=== PATIENT | male | born 1955 | race Caucasian/White ===

== ENCOUNTER 2018-01-28 18:40 | Inpatient (IN) | END 2018-02-05 20:50 | disposition short-term general hospital (02) | DRG 871 ==

== ENCOUNTER 2018-09-05 09:21 | Inpatient (IN) | END 2018-09-29 17:00 | DRG 870 ==

== ENCOUNTER 2018-10-31 20:32 | Inpatient (IN) | payer OTHER, MEDICAID ==
[~2018-10-31] VITALS: Ht 172.7 cm; Wt 61.0 kg
[~2018-10-31 20:32] MED LIST: ACET325T45 GTB; BISA10SU75 PR; DOCU-159 GTB; ENOX30DI2 SC; ESCI10TA GTB; IPRA3AMP29 INHALATION; LANS30CA GTB; METO-448 GTB; MIDO5TAB GTB; MORP10SO GTB; MULTI GTB; PANT40TA3 GTB; UDFER GTB
--- NOTE | 2018-10-31 20:59 | ERD ---
ER Documentation Chief Complaint Chief Complaint ALOC SINCE 3PM; "ABNORMAL LABS" PER EMS HPI 63-year-old man with multiple medical conditions including quadriplegia, bedbound state, chronic respiratory failure with tracheostomy connected to mechanical ventilator parotid by EMS from halfway facility for altered mental status since this afternoon. Urine was drawn this afternoon it was positive for urinary tract infection. He has had tactile fevers today as well. HPI was limited as patient is nonverbal but it was supplemented by speaking to EMS, reviewing past medical history, reviewing correction records, speaking with staff. ROS All systems reviewed and are negative except as per history of present illness. Medications Home Meds Reported Medications Pantoprazole* (Protonix*) 40 Mg Tablet., 40 MG GTB DAILY, TAB 09/05/18 Multivitamins* (Theragran*) 1 Tab Tab, 1 TAB GTB DAILY, TAB 09/05/18 Morphine Sulfate* (Morphine* Liq) 10 Mg/5 Ml Solution, 5 MG GTB Q4H PRN for MODERATE TO SEVERE PAIN, ML 09/05/18 Midodrine* (Midodrine*) 5 Mg Tablet, 5 MG GTB TID, TAB HOLD FOR SBP >120 09/05/18 Metoprolol Tartrate* (Lopressor*) 25 Mg Tab, 12.5 MG GTB BID, #60 TAB HOLD FOR SBP<110 OR HR<60 09/05/18 Ferrous Sulfate (Ferrous Sulfate) 300 Mg/5 Ml Liquid, 330 MG GTB BID 09/05/18 Enoxaparin Sodium* (Enoxaparin Sodium*) 30 Mg/0.3 Ml Syringe, 30 MG SC DAILY, SYR 09/05/18 Acetaminophen* (Acetaminophen*) 325 Mg Tablet, 325 MG GTB 30min prior PRN for PAIN AND OR ELEVATED TEMP, #30 TAB 30 min prior to treatment 09/05/18 Escitalopram Oxalate* (Lexapro*) 10 Mg Tablet, 10 MG GTB DAILY, #30 TAB 03/22/18 Lansoprazole* (Lansoprazole*) 30 Mg Capsule., 30 MG GTB DAILY, CAP 03/22/18 Ipratropium-Albuterol (Ipratropium-Albuterol) 0.5-3 Mg/3 Ml Ampul.neb, 3 ML INHALATION QID, #30 VIAL 01/28/18 Bisacodyl* (Bisacodyl*) 10 Mg Supp, 10 MG ID Q24H for CONSTIPATION, SUPP 01/28/18 Docusate Sodium* (Docusate Sodium*) 100 Mg Capsule, 100 MG GTB BID, #60 CAP 01/28/18 Acetaminophen* (Acetaminophen*) 325 Mg Tablet, 650 MG GTB Q6H PRN for MILD PAIN LEVEL 1-3, #30 TAB AND FOR FEVER>100.5F 01/28/18 Allergies Allergies: Coded Allergies: No Known Allergy (Unverified , 09/05/18) PMhx/Soc DNR status, respiratory failure with tracheostomy tube mechanical ventilator dependent, history of partial small bowel obstruction, obstructive uropathy, dysphagia with gastrostomy tube, CAD history of SD, hypertension, dysphasia, 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 Hx Cardiac Disorders: No (unable to assess) Hx Psychiatric Problems: No (unable to assess) Hx Alcohol Use: No (unable to assess) Hx Substance Use: No (unable to assess) Hx Tobacco Use: No (unable to assess) FmHx Family History: diabetes Physical Exam Vitals Vital Signs Date Temp Pulse Resp B/P (MAP) Pulse Ox O2 O2 Flow FiO2 Time Delivery Rate 10/31/18 85 18 98 45 20:40 10/31/18 102.7 85 12 93/65 (74) 98 20:37 Physical Exam GENERAL: Elderly, chronically debilitated, encephalopathic, febrile, appears dehydrated HEENT: Dry mucous membranes, tracheostomy tube in place, pink conjunctive, no goiter NEURO: Patient is able to speak and answer questions, pupils equal round and reactive to light, he has diffuse muscular wasting in upper and lower extremity contractures, quadriplegic CARDIAC: Tachycardic and regular, no murmurs rubs or gallops LUNGS: Clear bilaterally no wheezing crackles or stridor ABDOMEN: Soft nontender, no guarding, no rigidity, no rebound, no psoas sign no obturator sign. SKIN: Hot to touch and dry, no lacerations, no hematomas EXTREMITIES: No clubbing cyanosis or edema, calves are bilaterally symmetrical, no Homans sign, no popliteal cord sign. Distal pulses equal and bilateral Result Diagram: 11/01/18 0456 11/01/18 0456 Results 24 hrs Laboratory Tests Test 10/31/18 20:49 10/31/18 21:00 White Blood Count 10.4 10^3/ul Red Blood Count 3.89 10^6/ul Hemoglobin 11.2 g/dl Hematocrit 36.7 % Mean Corpuscular Volume 94.3 fl Mean Corpuscular Hemoglobin 28.8 pg Mean Corpuscular Hemoglobin Concent 30.5 g/dl Red Cell Distribution Width 15.1 % Platelet Count 232 10^3/UL Mean Platelet Volume 11.3 fl Immature Granulocytes % 0.300 % Neutrophils % 76.4 % Lymphocytes % 10.0 % Monocytes % 12.6 % Eosinophils % 0.2 % Basophils % 0.5 % Nucleated Red Blood Cells % 0.0 /100WBC Immature Granulocytes # 0.030 10^3/ul Neutrophils # 7.9 10^3/ul Lymphocytes # 1.0 10^3/ul Monocytes # 1.3 10^3/ul Eosinophils # 0.0 10^3/ul Basophils # 0.1 10^3/ul Nucleated Red Blood Cells # 0.0 10^3/ul Prothrombin Time 13.7 Sec Prothrombin Time Ratio 1.1 INR International Normalized Ratio 1.04 Activated Partial Thromboplast Time 25.6 Sec Sodium Level 145 mmol/L Potassium Level 5.0 mmol/L Chloride Level 106 mmol/L Carbon Dioxide Level 30 mmol/L Anion Gap 9 Blood Urea Nitrogen 49 mg/dl Creatinine 0.75 mg/dl Est Glomerular Filtrat Rate mL/min > 60 mL/min Glucose Level 99 mg/dl Calcium Level 9.5 mg/dl Total Bilirubin 0.3 mg/dl Direct Bilirubin 0.00 mg/dl Indirect Bilirubin 0.3 mg/dl Aspartate Amino Transf (AST/SGOT) 25 IU/L Alanine Aminotransferase (ALT/SGPT) 40 IU/L Alkaline Phosphatase 167 IU/L Troponin I 0.027 ng/ml Total Protein 7.7 g/dl Albumin 4.0 g/dl Globulin 3.70 g/dl Albumin/Globulin Ratio 1.08 Lipase 304 U/L Urine Color YELLOW Urine Clarity CLOUDY Urine pH 5.0 Urine Specific Clubb 1.017 Urine Ketones NEGATIVE mg/dL Urine Nitrite NEGATIVE mg/dL Urine Bilirubin NEGATIVE mg/dL Urine Urobilinogen NEGATIVE mg/dL Urine Leukocyte Esterase 3+ Gena/ul Urine Microscopic RBC 22 /HPF Urine Microscopic WBC > 182 /HPF Urine Bacteria FEW /HPF Urine Yeast (Budding) MANY /HPF Urine Hemoglobin NEGATIVE mg/dL Urine Glucose 1+ mg/dL Urine Total Protein 2+ mg/dl Current Medications Medications Dose Sig/Autumn Start Time Status Last (Trade) Ordered Route PRN Stop Time Admin Dose Reason Admin Cefepime HCl 50 ml @ ONCE ONCE 10/31/18 DC 10/31/18 100 mls/hr IVPB 21:00 21:21 10/31/18 21:29 650 mg ONCE ONCE 10/31/18 DC Acetaminophen ID 21:00 (Tylenol 10/31/18 21:27 Supp) Sodium 4,000 ml BOLUS OVER 2 10/31/18 DC 10/31/18 Chloride HOURS STAT 21:00 21:21 (NS) IV* 10/31/18 21:04 Procedures/MDM IV line was established patient was placed on electrical tests supervisor rhythm strip revealed a sinus rhythm at about 80 bpm with upright P and T waves. Patient was febrile, blood and urine cultures have been ordered results are pending I will follow-up. EKG performed, read by me revealed a normal sinus rhythm at 84 bpm, left axis deviation, narrow QRS complex, no concerning ST elevations or depressions noted I administered 4 L normal saline IV, acetaminophen per G-tube, and cefepime 1 g IV. CBC is unremarkable, electrolytes revealed dehydration with a BUN/creatinine 49/0.8, liver function tests normal, troponin negative, urinalysis positive for infection, lactic acid levels were low. I do not suspect sepsis. Patient admitted to telemetry setting for continued IV hydration and IV antibiotics. Departure Diagnosis: Primary Impression: Sepsis Sepsis type: sepsis due to unspecified organism Qualified Codes: A41.9 - Sepsis, unspecified organism Additional Impressions: Acute UTI Dehydration Acute encephalopathy Quadriplegia Condition: BALTA Ford MD Oct 31, 2018 20:59
[2018-10-31] MEDS ORDERED: SODIUM CHLORIDE 0.9% 1L BAG IV* STA (21:00)
[2018-10-31] MEDS ORDERED: CEFEPIME 1GM/50 ML (PMX) 50 ML IVPB ONE (21:00)
[2018-10-31] MEDS ORDERED: ACETAMINOPHEN 650 MG SUPP PR ONE (21:00)
[2018-10-31] MEDS ORDERED: ACETAMINOPHEN 325 MG TAB GTB ONE (21:30)
[2018-11-01] VITALS (32 sets, daily range): BP systolic 95–144; BP diastolic 59–129; PULSE 55–73; RESP 15–24; Ht 172.7 cm; Wt 61.0 kg
[2018-11-01] MEDS ORDERED: ACETAMINOPHEN 325 MG TAB GTB PRN
[2018-11-01] MEDS ORDERED: ALBUTEROL/IPRATROPIUM (NEB) 3 ML AMP HHN SCH
--- NOTE | 2018-11-01 00:52 | HP ---
DATE OF ADMISSION: 10/31/2018 CHIEF COMPLAINT AND HISTORY OF PRESENT ILLNESS: The patient is a 63-year-old gentleman well known to me from previous several admissions. The patient has a history of C-spine epidural abscess 2 weeks ago for which he underwent surgery; however has remained quite quadriplegic since then. The patient has also been on ventilator and is being fed through G-tube. The patient yesterday was noted to have fever at [facility] unit and urine culture, blood culture, sputum culture and routine labs were ordered. The patient's white count was normal; however, UA was positive for UTI. The patient is with history of Klebsiella UTI which was sensitive to imipenem. The patient was therefore started empirically on iv ertapenam The patient today at a longterm facility was noted to be unresponsive. The patient was sent to [facility] ER for further evaluation and management. I sent the patient in the ER, did spike temperature to 102.7. The patient received empiric cefepime in the ER along with fluid bolus. Lactic acid level came back only at 0.8. However, the patient was noted to be slightly hypertensive and clinically looked dry with BUN of 49 as compared to 33 six days ago while he was at [facility]. The patient is being admitted for further evaluation and management. The patient's mental status in the ER after giving fluids has improved and the patient is awake and responsive, which is at his baseline. The patient did not have any seizure. No reported hematemesis or melena. The patient recently did have upper GI bleed and also Clostridium difficile colitis. The patient did not have any abdominal distention. There is no leg edema. The patient is severely contracted in all extremities. The patient also has right corneal opacity and is blind in the right eye. The patient also has chronic sacral decubitus. REVIEW OF SYSTEMS: A total of 12 systems reviewed and all pertinent positive and negative findings have been described in the HPI. PAST MEDICAL HISTORY: As stated above. The patient recently was admitted at [facility] for C. diff colitis as well as upper GI bleed with aspiration pneumonia. ALLERGIES: NONE. SOCIAL HISTORY: The patient is a resident of [facility] The patient is an ex- smoker. Also, history of substance abuse in the past and alcohol abuse. Details are not available. FAMILY HISTORY: Noncontributory for patient's condition. PAST SURGICAL HISTORY: Cervical laminectomy, tracheostomy, G-tube placement and history of percutaneous endoscopic gastrostomy. PHYSICAL EXAMINATION: GENERAL: The patient was noted to be currently awake, follows simple commands. VITAL SIGNS: T-max 102.7, pulse 85, respirations 12, blood pressure 93/65, O2 saturation 98% on FiO2 of 45%. The patient is still on vent. HEENT: Atraumatic, normocephalic. Right corneal opacity unchanged. No eye discharge. Nose and ears are normal. NECK: Tracheostomy in place. No mass, no JVD. CHEST: Diminished air entry at bases. No use of accessory muscles. CARDIOVASCULAR: S1, S2 normal. No murmur. ABDOMEN: Soft, nondistended, nontender. EXTREMITIES: Severely contracted. NEUROLOGIC: The patient is awake, quadriplegic. SKIN: Without acute rash. Chronic sacral decubitus, stable. DIAGNOSTIC DATA: Chest x-ray: Mild right lower lobe atelectasis. LABORATORY DATA: Reviewed. UA: Positive for 3+ leukocyte esterase, more than 182 WBCs. The patient also has many yeast. WBC 10.4, hemoglobin 11.2, platelet 237. Sodium 145 up from 139, potassium 5, BUN 49, creatinine 0.7, glucose 99, calcium 9.5. AST 25, ALT 40, alkaline phosphatase 167, albumin 4. IMPRESSION: 1. Sepsis due to urinary tract infection. 2. Chronic respiratory failure, vent dependent. 3. 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 4. Acute kidney injury. 5. Right corneal opacity chronic with blindness. 6. Possible history of coronary artery disease with history of myocardial infarction. 7. Chronic sacral coccygeal decubitus. PLAN: The patient will be admitted on telemetry. The patient will be started on IV cefepime 1 gram b.i.d. ESBL Klebsiella pneumoniae back in 08/2018 was indeed sensitive to cefepime. We will continue the vent support. We will give free water due to hypernatremia and elevated BUN. We will continue wound care. We will hold off on metoprolol due to low blood pressure. The patient also has history of depression and we will continue Lexapro due to recent GI bleed possibly due to esophagitis or peptic disease. We will continue proton pump inhibitor. We will also continue tube feeding and we will do followup labs. Pulmonary consult from Dr. Hernández group will be obtained. We will also obtain infectious consult from Dr. Tesfaye. Meanwhile, the patient has had urine and blood culture sent from ER. Further recommendation will depend on patient's hospital course. The patient a few weeks ago at longterm facility was awake, alert and fairly oriented to answer question and he himself had requested to be DNR. I spoke with his sister Krissy [phone] and updated her regarding patient's condition & his desire to be DNR. She concurred with his decision to be DNR Dictated By: LORRAINE SHAH MD AB/NTS Conf#: [id number] DID#: [id number] CC: BALTA SOTOMAYOR MD;*EndCC* MTDD
[2018-11-01] MEDS: DEXTROSE 5% 1,000 ML IV SCH ×3 (02:12→21:45)
[2018-11-01] MEDS: BISACODYL 10 MG SUPP PR SCH (02:17)
[2018-11-01] MEDS ORDERED: PANTOPRAZOLE (EC) 40 MG TAB PO SCH (09:00)
[2018-11-01] MEDS ORDERED: MULTIVITAMINS THERAPEUTIC TAB GTB SCH (09:00)
[2018-11-01] MEDS ORDERED: DOCUSATE SODIUM 100 MG CAP PO SCH (09:00)
[2018-11-01] MEDS: FERROUS SULFATE 60 MG/ML 5ML CUP GTB SCH ×2 (09:00→21:30)
[2018-11-01] MEDS: DOCUSATE SODIUM 10 MG/ML (10ML CUP) GTB SCH ×2 (09:00→21:30)
[2018-11-01] MEDS: LANSOPRAZOLE 30 MG CAP GTB SCH (09:01)
[2018-11-01] MEDS: MULTIVITAMINS 30 ML CUP GTB SCH (09:01)
[2018-11-01] MEDS: MIDODRINE 5 MG TAB GTB SCH ×3 (09:01→21:31)
[2018-11-01] MEDS: ESCITALOPRAM 10 MG TAB GTB SCH (09:02)
[2018-11-01] MEDS: ENOXAPARIN 30 MG/0.3 ML SYG SC SCH (09:10)
[2018-11-01] MEDS: ALBUTEROL HFA 8 GM INHALER INH SCH ×3 (10:35→20:00)
[2018-11-01] MEDS: IPRATROPIUM (HFA) 12.9 GM INHALER INH SCH ×3 (10:35→20:00)
[2018-11-01] MEDS: CEFEPIME 1GM/50 ML (PMX) 50 ML IVPB SCH ×2 (11:09→21:30)
--- NOTE | 2018-11-01 11:25 | CONS ---
Date/Time of Note Date/Time of Note DATE: 11/01/18 TIME: 11:17 Assessment/Plan Assessment/Plan Additional Assessment/Plan IMP: 1. Urosepsis 2. Chronic respiratory failure, vent dependent. 3. 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 4. Pre-renal azotemia 5. Right corneal opacity chronic with blindness. 6. History of coronary artery disease with history of myocardial infarction. 7. Chronic sacral coccygeal decubitus RECS: 1. IVF's 2. Follow lactate clearance 3. Abx 4. Plans to de-escalate abx pending cultures 5. Vent support; orders completed 6. DVT/GI prophylaxis 7. Wound Care 8. TF/Free H20 Consultation Date/Type/Reason Admit Date/Time Oct 31, 2018 at 21:21 Date of Consultation: Nov 01, 2018 Type of Consult Pulm/CCM Reason for Consultation VDRF Hx of Present Illness Briefly, this is a 63-year-old gentleman with history of coronary artery disease, rnon-ST elevation [place], hypertension, history of aspiration pneumonia and chronic respiratory failure, C-spine epidural abscess, status post C3 to C4 laminectomy, quadriplegic, vent-dependent, prior Klebsiella UTI, obstructive uropathy, SNF resident. He was transferred from SNF with ALOC and fevers. Subjective hx not possible: pt non-verbal Past Medical History Medical History: coronary artery disease, hypertension, renal disease, urinary tract infection Past Surgical History Past Surgical Hx: other Family History Significant Family History: no pertinent family hx Social History Alcohol Use: none Smoking Status: Former smoker Drug Use: none Exam/Review of Systems Vital Signs Vitals Vital Signs Date Temp Pulse Resp B/P (MAP) Pulse Ox O2 O2 Flow FiO2 Time Delivery Rate 11/01/18 68 18 118/76 99 [place] 11:00 (90) l Ventilato r 11/01/18 100.1 09:03 11/01/18 40 08:00 Intake and Output 10/31/18 10/31/18 11/01/18 1515:00 23:00 07:00 IntakeIntake Total 280 ml OutputOutput Total 510 ml BalanceBalance -230 ml Exam Constitutional: non-verbal Head: normocephalic, atraumatic Eyes: nl conjunctiva, nl lids, nl sclera ENMT: nl external ears & nose, nl lips & teeth, nl nasal mucosa & septum, intubated Neck: supple, non-tender Respiratory: clear to auscultation, normal air movement Cardiovascular: regular rate and rhythm, nl pulses Gastrointestinal: soft, nl liver, spleen, non-tender Musculoskeletal: other (contracted ) Extremities: normal pulses, edema Neurological: lethargic Medications Medications Current Medications Acetaminophen (Tylenol Tab) 650 mg Q6H PRN GTB MILD PAIN LEVEL 1-3 Last administered on 11/01/18 09:03; Admin Dose 650 MG; Start 11/01/18 at 00:00 Bisacodyl (Dulcolax Supp) 10 mg Q24H CA Last administered on 11/01/18 02:17; Admin Dose 10 MG; Start 11/01/18 at 00:00 Enoxaparin Sodium (Lovenox) 30 mg DAILY SC Last administered on 11/01/18 09:10; Admin Dose 30 MG; Start 11/01/18 at 09:00 Escitalopram Oxalate (Lexapro) 10 mg DAILY GTB Last administered on 11/01/18 09:02; Admin Dose 10 MG; Start 11/01/18 at 09:00 Ferrous Sulfate (Feosol Liquid Cup) 330 mg BID GTB Last administered on 11/01/18 09:00; Admin Dose 330 MG; Start 11/01/18 at 09:00 Lansoprazole (Prevacid) 30 mg DAILY GTB Last administered on 11/01/18 09:01; Admin Dose 30 MG; Start 11/01/18 at 09:00 Midodrine (Proamatine) 5 mg TID GTB Last administered on 11/01/18 09:01; Admin Dose 5 MG; Start 11/01/18 at 09:00 Morphine Sulfate (morphine) 5 mg Q4H PRN GTB MODERATE TO SEVERE PAIN; Start 11/01/18 at 00:00 Dextrose 1,000 ml @ 60 mls/hr [id number] IV Last administered on 11/01/18 02:12; Admin Dose 60 MLS/HR; Start 11/01/18 at 00:00 Multivitamins (Multivitamin) 30 ml DAILY GTB Last administered on 11/01/18 09:01; Admin Dose 30 ML; Start 11/01/18 at 09:00 Docusate Sodium (Colace Liquid Cup) 100 mg BID GTB Last administered on 11/01/18at 09:00; Admin Dose 100 MG; Start 11/01/18 at 09:00 Albuterol (Ventolin Hfa) 4 puff QID RESP THERAPY INH Last administered on 11/01/18at 10:35; Admin Dose 4 PUFF; Start 11/01/18 at 08:00 Ipratropium Easley (Atrovent Hfa) 4 puff QID RESP THERAPY INH Last administered on 11/01/18at 10:35; Admin Dose 4 PUFF; Start 11/01/18 at 08:00 Cefepime HCl 50 ml @ 100 mls/hr Q12 IVPB Last administered on 11/01/18at 11:09; Admin Dose 100 MLS/HR; Start 11/01/18 at 09:30 Results Result Diagram: 11/01/18 0456 11/01/18 0456 Results 24 hrs Laboratory Tests Test 10/31/18 20:49 10/31/18 21:00 10/31/18 22:20 11/01/18 00:05 White Blood Count 10.4 # Red Blood Count 3.89 L Hemoglobin 11.2 L Hematocrit 36.7 L Mean Corpuscular 94.3 Volume Mean Corpuscular 28.8 L Hemoglobin Mean Corpuscular 30.5 L Hemoglobin Concent Red Cell 15.1 H Distribution Width Platelet Count 232 Mean Platelet Volume 11.3 H Immature 0.300 Granulocytes % Neutrophils % 76.4 Lymphocytes % 10.0 L Monocytes % 12.6 H Eosinophils % 0.2 Basophils % 0.5 Nucleated Red Blood 0.0 Cells % Immature 0.030 Granulocytes # Neutrophils # 7.9 H Lymphocytes # 1.0 Monocytes # 1.3 H Eosinophils # 0.0 Basophils # 0.1 Nucleated Red Blood 0.0 Cells # Prothrombin Time 13.7 Prothrombin Time 1.1 Ratio INR International 1.04 Normalized Ratio Activated 25.6 Partial Thromboplast Time Sodium Level 145 H Potassium Level 5.0 Chloride Level 106 Carbon Dioxide Level 30 Anion Gap 9 Blood Urea Nitrogen 49 H Creatinine 0.75 Est Glomerular > 60 Filtrat Rate mL/min Glucose Level 99 Calcium Level 9.5 Total Bilirubin 0.3 Direct Bilirubin 0.00 Indirect Bilirubin 0.3 Aspartate Amino 25 Transf (AST/SGOT) Alanine 40 Aminotransferase (AL T/SGPT) Alkaline Phosphatase 167 H Troponin I 0.027 Total Protein 7.7 Albumin 4.0 Globulin 3.70 H Albumin/Globulin 1.08 Ratio Lipase 304 H Urine Color YELLOW Urine Clarity CLOUDY A Urine pH 5.0 Urine Specific 1.017 Hatch Urine Ketones NEGATIVE Urine Nitrite NEGATIVE Urine Bilirubin NEGATIVE Urine Urobilinogen NEGATIVE Urine Leukocyte 3+ H Esterase Urine Microscopic 22 H RBC Urine Microscopic > 182 H WBC Urine Bacteria FEW A Urine Yeast MANY A (Budding) Urine Hemoglobin NEGATIVE Urine Glucose 1+ H Urine Total Protein 2+ H Lactic Acid Level 0.8 0.9 Test 11/01/18 04:56 White Blood Count 8.5 Red Blood Count 3.15 L Hemoglobin 9.1 L Hematocrit 29.6 L Mean Corpuscular 94.0 Volume Mean Corpuscular 28.9 L Hemoglobin Mean Corpuscular 30.7 L Hemoglobin Concent Red Cell 15.2 H Distribution Width Platelet Count 168 # Mean Platelet Volume 11.1 H Immature 0.400 Granulocytes % Neutrophils % 72.4 Lymphocytes % 15.9 Monocytes % 10.2 Eosinophils % 0.4 Basophils % 0.7 Nucleated Red Blood 0.0 Cells % Immature 0.030 Granulocytes # Neutrophils # 6.1 Lymphocytes # 1.4 Monocytes # 0.9 Eosinophils # 0.0 Basophils # 0.1 Nucleated Red Blood 0.0 Cells # Sodium Level 144 Potassium Level 4.2 Chloride Level 112 H Carbon Dioxide Level 24 Anion Gap 8 Blood Urea Nitrogen 31 #H Creatinine 0.61 Est Glomerular > 60 Filtrat Rate mL/min Glucose Level 101 Lactic Acid Level 0.8 Calcium Level 8.6 MIGUEL SWARTZ MD Nov 01, 2018 11:25
--- NOTE | 2018-11-01 15:56 | PN ---
Date/Time of Note Date/Time of Note DATE: 11/01/18 TIME: 15:53 Assessment/Plan VTE Prophylaxis Risk score (from [facility] [place])>0 risk: 7 SCD applied (from [facility] [place]): Yes SCD contraindicated: other Pharmacological prophylaxis: other Lines/Catheters IV C[facility]ter Type (from [facility] Mid Line Central line still needed: Yes Urinary Cath still in place: Yes Reason Cath still needed: urinary retention Assessment/Plan Assessment/Plan 1. Sepsis due to urinary tract infection. - ID consulted- notified 2. Chronic respiratory failure, vent dependent. - pulmonary consulted- Dr Avila 3. 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 4. Acute kidney injury. 5. Right corneal opacity chronic with blindness. 6. Possible history of coronary artery disease with history of myocardial infarction. 7. Chronic sacral coccygeal decubitus. Exam/Review of Systems Vital Signs Vitals Vital Signs Date Temp Pulse Resp B/P (MAP) Pulse Ox O2 O2 Flow FiO2 Time Delivery Rate 11/01/18 65 16 128/86 99 Mechanical 15:00 (100) Ventilator 11/01/18 40 12:00 11/01/18 99.5 12:00 Intake and Output 10/31/18 10/31/18 11/01/18 1515:00 23:00 07:00 IntakeIntake Total 280 ml OutputOutput Total 510 ml BalanceBalance -230 ml Exam Constitutional: non-verbal, frail Eyes: nl conjunctiva, nl lids ENMT: nl external ears & nose Neck: other Respiratory: diminished breath sounds Gastrointestinal: soft Musculoskeletal: muscle weakness, range of motion Extremities: normal pulses Neurological: confused, unresponsive Medications Medications Current Medications Bisacodyl (Dulcolax Supp) 10 mg Q24H SD Last administered on 11/01/18at 02:17; Admin Dose 10 MG; Start 11/01/18 at 00:00 Enoxaparin Sodium (Lovenox) 30 mg DAILY SC Last administered on 11/01/18at 09:10; Admin Dose 30 MG; Start 11/01/18 at 09:00 Escitalopram Oxalate (Lexapro) 10 mg DAILY GTB Last administered on 11/01/18at 09:02; Admin Dose 10 MG; Start 11/01/18 at 09:00 Ferrous Sulfate (Feosol Liquid Cup) 330 mg BID GTB Last administered on 11/01/18at 09:00; Admin Dose 330 MG; Start 11/01/18 at 09:00 Lansoprazole (Prevacid) 30 mg DAILY GTB Last administered on 11/01/18at 09:01; Admin Dose 30 MG; Start 11/01/18 at 09:00 Midodrine (Proamatine) 5 mg TID GTB Last administered on 11/01/18at 13:35; Admin Dose 5 MG; Start 11/01/18 at 09:00 Morphine Sulfate (morphine) 5 mg Q4H PRN GTB MODERATE TO SEVERE PAIN; Start 11/01/18 at 00:00 Dextrose 1,000 ml @ 60 mls/hr [id number] IV Last administered on 11/01/18at 02:12; Admin Dose 60 MLS/HR; Start 11/01/18 at 00:00 Multivitamins (Multivitamin) 30 ml DAILY GTB Last administered on 11/01/18at 09:01; Admin Dose 30 ML; Start 11/01/18 at 09:00 Docusate Sodium (Colace Liquid Cup) 100 mg BID GTB Last administered on 11/01/18at 09:00; Admin Dose 100 MG; Start 11/01/18 at 09:00 Cefepime HCl 50 ml @ 100 mls/hr Q12 IVPB Last administered on 11/01/18at 11:09; Admin Dose 100 MLS/HR; Start 11/01/18 at 09:30 Acetaminophen (Tylenol Liquid) 650 mg Q6H PRN GTB MILD PAIN(1-3)OR ELEVATED TEMP; Start 11/01/18 at 12:00 Albuterol (Ventolin Hfa) 4 puff Q6 INH ; Start 11/01/18 at 18:00 Ipratropium [place] (Atrovent Hfa) 4 puff Q6 INH ; Start 11/01/18 at 18:00 Fluconazole (Diflucan) 200 mg DAILY GTB ; Start 11/02/18 at 09:00 Results Result Diagram: 11/01/18 0456 11/01/18 0456 Results 24 hrs Laboratory Tests Test 10/31/18 20:49 10/31/18 21:00 10/31/18 22:20 11/01/18 00:05 White Blood Count 10.4 # Red Blood Count 3.89 L Hemoglobin 11.2 L Hematocrit 36.7 L Mean Corpuscular 94.3 Volume Mean Corpuscular 28.8 L Hemoglobin Mean Corpuscular 30.5 L Hemoglobin Concent Red Cell 15.1 H Distribution Width Platelet Count 232 Mean Platelet Volume 11.3 H Immature 0.300 Granulocytes % Neutrophils % 76.4 Lymphocytes % 10.0 L Monocytes % 12.6 H Eosinophils % 0.2 Basophils % 0.5 Nucleated Red Blood 0.0 Cells % Immature 0.030 Granulocytes # Neutrophils # 7.9 H Lymphocytes # 1.0 Monocytes # 1.3 H Eosinophils # 0.0 Basophils # 0.1 Nucleated Red Blood 0.0 Cells # Prothrombin Time 13.7 Prothrombin Time 1.1 Ratio INR International 1.04 Normalized Ratio Activated 25.6 Partial Thromboplast Time Sodium Level 145 H Potassium Level 5.0 Chloride Level 106 Carbon Dioxide Level 30 Anion Gap 9 Blood Urea Nitrogen 49 H Creatinine 0.75 Est Glomerular > 60 Filtrat Rate mL/min Glucose Level 99 Calcium Level 9.5 Total Bilirubin 0.3 Direct Bilirubin 0.00 Indirect Bilirubin 0.3 Aspartate Amino 25 Transf (AST/SGOT) Alanine 40 Aminotransferase (AL T/SGPT) Alkaline Phosphatase 167 H Troponin I 0.027 Total Protein 7.7 Albumin 4.0 Globulin 3.70 H Albumin/Globulin 1.08 Ratio Lipase 304 H Urine Color YELLOW Urine Clarity CLOUDY A Urine pH 5.0 Urine Specific 1.017 [place] Urine Ketones NEGATIVE Urine Nitrite NEGATIVE Urine Bilirubin NEGATIVE Urine Urobilinogen NEGATIVE Urine Leukocyte 3+ H Esterase Urine Microscopic 22 H RBC Urine Microscopic > 182 H WBC Urine Bacteria FEW A Urine Yeast MANY A (Budding) Urine Hemoglobin NEGATIVE Urine Glucose 1+ H Urine Total Protein 2+ H Lactic Acid Level 0.8 0.9 Test 11/01/18 04:56 White Blood Count 8.5 Red Blood Count 3.15 L Hemoglobin 9.1 L Hematocrit 29.6 L Mean Corpuscular 94.0 Volume Mean Corpuscular 28.9 L Hemoglobin Mean Corpuscular 30.7 L Hemoglobin Concent Red Cell 15.2 H Distribution Width Platelet Count 168 # Mean Platelet Volume 11.1 H Immature 0.400 Granulocytes % Neutrophils % 72.4 Lymphocytes % 15.9 Monocytes % 10.2 Eosinophils % 0.4 Basophils % 0.7 Nucleated Red Blood 0.0 Cells % Immature 0.030 Granulocytes # Neutrophils # 6.1 Lymphocytes # 1.4 Monocytes # 0.9 Eosinophils # 0.0 Basophils # 0.1 Nucleated Red Blood 0.0 Cells # Sodium Level 144 Potassium Level 4.2 Chloride Level 112 H Carbon Dioxide Level 24 Anion Gap 8 Blood Urea Nitrogen 31 #H Creatinine 0.61 Est Glomerular > 60 Filtrat Rate mL/min Glucose Level 101 Lactic Acid Level 0.8 Calcium Level 8.6 CLEMENT WATSON Nov 01, 2018 15:56
--- NOTE | 2018-11-01 17:38 | CONS ---
DATE OF ADMISSION: 10/31/2018 DATE OF CONSULTATION: 11/01/2018 DATE OF CONSULTATION: 11/01/2018 TYPE OF CONSULTATION: Infectious Disease. REASON FOR CONSULTATION: Antibiotic management. HISTORY OF PRESENT ILLNESS: Kenton Gan is a 63-year-old male who comes in with numerous probl ems and is being seen for antibiotic management. The patient has been hospitalized on a number of oc casions. His past problems include: 1. History of C-spine epidural abscess 2 weeks ago for which he underwent surgery. The patient nolan ins quadriplegic since then. He has been on a ventilator and is being fed through G-tube. He had fe wally in the subacute unit. Urine, blood and sputum cultures were done. Routine labs were ordered. U A was positive for UTI. The patient has a history of Klebsiella UTI which was sensitive to imipenem. Therefore, he was started on imipenem. He was unresponsive in the [facility], was sent to the em ergency room at [facility] for further management. He spiked a temperature of 102.7. He re ceived empiric cefepime in the ER along with a fluid bolus. Lactic acid came back at 0.8. His BUN w as 49 as compared to 33 six days ago while he was at [place]. He is being admitted for further evalua tion and management. The patient came awake and responsive after being given fluids. He had no seiz ures. He recently had an upper GI bleed and also had Clostridium difficile colitis. Patient is eloina rely contracted. He has right corneal opacity and is blind in the right eye. He also has a chronic sacral decubitus ulcer. PAST MEDICAL HISTORY: As outlined. PAST SURGICAL HISTORY: Status post cervical laminectomy, tracheostomy, G-tube placement. Today his white count is 8.5. Urine shows 3+ leukocyte esterase, greater than 182 white cells per high powered field with many budding yeast and few bacteria. He is on cefepime. A chest x-ray shows mild right lower lobe atelectasis, calcified aorta consistent with aortic atherosclerosis. The patient has uros epsis, C-spine quadriplegia, history of C-spine abscess status post surgery, prerenal azotemia. PAST MEDICAL HISTORY: As outlined. FAMILY HISTORY: Noncontributory. SOCIAL HISTORY: He does not smoke, drink or abuse drugs. PHYSICAL EXAMINATION: GENERAL: The patient is nonverbal. He has a trach and a PEG. VITAL SIGNS: T-max was 102.7, now 100.1. SKIN: Without generalized rash. HEENT: Within normal limits. NECK: Supple. He has a tracheostomy. LYMPH NODES: None palpable. CHEST: Decreased breath sounds at the bases. HEART: Without murmur or gallop. ABDOMEN: Soft, nontender, without organosplenomegaly or masses. EXTREMITIES: Severely contracted. RECTAL AND GENITAL: Deferred. NEUROLOGIC: Quadriplegic. He has chronic sacral decubitus ulcer. IMPRESSION AND PLAN: The patient is currently on cefepime. I am going to add fluconazole to his reg imen since he has multiple budding yeast in his urine. We will await the culture reports. I will di ctate my findings to Dr. Shah and . Dictated By: JACQUES FARRELL MD, JD/NTS Conf#: [id number] DID#: [id number] CC: LORRAINE SHAH MD;*EndCC*
[2018-11-02] VITALS (23 sets, daily range): BP systolic 108–152; BP diastolic 63–84; PULSE 57–89; RESP 18–22
[2018-11-02] MEDS: BISACODYL 10 MG SUPP PR SCH (00:40)
[2018-11-02] MEDS: IPRATROPIUM (HFA) 12.9 GM INHALER INH SCH ×6 (02:21→19:42)
[2018-11-02] MEDS: ALBUTEROL HFA 8 GM INHALER INH SCH ×5 (02:22→19:42)
[2018-11-02] MEDS: FLUCONAZOLE 200 MG TAB GTB SCH (08:49)
[2018-11-02] MEDS: ESCITALOPRAM 10 MG TAB GTB SCH (08:49)
[2018-11-02] MEDS: FERROUS SULFATE 60 MG/ML 5ML CUP GTB SCH ×2 (08:49→21:06)
[2018-11-02] MEDS: DOCUSATE SODIUM 10 MG/ML (10ML CUP) GTB SCH ×2 (08:49→21:06)
[2018-11-02] MEDS: LANSOPRAZOLE 30 MG CAP GTB SCH (08:49)
[2018-11-02] MEDS: CEFEPIME 1GM/50 ML (PMX) 50 ML IVPB SCH ×2 (08:50→21:06)
[2018-11-02] MEDS: ENOXAPARIN 30 MG/0.3 ML SYG SC SCH (09:04)
[2018-11-02] MEDS: MIDODRINE 5 MG TAB GTB SCH ×2 (09:06→13:00)
[2018-11-02] MEDS: MULTIVITAMINS 30 ML CUP GTB SCH (13:28)
[2018-11-02] MEDS: DEXTROSE 5% 1,000 ML IV SCH (14:39)
--- NOTE | 2018-11-02 14:49 | PN ---
DATE: 11/02/2018 SUBJECTIVE: The patient is lying comfortably in bed. He is in no distress, very diaphoretic, afebri le. LABORATORY DATA: WBC today 6.9, no shift, no bands. BUN 21, creatinine 0.54. MICROBIOLOGY: Blood culture growing gram-positive cocci in clusters. Urine culture growing yeast. Endotracheal aspirate growing gram-negative rods. INDWELLINGS: Trach, PEG. ANTIMICROBIALS: The patient is on: 1. Fluconazole. 2. Cefepime. PHYSICAL EXAMINATION: GENERAL: This is a chronically ill-appearing, debilitated, elderly man who is diaphoretic, in no dis tress. HEENT: Head atraumatic, normocephalic. Sclerae anicteric. Buccal mucosa dry. NECK: Supple. Tracheostomy present. CHEST: Rise symmetrical. Breath sounds diminished to bases. HEART: S1, S2, tachycardic, regular. ABDOMEN: Soft, bowel tones present. EXTREMITIES: Wasted, contractured. ASSESSMENT: 1. Recurrent sepsis. 2. Bacteremia. 3. Urinary tract infection. 4. Questionable recurrent healthcare-associated pneumonia. 5. History of Clostridium difficile colitis. 6. Quadriplegia status post cervical spine surgery. PLAN: We are going to add vancomycin to the regimen and repeat blood cultures, await for final resul ts. Dictated By: RISA SAWYER [employer] for JACQUES FARRELL MD NI/NTS Conf#: [id number] DID#: [id number] CC: LORRAINE SHAH MD;*EndCC*
[2018-11-02] MEDS ORDERED: VANCOMYCIN IV PER PHARMACY XX SCH (15:00)
--- NOTE | 2018-11-02 15:13 | CONS ---
Date/Time of Note Date/Time of Note DATE: 11/02/18 TIME: 15:11 Consult Date/Type/Reason Admit Date/Time Oct 31, 2018 at 21:21 Initial Consult Date 11/01/18 Type of Consultation: Pulm Subjective Remains stable, no new events. Objective Vital Signs Date Temp Pulse Resp B/P (MAP) Pulse Ox O2 O2 Flow FiO2 Time Delivery Rate 11/02/18 152/76 13:29 (101) 11/02/18 58 19 99 35 13:15 11/02/18 98.0 12:29 11/01/18 Mechanical 20:00 Ventilator Intake and Output 11/01/18 11/01/18 11/02/18 1515:00 23:00 07:00 IntakeIntake Total 300 ml 425 ml 1060 ml OutputOutput Total 670 ml 650 ml 750 ml BalanceBalance -370 ml -225 ml 310 ml Exam Constitutional: non-verbal Head: normocephalic, atraumatic Eyes: nl conjunctiva, nl lids, nl sclera Neck: supple, non-tender Respiratory: clear to auscultation, normal air movement Cardiovascular: regular rate and rhythm, nl pulses Gastrointestinal: soft, nl liver, spleen, non-tender Musculoskeletal: other (contracted ) Extremities: normal pulses, edema Neurological: lethargic Results/Medications Result Diagram: 11/02/18 0645 11/02/18 0645 Results 24 hrs Laboratory Tests Test 11/02/18 05:00 11/02/18 06:44 11/02/18 06:45 Blood Gas Specimen Blood arterial Source Arterial Blood Date 11/02/2018 5:32:25 AM Drawn Arterial Blood pH 7.369 (Temp corrected) Arterial Blood pCO2 43.9 (Temp correct) Arterial Blood pO2 107.2 H (Temp corrected) Arterial Blood HCO3 24.8 Arterial Blood Base -0.7 Excess Arterial Blood 97.6 Oxygen Saturation Yeison Test ACCEPTAB Arterial Blood Gas Right Radial Puncture Site Arterial 0.3 Blood Carboxyhemoglobin Arterial Blood 0 Methemoglobin Blood Gas A-a O2 91.3 H Differential Oxyhemoglobin Percent 97.3 Blood Gas Temperature 37.0 Blood Gas Respiration 18.0 Rate Blood Gas Actual 21 Respiration Rate Blood Gas Modality VENT - AC FiO2 35.0 Blood Gas Tidal Volume 450.0 Blood Gas Low PEEP 5.0 Setting Blood Gas Inspiratory 24.0 Pressure Blood Gas Notified Whom RTR Blood Gas Notified Time 11/02/2018 5:51:41 AM Lactic Acid Level 0.9 White Blood Count 6.9 Red Blood Count 3.70 L Hemoglobin 10.6 L Hematocrit 33.8 L Mean Corpuscular Volume 91.4 Mean Corpuscular 28.6 L Hemoglobin Mean Corpuscular 31.4 L Hemoglobin Concent Red Cell Distribution 14.8 H Width Platelet Count 181 Mean Platelet Volume 10.9 H Immature Granulocytes % 0.400 Neutrophils % 69.5 Lymphocytes % 18.6 Monocytes % 8.9 Eosinophils % 1.9 Basophils % 0.7 Nucleated Red Blood Cells 0.0 % Immature Granulocytes # 0.030 Neutrophils # 4.8 Lymphocytes # 1.3 Monocytes # 0.6 Eosinophils # 0.1 Basophils # 0.1 Nucleated Red Blood Cells 0.0 # Sodium Level 141 Potassium Level 3.9 Chloride Level 106 Carbon Dioxide Level 27 Anion Gap 8 Blood Urea Nitrogen 21 H Creatinine 0.54 L Est Glomerular Filtrat > 60 Rate mL/min Glucose Level 132 Calcium Level 9.2 Medications Current Medications Bisacodyl (Dulcolax Supp) 10 mg Q24H NE Last administered on 11/02/18 00:40; Admin Dose 10 MG; Start 11/01/18 at 00:00 Enoxaparin Sodium (Lovenox) 30 mg DAILY SC Last administered on 11/02/18 09:04; Admin Dose 30 MG; Start 11/01/18 at 09:00 Escitalopram Oxalate (Lexapro) 10 mg DAILY GTB Last administered on 11/02/18 08:49; Admin Dose 10 MG; Start 11/01/18 at 09:00 Ferrous Sulfate (Feosol Liquid Cup) 330 mg BID GTB Last administered on 11/02/18 08:49; Admin Dose 330 MG; Start 11/01/18 at 09:00 Lansoprazole (Prevacid) 30 mg DAILY GTB Last administered on 11/02/18 08:49; Admin Dose 30 MG; Start 11/01/18 at 09:00 Morphine Sulfate (morphine) 5 mg Q4H PRN GTB MODERATE TO SEVERE PAIN; Start 11/01/18 at 00:00 Dextrose 1,000 ml @ 60 mls/hr [id number] IV Last administered on 11/02/18 14:39; Admin Dose 60 MLS/HR; Start 11/01/18 at 00:00 Multivitamins (Multivitamin) 30 ml DAILY GTB Last administered on 11/02/18at 13:28; Admin Dose 30 ML; Start 11/01/18 at 09:00 Docusate Sodium (Colace Liquid Cup) 100 mg BID GTB Last administered on 11/02/18at 08:49; Admin Dose 100 MG; Start 11/01/18 at 09:00 Cefepime HCl 50 ml @ 100 mls/hr Q12 IVPB Last administered on 11/02/18at 08:50; Admin Dose 100 MLS/HR; Start 11/01/18 at 09:30 Acetaminophen (Tylenol Liquid) 650 mg Q6H PRN GTB MILD PAIN(1-3)OR ELEVATED TEMP; Start 11/01/18 at 12:00 Albuterol (Ventolin Hfa) 4 puff Q6H RESP THERAPY INH Last administered on 11/02/18at 13:12; Admin Dose 4 PUFF; Start 11/01/18 at 20:00 Ipratropium [place] (Atrovent Hfa) 4 puff Q6H RESP THERAPY INH Last administ ered on 11/02/18at 13:11; Admin Dose 4 PUFF; Start 11/01/18 at 20:00 Fluconazole (Diflucan) 200 mg DAILY GTB Last administered on 11/02/18at 08:49; Admin Dose 200 MG; Start 11/02/18 at 09:00 Vancomycin HCl (Vanco Iv Per Pharmacy) VANCOMYCIN PER PHARMACY PER PROTOCOL XX ; Start 11/02/18 at 15:00 Assessment/Plan Chief Complaint/Hosp Course IMP: 1. Urosepsis 2. Chronic respiratory failure, vent dependent. 3. 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 4. Pre-renal azotemia 5. Right corneal opacity chronic with blindness. 6. History of coronary artery disease with history of myocardial infarction. 7. Chronic sacral coccygeal decubitus RECS: 1. IVF's 2. Follow lactate clearance 3. Abx 4. Plans to de-escalate abx pending cultures 5. Vent support; orders completed 6. DVT/GI prophylaxis 7. Wound Care 8. TF/Free H20 LIVIA VALDERRAMA MD, [facility] Nov 02, 2018 15:13
--- NOTE | 2018-11-02 15:19 | PN ---
Date/Time of Note Date/Time of Note DATE: 11/02/18 TIME: 15:11 Assessment/Plan VTE Prophylaxis Risk score (from Ns)>0 risk: 9 SCD applied (from [facility]): Yes Pharmacological prophylaxis: LMWH Lines/Catheters [facility] Mid Line Central line still needed: Yes Urinary Cath still in place: Yes Reason Cath still needed: urinary retention Assessment/Plan Hospital Course Assessment/Plan -Recurrent sepsis with bacteremia. Continue antibiotics per ID. Dr. Tesfaye is following in infection disease consultation. -Yeast UTI -Possible healthcare acquired pneumonia -Ventilator dependent respiratory failure. Dr. Hernández is following in pulmonology consultation. -Obstructive uropathy -Coronary artery disease with history of ND -Hypertension -Dysphagia with PEG -Quadriplegia 2 to C-spine abscess -C-spine epidural abscess, status post C3 to C4 laminectomy -DNR status Further recommendations based on clinical course. Plan of care discussed with Dr. Bautista. Exam/Review of Systems Vital Signs Vitals Vital Signs Date Temp Pulse Resp B/P (MAP) Pulse Ox O2 O2 Flow FiO2 Time Delivery Rate 11/02/18 152/76 13:29 (101) 11/02/18 58 19 99 35 13:15 11/02/18 98.0 12:29 11/01/18 Mechanical 20:00 Ventilator Intake and Output 11/01/18 11/01/18 11/02/18 1515:00 23:00 07:00 IntakeIntake Total 300 ml 425 ml 1060 ml OutputOutput Total 670 ml 650 ml 750 ml BalanceBalance -370 ml -225 ml 310 ml Exam Constitutional: alert, oriented Neck: supple, other (trach) Respiratory: diminished breath sounds Cardiovascular: regular rate and rhythm Gastrointestinal: other (GT) Musculoskeletal: nl extremities to inspection Extremities: normal pulses, other (Contracted) Medications Medications Current Medications Bisacodyl (Dulcolax Supp) 10 mg Q24H ND Last administered on 11/02/18at 00:40; Admin Dose 10 MG; Start 11/01/18 at 00:00 Enoxaparin Sodium (Lovenox) 30 mg DAILY SC Last administered on 11/02/18at 09:04; Admin Dose 30 MG; Start 11/01/18 at 09:00 Escitalopram Oxalate (Lexapro) 10 mg DAILY GTB Last administered on 11/02/18 08:49; Admin Dose 10 MG; Start 11/01/18 at 09:00 Ferrous Sulfate (Feosol Liquid Cup) 330 mg BID GTB Last administered on 11/02/18 08:49; Admin Dose 330 MG; Start 11/01/18 at 09:00 Lansoprazole (Prevacid) 30 mg DAILY GTB Last administered on 11/02/18 08:49; Admin Dose 30 MG; Start 11/01/18 at 09:00 Morphine Sulfate (morphine) 5 mg Q4H PRN GTB MODERATE TO SEVERE PAIN; Start 11/01/18 at 00:00 Dextrose 1,000 ml @ 60 mls/hr [id number] IV Last administered on 11/02/18 14:39; Admin Dose 60 MLS/HR; Start 11/01/18 at 00:00 Multivitamins (Multivitamin) 30 ml DAILY GTB Last administered on 11/02/18 13:28; Admin Dose 30 ML; Start 11/01/18 at 09:00 Docusate Sodium (Colace Liquid Cup) 100 mg BID GTB Last administered on 11/02/18 08:49; Admin Dose 100 MG; Start 11/01/18 at 09:00 Cefepime HCl 50 ml @ 100 mls/hr Q12 IVPB Last administered on 11/02/18 08:50; Admin Dose 100 MLS/HR; Start 11/01/18 at 09:30 Acetaminophen (Tylenol Liquid) 650 mg Q6H PRN GTB MILD PAIN(1-3)OR ELEVATED TEMP; Start 11/01/18 at 12:00 Albuterol (Ventolin Hfa) 4 puff Q6H RESP THERAPY INH Last administered on 11/02/18 13:12; Admin Dose 4 PUFF; Start 11/01/18 at 20:00 Ipratropium [place] (Atrovent Hfa) 4 puff Q6H RESP THERAPY INH Last administered on 11/02/18 13:11; Admin Dose 4 PUFF; Start 11/01/18 at 20:00 Fluconazole (Diflucan) 200 mg DAILY GTB Last administered on 11/02/18 08:49; Admin Dose 200 MG; Start 11/02/18 at 09:00 Vancomycin HCl (Vanco Iv Per Pharmacy) VANCOMYCIN PER PHARMACY PER PROTOCOL XX ; Start 11/02/18 at 15:00 Results Result Diagram: 11/02/18 0645 11/02/18 0645 Results 24 hrs Laboratory Tests Test 11/02/18 05:00 11/02/18 06:44 11/02/18 06:45 Blood Gas Specimen Blood arterial Source Arterial Blood Date 11/02/2018 5:32:25 AM Drawn Arterial Blood pH 7.369 (Temp corrected) Arterial Blood pCO2 43.9 (Temp correct) Arterial Blood pO2 107.2 H (Temp corrected) Arterial Blood HCO3 24.8 Arterial Blood Base -0.7 Excess Arterial Blood 97.6 Oxygen Saturation Yeison Test ACCEPTAB Arterial Blood Gas Right Radial Puncture Site Arterial 0.3 Blood Carboxyhemoglobin Arterial Blood 0 Methemoglobin Blood Gas A-a O2 91.3 H Differential Oxyhemoglobin Percent 97.3 Blood Gas Temperature 37.0 Blood Gas Respiration 18.0 Rate Blood Gas Actual 21 Respiration Rate Blood Gas Modality VENT - AC FiO2 35.0 Blood Gas Tidal Volume 450.0 Blood Gas Low PEEP 5.0 Setting Blood Gas Inspiratory 24.0 Pressure Blood Gas Notified Whom RTR Blood Gas Notified Time 11/02/2018 5:51:41 AM Lactic Acid Level 0.9 White Blood Count 6.9 Red Blood Count 3.70 L Hemoglobin 10.6 L Hematocrit 33.8 L Mean Corpuscular Volume 91.4 Mean Corpuscular 28.6 L Hemoglobin Mean Corpuscular 31.4 L Hemoglobin Concent Red Cell Distribution 14.8 H Width Platelet Count 181 Mean Platelet Volume 10.9 H Immature Granulocytes % 0.400 Neutrophils % 69.5 Lymphocytes % 18.6 Monocytes % 8.9 Eosinophils % 1.9 Basophils % 0.7 Nucleated Red Blood Cells 0.0 % Immature Granulocytes # 0.030 Neutrophils # 4.8 Lymphocytes # 1.3 Monocytes # 0.6 Eosinophils # 0.1 Basophils # 0.1 Nucleated Red Blood Cells 0.0 # Sodium Level 141 Potassium Level 3.9 Chloride Level 106 Carbon Dioxide Level 27 Anion Gap 8 Blood Urea Nitrogen 21 H Creatinine 0.54 L Est Glomerular Filtrat > 60 Rate mL/min Glucose Level 132 Calcium Level 9.2 MICHELLE EUGENE Nov 02, 2018 15:19
[2018-11-02] MEDS ORDERED: VANCOMYCIN 1.25 GM in SOD CHLORIDE 0.9% 250 ML IVPB ONE (17:00)
[2018-11-03] VITALS (24 sets, daily range): BP systolic 100–129; BP diastolic 65–81; PULSE 62–86; RESP 18–23
[2018-11-03] MEDS: BISACODYL 10 MG SUPP PR SCH ×2 (00:15→23:57)
[2018-11-03] MEDS: ALBUTEROL HFA 8 GM INHALER INH SCH ×4 (01:14→19:28)
[2018-11-03] MEDS: IPRATROPIUM (HFA) 12.9 GM INHALER INH SCH ×4 (01:14→19:27)
[2018-11-03] MEDS: VANCOMYCIN 500 MG (PMX) 100 ML IVPB SCH ×2 (04:17→17:13)
[2018-11-03] MEDS ORDERED: VANCOMYCIN 750 MG in SOD CHLORIDE 0.9% 150 ML IVPB SCH (05:00)
[2018-11-03] MEDS: DOCUSATE SODIUM 10 MG/ML (10ML CUP) GTB SCH ×2 (08:46→21:59)
[2018-11-03] MEDS: ESCITALOPRAM 10 MG TAB GTB SCH (08:47)
[2018-11-03] MEDS: morphine LIQ (10 MG/5 ML) CUP GTB PRN (08:47)
[2018-11-03] MEDS: FERROUS SULFATE 60 MG/ML 5ML CUP GTB SCH ×2 (08:47→21:59)
[2018-11-03] MEDS: MULTIVITAMINS 30 ML CUP GTB SCH (08:47)
[2018-11-03] MEDS: FLUCONAZOLE 200 MG TAB GTB SCH (08:47)
[2018-11-03] MEDS: CEFEPIME 1GM/50 ML (PMX) 50 ML IVPB SCH ×2 (08:48→21:59)
[2018-11-03] MEDS: LANSOPRAZOLE 30 MG CAP GTB SCH (08:48)
[2018-11-03] MEDS: ENOXAPARIN 30 MG/0.3 ML SYG SC SCH (08:57)
--- NOTE | 2018-11-03 12:06 | CONS ---
Date/Time of Note Date/Time of Note DATE: 11/03/18 TIME: 12:04 Assessment/Plan Assessment/Plan Chief Complaint/Hosp Course SUBJECTIVE: The patient is lying comfortably in bed. He is in no distress, afebrile. WBC 7.8 H&H 10.9 and 34 platelets 176 neutrophils 76.6 BUN 15 creatinine 0.4 Microbiology: Blood culture on admission grew gram-positive cocci in clusters, urine culture growing yeast, not Filomena albicans, endotracheal aspirate growing Pseudomonas and gram-negative rods INDWELLINGS: Trach, PEG. ANTIMICROBIALS: The patient is on: 1. Fluconazole. 2. Cefepime. 3. Vancomycin PHYSICAL EXAMINATION: GENERAL: This is a chronically ill-appearing, debilitated, elderly man who is diaphoretic, in no distress. HEENT: Head atraumatic, normocephalic. Sclerae anicteric. Buccal mucosa dry. NECK: Supple. Tracheostomy present. CHEST: Rise symmetrical. Breath sounds diminished to bases. HEART: S1, S2, tachycardic, regular. ABDOMEN: Soft, bowel tones present. EXTREMITIES: Wasted, contractured. ASSESSMENT: 1. Recurrent sepsis. 2. Bacteremia. 3. Urinary tract infection. 4. Questionable recurrent healthcare-associated pneumonia. 5. History of Clostridium difficile colitis. 6. Quadriplegia status post cervical spine surgery. PLAN: Clinically unchanged, continue antibiotics, change fluconazole to voriconazole, follow repeat blood cultures Consultation Date/Type/Reason Admit Date/Time Oct 31, 2018 at 21:21 Initial Consult Date 11/01/18 Type of Consult id Exam/Review of Systems Vital Signs Vitals Vital Signs Date Temp Pulse Resp B/P (MAP) Pulse Ox O2 O2 Flow FiO2 Time Delivery Rate 11/03/18 62 08:39 11/03/18 98.5 18 128/80 98 08:02 (96) 11/03/18 30 05:51 11/01/18 Mechanical 20:00 Ventilator Intake and Output 11/02/18 11/02/18 11/03/18 1515:00 23:00 07:00 IntakeIntake Total 820 ml 1080 ml OutputOutput Total 1700 ml 800 ml BalanceBalance -880 ml 280 ml Medications Medications Current Medications Bisacodyl (Dulcolax Supp) 10 mg Q24H [place] Last administered on 11/03/18at 00:15; Admin Dose 10 MG; Start 11/01/18 at 00:00 Enoxaparin Sodium (Lovenox) 30 mg DAILY SC Last administered on 11/03/18 08:57; Admin Dose 30 MG; Start 11/01/18 at 09:00 Escitalopram Oxalate (Lexapro) 10 mg DAILY GTB Last administered on 11/03/18 08:47; Admin Dose 10 MG; Start 11/01/18 at 09:00 Ferrous Sulfate (Feosol Liquid Cup) 330 mg BID GTB Last administered on 11/03/18 08:47; Admin Dose 330 MG; Start 11/01/18 at 09:00 Lansoprazole (Prevacid) 30 mg DAILY GTB Last administered on 11/03/18 08:48; Admin Dose 30 MG; Start 11/01/18 at 09:00 Morphine Sulfate (morphine) 5 mg Q4H PRN GTB MODERATE TO SEVERE PAIN Last administered on 11/03/18 08:47; Admin Dose 5 MG; Start 11/01/18 at 00:00 Dextrose 1,000 ml @ 60 mls/hr [id number] IV Last administered on 11/02/18 14:39; Admin Dose 60 MLS/HR; Start 11/01/18 at 00:00 Multivitamins (Multivitamin) 30 ml DAILY GTB Last administered on 11/03/18 08:47; Admin Dose 30 ML; Start 11/01/18 at 09:00 Docusate Sodium (Colace Liquid Cup) 100 mg BID GTB Last administered on 11/03 08:46; Admin Dose 100 MG; Start 11/01/18 at 09:00 Cefepime HCl 50 ml @ 100 mls/hr Q12 IVPB Last administered on 11/03/18 08:48; Admin Dose 100 MLS/HR; Start 11/01/18 at 09:30 Acetaminophen (Tylenol Liquid) 650 mg Q6H PRN GTB MILD PAIN(1-3)OR ELEVATED TEMP; Start 11/01/18 at 12:00 Albuterol (Ventolin Hfa) 4 puff Q6H RESP THERAPY INH Last administered on 11/03/18 08:17; Admin Dose 4 PUFF; Start 11/01/18 at 20:00 Ipratropium [place] (Atrovent Hfa) 4 puff Q6H RESP THERAPY INH Last a dministered on 11/03/18at 08:17; Admin Dose 4 PUFF; Start 11/01/18 at 20:00 Vancomycin HCl (Vanco Iv Per Pharmacy) VANCOMYCIN PER PHARMACY PER PROTOCOL XX ; Start 11/02/18 at 15:00 Vancomycin HCl 100 ml @ 100 mls/hr Q12H IVPB Last administered on 11/03/18at 04:17; Admin Dose 100 MLS/HR; Start 11/03/18 at 05:00 Voriconazole (Vfend) 200 mg BID PO ; Start 11/03/18 at 21:00 Results Result Diagram: 11/03/18 0658 11/03/18 0658 Results 24 hrs Laboratory Tests Test 11/03/18 06:58 White Blood Count 7.8 Red Blood Count 3.81 L Hemoglobin 10.9 L Hematocrit 34.0 L Mean Corpuscular Volume 89.2 Mean Corpuscular Hemoglobin 28.6 L Mean Corpuscular Hemoglobin Concent 32.1 Red Cell Distribution Width 14.5 Platelet Count 176 Mean Platelet Volume 10.8 H Immature Granulocytes % 0.400 Neutrophils % 77.6 H Lymphocytes % 11.7 L Monocytes % 7.2 Eosinophils % 2.7 Basophils % 0.4 Nucleated Red Blood Cells % 0.0 Immature Granulocytes # 0.030 Neutrophils # 6.0 Lymphocytes # 0.9 Monocytes # 0.6 Eosinophils # 0.2 Basophils # 0.0 Nucleated Red Blood Cells # 0.0 Sodium Level 143 Potassium Level 4.1 Chloride Level 105 Carbon Dioxide Level 29 Anion Gap 9 Blood Urea Nitrogen 15 Creatinine 0.47 L Est Glomerular Filtrat Rate mL/min > 60 Glucose Level 138 Calcium Level 8.9 RISA SAWYER NP Nov 03, 2018 12:05
[2018-11-03] MEDS: DEXTROSE 5% 1,000 ML IV SCH (13:08)
--- NOTE | 2018-11-03 15:15 | CONS ---
Date/Time of Note Date/Time of Note DATE: 11/03/18 TIME: 15:14 Consult Date/Type/Reason Admit Date/Time Oct 31, 2018 at 21:21 Initial Consult Date 11/01/18 Type of Consultation: Pulm Subjective Patient stable this morning no respiratory distress Objective Vital Signs Date Temp Pulse Resp B/P (MAP) Pulse Ox O2 O2 Flow FiO2 Time Delivery Rate 11/03/18 65 13:39 11/03/18 98.6 18 129/81 98 13:03 (97) 11/03/18 30 05:51 11/01/18 Mechanical 20:00 Ventilator Intake and Output 11/02/18 11/02/18 11/03/18 1515:00 23:00 07:00 IntakeIntake Total 820 ml 1080 ml OutputOutput Total 1700 ml 800 ml BalanceBalance -880 ml 280 ml Exam GENERAL: Chronically ill-appearing gentleman comfortable at rest VITAL SIGNS: per chart NECK: Supple. No JVD or lymphadenopathy. CARDIAC EXAM: S1, S2. No added sounds or murmurs. CHEST: clear bilaterally, No added sounds, rales or wheezes ABDOMEN: Soft, nontender. No guarding or rebound. EXTREMITIES: No cyanosis, clubbing or edema. NEUROLOGIC: Generalized weakness. Results/Medications Result Diagram: 11/03/18 0658 11/03/18 0658 Results 24 hrs Laboratory Tests Test 11/03/18 06:58 White Blood Count 7.8 Red Blood Count 3.81 L Hemoglobin 10.9 L Hematocrit 34.0 L Mean Corpuscular Volume 89.2 Mean Corpuscular Hemoglobin 28.6 L Mean Corpuscular Hemoglobin Concent 32.1 Red Cell Distribution Width 14.5 Platelet Count 176 Mean Platelet Volume 10.8 H Immature Granulocytes % 0.400 Neutrophils % 77.6 H Lymphocytes % 11.7 L Monocytes % 7.2 Eosinophils % 2.7 Basophils % 0.4 Nucleated Red Blood Cells % 0.0 Immature Granulocytes # 0.030 Neutrophils # 6.0 Lymphocytes # 0.9 Monocytes # 0.6 Eosinophils # 0.2 Basophils # 0.0 Nucleated Red Blood Cells # 0.0 Sodium Level 143 Potassium Level 4.1 Chloride Level 105 Carbon Dioxide Level 29 Anion Gap 9 Blood Urea Nitrogen 15 Creatinine 0.47 L Est Glomerular Filtrat Rate mL/min > 60 Glucose Level 138 Calcium Level 8.9 Medications Current Medications Bisacodyl (Dulcolax Supp) 10 mg Q24H [place] Last administered on 11/03/18 00:15; Admin Dose 10 MG; Start 11/01/18 at 00:00 Enoxaparin Sodium (Lovenox) 30 mg DAILY SC Last administered on 11/03/18 08:57; Admin Dose 30 MG; Start 11/01/18 at 09:00 Escitalopram Oxalate (Lexapro) 10 mg DAILY GTB Last administered on 11/03/18 08:47; Admin Dose 10 MG; Start 11/01/18 at 09:00 Ferrous Sulfate (Feosol Liquid Cup) 330 mg BID GTB Last administered on 11/03/18 08:47; Admin Dose 330 MG; Start 11/01/18 at 09:00 Lansoprazole (Prevacid) 30 mg DAILY GTB Last administered on 11/03/18 08:48; Admin Dose 30 MG; Start 11/01/18 at 09:00 Morphine Sulfate (morphine) 5 mg Q4H PRN GTB MODERATE TO SEVERE PAIN Last administered on 11/03/18 08:47; Admin Dose 5 MG; Start 11/01/18 at 00:00 Dextrose 1,000 ml @ 60 mls/hr [id number] IV Last administered on 11/03/18 13:08; Admin Dose 60 MLS/HR; Start 11/01/18 at 00:00 Multivitamins (Multivitamin) 30 ml DAILY GTB Last administered on 11/03/18 08:47; Admin Dose 30 ML; Start 11/01/18 at 09:00 Docusate Sodium (Colace Liquid Cup) 100 mg BID GTB Last administered on 11/03/18 08:46; Admin Dose 100 MG; Start 11/01/18 at 09:00 Cefepime HCl 50 ml @ 100 mls/hr Q12 IVPB Last administered on 11/03/18 08:48; Admin Dose 100 MLS/HR; Start 11/01/18 at 09:30 Acetaminophen (Tylenol Liquid) 650 mg Q6H PRN GTB MILD PAIN(1-3)OR ELEVATED TEMP; Start 11/01/18 at 12:00 Albuterol (Ventolin Hfa) 4 puff Q6H RESP THERAPY INH Last administered on 12/11/18at 13:14; Admin Dose 4 PUFF; Start 11/01/18 at 20:00 Ipratropium [place] (Atrovent Hfa) 4 puff Q6H RESP THERAPY INH Last administered on 11/03/18at 13:14; Admin Dose 4 PUFF; Start 11/01/18 at 20:00 Vancomycin HCl (Vanco Iv Per Pharmacy) VANCOMYCIN PER PHARMACY PER PROTOCOL XX ; Start 11/02/18 at 15:00 Vancomycin HCl 100 ml @ 100 mls/hr Q12H IVPB Last administered on 11/03/18at 04:17; Admin Dose 100 MLS/HR; Start 11/03/18 at 05:00 Voriconazole (Vfend) 200 mg BID PO ; Start 11/03/18 at 21:00 Miscellaneous Information (*Rx Drug Level Order Reminder*) VANCO TR AT 0,400 ONCE ONCE XX ; Start 11/04/18 at 04:00; Stop 11/04/18 at 04:01 Assessment/Plan Chief Complaint/Hosp Course IMP: 1. Urosepsis 2. Chronic respiratory failure, vent dependent. 3. 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 4. Pre-renal azotemia 5. Right corneal opacity chronic with blindness. 6. History of coronary artery disease with history of myocardial infarction. 7. Chronic sacral coccygeal decubitus RECS: 1. IVF's 2. Antibiotics per primary team 3. Feeding as tolerated 4. Wound care 5. DVT and GI prophylaxis Consider DC planning. LIVIA VALDERRAMA MD, [facility] Nov 03, 2018 15:15
--- NOTE | 2018-11-03 15:57 | PN ---
Date/Time of Note Date/Time of Note DATE: 11/03/18 TIME: 15:55 Assessment/Plan VTE Prophylaxis Risk score (from Ns)>0 risk: 6 SCD applied (from [facility] No SCD contraindicated: other Pharmacological prophylaxis: LMWH Lines/Catheters [facility] Mid Line Central line still needed: Yes Urinary Cath still in place: Yes Reason Cath still needed: urinary retention Assessment/Plan Hospital Course Patient's continues on ventilatory support without distress, afebrile. Assessment/Plan -Recurrent sepsis with bacteremia. Continue antibiotics per ID. Dr. Tesfaye is following in infection disease consultation. -Yeast UTI -Possible healthcare acquired pneumonia -Ventilator dependent respiratory failure. Dr. Hernández is following in pulmonology consultation. 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 Plan of care discussed with Dr. Bautista. Exam/Review of Systems Vital Signs Vitals Vital Signs Date Temp Pulse Resp B/P (MAP) Pulse Ox O2 O2 Flow FiO2 Time Delivery Rate 11/03/18 65 13:39 11/03/18 98.6 18 129/81 98 13:03 (97) 11/03/18 30 05:51 11/01/18 Mechanical 20:00 Ventilator Intake and Output 11/02/18 11/02/18 11/03/18 1515:00 23:00 07:00 IntakeIntake Total 820 ml 1080 ml OutputOutput Total 1700 ml 800 ml BalanceBalance -880 ml 280 ml Exam Constitutional: alert, oriented Neck: supple, other (trach) Respiratory: diminished breath sounds Cardiovascular: regular rate and rhythm Gastrointestinal: other (GT) Musculoskeletal: nl extremities to inspection Extremities: normal pulses, other (Contracted) Medications Medications Current Medications Bisacodyl (Dulcolax Supp) 10 mg Q24H [place] Last administered on 11/03/18at 00:15; Admin Dose 10 MG; Start 11/01/18 at 00:00 Enoxaparin Sodium (Lovenox) 30 mg DAILY SC Last administered on 11/03/18at 08:57; Admin Dose 30 MG; Start 11/01/18 at 09:00 Escitalopram Oxalate (Lexapro) 10 mg DAILY GTB Last administered on 11/03/18 08:47; Admin Dose 10 MG; Start 11/01/18 at 09:00 Ferrous Sulfate (Feosol Liquid Cup) 330 mg BID GTB Last administered on 8at 08:47; Admin Dose 330 MG; Start 11/01/18 at 09:00 Lansoprazole (Prevacid) 30 mg DAILY GTB Last administered on 11/03/18 08:48; Admin Dose 30 MG; Start 11/01/18 at 09:00 Morphine Sulfate (morphine) 5 mg Q4H PRN GTB MODERATE TO SEVERE PAIN Last administered on 11/03/18 08:47; Admin Dose 5 MG; Start 11/01/18 at 00:00 Dextrose 1,000 ml @ 60 mls/hr [id number] IV Last administered on 11/03/18 13:08; Admin Dose 60 MLS/HR; Start 11/01/18 at 00:00 Multivitamins (Multivitamin) 30 ml DAILY GTB Last administered on 11/03/18 08:47; Admin Dose 30 ML; Start 11/01/18 at 09:00 Docusate Sodium (Colace Liquid Cup) 100 mg BID GTB Last administered on 11/03/18 08:46; Admin Dose 100 MG; Start 11/01/18 at 09:00 Cefepime HCl 50 ml @ 100 mls/hr Q12 IVPB Last administered on 11/03/18 08:48; Admin Dose 100 MLS/HR; Start 11/01/18 at 09:30 Acetaminophen (Tylenol Liquid) 650 mg Q6H PRN GTB MILD PAIN(1-3)OR ELEVATED TEMP; Start 11/01/18 at 12:00 Albuterol (Ventolin Hfa) 4 puff Q6H RESP THERAPY INH Last administered on 11/03/18 13:14; Admin Dose 4 PUFF; Start 11/01/18 at 20:00 Ipratropium [place] (Atrovent Hfa) 4 puff Q6H RESP THERAPY INH Last administered on 11/03/18 13:14; Admin Dose 4 PUFF; Start 11/01/18 at 20:00 Vancomycin HCl (Vanco Iv Per Pharmacy) VANCOMYCIN PER PHARMACY PER PROTOCOL XX ; Start 11/02/18 at 15:00 Vancomycin HCl 100 ml @ 100 mls/hr Q12H IVPB Last administered on 11/03/18at 04:17; Admin Dose 100 MLS/HR; Start 11/03/18 at 05:00 Voriconazole (Vfend) 200 mg BID PO ; Start 11/03/18 at 21:00 Miscellaneous Information (*Rx Drug Level Order Reminder*) VANCO TR AT 0,400 ONCE ONCE XX ; Start 11/04/18 at 04:00; Stop 11/04/18 at 04:01 Results Result Diagram: 11/03/18 0658 11/03/18 0658 Results 24 hrs Laboratory Tests Test 11/03/18 06:58 White Blood Count 7.8 Red Blood Count 3.81 L Hemoglobin 10.9 L Hematocrit 34.0 L Mean Corpuscular Volume 89.2 Mean Corpuscular Hemoglobin 28.6 L Mean Corpuscular Hemoglobin Concent 32.1 Red Cell Distribution Width 14.5 Platelet Count 176 Mean Platelet Volume 10.8 H Immature Granulocytes % 0.400 Neutrophils % 77.6 H Lymphocytes % 11.7 L Monocytes % 7.2 Eosinophils % 2.7 Basophils % 0.4 Nucleated Red Blood Cells % 0.0 Immature Granulocytes # 0.030 Neutrophils # 6.0 Lymphocytes # 0.9 Monocytes # 0.6 Eosinophils # 0.2 Basophils # 0.0 Nucleated Red Blood Cells # 0.0 Sodium Level 143 Potassium Level 4.1 Chloride Level 105 Carbon Dioxide Level 29 Anion Gap 9 Blood Urea Nitrogen 15 Creatinine 0.47 L Est Glomerular Filtrat Rate mL/min > 60 Glucose Level 138 Calcium Level 8.9 MICHELLE EUGENE Nov 03, 2018 15:57
[2018-11-03] MEDS: VORICONAZOLE 200 MG TAB PO SCH (21:59)
[2018-11-04] VITALS (24 sets, daily range): BP systolic 105–123; BP diastolic 62–82; PULSE 61–86; RESP 18–20
[2018-11-04] MEDS: ALBUTEROL HFA 8 GM INHALER INH SCH ×4 (01:16→19:27)
[2018-11-04] MEDS: IPRATROPIUM (HFA) 12.9 GM INHALER INH SCH ×4 (01:16→19:26)
[2018-11-04] MEDS: VANCOMYCIN 750 MG in SOD CHLORIDE 0.9% 150 ML IVPB SCH ×2 (05:58→17:24)
[2018-11-04] MEDS: VORICONAZOLE 200 MG TAB PO SCH ×2 (09:10→20:13)
[2018-11-04] MEDS: MULTIVITAMINS 30 ML CUP GTB SCH (09:10)
[2018-11-04] MEDS: CEFEPIME 1GM/50 ML (PMX) 50 ML IVPB SCH ×2 (09:10→20:12)
[2018-11-04] MEDS: LANSOPRAZOLE 30 MG CAP GTB SCH (09:10)
[2018-11-04] MEDS: ESCITALOPRAM 10 MG TAB GTB SCH (09:10)
[2018-11-04] MEDS: FERROUS SULFATE 60 MG/ML 5ML CUP GTB SCH ×2 (09:10→20:12)
[2018-11-04] MEDS: DOCUSATE SODIUM 10 MG/ML (10ML CUP) GTB SCH ×2 (09:11→20:12)
[2018-11-04] MEDS: ENOXAPARIN 30 MG/0.3 ML SYG SC SCH (09:42)
--- NOTE | 2018-11-04 11:52 | CONS ---
Date/Time of Note Date/Time of Note DATE: 11/04/18 TIME: 11:49 Assessment/Plan Assessment/Plan Chief Complaint/Hosp Course SUBJECTIVE: No acute changes, afebrile, nad WBC 5.8 H&H 9.9 and 31.3 platelets 194 neutrophils 63.6 BUN 15 creatinine 0.54 Microbiology: Blood culture on admission grew coag negative staph species, repeat blood cultures negative, MRSA negative, urine culture growing yeast, not Filomena albicans, sputum culture grew pseudomonas aeruginosa and Serratia INDWELLINGS: Trach, PEG. ANTIMICROBIALS: The patient is on: 1. Vfend 2. Cefepime. 3. Vancomycin PHYSICAL EXAMINATION: GENERAL: This is a chronically ill-appearing, debilitated, elderly man who is diaphoretic, in no distress. HEENT: Head atraumatic, normocephalic. Sclerae anicteric. Buccal mucosa dry. NECK: Supple. Tracheostomy present. CHEST: Rise symmetrical. Breath sounds diminished to bases. HEART: S1, S2, tachycardic, regular. ABDOMEN: Soft, bowel tones present. EXTREMITIES: Wasted, contractured. ASSESSMENT: 1. Recurrent sepsis. 2. Coag negative staph bacteremia likely contaminant with repeat blood cultures negative. 3. Urinary tract infection. 4. Questionable recurrent healthcare-associated pneumonia. 5. History of Clostridium difficile colitis. 6. Quadriplegia status post cervical spine surgery. 7. DNR PLAN: Remains stable, continue antibiotics, vent management per pulmonary Consultation Date/Type/Reason Admit Date/Time Oct 31, 2018 at 21:21 Initial Consult Date 11/01/18 Type of Consult id Exam/Review of Systems Vital Signs Vitals Vital Signs Date Temp Pulse Resp B/P (MAP) Pulse Ox O2 O2 Flow FiO2 Time Delivery Rate 11/04/18 99.3 77 18 109/70 97 Mechanical 11:09 (83) Ventilator 11/04/18 30 05:19 Intake and Output 11/03/18 11/03/18 11/04/18 1515:00 23:00 07:00 IntakeIntake Total 1390 ml 980 ml OutputOutput Total 1000 ml 750 ml BalanceBalance 390 ml 230 ml Medications Medications Current Medications Bisacodyl (Dulcolax Supp) 10 mg Q24H [place] Last administered on 11/03/18at 00:15; Admin Dose 10 MG; Start 11/01/18 at 00:00 Enoxaparin Sodium (Lovenox) 30 mg DAILY SC Last administered on 11/04/18 09:42; Admin Dose 30 MG; Start 11/01/18 at 09:00 Escitalopram Oxalate (Lexapro) 10 mg DAILY GTB Last administered on 11/04/18 09:10; Admin Dose 10 MG; Start 11/01/18 at 09:00 Ferrous Sulfate (Feosol Liquid Cup) 330 mg BID GTB Last administered on 11/04/18 09:10; Admin Dose 330 MG; Start 11/01/18 at 09:00 Lansoprazole (Prevacid) 30 mg DAILY GTB Last administered on 11/04/18 09:10; Admin Dose 30 MG; Start 11/01/18 at 09:00 Morphine Sulfate (morphine) 5 mg Q4H PRN GTB MODERATE TO SEVERE PAIN Last administered on 11/03/18 08:47; Admin Dose 5 MG; Start 11/01/18 at 00:00 Multivitamins (Multivitamin) 30 ml DAILY GTB Last administered on 11/04/18 09:10; Admin Dose 30 ML; Start 11/01/18 at 09:00 Docusate Sodium (Colace Liquid Cup) 100 mg BID GTB Last administered on 11/04/18 09:11; Admin Dose 100 MG; Start 11/01/18 at 09:00 Cefepime HCl 50 ml @ 100 mls/hr Q12 IVPB Last administered on 11/04/18 09:10; Admin Dose 100 MLS/HR; Start 11/01/18 at 09:30 Acetaminophen (Tylenol Liquid) 650 mg Q6H PRN GTB MILD PAIN(1-3)OR ELEVATED TEMP; Start 11/01/18 at 12:00 Albuterol (Ventolin Hfa) 4 puff Q6H RESP THERAPY INH Last administered on 11/04/18 07:55; Admin Dose 4 PUFF; Start 11/01/18 at 20:00 Ipratropium [place] (Atrovent Hfa) 4 puff Q6H RESP THERAPY INH Last administered on 11/04/18 07:55; Admin Dose 4 PUFF; Start 11/01/18 at 20:00 Vancomycin HCl (Vanco Iv Per Pharmacy) VANCOMYCIN PER PHARMACY PER PROTOCOL XX ; Start 11/02/18 at 15:00 Voriconazole (Vfend) 200 mg BID PO Last administered on 11/04/18at 09:10; Admin Dose 200 MG; Start 11/03/18 at 21:00 Vancomycin HCl 750 mg/Sodium Chloride 150 ml @ 75 mls/hr Q12H IVPB Last administered on 11/04/18at 05:58; Admin Dose 75 MLS/HR; Start 11/04/18 at 06:00 Results Result Diagram: 11/04/18 0405 11/04/18 0405 Results 24 hrs Laboratory Tests Test 11/04/18 04:05 White Blood Count 5.8 # Red Blood Count 3.47 L Hemoglobin 9.9 L Hematocrit 31.3 L Mean Corpuscular Volume 90.2 Mean Corpuscular Hemoglobin 28.5 L Mean Corpuscular Hemoglobin Concent 31.6 L Red Cell Distribution Width 14.3 Platelet Count 194 Mean Platelet Volume 11.1 H Immature Granulocytes % 0.300 Neutrophils % 63.6 Lymphocytes % 20.2 Monocytes % 8.8 Eosinophils % 6.4 Basophils % 0.7 Nucleated Red Blood Cells % 0.0 Immature Granulocytes # 0.020 Neutrophils # 3.7 Lymphocytes # 1.2 Monocytes # 0.5 Eosinophils # 0.4 Basophils # 0.0 Nucleated Red Blood Cells # 0.0 Sodium Level 141 Potassium Level 4.0 Chloride Level 103 Carbon Dioxide Level 29 Anion Gap 9 Blood Urea Nitrogen 15 Creatinine 0.54 L Est Glomerular Filtrat Rate mL/min > 60 Glucose Level 107 Calcium Level 9.1 Vancomycin Level Trough 7.7 L RISA SAWYER NP Nov 04, 2018 11:52
--- NOTE | 2018-11-04 14:17 | PN ---
Date/Time of Note Date/Time of Note DATE: 11/04/18 TIME: 14:14 Assessment/Plan VTE Prophylaxis Risk score (from Ns)>0 risk: 7 [place] [facility] SCD contraindicated: other Pharmacological prophylaxis: other Lines/Catheters [facility] (from [facility] Line Urinary Cath still in place: Yes Reason Cath still needed: urinary retention Assessment/Plan Assessment/Plan -Recurrent sepsis with bacteremia. Continue antibiotics per ID. Dr. Tesfaye is following in infection disease consultation. -Yeast UTI -Possible healthcare acquired pneumonia -Ventilator dependent respiratory failure. Dr. Hernández is following in pulmonology consultation. -Obstructive uropathy -Coronary artery disease with history of [place] -Hypertension -Dysphagia with PEG -Quadriplegia 2 to C-spine abscess -C-spine epidural abscess, status post C3 to C4 laminectomy -DNR status Further recommendations based on clinical course. Plan of care discussed with Dr. Bautista. Subjective 24 Hr Interval Summary Subjective hx not possible: pt non-verbal Constitutional: requiring IVF Exam/Review of Systems Vital Signs Vitals Vital Signs Date Temp Pulse Resp B/P (MAP) Pulse Ox O2 O2 Flow FiO2 Time Delivery Rate 11/04/18 68 13:23 11/04/18 19 99 30 11:15 11/04/18 99.3 109/70 Mechanical 11:09 (83) Ventilator Intake and Output 11/03/18 11/03/18 11/04/18 1515:00 23:00 07:00 IntakeIntake Total 1390 ml 980 ml OutputOutput Total 1000 ml 750 ml BalanceBalance 390 ml 230 ml Exam Constitutional: non-verbal, frail Psych: nl mood/affect ENMT: nl external ears & nose Neck: other (trach intac) Respiratory: diminished breath sounds (bilaterally) Cardiovascular: nl pulses, other (s1s2) Gastrointestinal: soft, other (gt intact) Musculoskeletal: muscle weakness, range of motion Medications Medications Current Medications Bisacodyl (Dulcolax Supp) 10 mg Q24H [place] Last administered on 11/03/18at 00:15; Admin Dose 10 MG; Start 11/01/18 at 00:00 Enoxaparin Sodium (Lovenox) 30 mg DAILY SC Last administered on 11/04/18at 09:42; Admin Dose 30 MG; Start 11/01/18 at 09:00 Escitalopram Oxalate (Lexapro) 10 mg DAILY GTB Last administered on 11/04/18 09:10; Admin Dose 10 MG; Start 11/01/18 at 09:00 Ferrous Sulfate (Feosol Liquid Cup) 330 mg BID GTB Last administered on 11/04/18 09:10; Admin Dose 330 MG; Start 11/01/18 at 09:00 Lansoprazole (Prevacid) 30 mg DAILY GTB Last administered on 11/04/18 09:10; Admin Dose 30 MG; Start 11/01/18 at 09:00 Morphine Sulfate (morphine) 5 mg Q4H PRN GTB MODERATE TO SEVERE PAIN Last ad ministered on 11/03/18 08:47; Admin Dose 5 MG; Start 11/01/18 at 00:00 Multivitamins (Multivitamin) 30 ml DAILY GTB Last administered on 11/04/18 09:10; Admin Dose 30 ML; Start 11/01/18 at 09:00 Docusate Sodium (Colace Liquid Cup) 100 mg BID GTB Last administered on 11/04/18 09:11; Admin Dose 100 MG; Start 11/01/18 at 09:00 Cefepime HCl 50 ml @ 100 mls/hr Q12 IVPB Last administered on 11/04/18 09:10; Admin Dose 100 MLS/HR; Start 11/01/18 at 09:30 Acetaminophen (Tylenol Liquid) 650 mg Q6H PRN GTB MILD PAIN(1-3)OR ELEVATED TEMP; Start 11/01/18 at 12:00 Albuterol (Ventolin Hfa) 4 puff Q6H RESP THERAPY INH Last administered on 11/04/18 07:55; Admin Dose 4 PUFF; Start 11/01/18 at 20:00 Ipratropium [place] (Atrovent Hfa) 4 puff Q6H RESP THERAPY INH Last administered on 11/04/18 07:55; Admin Dose 4 PUFF; Start 11/01/18 at 20:00 Vancomycin HCl (Vanco Iv Per Pharmacy) VANCOMYCIN PER PHARMACY PER PROTOCOL XX ; Start 11/02/18 at 15:00 Voriconazole (Vfend) 200 mg BID PO Last administered on 11/04/18 09:10; Admin Dose 200 MG; Start 11/03/18 at 21:00 Vancomycin HCl 750 mg/Sodium Chloride 150 ml @ 75 mls/hr Q12H IVPB Last administered on 11/04/18at 05:58; Admin Dose 75 MLS/HR; Start 11/04/18 at 06:00 Results Result Diagram: 11/04/18 0405 11/04/18 0405 Results 24 hrs Laboratory Tests Test 11/04/18 04:05 White Blood Count 5.8 # Red Blood Count 3.47 L Hemoglobin 9.9 L Hematocrit 31.3 L Mean Corpuscular Volume 90.2 Mean Corpuscular Hemoglobin 28.5 L Mean Corpuscular Hemoglobin Concent 31.6 L Red Cell Distribution Width 14.3 Platelet Count 194 Mean Platelet Volume 11.1 H Immature Granulocytes % 0.300 Neutrophils % 63.6 Lymphocytes % 20.2 Monocytes % 8.8 Eosinophils % 6.4 Basophils % 0.7 Nucleated Red Blood Cells % 0.0 Immature Granulocytes # 0.020 Neutrophils # 3.7 Lymphocytes # 1.2 Monocytes # 0.5 Eosinophils # 0.4 Basophils # 0.0 Nucleated Red Blood Cells # 0.0 Sodium Level 141 Potassium Level 4.0 Chloride Level 103 Carbon Dioxide Level 29 Anion Gap 9 Blood Urea Nitrogen 15 Creatinine 0.54 L Est Glomerular Filtrat Rate mL/min > 60 Glucose Level 107 Calcium Level 9.1 Vancomycin Level Trough 7.7 L CLEMENT WATSON Nov 04, 2018 14:16
--- NOTE | 2018-11-04 15:26 | CONS ---
Date/Time of Note Date/Time of Note DATE: 11/04/18 TIME: 15:26 Consult Date/Type/Reason Admit Date/Time Oct 31, 2018 at 21:21 Initial Consult Date 11/01/18 Type of Consultation: Pulm Subjective Comfortable. No resp distress Objective Vital Signs Date Temp Pulse Resp B/P (MAP) Pulse Ox O2 O2 Flow FiO2 Time Delivery Rate 11/04/18 78 18 95 30 14:25 11/04/18 99.3 109/70 Mechanical 11:09 (83) Ventilator Intake and Output 11/03/18 11/03/18 11/04/18 1414:59 22:59 06:59 IntakeIntake Total 1340 ml 1030 ml OutputOutput Total 1000 ml 750 ml BalanceBalance 340 ml 280 ml Exam GENERAL: Chronically ill-appearing gentleman comfortable at rest VITAL SIGNS: per chart NECK: Supple. No JVD or lymphadenopathy. CARDIAC EXAM: S1, S2. No added sounds or murmurs. CHEST: clear bilaterally, No added sounds, rales or wheezes ABDOMEN: Soft, nontender. No guarding or rebound. EXTREMITIES: No cyanosis, clubbing or edema. NEUROLOGIC: Generalized weakness. Results/Medications Result Diagram: 11/04/18 0405 11/04/18 0405 Results 24 hrs Laboratory Tests Test 11/04/18 04:05 White Blood Count 5.8 # Red Blood Count 3.47 L Hemoglobin 9.9 L Hematocrit 31.3 L Mean Corpuscular Volume 90.2 Mean Corpuscular Hemoglobin 28.5 L Mean Corpuscular Hemoglobin Concent 31.6 L Red Cell Distribution Width 14.3 Platelet Count 194 Mean Platelet Volume 11.1 H Immature Granulocytes % 0.300 Neutrophils % 63.6 Lymphocytes % 20.2 Monocytes % 8.8 Eosinophils % 6.4 Basophils % 0.7 Nucleated Red Blood Cells % 0.0 Immature Granulocytes # 0.020 Neutrophils # 3.7 Lymphocytes # 1.2 Monocytes # 0.5 Eosinophils # 0.4 Basophils # 0.0 Nucleated Red Blood Cells # 0.0 Sodium Level 141 Potassium Level 4.0 Chloride Level 103 Carbon Dioxide Level 29 Anion Gap 9 Blood Urea Nitrogen 15 Creatinine 0.54 L Est Glomerular Filtrat Rate mL/min > 60 Glucose Level 107 Calcium Level 9.1 Vancomycin Level Trough 7.7 L Medications Current Medications Bisacodyl (Dulcolax Supp) 10 mg Q24H [place] Last administered on 11/03/18 00:15; Admin Dose 10 MG; Start 11/01/18 at 00:00 Enoxaparin Sodium (Lovenox) 30 mg DAILY [place] Last administered on 11/04/18 09:42; Admin Dose 30 MG; Start 11/01/18 at 09:00 Escitalopram Oxalate (Lexapro) 10 mg DAILY GTB Last administered on 11/04/18 09:10; Admin Dose 10 MG; Start 11/01/18 at 09:00 Ferrous Sulfate (Feosol Liquid Cup) 330 mg BID GTB Last administered on 11/04/18 09:10; Admin Dose 330 MG; Start 11/01/18 at 09:00 Lansoprazole (Prevacid) 30 mg DAILY GTB Last administered on 11/04/18 09:10; Admin Dose 30 MG; Start 11/01/18 at 09:00 Morphine Sulfate (morphine) 5 mg Q4H PRN GTB MODERATE TO SEVERE PAIN Last administered on 11/03/18 08:47; Admin Dose 5 MG; Start 11/01/18 at 00:00 Multivitamins (Multivitamin) 30 ml DAILY GTB Last administered on 11/04/18 09:10; Admin Dose 30 ML; Start 11/01/18 at 09:00 Docusate Sodium (Colace Liquid Cup) 100 mg BID GTB Last administered on 11/04/18 09:11; Admin Dose 100 MG; Start 11/01/18 at 09:00 Cefepime HCl 50 ml @ 100 mls/hr Q12 IVPB Last administered on 11/04/18 09:10; Admin Dose 100 MLS/HR; Start 11/01/18 at 09:30 Acetaminophen (Tylenol Liquid) 650 mg Q6H PRN GTB MILD PAIN(1-3)OR ELEVATED TEMP; Start 11/01/18 at 12:00 Albuterol (Ventolin Hfa) 4 puff Q6H RESP THERAPY INH Last administered on 11/04/18 14:25; Admin Dose 4 PUFF; Start 11/01/18 at 20:00 Ipratropium [place] (Atrovent Hfa) 4 puff Q6H RESP THERAPY INH Last administered on 11/04/18 14:25; Admin Dose 4 PUFF; Start 11/01/18 at 20:00 Vancomycin HCl (Vanco Iv Per Pharmacy) VANCOMYCIN PER PHARMACY PER PROTOCOL XX ; Start 11/02/18 at 15:00 Voriconazole (Vfend) 200 mg BID PO Last administered on 11/04/18at 09:10; Admin Dose 200 MG; Start 11/03/18 at 21:00 Vancomycin HCl 750 mg/Sodium Chloride 150 ml @ 75 mls/hr Q12H IVPB Last administered on 11/04/18at 05:58; Admin Dose 75 MLS/HR; Start 11/04/18 at 06:00 Assessment/Plan Chief Complaint/Hosp Course IMP: 1. Urosepsis 2. Chronic respiratory failure, vent dependent. 3. 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 4. Pre-renal azotemia 5. Right corneal opacity chronic with blindness. 6. History of coronary artery disease with history of myocardial infarction. 7. Chronic sacral coccygeal decubitus RECS: 1. IVF's 2. Antibiotics per primary team 3. Feeding as tolerated 4. Wound care 5. DVT and GI prophylaxis Consider DC planning. LIVIA VALDERRAMA MD, [facility] Nov 04, 2018 15:26
[2018-11-05] VITALS (23 sets, daily range): BP systolic 98–120; BP diastolic 60–79; PULSE 68–100; RESP 18–21
[2018-11-05] MEDS: BISACODYL 10 MG SUPP PR SCH (01:00)
[2018-11-05] MEDS: IPRATROPIUM (HFA) 12.9 GM INHALER INH SCH ×4 (01:00→19:12)
[2018-11-05] MEDS: ALBUTEROL HFA 8 GM INHALER INH SCH ×4 (01:00→19:12)
[2018-11-05] MEDS: BALSAM PERU/CASTOR OIL 60 GM TUBE TOP SCH ×2 (05:19→08:49)
[2018-11-05] MEDS: VANCOMYCIN 750 MG in SOD CHLORIDE 0.9% 150 ML IVPB SCH ×2 (06:31→18:46)
[2018-11-05] MEDS: ACETAMINOPHEN 650MG/20.3ML CUP GTB PRN (06:33)
[2018-11-05] MEDS: CEFEPIME 1GM/50 ML (PMX) 50 ML IVPB SCH ×2 (08:45→20:53)
[2018-11-05] MEDS: FERROUS SULFATE 60 MG/ML 5ML CUP GTB SCH ×2 (08:48→20:53)
[2018-11-05] MEDS: DOCUSATE SODIUM 10 MG/ML (10ML CUP) GTB SCH ×2 (08:48→20:53)
[2018-11-05] MEDS: ESCITALOPRAM 10 MG TAB GTB SCH (08:48)
[2018-11-05] MEDS: VORICONAZOLE 200 MG TAB PO SCH ×2 (08:48→20:53)
[2018-11-05] MEDS: MULTIVITAMINS 30 ML CUP GTB SCH (08:48)
[2018-11-05] MEDS: LANSOPRAZOLE 30 MG CAP GTB SCH (08:48)
[2018-11-05] MEDS: ENOXAPARIN 30 MG/0.3 ML SYG SC SCH (08:49)
--- NOTE | 2018-11-05 10:54 | CONS ---
Date/Time of Note Date/Time of Note DATE: 11/05/18 TIME: 10:52 Assessment/Plan Assessment/Plan Chief Complaint/Hosp Course SUBJECTIVE: No acute changes, low-grade fevers with a T-max of 100.2 this morning, no labs today Microbiology: Blood culture on admission grew coag negative staph species, repeat blood cultures negative, MRSA negative, urine culture growing yeast, not Filomena albicans, sputum culture grew pseudomonas aeruginosa and Serratia INDWELLINGS: Trach, PEG. ANTIMICROBIALS: 1. Vfend 2. Cefepime. 3. Vancomycin PHYSICAL EXAMINATION: GENERAL: This is a chronically ill-appearing, debilitated, elderly man who is in no distress. HEENT: Head atraumatic, normocephalic. Sclerae anicteric. Buccal mucosa dry. NECK: Supple. Tracheostomy present. CHEST: Rise symmetrical. Breath sounds diminished to bases. HEART: S1, S2, tachycardic, regular. ABDOMEN: Soft, bowel tones present. EXTREMITIES: Wasted, contractured. ASSESSMENT: 1. Recurrent sepsis. 2. Coag negative staph bacteremia likely contaminant with repeat blood cultures negative. 3. Urinary tract infection. 4. Questionable recurrent healthcare-associated pneumonia. 5. History of Clostridium difficile colitis. 6. Quadriplegia status post cervical spine surgery. 7. DNR PLAN: Remains stable, continue antibiotics, vent management per pulmonary, reculture for T 101 Consultation Date/Type/Reason Admit Date/Time Oct 31, 2018 at 21:21 Initial Consult Date 11/01/18 Type of Consult id Exam/Review of Systems Vital Signs Vitals Vital Signs Date Temp Pulse Resp B/P (MAP) Pulse Ox O2 O2 Flow FiO2 Time Delivery Rate 11/05/18 75 09:40 11/05/18 21 98 30 08:36 11/05/18 100.2 119/72 Mechanica 07:51 (88) l Ventilato r Intake and Output 11/04/18 11/04/18 11/05/18 1515:00 23:00 07:00 IntakeIntake Total 820 ml 900 ml OutputOutput Total 550 ml 700 ml BalanceBalance 270 ml 200 ml Medications Medications Current Medications Bisacodyl (Dulcolax Supp) 10 mg Q24H [place] Last administered on 11/03/18at 00:15; Admin Dose 10 MG; Start 11/01/18 at 00:00 Enoxaparin Sodium (Lovenox) 30 mg DAILY [place] Last administered on 11/05/18 08:49; Admin Dose 30 MG; Start 11/01/18 at 09:00 Escitalopram Oxalate (Lexapro) 10 mg DAILY GTB Last administered on 11/05/18 08:48; Admin Dose 10 MG; Start 11/01/18 at 09:00 Ferrous Sulfate (Feosol Liquid Cup) 330 mg BID GTB Last administered on 11/05/18 08:48; Admin Dose 330 MG; Start 11/01/18 at 09:00 Lansoprazole (Prevacid) 30 mg DAILY GTB Last administered on 11/05/18 08:48; Admin Dose 30 MG; Start 11/01/18 at 09:00 Morphine Sulfate (morphine) 5 mg Q4H PRN GTB MODERATE TO SEVERE PAIN Last administered on 11/03/18 08:47; Admin Dose 5 MG; Start 11/01/18 at 00:00 Multivitamins (Multivitamin) 30 ml DAILY GTB Last administered on 11/05/18 08:48; Admin Dose 30 ML; Start 11/01/18 at 09:00 Docusate Sodium (Colace Liquid Cup) 100 mg BID GTB Last administered on 11/05/18 08:48; Admin Dose 100 MG; Start 11/01/18 at 09:00 Cefepime HCl 50 ml @ 100 mls/hr Q12 IVPB Last administered on 11/05/18 08:45; Admin Dose 100 MLS/HR; Start 11/01/18 at 09:30 Acetaminophen (Tylenol Liquid) 650 mg Q6H PRN GTB MILD PAIN(1-3)OR ELEVATED TEMP Last administered on 11/05/18 06:33; Admin Dose 650 MG; Start 11/01/18 at 12:00 Albuterol (Ventolin Hfa) 4 puff Q6H RESP THERAPY INH Last administered on 11/05/18 08:35; Admin Dose 4 PUFF; Start 11/01/18 at 20:00 Ipratropium [place] (Atrovent Hfa) 4 puff Q6H RESP THERAPY INH Last admin istered on 11/05/18 08:35; Admin Dose 4 PUFF; Start 11/01/18 at 20:00 Vancomycin HCl (Vanco Iv Per Pharmacy) VANCOMYCIN PER PHARMACY PER PROTOCOL XX ; Start 11/02/18 at 15:00 Voriconazole (Vfend) 200 mg BID PO Last administered on 11/05/18at 08:48; Admin Dose 200 MG; Start 11/03/18 at 21:00 Vancomycin HCl 750 mg/Sodium Chloride 150 ml @ 75 mls/hr Q12H IVPB Last administered on 11/05/18at 06:31; Admin Dose 75 MLS/HR; Start 11/04/18 at 06:00 Results Result Diagram: 11/04/18 0405 11/04/18 0405 RISA SAWYER NP Nov 05, 2018 10:54
--- NOTE | 2018-11-05 12:12 | CONS ---
Date/Time of Note Date/Time of Note DATE: 11/05/18 TIME: 12:10 Consult Date/Type/Reason Admit Date/Time Oct 31, 2018 at 21:21 Initial Consult Date 11/01/18 Type of Consultation: Pulm Subjective Comfortable.No resp distress. Objective Vital Signs Date Temp Pulse Resp B/P (MAP) Pulse Ox O2 O2 Flow FiO2 Time Delivery Rate 11/05/18 100.0 73 18 98/63 (75) 100 11:39 11/05/18 30 11:34 11/05/18 Mechanica 07:51 l Ventilato r Intake and Output 11/04/18 11/04/18 11/05/18 1515:00 23:00 07:00 IntakeIntake Total 820 ml 900 ml OutputOutput Total 550 ml 700 ml BalanceBalance 270 ml 200 ml Exam GENERAL: Chronically ill-appearing gentleman comfortable at rest VITAL SIGNS: per chart NECK: Supple. No JVD or lymphadenopathy. CARDIAC EXAM: S1, S2. No added sounds or murmurs. CHEST: clear bilaterally, No added sounds, rales or wheezes ABDOMEN: Soft, nontender. No guarding or rebound. EXTREMITIES: No cyanosis, clubbing or edema. NEUROLOGIC: Generalized weakness. Results/Medications Result Diagram: 11/04/18 0405 11/04/18 0405 Medications Current Medications Bisacodyl (Dulcolax Supp) 10 mg Q24H [place] Last administered on 11/03/18at 00:15; Admin Dose 10 MG; Start 11/01/18 at 00:00 Enoxaparin Sodium (Lovenox) 30 mg DAILY [place] Last administered on 11/05/18at 08:49; Admin Dose 30 MG; Start 11/01/18 at 09:00 Escitalopram Oxalate (Lexapro) 10 mg DAILY GTB Last administered on 11/05/18at 08:48; Admin Dose 10 MG; Start 11/01/18 at 09:00 Ferrous Sulfate (Feosol Liquid Cup) 330 mg BID GTB Last administered on 11/05/18at 08:48; Admin Dose 330 MG; Start 11/01/18 at 09:00 Lansoprazole (Prevacid) 30 mg DAILY GTB Last administered on 11/05/18at 08:48; Admin Dose 30 MG; Start 11/01/18 at 09:00 Morphine Sulfate (morphine) 5 mg Q4H PRN GTB MODERATE TO SEVERE PAIN Last administered on 11/03/18 08:47; Admin Dose 5 MG; Start 11/01/18 at 00:00 Multivitamins (Multivitamin) 30 ml DAILY GTB Last administered on 11/05/18 08:48; Admin Dose 30 ML; Start 11/01/18 at 09:00 Docusate Sodium (Colace Liquid Cup) 100 mg BID GTB Last administered on 11/05/18 08:48; Admin Dose 100 MG; Start 11/01/18 at 09:00 Cefepime HCl 50 ml @ 100 mls/hr Q12 IVPB Last administered on 11/05/18 08:45; Admin Dose 100 MLS/HR; Start 11/01/18 at 09:30 Acetaminophen (Tylenol Liquid) 650 mg Q6H PRN GTB MILD PAIN(1-3)OR ELEVATED TEMP Last administered on 11/05/18 06:33; Admin Dose 650 MG; Start 11/01/18 at 12:00 Albuterol (Ventolin Hfa) 4 puff Q6H RESP THERAPY INH Last administered on 11/05/18 08:35; Admin Dose 4 PUFF; Start 11/01/18 at 20:00 Ipratropium [place] (Atrovent Hfa) 4 puff Q6H RESP THERAPY INH Last administered on 11/05/18 08:35; Admin Dose 4 PUFF; Start 11/01/18 at 20:00 Vancomycin HCl (Vanco Iv Per Pharmacy) VANCOMYCIN PER PHARMACY PER PROTOCOL XX ; Start 11/02/18 at 15:00 Voriconazole (Vfend) 200 mg BID PO Last administered on 11/05/18 08:48; Admin Dose 200 MG; Start 11/03/18 at 21:00 Vancomycin HCl 750 mg/Sodium Chloride 150 ml @ 75 mls/hr Q12H IVPB Last administered on 11/05/18 06:31; Admin Dose 75 MLS/HR; Start 11/04/18 at 06:00 Miscellaneous Information (*Rx Drug Level Order Reminder*) VANCO TR AT 1,700 ONCE ONCE XX ; Start 11/05/18 at 17:00; Stop 11/05/18 at 17:01 Assessment/Plan Chief Complaint/Hosp Course IMP: 1. Urosepsis 2. Chronic respiratory failure, vent dependent. 3. 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 4. Pre-renal azotemia 5. Right corneal opacity chronic with blindness. 6. History of coronary artery disease with history of myocardial infarction. 7. Chronic sacral coccygeal decubitus RECS: 1. IVF's 2. Antibiotics per primary team 3. Feeding as tolerated 4. Wound care 5. DVT and GI prophylaxis Consider DC planning. LIVIA VALDERRAMA MD, [facility] Nov 05, 2018 12:12
--- NOTE | 2018-11-05 18:57 | PN ---
Date/Time of Note Date/Time of Note DATE: 11/05/18 TIME: 18:57 Assessment/Plan VTE Prophylaxis Risk score (from Ns)>0 risk: 8 [place] [facility]CD contraindicated: other Pharmacological prophylaxis: other Lines/Catheters [facility]from [facility] Mid Line Central line still needed: Yes Urinary Cath still in place: Yes Reason Cath still needed: urinary retention Assessment/Plan Assessment/Plan -Recurrent sepsis with bacteremia. Continue antibiotics per ID. Dr. Tesfaye is following in infection disease consultation. -Yeast UTI -Possible healthcare acquired pneumonia -Ventilator dependent respiratory failure. Dr. Hernández is following in pulmonology consultation. -Obstructive uropathy -Coronary artery disease with history of IN -Hypertension -Dysphagia with PEG -Quadriplegia 2 to C-spine abscess -C-spine epidural abscess, status post C3 to C4 laminectomy -DNR status Further recommendations based on clinical course. Plan of care discussed with Dr. Bautista. Exam/Review of Systems Vital Signs Vitals Vital Signs Date Temp Pulse Resp B/P (MAP) Pulse Ox O2 O2 Flow FiO2 Time Delivery Rate 11/05/18 68 20 98 30 17:56 11/05/18 99.0 103/60 15:18 (74) 11/05/18 Mechanical 07:51 Ventilator Intake and Output 11/04/18 11/04/18 11/05/18 1515:00 23:00 07:00 IntakeIntake Total 820 ml 900 ml OutputOutput Total 550 ml 700 ml BalanceBalance 270 ml 200 ml Exam Constitutional: well developed Psych: nl mood/affect Head: atraumatic Eyes: nl lids ENMT: nl external ears & nose Neck: supple, other (trach intact) Respiratory: diminished breath sounds (at bases blitally) Gastrointestinal: soft Neurological: focal weakness, lethargic Skin: other Medications Medications Current Medications Bisacodyl (Dulcolax Supp) 10 mg Q24H [place] Last administered on 11/03/18at 00:15; Admin Dose 10 MG; Start 11/01/18 at 00:00 Enoxaparin Sodium (Lovenox) 30 mg DAILY [place] Last administered on 11/05/18at 08:4 9; Admin Dose 30 MG; Start 11/01/18 at 09:00 Escitalopram Oxalate (Lexapro) 10 mg DAILY GTB Last administered on 11/05/18 08:48; Admin Dose 10 MG; Start 11/01/18 at 09:00 Ferrous Sulfate (Feosol Liquid Cup) 330 mg BID GTB Last administered on 11/05/18 08:48; Admin Dose 330 MG; Start 11/01/18 at 09:00 Lansoprazole (Prevacid) 30 mg DAILY GTB Last administered on 11/05/18 08:48; Admin Dose 30 MG; Start 11/01/18 at 09:00 Morphine Sulfate (morphine) 5 mg Q4H PRN GTB MODERATE TO SEVERE PAIN Last administered on 11/03/18 08:47; Admin Dose 5 MG; Start 11/01/18 at 00:00 Multivitamins (Multivitamin) 30 ml DAILY GTB Last administered on 11/05/18 08:48; Admin Dose 30 ML; Start 11/01/18 at 09:00 Docusate Sodium (Colace Liquid Cup) 100 mg BID GTB Last administered on 11/05/18 08:48; Admin Dose 100 MG; Start 11/01/18 at 09:00 Cefepime HCl 50 ml @ 100 mls/hr Q12 IVPB Last administered on 11/05/18 08:45; Admin Dose 100 MLS/HR; Start 11/01/18 at 09:30 Acetaminophen (Tylenol Liquid) 650 mg Q6H PRN GTB MILD PAIN(1-3)OR ELEVATED TEMP Last administered on 11/05/18 06:33; Admin Dose 650 MG; Start 11/01/18 at 12:00 Albuterol (Ventolin Hfa) 4 puff Q6H RESP THERAPY INH Last administered on 11/05/18 13:24; Admin Dose 4 PUFF; Start 11/01/18 at 20:00 Ipratropium [place] (Atrovent Hfa) 4 puff Q6H RESP THERAPY INH Last administered on 11/05/18 13:23; Admin Dose 4 PUFF; Start 11/01/18 at 20:00 Vancomycin HCl (Vanco Iv Per Pharmacy) VANCOMYCIN PER PHARMACY PER PROTOCOL XX ; Start 11/02/18 at 15:00 Voriconazole (Vfend) 200 mg BID PO Last administered on 11/05/18 08:48; Admin Dose 200 MG; Start 11/03/18 at 21:00 Vancomycin HCl 750 mg/Sodium Chloride 150 ml @ 75 mls/hr Q12H IVPB Last administered on 11/05/18at 18:46; Admin Dose 75 MLS/HR; Start 11/04/18 at 06:00 Results Result Diagram: 11/04/18 0405 11/05/18 1732 Results 24 hrs Laboratory Tests Test 11/05/18 17:32 Blood Urea Nitrogen 18 Creatinine 0.56 L Vancomycin Level Trough 13.9 CLEMENT WATSON Nov 05, 2018 18:57
[2018-11-06] VITALS (21 sets, daily range): BP systolic 115–134; BP diastolic 64–90; PULSE 41–90; RESP 18–21
[2018-11-06] MEDS: BISACODYL 10 MG SUPP PR SCH
[2018-11-06] MEDS: IPRATROPIUM (HFA) 12.9 GM INHALER INH SCH ×4 (02:17→19:14)
[2018-11-06] MEDS: ALBUTEROL HFA 8 GM INHALER INH SCH ×4 (02:17→19:14)
[2018-11-06] MEDS: ACETAMINOPHEN 650MG/20.3ML CUP GTB PRN ×2 (05:44→21:56)
[2018-11-06] MEDS: VANCOMYCIN 750 MG in SOD CHLORIDE 0.9% 150 ML IVPB SCH ×2 (06:06→18:14)
[2018-11-06] MEDS: VORICONAZOLE 200 MG TAB PO SCH ×2 (08:28→20:41)
[2018-11-06] MEDS: MULTIVITAMINS 30 ML CUP GTB SCH (08:28)
[2018-11-06] MEDS: DOCUSATE SODIUM 10 MG/ML (10ML CUP) GTB SCH ×2 (08:28→20:41)
[2018-11-06] MEDS: ESCITALOPRAM 10 MG TAB GTB SCH (08:28)
[2018-11-06] MEDS: FERROUS SULFATE 60 MG/ML 5ML CUP GTB SCH ×2 (08:28→20:41)
[2018-11-06] MEDS: LANSOPRAZOLE 30 MG CAP GTB SCH (08:28)
[2018-11-06] MEDS: CEFEPIME 1GM/50 ML (PMX) 50 ML IVPB SCH ×2 (08:29→20:40)
[2018-11-06] MEDS: ENOXAPARIN 30 MG/0.3 ML SYG SC SCH (09:07)
[2018-11-06] MEDS: BALSAM PERU/CASTOR OIL 60 GM TUBE TOP SCH (09:08)
--- NOTE | 2018-11-06 11:33 | CONS ---
Date/Time of Note Date/Time of Note DATE: 11/06/18 TIME: 11:25 Consult Date/Type/Reason Admit Date/Time Oct 31, 2018 at 21:21 Initial Consult Date 11/01/18 Type of Consultation: Pulm Subjective Febrile overnight Objective Vital Signs Date Temp Pulse Resp B/P (MAP) Pulse Ox O2 O2 Flow FiO2 Time Delivery Rate 11/06/18 74 18 100 30 09:09 11/06/18 101.2 134/68 07:46 (90) 11/06/18 Mechanica 04:00 l Ventilato r Intake and Output 11/05/18 11/05/18 11/06/18 1515:00 23:00 07:00 IntakeIntake Total 930 ml 900 ml OutputOutput Total 400 ml 800 ml BalanceBalance 530 ml 100 ml Exam GENERAL: Chronically ill-appearing gentleman comfortable at rest VITAL SIGNS: per chart NECK: Supple. No JVD or lymphadenopathy. CARDIAC EXAM: S1, S2. No added sounds or murmurs. CHEST: clear bilaterally, No added sounds, rales or wheezes ABDOMEN: Soft, nontender. No guarding or rebound. EXTREMITIES: No cyanosis, clubbing or edema. NEUROLOGIC: Generalized weakness. Results/Medications Result Diagram: 11/04/18 0405 11/05/18 1732 Results 24 hrs Laboratory Tests Test 11/05/18 17:32 Blood Urea Nitrogen 18 Creatinine 0.56 L Vancomycin Level Trough 13.9 Medications Current Medications Bisacodyl (Dulcolax Supp) 10 mg Q24H [place] Last administered on 11/03/18at 00:15; Admin Dose 10 MG; Start 11/01/18 at 00:00 Enoxaparin Sodium (Lovenox) 30 mg DAILY [place] Last administered on 11/06/18at 09:07; Admin Dose 30 MG; Start 11/01/18 at 09:00 Escitalopram Oxalate (Lexapro) 10 mg DAILY GTB Last administered on 11/06/18at 08:28; Admin Dose 10 MG; Start 11/01/18 at 09:00 Ferrous Sulfate (Feosol Liquid Cup) 330 mg BID GTB Last administered on 11/06/18at 08:28; Admin Dose 330 MG; Start 11/01/18 at 09:00 Lansoprazole (Prevacid) 30 mg DAILY GTB Last administered on 11/06/18at 08:28; Admin Dose 30 MG; Start 11/01/18 at 09:00 Morphine Sulfate (morphine) 5 mg Q4H PRN GTB MODERATE TO SEVERE PAIN Last administered on 11/03/18 08:47; Admin Dose 5 MG; Start 11/01/18 at 00:00 Multivitamins (Multivitamin) 30 ml DAILY GTB Last administered on 11/06/18 08:28; Admin Dose 30 ML; Start 11/01/18 at 09:00 Docusate Sodium (Colace Liquid Cup) 100 mg BID GTB Last administered on 11/06/18 08:28; Admin Dose 100 MG; Start 11/01/18 at 09:00 Cefepime HCl 50 ml @ 100 mls/hr Q12 IVPB Last administered on 11/06/18 08:29; Admin Dose 100 MLS/HR; Start 11/01/18 at 09:30 Acetaminophen (Tylenol Liquid) 650 mg Q6H PRN GTB MILD PAIN(1-3)OR ELEVATED TEMP Last administered on 11/06/18 05:44; Admin Dose 650 MG; Start 11/01/18 at 12:00 Albuterol (Ventolin Hfa) 4 puff Q6H RESP THERAPY INH Last administered on 11/06/18 09:06; Admin Dose 4 PUFF; Start 11/01/18 at 20:00 Ipratropium [place] (Atrovent Hfa) 4 puff Q6H RESP THERAPY INH Last administered on 11/06/18 09:05; Admin Dose 4 PUFF; Start 11/01/18 at 20:00 Vancomycin HCl (Vanco Iv Per Pharmacy) VANCOMYCIN PER PHARMACY PER PROTOCOL XX ; Start 11/02/18 at 15:00 Voriconazole (Vfend) 200 mg BID PO Last administered on 11/06/18 08:28; Admin Dose 200 MG; Start 11/03/18 at 21:00 Vancomycin HCl 750 mg/Sodium Chloride 150 ml @ 75 mls/hr Q12H IVPB Last administered on 11/06/18 06:06; Admin Dose 75 MLS/HR; Start 11/04/18 at 06:00 Assessment/Plan Chief Complaint/Hosp Course IMP: 1. Urosepsis with persistent fevers. 2. Chronic respiratory failure, vent dependent. 3. 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 4. Pre-renal azotemia 5. Right corneal opacity chronic with blindness. 6. History of coronary artery disease with history of myocardial infarction. 7. Chronic sacral coccygeal decubitus RECS: 1. IVF's 2. Antibiotics per primary team 3. Feeding as tolerated 4. Wound care 5. DVT and GI prophylaxis LIVIA VALDERRAMA MD, [facility] Nov 06, 2018 11:33
--- NOTE | 2018-11-06 13:56 | CONS ---
Date/Time of Note Date/Time of Note DATE: 11/06/18 TIME: 13:55 Assessment/Plan Assessment/Plan Chief Complaint/Hosp Course SUBJECTIVE: Patient had been spiking fevers with a T-max of 101.2 this morning she is awake in no distress per report had been having loose stools Microbiology: Blood culture on admission grew coag negative staph species, repeat blood cultures negative, MRSA negative, urine culture growing yeast, not Filomena albicans, sputum culture grew pseudomonas aeruginosa and Serratia INDWELLINGS: Trach, PEG. ANTIMICROBIALS: 1. Vfend 2. Cefepime. 3. Vancomycin PHYSICAL EXAMINATION: GENERAL: This is a chronically ill-appearing, debilitated, elderly man who is in no distress. HEENT: Head atraumatic, normocephalic. Sclerae anicteric. Buccal mucosa dry. NECK: Supple. Tracheostomy present. CHEST: Rise symmetrical. Breath sounds diminished to bases. HEART: S1, S2, tachycardic, regular. ABDOMEN: Soft, bowel tones present. EXTREMITIES: Wasted, contractured. ASSESSMENT: 1. Sepsis. 2. Coag negative staph bacteremia likely contaminant with repeat blood cultures negative. 3. Urinary tract infection. 4. Questionable recurrent healthcare-associated pneumonia. 5. History of Clostridium difficile colitis. 6. Quadriplegia status post cervical spine surgery. 7. DNR PLAN: Clinically unchanged, continue antibiotics, add empiric Flagyl, send stool for C. difficile, repeat chest x-ray in a.m. and urine culture Consultation Date/Type/Reason Admit Date/Time Oct 31, 2018 at 21:21 Initial Consult Date 11/01/18 Type of Consult id Exam/Review of Systems Vital Signs Vitals Vital Signs Date Temp Pulse Resp B/P (MAP) Pulse Ox O2 O2 Flow FiO2 Time Delivery Rate 11/06/18 74 12:00 11/06/18 100.1 18 123/79 97 11:44 (94) 11/06/18 30 11:30 11/06/18 [place] 04:00 l Ventilato r Intake and Output 11/05/18 11/05/18 11/06/18 1515:00 23:00 07:00 IntakeIntake Total 930 ml 900 ml OutputOutput Total 400 ml 800 ml BalanceBalance 530 ml 100 ml Medications Medications Current Medications Bisacodyl (Dulcolax Supp) 10 mg Q24H [place] Last administered on 11/03/18 00:15; Admin Dose 10 MG; Start 11/01/18 at 00:00 Enoxaparin Sodium (Lovenox) 30 mg DAILY SC Last administered on 11/06/18 09:07; Admin Dose 30 MG; Start 11/01/18 at 09:00 Escitalopram Oxalate (Lexapro) 10 mg DAILY GTB Last administered on 11/06/18 08:28; Admin Dose 10 MG; Start 11/01/18 at 09:00 Ferrous Sulfate (Feosol Liquid Cup) 330 mg BID GTB Last administered on 11/06/18 08:28; Admin Dose 330 MG; Start 11/01/18 at 09:00 Lansoprazole (Prevacid) 30 mg DAILY GTB Last administered on 11/06/18 08:28; Admin Dose 30 MG; Start 11/01/18 at 09:00 Morphine Sulfate (morphine) 5 mg Q4H PRN GTB MODERATE TO SEVERE PAIN Last administered on 11/03/18 08:47; Admin Dose 5 MG; Start 11/01/18 at 00:00 Multivitamins (Multivitamin) 30 ml DAILY GTB Last administered on 11/06/18 08:28; Admin Dose 30 ML; Start 11/01/18 at 09:00 Docusate Sodium (Colace Liquid Cup) 100 mg BID GTB Last administered on 11/06/18 08:28; Admin Dose 100 MG; Start 11/01/18 at 09:00 Cefepime HCl 50 ml @ 100 mls/hr Q12 IVPB Last administered on 11/06/18 08:29; Admin Dose 100 MLS/HR; Start 11/01/18 at 09:30 Acetaminophen (Tylenol Liquid) 650 mg Q6H PRN GTB MILD PAIN(1-3)OR ELEVATED TEMP Last administered on 11/06/18 05:44; Admin Dose 650 MG; Start 11/01/18 at 12:00 Albuterol (Ventolin Hfa) 4 puff Q6H RESP THERAPY INH Last administered on 11/06/18 13:48; Admin Dose 4 PUFF; Start 11/01/18 at 20:00 Ipratropium [place] (Atrovent Hfa) 4 puff Q6H RESP THERAPY INH Last administered on 12/14/18at 13:47; Admin Dose 4 PUFF; Start 11/01/18 at 20:00 Vancomycin HCl (Vanco Iv Per Pharmacy) VANCOMYCIN PER PHARMACY PER PROTOCOL XX ; Start 11/02/18 at 15:00 Voriconazole (Vfend) 200 mg BID PO Last administered on 11/06/18at 08:28; Admin Dose 200 MG; Start 11/03/18 at 21:00 Vancomycin HCl 750 mg/Sodium Chloride 150 ml @ 75 mls/hr Q12H IVPB Last administered on 11/06/18at 06:06; Admin Dose 75 MLS/HR; Start 11/04/18 at 06:00 Results Result Diagram: 11/04/18 0405 11/05/18 1732 Results 24 hrs Laboratory Tests Test 11/05/18 17:32 Blood Urea Nitrogen 18 Creatinine 0.56 L Vancomycin Level Trough 13.9 RISA SAWYER NP Nov 06, 2018 13:56
[2018-11-06] MEDS: metroNIDAZOLE 500 MG TAB PO SCH ×2 (15:05→20:41)
--- NOTE | 2018-11-06 17:55 | PN ---
Date/Time of Note Date/Time of Note DATE: 11/06/18 TIME: 17:54 Assessment/Plan VTE Prophylaxis Risk score (from Ns)>0 risk: 8 SCD applied (from [facility]): No SCD contraindicated: other Pharmacological prophylaxis: other Lines/Catheters [facility] Type (from [facility] Mid Line Central line still needed: Yes Urinary Cath still in place: Yes Reason Cath still needed: urinary retention Assessment/Plan Assessment/Plan -Recurrent sepsis with bacteremia. Continue antibiotics per ID. Dr. Tesfaye is following in infection disease consultation. -Yeast UTI -Possible healthcare acquired pneumonia -Ventilator dependent respiratory failure. Dr. Hernández is following in pulmonology consultation. 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 Plan of care discussed with Dr. Bautista. Subjective 24 Hr Interval Summary Subjective hx not possible: pt non-verbal Constitutional: febrile, requiring O2 Exam/Review of Systems Vital Signs Vitals Vital Signs Date Temp Pulse Resp B/P (MAP) Pulse Ox O2 O2 Flow FiO2 Time Delivery Rate 11/06/18 75 18 95 17:33 11/06/18 99.0 119/72 15:26 (88) 11/06/18 30 13:50 11/06/18 Mechanical 04:00 Ventilator Intake and Output 11/05/18 11/05/18 11/06/18 1414:59 22:59 06:59 IntakeIntake Total 930 ml 900 ml OutputOutput Total 400 ml 800 ml BalanceBalance 530 ml 100 ml Exam Constitutional: non-verbal, frail Psych: nl mood/affect Eyes: nl lids, nl sclera ENMT: nl external ears & nose Neck: supple, other (trach intact) Respiratory: diminished breath sounds (bilaterally) Cardiovascular: nl pulses Gastrointestinal: soft, other (gt intact) Musculoskeletal: muscle weakness, range of motion Extremities: normal pulses Neurological: unresponsive Lymph: nl lymph nodes Medications Medications Current Medications Bisacodyl (Dulcolax Supp) 10 mg Q24H [place] Last administered on 11/03/18at 00:15; Admin Dose 10 MG; Start 11/01/18 at 00:00 Enoxaparin Sodium (Lovenox) 30 mg DAILY [place] Last administered on 11/06/18 09:07; Admin Dose 30 MG; Start 11/01/18 at 09:00 Escitalopram Oxalate (Lexapro) 10 mg DAILY GTB Last administered on 11/06/18 08:28; Admin Dose 10 MG; Start 11/01/18 at 09:00 Ferrous Sulfate (Feosol Liquid Cup) 330 mg BID GTB Last administered on 11/06/18 08:28; Admin Dose 330 MG; Start 11/01/18 at 09:00 Lansoprazole (Prevacid) 30 mg DAILY GTB Last administered on 11/06/18 08:28; Admin Dose 30 MG; Start 11/01/18 at 09:00 Morphine Sulfate (morphine) 5 mg Q4H PRN GTB MODERATE TO SEVERE PAIN Last administered on 11/03/18 08:47; Admin Dose 5 MG; Start 11/01/18 at 00:00 Multivitamins (Multivitamin) 30 ml DAILY GTB Last administered on 11/06/18 08:28; Admin Dose 30 ML; Start 11/01/18 at 09:00 Docusate Sodium (Colace Liquid Cup) 100 mg BID GTB Last administered on 11/06/18 08:28; Admin Dose 100 MG; Start 11/01/18 at 09:00 Cefepime HCl 50 ml @ 100 mls/hr Q12 IVPB Last administered on 11/06/18 08:29; Admin Dose 100 MLS/HR; Start 11/01/18 at 09:30 Acetaminophen (Tylenol Liquid) 650 mg Q6H PRN GTB MILD PAIN(1-3)OR ELEVATED TEMP Last administered on 11/06/18 05:44; Admin Dose 650 MG; Start 11/01/18 at 12:00 Albuterol (Ventolin Hfa) 4 puff Q6H RESP THERAPY INH Last administered on 11/06/18 13:48; Admin Dose 4 PUFF; Start 11/01/18 at 20:00 Ipratropium [place] (Atrovent Hfa) 4 puff Q6H RESP THERAPY INH Last administered on 11/06/18 13:47; Admin Dose 4 PUFF; Start 11/01/18 at 20:00 Vancomycin HCl (Vanco Iv Per Pharmacy) VANCOMYCIN PER PHARMACY PER PROTOCOL XX ; Start 11/02/18 at 15:00 Voriconazole (Vfend) 200 mg BID PO Last administered on 11/06/18at 08:28; Admin Dose 200 MG; Start 11/03/18 at 21:00 Vancomycin HCl 750 mg/Sodium Chloride 150 ml @ 75 mls/hr Q12H IVPB Last administered on 11/06/18at 06:06; Admin Dose 75 MLS/HR; Start 11/04/18 at 06:00 Metronidazole (Flagyl) 500 mg Q8 PO Last administered on 11/06/18at 15:05; Admin Dose 500 MG; Start 11/06/18 at 14:00 Results Result Diagram: 11/04/18 0405 11/05/18 1732 CLEMENT WATSON Nov 06, 2018 17:55
[2018-11-07] VITALS (22 sets, daily range): BP systolic 97–139; BP diastolic 67–77; PULSE 62–89; RESP 17–25
[2018-11-07] MEDS: BISACODYL 10 MG SUPP PR SCH
[2018-11-07] MEDS: ALBUTEROL HFA 8 GM INHALER INH SCH ×4 (01:29→19:16)
[2018-11-07] MEDS: IPRATROPIUM (HFA) 12.9 GM INHALER INH SCH ×4 (01:29→19:16)
[2018-11-07] MEDS: VANCOMYCIN 750 MG in SOD CHLORIDE 0.9% 150 ML IVPB SCH ×2 (05:27→19:05)
[2018-11-07] MEDS: metroNIDAZOLE 500 MG TAB PO SCH ×3 (05:27→22:24)
[2018-11-07] MEDS: DOCUSATE SODIUM 10 MG/ML (10ML CUP) GTB SCH ×2 (09:00→20:52)
[2018-11-07] MEDS: LANSOPRAZOLE 30 MG CAP GTB SCH (09:03)
[2018-11-07] MEDS: MULTIVITAMINS 30 ML CUP GTB SCH (09:03)
[2018-11-07] MEDS: FERROUS SULFATE 60 MG/ML 5ML CUP GTB SCH ×2 (09:03→20:52)
[2018-11-07] MEDS: ESCITALOPRAM 10 MG TAB GTB SCH (09:03)
[2018-11-07] MEDS: CEFEPIME 1GM/50 ML (PMX) 50 ML IVPB SCH ×2 (09:03→20:52)
[2018-11-07] MEDS: ENOXAPARIN 30 MG/0.3 ML SYG SC SCH (09:07)
[2018-11-07] MEDS: VORICONAZOLE 200 MG TAB PO SCH ×2 (09:09→20:52)
[2018-11-07] MEDS: BALSAM PERU/CASTOR OIL 60 GM TUBE TOP SCH (09:10)
--- NOTE | 2018-11-07 11:37 | PN ---
Date/Time of Note Date/Time of Note DATE: 11/07/18 TIME: 11:36 Assessment/Plan VTE Prophylaxis Risk score (from [facility]0 risk: 8 SCD applied (from [facility] No SCD contraindicated: other Pharmacological prophylaxis: LMWH Lines/Catheters IV Catheter Type (from [facility]): Mid Line Urinary Cath still in place: Yes Reason Cath still needed: skin wounds contaminated by urine Assessment/Plan Hospital Course -Recurrent sepsis with bacteremia. Continue antibiotics per ID. Dr. Tesfaye is following in infection disease consultation. -Yeast UTI -Possible healthcare acquired pneumonia -Ventilator dependent respiratory failure. Dr. Hernández is following in pulmonology consultation. 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 -C-spine epidural abscess, status post C3 to C4 laminectomy -DNR status Subjective 24 Hr Interval Summary Free Text/Dictation Trach in place, patient appears comfortable Exam/Review of Systems Vital Signs Vitals Vital Signs Date Temp Pulse Resp B/P (MAP) Pulse Ox O2 O2 Flow FiO2 Time Delivery Rate 11/07/18 68 20 98 30 09:30 11/07/18 98.4 137/74 08:00 (95) 11/07/18 Mechanical 04:00 Ventilator Intake and Output 11/06/18 11/06/18 11/07/18 1515:00 23:00 07:00 IntakeIntake Total 820 ml 960 ml OutputOutput Total 750 ml 450 ml BalanceBalance 70 ml 510 ml Exam Constitutional: well developed Head: normocephalic, atraumatic Neck: supple Respiratory: diminished breath sounds Cardiovascular: regular rate and rhythm Gastrointestinal: soft, non-tender Extremities: normal pulses Medications Medications Current Medications Bisacodyl (Dulcolax Supp) 10 mg Q24H [place] Last administered on 11/03/18at 00:15; Admin Dose 10 MG; Start 11/01/18 at 00:00 Enoxaparin Sodium (Lovenox) 30 mg DAILY [place] Last administered on 11/07/18at 09:07; Admin Dose 30 MG; Start 11/01/18 at 09:00 Escitalopram Oxalate (Lexapro) 10 mg DAILY GTB Last administered on 11/07/18at 09:03; Admin Dose 10 MG; Start 11/01/18 at 09:00 Ferrous Sulfate (Feosol Liquid Cup) 330 mg BID GTB Last administered on 11/07/18 09:03; Admin Dose 330 MG; Start 11/01/18 at 09:00 Lansoprazole (Prevacid) 30 mg DAILY GTB Last administered on 11/07/18 09:03; Admin Dose 30 MG; Start 11/01/18 at 09:00 Morphine Sulfate (morphine) 5 mg Q4H PRN GTB MODERATE TO SEVERE PAIN Last administered on 11/03/18 08:47; Admin Dose 5 MG; Start 11/01/18 at 00:00 Multivitamins (Multivitamin) 30 ml DAILY GTB Last administered on 11/07/18 09:03; Admin Dose 30 ML; Start 11/01/18 at 09:00 Docusate Sodium (Colace Liquid Cup) 100 mg BID GTB Last administered on 11/06/18 08:28; Admin Dose 100 MG; Start 11/01/18 at 09:00 Cefepime HCl 50 ml @ 100 mls/hr Q12 IVPB Last administered on 11/07/18 09:0 3; Admin Dose 100 MLS/HR; Start 11/01/18 at 09:30 Acetaminophen (Tylenol Liquid) 650 mg Q6H PRN GTB MILD PAIN(1-3)OR ELEVATED TEMP Last administered on 11/06/18 21:56; Admin Dose 650 MG; Start 11/01/18 at 12:00 Albuterol (Ventolin Hfa) 4 puff Q6H RESP THERAPY INH Last administered on 11/07/18 09:30; Admin Dose 4 PUFF; Start 11/01/18 at 20:00 Ipratropium [place] (Atrovent Hfa) 4 puff Q6H RESP THERAPY INH Last administered on 11/07/18 09:30; Admin Dose 4 PUFF; Start 11/01/18 at 20:00 Vancomycin HCl (Vanco Iv Per Pharmacy) VANCOMYCIN PER PHARMACY PER PROTOCOL XX ; Start 11/02/18 at 15:00 Voriconazole (Vfend) 200 mg BID PO Last administered on 11/07/18 09:09; Admin Dose 200 MG; Start 11/03/18 at 21:00 Vancomycin HCl 750 mg/Sodium Chloride 150 ml @ 75 mls/hr Q12H IVPB Last adm inistered on 11/07/18at 05:27; Admin Dose 75 MLS/HR; Start 11/04/18 at 06:00 Metronidazole (Flagyl) 500 mg Q8 PO Last administered on 11/07/18at 05:27; Admin Dose 500 MG; Start 11/06/18 at 14:00 Results Result Diagram: 11/04/18 0405 11/05/18 1732 DARIO PANIAGUA Nov 07, 2018 11:37
--- NOTE | 2018-11-07 11:49 | CONS ---
Date/Time of Note Date/Time of Note DATE: 11/07/18 TIME: 11:47 Assessment/Plan Assessment/Plan Additional Assessment/Plan Ventilator setting; AC of 18, tidal volume 450, PEEP of 5, 30% FiO2. Assessment and recommendations; 1. Patient with history of VD RF admitted for recurrent sepsis, currently on appropriate antibiotic therapy regimen. Multiple sources identified including pneumonia, sacral ulcers, as well as UTI. Continue current supportive care. Antibiotics per ID recommendations. Consultation Date/Type/Reason Admit Date/Time Oct 31, 2018 at 21:21 Initial Consult Date 11/01/18 Type of Consult Pulmonary Reason for Consultation Patient's condition is stable overall. Has remained hemodynamically stable. General exam; elderly male, awake, fairly responsive. Currently no distress. On ventilator via tracheostomy. H EENT exam; supple neck, no JVD. No lymphadenopathy. Midline trachea. No thyromegaly. Patient has fair dentition. Tracheostomy in place. There is a stable left corneal opacity. Chest exam; diminished but clear breath sounds. S1-S2 audible, no murmurs. Regular rhythm. Abdomen exam; soft, G-tube in place. No organomegaly. Bowel sounds audible. Extremity exam; no peripheral edema. Patient does have flexion contractures. MARKETING BUSINESS ANALYST exam; he is awake and responsive exhibiting stable incomplete quadriplegia. Exam/Review of Systems Vital Signs Vitals Vital Signs Date Temp Pulse Resp B/P (MAP) Pulse Ox O2 O2 Flow FiO2 Time Delivery Rate 11/07/18 68 20 98 30 09:30 11/07/18 98.4 137/74 08:00 (95) 11/07/18 Mechanical 04:00 Ventilator Intake and Output 11/06/18 11/06/18 11/07/18 1515:00 23:00 07:00 IntakeIntake Total 820 ml 960 ml OutputOutput Total 750 ml 450 ml BalanceBalance 70 ml 510 ml Medications Medications Current Medications Bisacodyl (Dulcolax Supp) 10 mg Q24H [place] Last administered on 11/03/18at 00:15; Admin Dose 10 MG; Start 11/01/18 at 00:00 Enoxaparin Sodium (Lovenox) 30 mg DAILY [place] Last administered on 11/07/18at 09:07; Admin Dose 30 MG; Start 11/01/18 at 09:00 Escitalopram Oxalate (Lexapro) 10 mg DAILY GTB Last administered on 11/07/18 09:03; Admin Dose 10 MG; Start 11/01/18 at 09:00 Ferrous Sulfate (Feosol Liquid Cup) 330 mg BID GTB Last administered on 11/07/18 09:03; Admin Dose 330 MG; Start 11/01/18 at 09:00 Lansoprazole (Prevacid) 30 mg DAILY GTB Last administered on 11/07/18 09:03; Admin Dose 30 MG; Start 11/01/18 at 09:00 Morphine Sulfate (morphine) 5 mg Q4H PRN GTB MODERATE TO SEVERE PAIN Last administered on 11/03/18 08:47; Admin Dose 5 MG; Start 11/01/18 at 00:00 Multivitamins (Multivitamin) 30 ml DAILY GTB Last administered on 11/07/18 09:03; Admin Dose 30 ML; Start 11/01/18 at 09:00 Docusate Sodium (Colace Liquid Cup) 100 mg BID GTB Last administered on 11/06/18 08:28; Admin Dose 100 MG; Start 11/01/18 at 09:00 Cefepime HCl 50 ml @ 100 mls/hr Q12 IVPB Last administered on 11/07/18 09:03; Admin Dose 100 MLS/HR; Start 11/01/18 at 09:30 Acetaminophen (Tylenol Liquid) 650 mg Q6H PRN GTB MILD PAIN(1-3)OR ELEVATED TEMP Last administered on 11/06/18 21:56; Admin Dose 650 MG; Start 11/01/18 at 12:00 Albuterol (Ventolin Hfa) 4 puff Q6H RESP THERAPY INH Last administered on 11/07/18 09:30; Admin Dose 4 PUFF; Start 11/01/18 at 20:00 Ipratropium [place] (Atrovent Hfa) 4 puff Q6H RESP THERAPY INH Last administered on 11/07/18 09:30; Admin Dose 4 PUFF; Start 11/01/18 at 20:00 Vancomycin HCl (Vanco Iv Per Pharmacy) VANCOMYCIN PER PHARMACY PER PROTOCOL XX ; Start 11/02/18 at 15:00 Voriconazole (Vfend) 200 mg BID PO Last administered on 11/07/18 09:09; Admin Dose 200 MG; Start 11/03/18 at 21:00 Vancomycin HCl 750 mg/Sodium Chloride 150 ml @ 75 mls/hr Q12H IVPB Last administered on 11/07/18at 05:27; Admin Dose 75 MLS/HR; Start 11/04/18 at 06:00 Metronidazole (Flagyl) 500 mg Q8 PO Last administered on 11/07/18at 05:27; Admin Dose 500 MG; Start 11/06/18 at 14:00 Results Result Diagram: 11/04/18 0405 11/05/18 1732 SONYA SILVA Nov 07, 2018 11:49
--- NOTE | 2018-11-07 14:44 | CONS ---
Date/Time of Note Date/Time of Note DATE: 11/07/18 TIME: 14:38 Consultation Date/Type/Reason Admit Date/Time Oct 31, 2018 at 21:21 Initial Consult Date SUBJECTIVE: Patient had been spiking fevers. She is awake in no distress, resting in bed. VS: T:99.8 LABS: Reviewed. CXR 11/06/18: IMPRESSION: 1. Low lung volumes with mild interstitial edema and small right pleural effusion. Lung aeration is mildly improved when compared to the prior examination. 2. Mild cardiomegaly and aortic atherosclerosis. 3. Tracheostomy tube in place Microbiology: Blood culture on admission grew coag negative staph species, repeat blood cultures negative, MRSA negative. Urine culture growing yeast, not Filomena albicans Sputum culture grew pseudomonas aeruginosa and Serratia INDWELLINGS: Trach, PEG. ANTIMICROBIALS: 1. Vfend 2. Cefepime. 3. Vancomycin 4. Flagyl PHYSICAL EXAMINATION: GENERAL: This is a chronically ill-appearing, debilitated, elderly man who is in no distress. HEENT: Head atraumatic, normocephalic. Sclerae anicteric. Buccal mucosa dry. NECK: Supple. Tracheostomy present. CHEST: Rise symmetrical. Breath sounds diminished to bases. HEART: S1, S2, tachycardic, regular. ABDOMEN: Soft, bowel tones present. EXTREMITIES: Wasted, contractured. ASSESSMENT: 1. Sepsis. 2. Coag negative staph bacteremia likely contaminant with repeat blood cultures negative. 3. Urinary tract infection. 4. Questionable recurrent healthcare-associated pneumonia. 5. History of Clostridium difficile colitis. 6. Quadriplegia status post cervical spine surgery. 7. DNR PLAN: Clinically unchanged. Will continue antibiotics and Flagyl. CXR yesterday noted. Repeat UA and blood cultures pending. Exam/Review of Systems Vital Signs Vitals Vital Signs Date Temp Pulse Resp B/P (MAP) Pulse Ox O2 O2 Flow FiO2 Time Delivery Rate 11/07/18 83 13:26 11/07/18 99.8 25 97/77 (84) 97 12:08 11/07/18 30 09:30 11/07/18 Mechanical 04:00 Ventilator Intake and Output 11/06/18 11/06/18 11/07/18 1515:00 23:00 07:00 IntakeIntake Total 820 ml 960 ml OutputOutput Total 750 ml 450 ml BalanceBalance 70 ml 510 ml Medications Medications Current Medications Bisacodyl (Dulcolax Supp) 10 mg Q24H [place] Last administered on 11/03/18 00:15; Admin Dose 10 MG; Start 11/01/18 at 00:00 Enoxaparin Sodium (Lovenox) 30 mg DAILY [place] Last administered on 11/07/18 09:07; Admin Dose 30 MG; Start 11/01/18 at 09:00 Escitalopram Oxalate (Lexapro) 10 mg DAILY GTB Last administered on 11/07/18 09:03; Admin Dose 10 MG; Start 11/01/18 at 09:00 Ferrous Sulfate (Feosol Liquid Cup) 330 mg BID GTB Last administered on 11/07/18 09:03; Admin Dose 330 MG; Start 11/01/18 at 09:00 Lansoprazole (Prevacid) 30 mg DAILY GTB Last administered on 11/07/18 09:03; Admin Dose 30 MG; Start 11/01/18 at 09:00 Morphine Sulfate (morphine) 5 mg Q4H PRN GTB MODERATE TO SEVERE PAIN Last administered on 11/03/18 08:47; Admin Dose 5 MG; Start 11/01/18 at 00:00 Multivitamins (Multivitamin) 30 ml DAILY GTB Last administered on 11/07/18 09:03; Admin Dose 30 ML; Start 11/01/18 at 09:00 Docusate Sodium (Colace Liquid Cup) 100 mg BID GTB Last administered on 11/06/18 08:28; Admin Dose 100 MG; Start 11/01/18 at 09:00 Cefepime HCl 50 ml @ 100 mls/hr Q12 IVPB Last administered on 11/07/18 09:03; Admin Dose 100 MLS/HR; Start 11/01/18 at 09:30 Acetaminophen (Tylenol Liquid) 650 mg Q6H PRN GTB MILD PAIN(1-3)OR ELEVATED TEMP Last administered on 11/06/18 21:56; Admin Dose 650 MG; Start 11/01/18 at 12:00 Albuterol (Ventolin Hfa) 4 puff Q6H RESP THERAPY INH Last administered on 11/07/18 09:30; Admin Dose 4 PUFF; Start 11/01/18 at 20:00 Ipratropium [place] (Atrovent Hfa) 4 puff Q6H RESP THERAPY INH Last administered on 11/07/18at 09:30; Admin Dose 4 PUFF; Start 11/01/18 at 20:00 Vancomycin HCl (Vanco Iv Per Pharmacy) VANCOMYCIN PER PHARMACY PER PROTOCOL XX ; Start 11/02/18 at 15:00 Voriconazole (Vfend) 200 mg BID PO Last administered on 11/07/18at 09:09; Admin Dose 200 MG; Start 11/03/18 at 21:00 Vancomycin HCl 750 mg/Sodium Chloride 150 ml @ 75 mls/hr Q12H IVPB Last admin istered on 11/07/18at 05:27; Admin Dose 75 MLS/HR; Start 11/04/18 at 06:00 Metronidazole (Flagyl) 500 mg Q8 PO Last administered on 11/07/18at 05:27; Admin Dose 500 MG; Start 11/06/18 at 14:00 Results Result Diagram: 11/04/18 0405 11/05/18 1732 TYLER FITZPATRICK Nov 07, 2018 14:44
[2018-11-07] MEDS: ACETAMINOPHEN 650MG/20.3ML CUP GTB PRN (22:24)
[2018-11-08] VITALS (26 sets, daily range): BP systolic 94–127; BP diastolic 53–79; PULSE 60–93; RESP 18–20
[2018-11-08] MEDS: BISACODYL 10 MG SUPP PR SCH
[2018-11-08] MEDS: IPRATROPIUM (HFA) 12.9 GM INHALER INH SCH ×4 (01:01→19:16)
[2018-11-08] MEDS: ALBUTEROL HFA 8 GM INHALER INH SCH ×4 (01:01→19:16)
[2018-11-08] MEDS: VANCOMYCIN 750 MG in SOD CHLORIDE 0.9% 150 ML IVPB SCH ×2 (05:20→18:57)
[2018-11-08] MEDS: metroNIDAZOLE 500 MG TAB PO SCH ×3 (05:30→22:00)
[2018-11-08] MEDS: ENOXAPARIN 30 MG/0.3 ML SYG SC SCH (09:38)
[2018-11-08] MEDS: DOCUSATE SODIUM 10 MG/ML (10ML CUP) GTB SCH ×2 (09:39→20:39)
[2018-11-08] MEDS: FERROUS SULFATE 60 MG/ML 5ML CUP GTB SCH ×2 (09:39→20:38)
[2018-11-08] MEDS: MULTIVITAMINS 30 ML CUP GTB SCH (09:39)
[2018-11-08] MEDS: ESCITALOPRAM 10 MG TAB GTB SCH (09:39)
[2018-11-08] MEDS: LANSOPRAZOLE 30 MG CAP GTB SCH (09:40)
[2018-11-08] MEDS: CEFEPIME 1GM/50 ML (PMX) 50 ML IVPB SCH ×2 (09:40→20:39)
[2018-11-08] MEDS: VORICONAZOLE 200 MG TAB PO SCH ×2 (09:40→20:38)
[2018-11-08] MEDS: BALSAM PERU/CASTOR OIL 60 GM TUBE TOP SCH (09:40)
--- NOTE | 2018-11-08 10:42 | CONS ---
Date/Time of Note Date/Time of Note DATE: 11/08/18 TIME: 10:38 Consultation Date/Type/Reason Admit Date/Time Oct 31, 2018 at 21:21 Initial Consult Date SUBJECTIVE: Patient had been spiking fevers. No fever today. She is sleepy, comfortable. VS: T:98.0 LABS: Reviewed. CXR 11/06/18: IMPRESSION: 1. Low lung volumes with mild interstitial edema and small right pleural effusion. Lung aeration is mildly improved when compared to the prior examination. 2. Mild cardiomegaly and aortic atherosclerosis. 3. Tracheostomy tube in place Microbiology: Blood culture on admission grew coag negative staph species, repeat blood cultures negative, MRSA negative. Urine culture growing yeast, not Filomena albicans Sputum culture grew pseudomonas aeruginosa and Serratia INDWELLINGS: Trach, PEG. ANTIMICROBIALS: 1. Vfend 2. Cefepime. 3. Vancomycin 4. Flagyl PHYSICAL EXAMINATION: GENERAL: This is a chronically ill-appearing, debilitated, elderly man who is in no distress. HEENT: Head atraumatic, normocephalic. Sclerae anicteric. Buccal mucosa dry. NECK: Supple. Tracheostomy present. CHEST: Rise symmetrical. Breath sounds diminished to bases. HEART: S1, S2, tachycardic, regular. ABDOMEN: Soft, bowel tones present. EXTREMITIES: Wasted, contractured. ASSESSMENT: 1. Sepsis. 2. Coag negative staph bacteremia likely contaminant with repeat blood cultures negative. 3. Urinary tract infection. 4. Questionable recurrent healthcare-associated pneumonia. 5. History of Clostridium difficile colitis. 6. Quadriplegia status post cervical spine surgery. 7. DNR PLAN: Clinically unchanged. continue current antbx. No fevers today noted. WBC is WNL. CXR today noted.-negative. Repeat UA culture is negative. Stool culture and blood culture pending. Exam/Review of Systems Vital Signs Vitals Vital Signs Date Temp Pulse Resp B/P (MAP) Pulse Ox O2 O2 Flow FiO2 Time Delivery Rate 11/08/18 65 18 100 30 09:16 11/08/18 98.0 127/79 07:58 (95) 11/07/18 Mechanical 04:00 Ventilator Intake and Output 11/07/18 11/07/18 11/08/18 1515:00 23:00 07:00 IntakeIntake Total 50 ml 1030 ml OutputOutput Total 700 ml BalanceBalance 50 ml 330 ml Medications Medications Current Medications Bisacodyl (Dulcolax Supp) 10 mg Q24H [place] Last administered on 11/03/18 00:15; Admin Dose 10 MG; Start 11/01/18 at 00:00 Enoxaparin Sodium (Lovenox) 30 mg DAILY SC Last administered on 11/08/18 09:38; Admin Dose 30 MG; Start 11/01/18 at 09:00 Escitalopram Oxalate (Lexapro) 10 mg DAILY GTB Last administered on 11/08/18 09:39; Admin Dose 10 MG; Start 11/01/18 at 09:00 Ferrous Sulfate (Feosol Liquid Cup) 330 mg BID GTB Last administered on 11/08/18 09:39; Admin Dose 330 MG; Start 11/01/18 at 09:00 Lansoprazole (Prevacid) 30 mg DAILY GTB Last administered on 11/08/18 09:40; Admin Dose 30 MG; Start 11/01/18 at 09:00 Morphine Sulfate (morphine) 5 mg Q4H PRN GTB MODERATE TO SEVERE PAIN Last administered on 11/03/18 08:47; Admin Dose 5 MG; Start 11/01/18 at 00:00 Multivitamins (Multivitamin) 30 ml DAILY GTB Last administered on 11/08/18 09:39; Admin Dose 30 ML; Start 11/01/18 at 09:00 Docusate Sodium (Colace Liquid Cup) 100 mg BID GTB Last administered on 11/08/18 09:39; Admin Dose 100 MG; Start 11/01/18 at 09:00 Cefepime HCl 50 ml @ 100 mls/hr Q12 IVPB Last administered on 11/08/18 09:40; Admin Dose 100 MLS/HR; Start 11/01/18 at 09:30 Acetaminophen (Tylenol Liquid) 650 mg Q6H PRN GTB MILD PAIN(1-3)OR ELEVATED TEMP Last administered on 11/07/18 22:24; Admin Dose 650 MG; Start 11/01/18 at 12:00 Albuterol (Ventolin Hfa) 4 puff Q6H RESP THERAPY INH Last administered on 11/08/18 07:47; Admin Dose 4 PUFF; Start 11/01/18 at 20:00 Ipratropium [place] (Atrovent Hfa) 4 puff Q6H RESP THERAPY INH Last administered on 11/08/18at 07:47; Admin Dose 4 PUFF; Start 11/01/18 at 20:00 Vancomycin HCl (Vanco Iv Per Pharmacy) VANCOMYCIN PER PHARMACY PER PROTOCOL XX ; Start 11/02/18 at 15:00 Voriconazole (Vfend) 200 mg BID PO Last administered on 11/08/18at 09:40; Admin Dose 200 MG; Start 11/03/18 at 21:00 Vancomycin HCl 750 mg/Sodium Chloride 150 ml @ 75 mls/hr Q12H IVPB Last administered on 11/08/18at 05:20; Admin Dose 75 MLS/HR; Start 11/04/18 at 06:00 Metronidazole (Flagyl) 500 mg Q8 PO Last administered on 11/08/18at 05:30; Admin Dose 500 MG; Start 11/06/18 at 14:00 Miscellaneous Information (*Rx Drug Level Order Reminder*) VANCOMYCIN TROUGH AT 0500 ONCE ONCE XX ; Start 11/09/18 at 05:00; Stop 11/09/18 at 05:01 Results Result Diagram: 11/04/18 0405 11/08/18 0607 Results 24 hrs Laboratory Tests Test 11/08/18 06:07 Blood Urea Nitrogen 27 H Creatinine 0.55 L TYLER FITZPATRICK Nov 08, 2018 10:42
--- NOTE | 2018-11-08 11:24 | PN ---
Date/Time of Note Date/Time of Note DATE: 11/08/18 TIME: 11:24 Assessment/Plan VTE Prophylaxis Risk score (from Ns)>0 risk: 8 SCD applied (from [facility] [place]): No SCD contraindicated: other Pharmacological prophylaxis: LMWH Lines/Catheters IV Catheter Type (from [facility] Mid Line Urinary Cath still in place: Yes Reason Cath still needed: skin wounds contaminated by urine Assessment/Plan Hospital Course -Recurrent sepsis with bacteremia. Continue antibiotics per ID. Dr. Tesfaye is following in infection disease consultation. -Yeast UTI -Possible healthcare acquired pneumonia -Ventilator dependent respiratory failure. Dr. Hernández is following in pulmonology consultation. 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 -C-spine epidural abscess, status post C3 to C4 laminectomy -DNR status Subjective 24 Hr Interval Summary Free Text/Dictation Eyes open but not verbally responsive, trach in place Exam/Review of Systems Vital Signs Vitals Vital Signs Date Temp Pulse Resp B/P (MAP) Pulse Ox O2 O2 Flow FiO2 Time Delivery Rate 11/08/18 65 18 100 30 09:16 11/08/18 98.0 127/79 07:58 (95) 11/07/18 Mechanical 04:00 Ventilator Intake and Output 11/07/18 11/07/18 11/08/18 1515:00 23:00 07:00 IntakeIntake Total 50 ml 1030 ml OutputOutput Total 700 ml BalanceBalance 50 ml 330 ml Exam Constitutional: well developed Head: normocephalic, atraumatic Neck: supple Respiratory: diminished breath sounds Cardiovascular: regular rate and rhythm Gastrointestinal: soft, non-tender Extremities: normal pulses Medications Medications Current Medications Bisacodyl (Dulcolax Supp) 10 mg Q24H [place] Last administered on 11/03/18at 00:15; Admin Dose 10 MG; Start 11/01/18 at 00:00 Enoxaparin Sodium (Lovenox) 30 mg DAILY SC Last administered on 11/08/18at 09:38; Admin Dose 30 MG; Start 11/01/18 at 09:00 Escitalopram Oxalate (Lexapro) 10 mg DAILY GTB Last administered on 11/08/18at 09:39; Admin Dose 10 MG; Start 11/01/18 at 09:00 Ferrous Sulfate (Feosol Liquid Cup) 330 mg BID GTB Last administered on 11/08/18 09:39; Admin Dose 330 MG; Start 11/01/18 at 09:00 Lansoprazole (Prevacid) 30 mg DAILY GTB Last administered on 11/08/18 09:40; Admin Dose 30 MG; Start 11/01/18 at 09:00 Morphine Sulfate (morphine) 5 mg Q4H PRN GTB MODERATE TO SEVERE PAIN Last administered on 11/03/18 08:47; Admin Dose 5 MG; Start 11/01/18 at 00:00 Multivitamins (Multivitamin) 30 ml DAILY GTB Last administered on 11/08/18 09:39; Admin Dose 30 ML; Start 11/01/18 at 09:00 Docusate Sodium (Colace Liquid Cup) 100 mg BID GTB Last administered on 11/08/18 09:39; Admin Dose 100 MG; Start 11/01/18 at 09:00 Cefepime HCl 50 ml @ 100 mls/hr Q12 IVPB Last administered on 11/08/18 09:40; Admin Dose 100 MLS/HR; Start 11/01/18 at 09:30 Acetaminophen (Tylenol Liquid) 650 mg Q6H PRN GTB MILD PAIN(1-3)OR ELEVATED TEMP Last administered on 11/07/18 22:24; Admin Dose 650 MG; Start 11/01/18 at 12:00 Albuterol (Ventolin Hfa) 4 puff Q6H RESP THERAPY INH Last administered on 11/08/18 07:47; Admin Dose 4 PUFF; Start 11/01/18 at 20:00 Ipratropium [place] (Atrovent Hfa) 4 puff Q6H RESP THERAPY INH Last administered on 11/08/18 07:47; Admin Dose 4 PUFF; Start 11/01/18 at 20:00 Vancomycin HCl (Vanco Iv Per Pharmacy) VANCOMYCIN PER PHARMACY PER PROTOCOL XX ; Start 11/02/18 at 15:00 Voriconazole (Vfend) 200 mg BID PO Last administered on 11/08/18 09:40; Admin Dose 200 MG; Start 11/03/18 at 21:00 Vancomycin HCl 750 mg/Sodium Chloride 150 ml @ 75 mls/hr Q12H IVPB Last administered on 12/16/18at 05:20; Admin Dose 75 MLS/HR; Start 11/04/18 at 06:00 Metronidazole (Flagyl) 500 mg Q8 PO Last administered on 11/08/18at 05:30; Admin Dose 500 MG; Start 11/06/18 at 14:00 Miscellaneous Information (*Rx Drug Level Order Reminder*) VANCOMYCIN TROUGH AT 0500 ONCE ONCE XX ; Start 11/09/18 at 05:00; Stop 11/09/18 at 05:01 Results Result Diagram: 11/04/18 0405 11/08/18 0607 Results 24 hrs Laboratory Tests Test 11/08/18 06:07 Blood Urea Nitrogen 27 H Creatinine 0.55 L DARIO PANIAGUA Nov 08, 2018 11:24
[2018-11-08] MEDS: morphine LIQ (10 MG/5 ML) CUP GTB PRN (11:35)
--- NOTE | 2018-11-08 12:37 | CONS ---
Date/Time of Note Date/Time of Note DATE: 11/08/18 TIME: 12:35 Consultation Date/Type/Reason Admit Date/Time Oct 31, 2018 at 21:21 Initial Consult Date 11/01/18 Type of Consult Pulmonary 24 HR Interval Summary Free Text/Dictation Patient's condition is stable. Remains awake and fairly responsive. Has remained hemodynamically stable. General exam; elderly male, on ventilator via tracheostomy, currently no distress. H EENT exam; supple neck, no JVD. No lymphadenopathy. Midline trachea. No thyromegaly. Patient has fair dentition. There is a stable right corneal opacity. Tracheostomy in place. Chest exam; diminished but clear breath sounds. S1-S2 audible, no murmurs. Regular rhythm. Abdomen exam; soft, no organomegaly. G-tube in place. Bowel sounds audible. Back examination; dressing applied over sacrum. Extremity exam; no peripheral edema. Patient does have flexion contractures. ABAP DEVELOPER exam; is awake and responsive but exhibiting incomplete quadriplegia. With the ability to move upper extremities to very limited extent. Ventilator setting; AC of 18, tidal volume 450, PEEP of 5, 30% FiO2. Chest x-ray from today is essentially unremarkable. Assessment recommendations; 1. Patient with history of incomplete quadriplegia and VDR F admitted for sepsis due to multiple organisms isolated from different sources including urine, sputum as well as sacral ulcer. Currently on appropriate antimicrobial regimen. Continue current supportive care. Antibiotics per ID recommendations. Exam/Review of Systems Vital Signs Vitals Vital Signs Date Temp Pulse Resp B/P (MAP) Pulse Ox O2 O2 Flow FiO2 Time Delivery Rate 11/08/18 98.0 72 18 99/67 (78) 98 12:04 11/08/18 30 11:47 11/07/18 Mechanical 04:00 Ventilator Intake and Output 11/07/18 11/07/18 11/08/18 1515:00 23:00 07:00 IntakeIntake Total 50 ml 1030 ml OutputOutput Total 700 ml BalanceBalance 50 ml 330 ml Medications Medications Current Medications Bisacodyl (Dulcolax Supp) 10 mg Q24H [place] Last administered on 11/03/18at 00:15; Admin Dose 10 MG; Start 11/01/18 at 00:00 Enoxaparin Sodium (Lovenox) 30 mg DAILY SC Last administered on 11/08/18 09:38; Admin Dose 30 MG; Start 11/01/18 at 09:00 Escitalopram Oxalate (Lexapro) 10 mg DAILY GTB Last administered on 11/08/18 09:39; Admin Dose 10 MG; Start 11/01/18 at 09:00 Ferrous Sulfate (Feosol Liquid Cup) 330 mg BID GTB Last administered on 09:39; Admin Dose 330 MG; Start 11/01/18 at 09:00 Lansoprazole (Prevacid) 30 mg DAILY GTB Last administered on 11/08/18 09:40; Admin Dose 30 MG; Start 11/01/18 at 09:00 Morphine Sulfate (morphine) 5 mg Q4H PRN GTB MODERATE TO SEVERE PAIN Last administered on 11/08/18 11:35; Admin Dose 5 MG; Start 11/01/18 at 00:00 Multivitamins (Multivitamin) 30 ml DAILY GTB Last administered on 11/08/18 09:39; Admin Dose 30 ML; Start 11/01/18 at 09:00 Docusate Sodium (Colace Liquid Cup) 100 mg BID GTB Last administered on 11/08/18 09:39; Admin Dose 100 MG; Start 11/01/18 at 09:00 Cefepime HCl 50 ml @ 100 mls/hr Q12 IVPB Last administered on 11/08/18 09:40; Admin Dose 100 MLS/HR; Start 11/01/18 at 09:30 Acetaminophen (Tylenol Liquid) 650 mg Q6H PRN GTB MILD PAIN(1-3)OR ELEVATED TE MP Last administered on 11/07/18 22:24; Admin Dose 650 MG; Start 11/01/18 at 12:00 Albuterol (Ventolin Hfa) 4 puff Q6H RESP THERAPY INH Last administered on 11/08/18 07:47; Admin Dose 4 PUFF; Start 11/01/18 at 20:00 Ipratropium [place] (Atrovent Hfa) 4 puff Q6H RESP THERAPY INH Last administ ered on 11/08/18 07:47; Admin Dose 4 PUFF; Start 11/01/18 at 20:00 Vancomycin HCl (Vanco Iv Per Pharmacy) VANCOMYCIN PER PHARMACY PER PROTOCOL XX ; Start 11/02/18 at 15:00 Voriconazole (Vfend) 200 mg BID PO Last administered on 11/08/18at 09:40; Admin Dose 200 MG; Start 11/03/18 at 21:00 Vancomycin HCl 750 mg/Sodium Chloride 150 ml @ 75 mls/hr Q12H IVPB Last administered on 11/08/18at 05:20; Admin Dose 75 MLS/HR; Start 11/04/18 at 06:00 Metronidazole (Flagyl) 500 mg Q8 PO Last administered on 11/08/18at 05:30; Admin Dose 500 MG; Start 11/06/18 at 14:00 Miscellaneous Information (*Rx Drug Level Order Reminder*) VANCOMYCIN TROUGH AT 0500 ONCE ONCE XX ; Start 11/09/18 at 05:00; Stop 11/09/18 at 05:01 Results Result Diagram: 11/04/18 0405 11/08/18 0607 Results 24 hrs Laboratory Tests Test 11/08/18 06:07 Blood Urea Nitrogen 27 H Creatinine 0.55 L SONYA SILVA Nov 08, 2018 12:37
[2018-11-09] VITALS (24 sets, daily range): BP systolic 95–114; BP diastolic 62–72; PULSE 14–98; RESP 18–20
[2018-11-09] MEDS: BISACODYL 10 MG SUPP PR SCH
[2018-11-09] MEDS: IPRATROPIUM (HFA) 12.9 GM INHALER INH SCH ×4 (01:10→21:03)
[2018-11-09] MEDS: ALBUTEROL HFA 8 GM INHALER INH SCH ×4 (01:11→21:03)
[2018-11-09] MEDS: metroNIDAZOLE 500 MG TAB PO SCH ×2 (05:48→13:19)
[2018-11-09] MEDS: VANCOMYCIN 750 MG in SOD CHLORIDE 0.9% 150 ML IVPB SCH (08:01)
[2018-11-09] MEDS: CEFEPIME 1GM/50 ML (PMX) 50 ML IVPB SCH (09:12)
[2018-11-09] MEDS: MULTIVITAMINS 30 ML CUP GTB SCH (09:13)
[2018-11-09] MEDS: LANSOPRAZOLE 30 MG CAP GTB SCH (09:13)
[2018-11-09] MEDS: BALSAM PERU/CASTOR OIL 60 GM TUBE TOP SCH (09:13)
[2018-11-09] MEDS: VORICONAZOLE 200 MG TAB PO SCH (09:13)
[2018-11-09] MEDS: FERROUS SULFATE 60 MG/ML 5ML CUP GTB SCH ×2 (09:13→20:08)
[2018-11-09] MEDS: ESCITALOPRAM 10 MG TAB GTB SCH (09:13)
[2018-11-09] MEDS: DOCUSATE SODIUM 10 MG/ML (10ML CUP) GTB SCH ×2 (09:13→20:07)
[2018-11-09] MEDS: ENOXAPARIN 30 MG/0.3 ML SYG SC SCH (09:23)
--- NOTE | 2018-11-09 10:09 | CONS ---
Date/Time of Note Date/Time of Note DATE: 11/09/18 TIME: 10:08 Assessment/Plan Assessment/Plan Additional Assessment/Plan Ventilator setting; AC of 18, tidal volume 450, PEEP of 5, 30% FiO2. Assessment recommendations; 1. Patient with history of VD RF and incomplete quadriplegia admitted for sepsis due to multiple sites of infection including pneumonia, sacral ulcer, as well as UTI. Currently on appropriate antimicrobial regimen. Continue current supportive care. Antibiotics per ID recommendations. Consultation Date/Type/Reason Admit Date/Time Oct 31, 2018 at 21:21 Initial Consult Date 11/01/18 Type of Consult Pulmonary 24 HR Interval Summary Free Text/Dictation Patient's condition is stable. Has remained hemodynamically stable. General exam; elderly male, on ventilator via tracheostomy, awake, responsive, currently in no distress. Exam/Review of Systems Vital Signs Vitals Vital Signs Date Temp Pulse Resp B/P (MAP) Pulse Ox O2 O2 Flow FiO2 Time Delivery Rate 11/09/18 87 18 99 30 09:01 11/09/18 99.3 98/66 (77) 07:57 11/07/18 Mechanical 04:00 Ventilator Intake and Output 11/08/18 11/08/18 11/09/18 1515:00 23:00 07:00 IntakeIntake Total 900 ml OutputOutput Total 1000 ml BalanceBalance -100 ml Exam HEENT exam; supple neck, no JVD. No lymphadenopathy. Midline trachea. Patient has right corneal opacity. Dentition is fair. Tracheostomy in place. Insertion site is clean. Chest exam; diminished but clear breath sounds. S1-S2 audible, no murmurs. Regular rhythm. Abdomen exam; soft, no organomegaly. G-tube in place. Bowel sounds audible. Back examination; dressing applied over sacrum. Extremity exam; no peripheral edema. Patient does have flexion contractures. NEWS COPY EDITOR exam; is awake responsive, exhibiting stable incomplete quadriplegia. Medications Medications Current Medications Bisacodyl (Dulcolax Supp) 10 mg Q24H [place] Last administered on 11/03/18at 00:15; Admin Dose 10 MG; Start 11/01/18 at 00:00 Enoxaparin Sodium (Lovenox) 30 mg DAILY SC Last administered on 11/09/18at 09:23; Admin Dose 30 MG; Start 11/01/18 at 09:00 Escitalopram Oxalate (Lexapro) 10 mg DAILY GTB Last administered on 11/09/18 09:13; Admin Dose 10 MG; Start 11/01/18 at 09:00 Ferrous Sulfate (Feosol Liquid Cup) 330 mg BID GTB Last administered on 11/09/18 09:13; Admin Dose 330 MG; Start 11/01/18 at 09:00 Lansoprazole (Prevacid) 30 mg DAILY GTB Last administered on 11/09/18 09:13; Admin Dose 30 MG; Start 11/01/18 at 09:00 Morphine Sulfate (morphine) 5 mg Q4H PRN GTB MODERATE TO SEVERE PAIN Last administered on 11/08/18 11:35; Admin Dose 5 MG; Start 11/01/18 at 00:00 Multivitamins (Multivitamin) 30 ml DAILY GTB Last administered on 11/09/18 09:13; Admin Dose 30 ML; Start 11/01/18 at 09:00 Docusate Sodium (Colace Liquid Cup) 100 mg BID GTB Last administered on 11/09/18 09:13; Admin Dose 100 MG; Start 11/01/18 at 09:00 Cefepime HCl 50 ml @ 100 mls/hr Q12 IVPB Last administered on 11/09/18 09:12; Admin Dose 100 MLS/HR; Start 11/01/18 at 09:30 Acetaminophen (Tylenol Liquid) 650 mg Q6H PRN GTB MILD PAIN(1-3)OR ELEVATED TEMP Last administered on 11/07/18 22:24; Admin Dose 650 MG; Start 11/01/18 at 12:00 Albuterol (Ventolin Hfa) 4 puff Q6H RESP THERAPY INH Last administered on 11/09/18 08:58; Admin Dose 4 PUFF; Start 11/01/18 at 20:00 Ipratropium [place] (Atrovent Hfa) 4 puff Q6H RESP THERAPY INH Last administered on 11/09/18 08:58; Admin Dose 4 PUFF; Start 11/01/18 at 20:00 Vancomycin HCl (Vanco Iv Per Pharmacy) VANCOMYCIN PER PHARMACY PER PROTOCOL XX ; Start 11/02/18 at 15:00 Voriconazole (Vfend) 200 mg BID PO Last administered on 12/17/18at 09:13; Admin Dose 200 MG; Start 11/03/18 at 21:00 Vancomycin HCl 750 mg/Sodium Chloride 150 ml @ 75 mls/hr Q12H IVPB Last administered on 11/09/18at 08:01; Admin Dose 75 MLS/HR; Start 11/04/18 at 06:00 Metronidazole (Flagyl) 500 mg Q8 PO Last administered on 11/09/18at 05:48; Admin Dose 500 MG; Start 11/06/18 at 14:00 Results Result Diagram: 11/08/18 0607 Results 24 hrs Laboratory Tests Test 11/09/18 05:23 Vancomycin Level Trough 16.3 SONYA SILVA Nov 09, 2018 10:09
--- NOTE | 2018-11-09 15:32 | CONS ---
Date/Time of Note Date/Time of Note DATE: 11/09/18 TIME: 15:30 Assessment/Plan Assessment/Plan Chief Complaint/Hosp Course SUBJECTIVE: No acute changes patient is in no distress still with ongoing fevers, looks comfortable, no labs Microbiology: Blood culture repeated on November 07 negative, urine culture negative stool for C. difficile negative INDWELLINGS: Trach, PEG. ANTIMICROBIALS: 1. Vfend 2. Cefepime. 3. Vancomycin PHYSICAL EXAMINATION: GENERAL: This is a chronically ill-appearing, debilitated, elderly man who is in no distress. HEENT: Head atraumatic, normocephalic. Sclerae anicteric. Buccal mucosa dry. NECK: Supple. Tracheostomy present. CHEST: Rise symmetrical. Breath sounds diminished to bases. HEART: S1, S2, tachycardic, regular. ABDOMEN: Soft, bowel tones present. EXTREMITIES: Wasted, contractured. ASSESSMENT: 1. S/p sepsis. 2. Coag negative staph bacteremia likely contaminant with repeat blood cultures negative. 3. Urinary tract infection. 4. Questionable recurrent healthcare-associated pneumonia. 5. History of Clostridium difficile colitis. 6. Quadriplegia status post cervical spine surgery. 7. DNR PLAN: Clinically unchanged and overall stable, repeat blood cultures and urine culture negative, chest x-ray revealed no evidence of pneumonia, were going to discontinue antibiotics and observe him, continue pulmonary toilet and oral nystatin Consultation Date/Type/Reason Admit Date/Time Oct 31, 2018 at 21:21 Initial Consult Date 11/01/18 Type of Consult id Exam/Review of Systems Vital Signs Vitals Vital Signs Date Temp Pulse Resp B/P (MAP) Pulse Ox O2 O2 Flow FiO2 Time Delivery Rate 11/09/18 88 18 97 30 15:08 11/09/18 99.8 99/62 (74) 12:11 11/07/18 Mechanical 04:00 Ventilator Intake and Output 11/08/18 11/08/18 11/09/18 1515:00 23:00 07:00 IntakeIntake Total 900 ml OutputOutput Total 1000 ml BalanceBalance -100 ml Medications Medications Current Medications Bisacodyl (Dulcolax Supp) 10 mg Q24H [place] Last administered on 11/03/18at 00:15; Admin Dose 10 MG; Start 11/01/18 at 00:00 Enoxaparin Sodium (Lovenox) 30 mg DAILY SC Last administered on 11/09/18 09:23; Admin Dose 30 MG; Start 11/01/18 at 09:00 Escitalopram Oxalate (Lexapro) 10 mg DAILY GTB Last administered on 11/09/18 09:13; Admin Dose 10 MG; Start 11/01/18 at 09:00 Ferrous Sulfate (Feosol Liquid Cup) 330 mg BID GTB Last administered on 11/09/18 09:13; Admin Dose 330 MG; Start 11/01/18 at 09:00 Lansoprazole (Prevacid) 30 mg DAILY GTB Last administered on 11/09/18 09:13; Admin Dose 30 MG; Start 11/01/18 at 09:00 Morphine Sulfate (morphine) 5 mg Q4H PRN GTB MODERATE TO SEVERE PAIN Last administered on 11/08/18 11:35; Admin Dose 5 MG; Start 11/01/18 at 00:00 Multivitamins (Multivitamin) 30 ml DAILY GTB Last administered on 11/09/18 09:13; Admin Dose 30 ML; Start 11/01/18 at 09:00 Docusate Sodium (Colace Liquid Cup) 100 mg BID GTB Last administered on 11/09/18 09:13; Admin Dose 100 MG; Start 11/01/18 at 09:00 Cefepime HCl 50 ml @ 100 mls/hr Q12 IVPB Last administered on 11/09/18 09:12; Admin Dose 100 MLS/HR; Start 11/01/18 at 09:30 Acetaminophen (Tylenol Liquid) 650 mg Q6H PRN GTB MILD PAIN(1-3)OR ELEVATED TEMP Last administered on 11/07/18 22:24; Admin Dose 650 MG; Start 11/01/18 at 12:00 Albuterol (Ventolin Hfa) 4 puff Q6H RESP THERAPY INH Last administered on 11/09/18 15:14; Admin Dose 4 PUFF; Start 11/01/18 at 20:00 Ipratropium [place] (Atrovent Hfa) 4 puff Q6H RESP THERAPY INH Last administered on 11/09/18 15:13; Admin Dose 4 PUFF; Start 11/01/18 at 20:00 Vancomycin HCl (Vanco Iv Per Pharmacy) VANCOMYCIN PER PHARMACY PER PROTOCOL XX ; Start 11/02/18 at 15:00 Voriconazole (Vfend) 200 mg BID PO Last administered on 11/09/18at 09:13; Admin Dose 200 MG; Start 11/03/18 at 21:00 Vancomycin HCl 750 mg/Sodium Chloride 150 ml @ 75 mls/hr Q12H IVPB Last admini stered on 11/09/18at 08:01; Admin Dose 75 MLS/HR; Start 11/04/18 at 06:00 Metronidazole (Flagyl) 500 mg Q8 PO Last administered on 11/09/18at 13:19; Admin Dose 500 MG; Start 11/06/18 at 14:00 Results Result Diagram: 11/08/18 0607 Results 24 hrs Laboratory Tests Test 11/09/18 05:23 Vancomycin Level Trough 16.3 RISA SAWYER NP Nov 09, 2018 15:32
[2018-11-09] MEDS: NYSTATIN SUSP 5 ML CUP PO SCH ×2 (18:51→20:08)
--- NOTE | 2018-11-09 20:29 | PN ---
Date/Time of Note Date/Time of Note DATE: 11/09/18 TIME: 20:29 Assessment/Plan VTE Prophylaxis Risk score (from Ns)>0 risk: 8 SCD applied (from [facility] [place]): No SCD contraindicated: other Pharmacological prophylaxis: other Lines/Catheters IV Catheter Type (from [facility]): [place] Central line still needed: Yes Urinary Cath still in place: Yes Reason Cath still needed: urinary retention Assessment/Plan Assessment/Plan -Recurrent sepsis with bacteremia. Continue antibiotics per ID. Dr. Tesfaye is following in infection disease consultation. -Yeast UTI -Possible healthcare acquired pneumonia -Ventilator dependent respiratory failure. Dr. Hernández is following in pulmonology consultation. 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 dw staff - SNF transfer when stable. Subjective hx not possible: pt non-verbal Constitutional: requiring O2 Exam/Review of Systems Vital Signs Vitals Vital Signs Date Temp Pulse Resp B/P (MAP) Pulse Ox O2 O2 Flow FiO2 Time Delivery Rate 11/09/18 98.9 85 18 100/72 99 19:45 (81) 11/09/18 30 17:28 11/07/18 Mechanical 04:00 Ventilator Intake and Output 11/08/18 11/08/18 11/09/18 1414:59 22:59 06:59 IntakeIntake Total 900 ml OutputOutput Total 1000 ml BalanceBalance -100 ml Exam Constitutional: non-verbal, frail Eyes: nl lids, nl sclera ENMT: nl external ears & nose Neck: supple, other (trach in) Respiratory: diminished breath sounds Cardiovascular: nl pulses, other (s1s2) Gastrointestinal: soft, other (gt intact) Musculoskeletal: muscle weakness, range of motion Extremities: normal pulses Neurological: unresponsive Lymph: nl lymph nodes Medications Medications Current Medications Bisacodyl (Dulcolax Supp) 10 mg Q24H [place] Last administered on 11/03/18at 00:15; Admin Dose 10 MG; Start 11/01/18 at 00:00 Enoxaparin Sodium (Lovenox) 30 mg DAILY [place] Last administered on 11/09/18 09: 23; Admin Dose 30 MG; Start 11/01/18 at 09:00 Escitalopram Oxalate (Lexapro) 10 mg DAILY GTB Last administered on 11/09/18 09:13; Admin Dose 10 MG; Start 11/01/18 at 09:00 Ferrous Sulfate (Feosol Liquid Cup) 330 mg BID GTB Last administered on 11/09/18 20:08; Admin Dose 330 MG; Start 11/01/18 at 09:00 Lansoprazole (Prevacid) 30 mg DAILY GTB Last administered on 11/09/18 09:13; Admin Dose 30 MG; Start 11/01/18 at 09:00 Morphine Sulfate (morphine) 5 mg Q4H PRN GTB MODERATE TO SEVERE PAIN Last administered on 11/08/18 11:35; Admin Dose 5 MG; Start 11/01/18 at 00:00 Multivitamins (Multivitamin) 30 ml DAILY GTB Last administered on 11/09/18 09:13; Admin Dose 30 ML; Start 11/01/18 at 09:00 Docusate Sodium (Colace Liquid Cup) 100 mg BID GTB Last administered on 11/09/18 20:07; Admin Dose 100 MG; Start 11/01/18 at 09:00 Acetaminophen (Tylenol Liquid) 650 mg Q6H PRN GTB MILD PAIN(1-3)OR ELEVATED TEMP Last administered on 11/07/18 22:24; Admin Dose 650 MG; Start 11/01/18 at 12:00 Albuterol (Ventolin Hfa) 4 puff Q6H RESP THERAPY INH Last administered on 11/09/18 15:14; Admin Dose 4 PUFF; Start 11/01/18 at 20:00 Ipratropium [place] (Atrovent Hfa) 4 puff Q6H RESP THERAPY INH Last administered on 11/09/18 15:13; Admin Dose 4 PUFF; Start 11/01/18 at 20:00 Nystatin (Nystatin Susp) 5 ml QID PO Last administered on 11/09/18 20:08; Admin Dose 5 ML; Start 11/09/18 at 17:00 Results Result Diagram: 11/08/18 0607 Results 24 hrs Laboratory Tests Test 11/09/18 05:23 Vancomycin Level Trough 16.3 CLEMENT WATSON Nov 09, 2018 20:29
[2018-11-10] VITALS (21 sets, daily range): BP systolic 103–143; BP diastolic 69–93; PULSE 57–93; RESP 17–20
[2018-11-10] MEDS: BISACODYL 10 MG SUPP PR SCH
[2018-11-10] MEDS: IPRATROPIUM (HFA) 12.9 GM INHALER INH SCH ×4 (01:22→19:21)
[2018-11-10] MEDS: ALBUTEROL HFA 8 GM INHALER INH SCH ×4 (01:23→19:21)
[2018-11-10] MEDS: NYSTATIN SUSP 5 ML CUP PO SCH ×4 (09:21→21:30)
[2018-11-10] MEDS: BALSAM PERU/CASTOR OIL 60 GM TUBE TOP SCH (09:21)
[2018-11-10] MEDS: MULTIVITAMINS 30 ML CUP GTB SCH (09:21)
[2018-11-10] MEDS: ACETAMINOPHEN 650MG/20.3ML CUP GTB PRN ×2 (09:21→21:31)
[2018-11-10] MEDS: FERROUS SULFATE 60 MG/ML 5ML CUP GTB SCH ×2 (09:21→21:31)
[2018-11-10] MEDS: LANSOPRAZOLE 30 MG CAP GTB SCH (09:21)
[2018-11-10] MEDS: DOCUSATE SODIUM 10 MG/ML (10ML CUP) GTB SCH ×2 (09:21→21:32)
[2018-11-10] MEDS: ESCITALOPRAM 10 MG TAB GTB SCH (09:21)
[2018-11-10] MEDS: ENOXAPARIN 30 MG/0.3 ML SYG SC SCH (09:24)
[2018-11-10] MEDS: morphine LIQ (10 MG/5 ML) CUP GTB PRN (09:32)
--- NOTE | 2018-11-10 12:32 | CONS ---
Date/Time of Note Date/Time of Note DATE: 11/10/18 TIME: 12:31 Consult Date/Type/Reason Admit Date/Time Oct 31, 2018 at 21:21 Initial Consult Date 11/01/18 Type of Consultation: Pulm Subjective Comfortable. Objective Vital Signs Date Temp Pulse Resp B/P (MAP) Pulse Ox O2 O2 Flow FiO2 Time Delivery Rate 11/10/18 99.5 87 19 123/71 97 11:33 (88) 11/10/18 30 11:12 11/07/18 Mechanical 04:00 Ventilator Intake and Output 11/09/18 11/09/18 11/10/18 1515:00 23:00 07:00 IntakeIntake Total 1100 ml 900 ml OutputOutput Total 800 ml 900 ml BalanceBalance 300 ml 0 ml Exam GENERAL: Chronically ill-appearing gentleman comfortable at rest VITAL SIGNS: per chart NECK: Supple. No JVD or lymphadenopathy. CARDIAC EXAM: S1, S2. No added sounds or murmurs. CHEST: clear bilaterally, No added sounds, rales or wheezes ABDOMEN: Soft, nontender. No guarding or rebound. EXTREMITIES: No cyanosis, clubbing or edema. NEUROLOGIC: Generalized weakness. Results/Medications Result Diagram: 11/08/18 0607 Medications Current Medications Bisacodyl (Dulcolax Supp) 10 mg Q24H [place] Last administered on 11/03/18at 00:15; Admin Dose 10 MG; Start 11/01/18 at 00:00 Enoxaparin Sodium (Lovenox) 30 mg DAILY [place] Last administered on 11/10/18at 09:24; Admin Dose 30 MG; Start 11/01/18 at 09:00 Escitalopram Oxalate (Lexapro) 10 mg DAILY GTB Last administered on 11/10/18at 09:21; Admin Dose 10 MG; Start 11/01/18 at 09:00 Ferrous Sulfate (Feosol Liquid Cup) 330 mg BID GTB Last administered on 11/10/18 09:21; Admin Dose 330 MG; Start 11/01/18 at 09:00 Lansoprazole (Prevacid) 30 mg DAILY GTB Last administered on 11/10/18at 09:21; Admin Dose 30 MG; Start 11/01/18 at 09:00 Morphine Sulfate (morphine) 5 mg Q4H PRN GTB MODERATE TO SEVERE PAIN Last administered on 11/10/18 09:32; Admin Dose 5 MG; Start 11/01/18 at 00:00 Multivitamins (Multivitamin) 30 ml DAILY GTB Last administered on 11/10/18 09:21; Admin Dose 30 ML; Start 11/01/18 at 09:00 Docusate Sodium (Colace Liquid Cup) 100 mg BID GTB Last administered on 11/10/18 09:21; Admin Dose 100 MG; Start 11/01/18 at 09:00 Acetaminophen (Tylenol Liquid) 650 mg Q6H PRN GTB MILD PAIN(1-3)OR ELEVATED TEMP Last administered on 11/10/18 09:21; Admin Dose 650 MG; Start 11/01/18 at 12:00 Albuterol (Ventolin Hfa) 4 puff Q6H RESP THERAPY INH Last administered on 11/10/18 08:16; Admin Dose 4 PUFF; Start 11/01/18 at 20:00 Ipratropium [place] (Atrovent Hfa) 4 puff Q6H RESP THERAPY INH Last administered on 11/10/18 08:16; Admin Dose 4 PUFF; Start 11/01/18 at 20:00 Nystatin (Nystatin Susp) 5 ml QID PO Last administered on 11/10/18 09:21; Admin Dose 5 ML; Start 11/09/18 at 17:00 Assessment/Plan Chief Complaint/Hosp Course IMP: 1. Urosepsis with persistent fevers. 2. Chronic respiratory failure, vent dependent. 3. 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 4. Pre-renal azotemia 5. Right corneal opacity chronic with blindness. 6. History of coronary artery disease with history of myocardial infarction. 7. Chronic sacral coccygeal decubitus RECS: 1. IVF's 2. Antibiotics per primary team 3. Feeding as tolerated 4. Wound care 5. DVT and GI prophylaxis LIVIA VALDERRAMA MD, [facility] Nov 10, 2018 12:31
--- NOTE | 2018-11-10 18:36 | PN ---
Date/Time of Note Date/Time of Note DATE: 11/10/18 TIME: 18:35 Assessment/Plan VTE Prophylaxis Risk score (from Ns)>0 risk: 5 SCD applied (from [facility] [place]): No SCD contraindicated: other Pharmacological prophylaxis: other Lines/Catheters IV C[facility] Type (from [facility]): [place] Central line still needed: Yes Urinary Cath still in place: Yes Reason Cath still needed: urinary retention Assessment/Plan Assessment/Plan -Recurrent sepsis with bacteremia. Continue antibiotics per ID. Dr. Tesfaye is following in infection disease consultation. -Yeast UTI -Possible healthcare acquired pneumonia -Ventilator dependent respiratory failure. Dr. Hernández is following in pulmonology consultation. 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 -C-spine epidural abscess, status post C3 to C4 laminectomy -DNR status Subjective 24 Hr Interval Summary Free Text/Dictation no new events reported last night per staff Subjective hx not possible: pt non-verbal Constitutional: requiring O2 Exam/Review of Systems Vital Signs Vitals Vital Signs Date Temp Pulse Resp B/P (MAP) Pulse Ox O2 O2 Flow FiO2 Time Delivery Rate 11/10/18 60 18 98 30 17:01 11/10/18 99.7 103/69 15:36 (80) 11/07/18 Mechanical 04:00 Ventilator Intake and Output 11/09/18 11/09/18 11/10/18 1515:00 23:00 07:00 IntakeIntake Total 1100 ml 900 ml OutputOutput Total 800 ml 900 ml BalanceBalance 300 ml 0 ml Exam Constitutional: non-verbal, frail Psych: nl mood/affect Eyes: nl lids ENMT: nl external ears & nose Neck: supple, other (trach intact) Respiratory: diminished breath sounds (bilaterally) Cardiovascular: nl pulses, other (s1s2) Gastrointestinal: soft, other (gt intact) Musculoskeletal: muscle weakness CLEMENT WATSON Nov 10, 2018 18:36
--- NOTE | 2018-11-10 18:36 | PN ---
Date/Time of Note Date/Time of Note DATE: 11/10/18 TIME: 18:36 Assessment/Plan VTE Prophylaxis Risk score (from Ns)>0 risk: 5 [place] [facility]CD contraindicated: other Pharmacological prophylaxis: other Lines/Catheters IV Catheter Type (from [facility]): [place] Central line still needed: Yes Urinary Cath still in place: Yes Reason Cath still needed: urinary retention, pres ulcer contaminated by urine Assessment/Plan Assessment/Plan -Recurrent sepsis with bacteremia. Continue antibiotics per ID. Dr. Tesfaye is following in infection disease consultation. -Yeast UTI -Possible healthcare acquired pneumonia -Ventilator dependent respiratory failure. Dr. Hernández is following in pulmonology consultation. 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
--- NOTE | 2018-11-10 19:02 | CONS ---
Date/Time of Note Date/Time of Note DATE: 11/10/18 TIME: 19:00 Assessment/Plan Assessment/Plan Chief Complaint/Hosp Course 1250 SUBJECTIVE: No acute changes per dw RN, looks comfortable, on/off fevers Microbiology: Blood culture repeated on November 07 negative, urine culture negative stool for C. difficile negative INDWELLINGS: Trach, PEG, Cash. PHYSICAL EXAMINATION: GENERAL: This is a chronically ill-appearing, debilitated, elderly man who is in no distress. HEENT: Head atraumatic, normocephalic. Sclerae anicteric. Buccal mucosa dry. NECK: Supple. Tracheostomy present. CHEST: Rise symmetrical. Breath sounds diminished to bases. HEART: S1, S2, tachycardic, regular. ABDOMEN: Soft, bowel tones present. EXTREMITIES: Wasted, contractured. ASSESSMENT: 1. S/p sepsis. 2. Coag negative staph bacteremia likely contaminant with repeat blood cultures negative. 3. Urinary tract infection. 4. Questionable recurrent healthcare-associated pneumonia. 5. History of Clostridium difficile colitis. 6. Quadriplegia status post cervical spine surgery. 7. DNR PLAN: Clinically unchanged and overall stable, off abx with on/off fevers, repeat blood cultures and urine culture negative, chest x-ray revealed no evidence of pneumonia, will check procalcitonin level Consultation Date/Type/Reason Admit Date/Time Oct 31, 2018 at 21:21 Initial Consult Date 11/01/18 Type of Consult id Exam/Review of Systems Vital Signs Vitals Vital Signs Date Temp Pulse Resp B/P (MAP) Pulse Ox O2 O2 Flow FiO2 Time Delivery Rate 11/10/18 60 18 98 30 17:01 11/10/18 99.7 103/69 15:36 (80) 11/07/18 Mechanical 04:00 Ventilator Intake and Output 11/09/18 11/09/18 11/10/18 1414:59 22:59 06:59 IntakeIntake Total 1100 ml 900 ml OutputOutput Total 800 ml 900 ml BalanceBalance 300 ml 0 ml RISA SAWYER NP Nov 10, 2018 19:02
[2018-11-11] VITALS (22 sets, daily range): BP systolic 89–127; BP diastolic 59–79; PULSE 67–81; RESP 18–22
[2018-11-11] MEDS: BISACODYL 10 MG SUPP PR SCH
[2018-11-11] MEDS: ALBUTEROL HFA 8 GM INHALER INH SCH ×4 (01:42→19:21)
[2018-11-11] MEDS: IPRATROPIUM (HFA) 12.9 GM INHALER INH SCH ×4 (01:42→19:21)
[2018-11-11] MEDS: DOCUSATE SODIUM 10 MG/ML (10ML CUP) GTB SCH ×2 (07:39→20:48)
[2018-11-11] MEDS: MULTIVITAMINS 30 ML CUP GTB SCH (07:40)
[2018-11-11] MEDS: FERROUS SULFATE 60 MG/ML 5ML CUP GTB SCH ×2 (07:40→20:48)
[2018-11-11] MEDS: ESCITALOPRAM 10 MG TAB GTB SCH (07:40)
[2018-11-11] MEDS: LANSOPRAZOLE 30 MG CAP GTB SCH (07:40)
[2018-11-11] MEDS: ACETAMINOPHEN 650MG/20.3ML CUP GTB PRN (07:40)
[2018-11-11] MEDS: NYSTATIN SUSP 5 ML CUP PO SCH ×4 (07:40→20:48)
[2018-11-11] MEDS: BALSAM PERU/CASTOR OIL 60 GM TUBE TOP SCH (07:40)
[2018-11-11] MEDS: ENOXAPARIN 30 MG/0.3 ML SYG SC SCH (07:53)
--- NOTE | 2018-11-11 10:26 | CONS ---
Date/Time of Note Date/Time of Note DATE: 11/11/18 TIME: 10:24 Consult Date/Type/Reason Admit Date/Time Oct 31, 2018 at 21:21 Initial Consult Date 11/01/18 Type of Consultation: Pulm Subjective Remains febrile. Respiratory status unchanged. Objective Vital Signs Date Temp Pulse Resp B/P (MAP) Pulse Ox O2 O2 Flow FiO2 Time Delivery Rate 11/11/18 30 09:00 11/11/18 79 08:00 11/11/18 100.2 18 105/69 99 [place] 07:24 (81) l Ventilato r Intake and Output 11/10/18 11/10/18 11/11/18 1515:00 23:00 07:00 IntakeIntake Total 900 ml 880 ml OutputOutput Total 1200 ml 800 ml BalanceBalance -300 ml 80 ml Exam GENERAL: Chronically ill-appearing gentleman comfortable at rest VITAL SIGNS: per chart NECK: Supple. No JVD or lymphadenopathy. CARDIAC EXAM: S1, S2. No added sounds or murmurs. CHEST: clear bilaterally, No added sounds, rales or wheezes ABDOMEN: Soft, nontender. No guarding or rebound. EXTREMITIES: No cyanosis, clubbing or edema. NEUROLOGIC: Generalized weakness. Results/Medications Result Diagram: 11/08/18 0607 Medications Current Medications Bisacodyl (Dulcolax Supp) 10 mg Q24H [place] Last administered on 11/03/18at 00:15; Admin Dose 10 MG; Start 11/01/18 at 00:00 Enoxaparin Sodium (Lovenox) 30 mg DAILY [place] Last administered on 11/11/18at 07:53; Admin Dose 30 MG; Start 11/01/18 at 09:00 Escitalopram Oxalate (Lexapro) 10 mg DAILY GTB Last administered on 11/11/18at 07:40; Admin Dose 10 MG; Start 11/01/18 at 09:00 Ferrous Sulfate (Feosol Liquid Cup) 330 mg BID GTB Last administered on 11/11/18at 07:40; Admin Dose 330 MG; Start 11/01/18 at 09:00 Lansoprazole (Prevacid) 30 mg DAILY GTB Last administered on 11/11/18at 07:40; Admin Dose 30 MG; Start 11/01/18 at 09:00 Morphine Sulfate (morphine) 5 mg Q4H PRN GTB MODERATE TO SEVERE PAIN Last administered on 11/10/18 09:32; Admin Dose 5 MG; Start 11/01/18 at 00:00 Multivitamins (Multivitamin) 30 ml DAILY GTB Last administered on 11/11/18 07:40; Admin Dose 30 ML; Start 11/01/18 at 09:00 Docusate Sodium (Colace Liquid Cup) 100 mg BID GTB Last administered on 11/10/18 21:32; Admin Dose 100 MG; Start 11/01/18 at 09:00 Acetaminophen (Tylenol Liquid) 650 mg Q6H PRN GTB MILD PAIN(1-3)OR ELEVATED TEMP Last administered on 11/11/18 07:40; Admin Dose 650 MG; Start 11/01/18 at 12:00 Albuterol (Ventolin Hfa) 4 puff Q6H RESP THERAPY INH Last administered on 11/11/18 09:10; Admin Dose 4 PUFF; Start 11/01/18 at 20:00 Ipratropium [place] (Atrovent Hfa) 4 puff Q6H RESP THERAPY INH Last administered on 11/11/18 09:10; Admin Dose 4 PUFF; Start 11/01/18 at 20:00 Nystatin (Nystatin Susp) 5 ml QID PO Last administered on 11/11/18 07:40; Admin Dose 5 ML; Start 11/09/18 at 17:00 Assessment/Plan Chief Complaint/Hosp Course IMP: 1. Urosepsis with persistent fevers. 2. Chronic respiratory failure, vent dependent. 3. 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 4. Pre-renal azotemia 5. Right corneal opacity chronic with blindness. 6. History of coronary artery disease with history of myocardial infarction. 7. Chronic sacral coccygeal decubitus RECS: 1. TF 2. ID recs. 3. Feeding as tolerated 4. Wound care 5. DVT and GI prophylaxis LIVIA VALDERRAMA MD, [facility] Nov 11, 2018 10:25
[2018-11-11] MEDS ORDERED: VITAMIN A & D 5 GM OINT PACKET TOP ONE (11:58)
--- NOTE | 2018-11-11 14:04 | CONS ---
Date/Time of Note Date/Time of Note DATE: 11/11/18 TIME: 14:02 Assessment/Plan Assessment/Plan Chief Complaint/Hosp Course Patient with ongoing fevers. T-max yesterday 1022 current 101.4. Looks comfortable in no distress. Microbiology: Blood cultures since November 02 negative blood cultures since yesterday preliminary negative, urine culture negative stool for C. difficile negative INDWELLINGS: Trach, PEG, Cash. PHYSICAL EXAMINATION: GENERAL: This is a chronically ill-appearing, debilitated, elderly man who is in no distress. HEENT: Head atraumatic, normocephalic. Sclerae anicteric. Buccal mucosa dry. NECK: Supple. Tracheostomy present. CHEST: Rise symmetrical. Breath sounds diminished to bases. HEART: S1, S2, tachycardic, regular. ABDOMEN: Soft, bowel tones present. EXTREMITIES: Wasted, contractured. ASSESSMENT: 1. Ongoing fevers of unclear etiology. 2. Coag negative staph bacteremia likely contaminant with repeat blood cultures negative. 3. Urinary tract infection. 4. Questionable recurrent healthcare-associated pneumonia. 5. History of Clostridium difficile colitis. 6. Quadriplegia status post cervical spine surgery. 7. DNR PLAN: Clinically unchanged with ongoing fevers, all cultures negative per calcitonin level pending, will start on broad-spectrum coverage follow chest x- ray in a.m., check lipase as it was elevated on admission Consultation Date/Type/Reason Admit Date/Time Oct 31, 2018 at 21:21 Initial Consult Date 11/01/18 Type of Consult id Exam/Review of Systems Vital Signs Vitals Vital Signs Date Temp Pulse Resp B/P (MAP) Pulse Ox O2 O2 Flow FiO2 Time Delivery Rate 11/11/18 127/79 12:13 (95) 11/11/18 101.4 74 22 98 [place] 11:17 l Ventilato r 11/11/18 30 09:00 Intake and Output 11/10/18 11/10/18 11/11/18 1515:00 23:00 07:00 IntakeIntake Total 900 ml 880 ml OutputOutput Total 1200 ml 800 ml BalanceBalance -300 ml 80 ml RISA SAWYER NP Nov 11, 2018 14:04
[2018-11-11] MEDS ORDERED: VANCOMYCIN IV PER PHARMACY XX SCH (14:30)
[2018-11-11] MEDS: MEROPENEM 1 GM/50ML(PMX) 50 ML IVPB SCH ×2 (14:40→20:48)
[2018-11-11] MEDS ORDERED: VANCOMYCIN 1.25 GM in SOD CHLORIDE 0.9% 250 ML IVPB SCH (18:30)
--- NOTE | 2018-11-11 18:48 | PN ---
Date/Time of Note Date/Time of Note DATE: 11/11/18 TIME: 18:48 Assessment/Plan VTE Prophylaxis Risk score (from Ns)>0 risk: 7 SCD applied (from [facility] [place]): No SCD contraindicated: other Pharmacological prophylaxis: other Lines/Catheters [facility] C[facility] Type ([facility] Mid Line Central line still needed: Yes Urinary Cath still in place: Yes Reason Cath still needed: urinary retention, pres ulcer contaminated by urine Assessment/Plan Assessment/Plan -Recurrent sepsis with bacteremia. Continue antibiotics per ID. Dr. Tesfaye is following in infection disease consultation. -Yeast UTI -Possible healthcare acquired pneumonia -Ventilator dependent respiratory failure. Dr. Hernández is following in pulmonology consultation. 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 -C-spine epidural abscess, status post C3 to C4 laminectomy -DNR status Exam/Review of Systems Vital Signs Vitals Vital Signs Date Temp Pulse Resp B/P (MAP) Pulse Ox O2 O2 Flow FiO2 Time Delivery Rate 11/11/18 74 20 96 30 17:36 11/11/18 100.2 97/59 (72) [place] 15:37 l Ventilato r Intake and Output 11/10/18 11/10/18 11/11/18 1515:00 23:00 07:00 IntakeIntake Total 900 ml 880 ml OutputOutput Total 1200 ml 800 ml BalanceBalance -300 ml 80 ml Exam Constitutional: well developed, non-verbal Psych: nl mood/affect Head: atraumatic Eyes: nl lids, nl sclera Neck: non-tender, other (trach intact) Respiratory: diminished breath sounds Cardiovascular: nl pulses, other (s1s2) Gastrointestinal: soft, other (gt intact) Musculoskeletal: muscle weakness, range of motion Extremities: normal pulses Neurological: confused, unresponsive Lymph: nl lymph nodes CLEMENT WATSON Nov 11, 2018 18:48
[2018-11-12] VITALS (23 sets, daily range): BP systolic 95–116; BP diastolic 64–83; PULSE 70–83; RESP 18–22
[2018-11-12] MEDS: BISACODYL 10 MG SUPP PR SCH (00:36)
[2018-11-12] MEDS: ACETAMINOPHEN 650MG/20.3ML CUP GTB PRN ×3 (00:36→16:29)
[2018-11-12] MEDS: IPRATROPIUM (HFA) 12.9 GM INHALER INH SCH ×4 (01:15→19:14)
[2018-11-12] MEDS: ALBUTEROL HFA 8 GM INHALER INH SCH ×4 (01:15→19:14)
[2018-11-12] MEDS: VANCOMYCIN 750 MG in SOD CHLORIDE 0.9% 150 ML IVPB SCH ×2 (06:18→17:38)
[2018-11-12] MEDS: DOCUSATE SODIUM 10 MG/ML (10ML CUP) GTB SCH ×2 (07:50→21:43)
[2018-11-12] MEDS: FERROUS SULFATE 60 MG/ML 5ML CUP GTB SCH ×2 (07:51→21:43)
[2018-11-12] MEDS: MULTIVITAMINS 30 ML CUP GTB SCH (07:51)
[2018-11-12] MEDS: LANSOPRAZOLE 30 MG CAP GTB SCH (07:51)
[2018-11-12] MEDS: NYSTATIN SUSP 5 ML CUP PO SCH ×4 (07:51→21:43)
[2018-11-12] MEDS: ESCITALOPRAM 10 MG TAB GTB SCH (07:51)
[2018-11-12] MEDS: MEROPENEM 1 GM/50ML(PMX) 50 ML IVPB SCH ×2 (07:51→21:43)
[2018-11-12] MEDS: BALSAM PERU/CASTOR OIL 60 GM TUBE TOP SCH (07:52)
[2018-11-12] MEDS: ENOXAPARIN 30 MG/0.3 ML SYG SC SCH (08:06)
--- NOTE | 2018-11-12 10:57 | CONS ---
Date/Time of Note Date/Time of Note DATE: 11/12/18 TIME: 10:56 Consult Date/Type/Reason Admit Date/Time Oct 31, 2018 at 21:21 Initial Consult Date 11/01/18 Type of Consultation: Pulm Subjective Still febrile. Objective Vital Signs Date Temp Pulse Resp B/P (MAP) Pulse Ox O2 O2 Flow FiO2 Time Delivery Rate 11/12/18 30 09:21 11/12/18 79 19 99 09:05 11/12/18 101.2 103/72 07:55 (82) 11/11/18 Mechanica 15:37 l Ventilato r Intake and Output 11/11/18 11/11/18 11/12/18 1515:00 23:00 07:00 IntakeIntake Total 1153.3 ml 930 ml OutputOutput Total 450 ml 600 ml BalanceBalance 703.3 ml 330 ml Exam GENERAL: Chronically ill-appearing gentleman comfortable at rest VITAL SIGNS: per chart NECK: Supple. No JVD or lymphadenopathy. CARDIAC EXAM: S1, S2. No added sounds or murmurs. CHEST: clear bilaterally, No added sounds, rales or wheezes ABDOMEN: Soft, nontender. No guarding or rebound. EXTREMITIES: No cyanosis, clubbing or edema. NEUROLOGIC: Generalized weakness. Results/Medications Result Diagram: 11/12/18 0722 11/12/18 0722 Results 24 hrs Laboratory Tests Test 11/11/18 14:53 11/12/18 07:22 White Blood Count 8.5 # 7.5 Red Blood Count 3.73 L 3.67 L Hemoglobin 10.6 L 10.5 L Hematocrit 34.5 L 34.1 L Mean Corpuscular Volume 92.5 92.9 Mean Corpuscular Hemoglobin 28.4 L 28.6 L Mean Corpuscular Hemoglobin Concent 30.7 L 30.8 L Red Cell Distribution Width 15.1 H 15.2 H Platelet Count 260 # 244 Mean Platelet Volume 11.4 H 11.3 H Immature Granulocytes % 0.200 0.400 Neutrophils % 71.8 74.3 Lymphocytes % 15.9 14.2 L Monocytes % 9.2 7.7 Eosinophils % 2.2 2.9 Basophils % 0.7 0.5 Nucleated Red Blood Cells % 0.0 0.0 Immature Granulocytes # 0.020 0.030 Neutrophils # 6.1 5.6 Lymphocytes # 1.4 1.1 Monocytes # 0.8 0.6 Eosinophils # 0.2 0.2 Basophils # 0.1 0.0 Nucleated Red Blood Cells # 0.0 0.0 Sodium Level 145 H 145 H Potassium Level 4.6 4.6 Chloride Level 101 105 Carbon Dioxide Level 31 31 Anion Gap 13 9 Blood Urea Nitrogen 29 H 25 H Creatinine 0.56 L 0.56 L Est Glomerular Filtrat Rate mL/min > 60 > 60 Glucose Level 130 143 Calcium Level 9.4 9.1 Total Bilirubin 0.3 Direct Bilirubin 0.00 Indirect Bilirubin 0.3 Aspartate Amino Transf (AST/SGOT) 27 Alanine Aminotransferase (ALT/SGPT) 17 Alkaline Phosphatase 140 H Total Protein 7.0 Albumin 3.7 Globulin 3.30 H Albumin/Globulin Ratio 1.12 Lipase 376 H Medications Current Medications Bisacodyl (Dulcolax Supp) 10 mg Q24H AL Last administered on 11/12/18 00:36; Admin Dose 10 MG; Start 11/01/18 at 00:00 Enoxaparin Sodium (Lovenox) 30 mg DAILY SC Last administered on 11/12/18 08:06; Admin Dose 30 MG; Start 11/01/18 at 09:00 Escitalopram Oxalate (Lexapro) 10 mg DAILY GTB Last administered on 11/12/18 07:51; Admin Dose 10 MG; Start 11/01/18 at 09:00 Ferrous Sulfate (Feosol Liquid Cup) 330 mg BID GTB Last administered on 11/12/18 07:51; Admin Dose 330 MG; Start 11/01/18 at 09:00 Lansoprazole (Prevacid) 30 mg DAILY GTB Last administered on 11/12/18 07:51; Admin Dose 30 MG; Start 11/01/18 at 09:00 Morphine Sulfate (morphine) 5 mg Q4H PRN GTB MODERATE TO SEVERE PAIN Last administered on 11/10/18 09:32; Admin Dose 5 MG; Start 11/01/18 at 00:00 Multivitamins (Multivitamin) 30 ml DAILY GTB Last administered on 11/12/18 07:51; Admin Dose 30 ML; Start 11/01/18 at 09:00 Docusate Sodium (Colace Liquid Cup) 100 mg BID GTB Last administered on 12/19/18at 20:48; Admin Dose 100 MG; Start 11/01/18 at 09:00 Acetaminophen (Tylenol Liquid) 650 mg Q6H PRN GTB MILD PAIN(1-3)OR ELEVATED TEMP Last administered on 11/12/18 07:51; Admin Dose 650 MG; Start 11/01/18 at 12:00 Albuterol (Ventolin Hfa) 4 puff Q6H RESP THERAPY INH Last administered on 11/12/18 07:41; Admin Dose 4 PUFF; Start 11/01/18 at 20:00 Ipratropium [place] (Atrovent Hfa) 4 puff Q6H RESP THERAPY INH Last administered on 11/12/18 07:40; Admin Dose 4 PUFF; Start 11/01/18 at 20:00 Nystatin (Nystatin Susp) 5 ml QID PO Last administered on 11/12/18at 07:51; Admin Dose 5 ML; Start 11/09/18 at 17:00 Meropenem/Sodium Chloride 50 ml @ 100 mls/hr Q12 IVPB Last administered on 11/12/18at 07:51; Admin Dose 100 MLS/HR; Start 11/11/18 at 14:30 Vancomycin HCl (Vanco Iv Per Pharmacy) VANCOMYCIN PER PHARMACY PER PROTOCOL XX ; Start 11/11/18 at 14:30 Vancomycin HCl 750 mg/Sodium Chloride 150 ml @ 75 mls/hr Q12H IVPB Last administered on 11/12/18at 06:18; Admin Dose 75 MLS/HR; Start 11/12/18 at 07:00 Assessment/Plan Chief Complaint/Hosp Course IMP: 1. Urosepsis with persistent fevers. 2. Chronic respiratory failure, vent dependent. 3. 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 4. Pre-renal azotemia 5. Right corneal opacity chronic with blindness. 6. History of coronary artery disease with history of myocardial infarction. 7. Chronic sacral coccygeal decubitus RECS: 1. TF 2. ID recs. 3. Feeding as tolerated 4. Wound care 5. DVT and GI prophylaxis LIVIA VALDERRAMA MD, [facility] Nov 12, 2018 10:57
--- NOTE | 2018-11-12 12:11 | CONS ---
Date/Time of Note Date/Time of Note DATE: 11/12/18 TIME: 12:09 Assessment/Plan Assessment/Plan Chief Complaint/Hosp Course No acute changes looks comfortable, copious secretions per RN, ongoing fevers Microbiology: Blood cultures since November 02 negative blood cultures since yesterday preliminary negative, urine culture negative stool for C. difficile negative Antimicrobials: Vanco, Merrem INDWELLINGS: Trach, PEG, Cash. PHYSICAL EXAMINATION: GENERAL: This is a chronically ill-appearing, debilitated, elderly man who is in no distress. HEENT: Head atraumatic, normocephalic. Sclerae anicteric. Buccal mucosa dry. NECK: Supple. Tracheostomy present. CHEST: Rise symmetrical. Breath sounds diminished to bases. HEART: S1, S2, tachycardic, regular. ABDOMEN: Soft, bowel tones present. EXTREMITIES: Wasted, contractured. ASSESSMENT: 1. Ongoing fevers, likely secondary to secretion retention 2. Coag negative staph bacteremia likely contaminant with repeat blood cultures negative. 3. Urinary tract infection. 4. Questionable recurrent healthcare-associated pneumonia. 5. History of Clostridium difficile colitis. 6. Quadriplegia status post cervical spine surgery. 7. DNR PLAN: Clinically unchanged, started on antibiotics for ongoing fevers, all cultures negative so far, calcitonin level pending, continue aggressive pulmonary toilet Consultation Date/Type/Reason Admit Date/Time Oct 31, 2018 at 21:21 Initial Consult Date 11/01/18 Type of Consult id Exam/Review of Systems Vital Signs Vitals Vital Signs Date Temp Pulse Resp B/P (MAP) Pulse Ox O2 O2 Flow FiO2 Time Delivery Rate 11/12/18 100.0 83 18 103/73 100 12:00 (83) 11/12/18 30 11:05 11/11/18 Mechanica 15:37 l Ventilato r Intake and Output 11/11/18 11/11/18 11/12/18 1515:00 23:00 07:00 IntakeIntake Total 1153.3 ml 930 ml OutputOutput Total 450 ml 600 ml BalanceBalance 703.3 ml 330 ml RISA SAWYER NP Nov 12, 2018 12:11
[2018-11-13] VITALS (23 sets, daily range): BP systolic 98–116; BP diastolic 68–76; PULSE 62–88; RESP 18–21
[2018-11-13] MEDS: BISACODYL 10 MG SUPP PR SCH (01:11)
[2018-11-13] MEDS: ALBUTEROL HFA 8 GM INHALER INH SCH ×4 (02:08→20:56)
[2018-11-13] MEDS: IPRATROPIUM (HFA) 12.9 GM INHALER INH SCH ×4 (02:08→20:56)
[2018-11-13] MEDS: VANCOMYCIN 750 MG in SOD CHLORIDE 0.9% 150 ML IVPB SCH ×2 (07:51→18:34)
[2018-11-13] MEDS: LANSOPRAZOLE 30 MG CAP GTB SCH (09:07)
[2018-11-13] MEDS: DOCUSATE SODIUM 10 MG/ML (10ML CUP) GTB SCH ×2 (09:07→21:27)
[2018-11-13] MEDS: FERROUS SULFATE 60 MG/ML 5ML CUP GTB SCH ×2 (09:07→21:28)
[2018-11-13] MEDS: MULTIVITAMINS 30 ML CUP GTB SCH (09:08)
[2018-11-13] MEDS: ESCITALOPRAM 10 MG TAB GTB SCH (09:08)
[2018-11-13] MEDS: NYSTATIN SUSP 5 ML CUP PO SCH ×4 (09:08→21:28)
[2018-11-13] MEDS: BALSAM PERU/CASTOR OIL 60 GM TUBE TOP SCH (09:13)
[2018-11-13] MEDS: ENOXAPARIN 30 MG/0.3 ML SYG SC SCH (09:17)
[2018-11-13] MEDS: MEROPENEM 1 GM/50ML(PMX) 50 ML IVPB SCH ×2 (10:19→21:28)
--- NOTE | 2018-11-13 14:53 | PN ---
Date/Time of Note Date/Time of Note DATE: 11/13/18 TIME: 14:53 Assessment/Plan VTE Prophylaxis Risk score (from Ns)>0 risk: 6 SCD applied (from [facility]): No SCD contraindicated: other Pharmacological prophylaxis: other Lines/Catheters IV Catheter Type (from [facility]): Mid Line Central line still needed: Yes Urinary Cath still in place: Yes Reason Cath still needed: urinary retention Assessment/Plan Assessment/Plan -Recurrent sepsis with bacteremia. Continue antibiotics per ID. Dr. Tesfaye is following in infection disease consultation. -Yeast UTI -Possible healthcare acquired pneumonia -Ventilator dependent respiratory failure. Dr. Hernández is following in pulmonology consultation. 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 -C-spine epidural abscess, status post C3 to C4 laminectomy -DNR status Subjective 24 Hr Interval Summary Free Text/Dictation resting seems comfortable on supplement oxygen no new events reported over night per staff Subjective hx not possible: pt non-verbal Constitutional: requiring O2 Exam/Review of Systems Vital Signs Vitals Vital Signs Date Temp Pulse Resp B/P (MAP) Pulse Ox O2 O2 Flow FiO2 Time Delivery Rate 11/13/18 70 13:19 11/13/18 99.4 18 98/76 (83) 100 Mechanical 11:50 Ventilator 11/13/18 30 11:20 Intake and Output 11/12/18 11/12/18 11/13/18 1515:00 23:00 07:00 IntakeIntake Total 200 ml 1180 ml 980 ml OutputOutput Total 1200 ml 750 ml BalanceBalance 200 ml -20 ml 230 ml Exam Constitutional: non-verbal, frail Psych: nl mood/affect Head: atraumatic Eyes: nl lids, nl sclera ENMT: nl external ears & nose Neck: supple, other (trach intact) Cardiovascular: nl pulses, other (s1s2) Gastrointestinal: soft, other (gt intact) Musculoskeletal: muscle weakness, range of motion Extremities: normal pulses Neurological: unresponsive Lymph: nl lymph nodes CLEMENT WATSON Nov 13, 2018 14:53
--- NOTE | 2018-11-13 14:53 | PN ---
Date/Time of Note Date/Time of Note DATE: 11/13/18 TIME: 14:53 Assessment/Plan VTE Prophylaxis Risk score (from Ns)>0 risk: 6 SCD applied (from [facility] [place]): No SCD contraindicated: other Pharmacological prophylaxis: other Lines/Catheters [facility] C[facility] Type (from [facility]): Mid Line Central line still needed: Yes Urinary Cath still in place: Yes Reason Cath still needed: urinary retention, pres ulcer contaminated by urine Assessment/Plan Assessment/Plan -Recurrent sepsis with bacteremia. Continue antibiotics per ID. Dr. Tesfaye is following in infection disease consultation. -Yeast UTI -Possible healthcare acquired pneumonia -Ventilator dependent respiratory failure. Dr. Hernández is following in pulmonology consultation. 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 Subjective hx not possible: pt non-verbal Constitutional: requiring O2 Exam/Review of Systems Vital Signs Vitals Vital Signs Date Temp Pulse Resp B/P (MAP) Pulse Ox O2 O2 Flow FiO2 Time Delivery Rate 11/13/18 70 13:19 11/13/18 99.4 18 98/76 (83) 100 Mechanical 11:50 Ventilator 11/13/18 30 11:20 Intake and Output 11/12/18 11/12/18 11/13/18 1515:00 23:00 07:00 IntakeIntake Total 200 ml 1180 ml 980 ml OutputOutput Total 1200 ml 750 ml BalanceBalance 200 ml -20 ml 230 ml Exam Constitutional: alert, well developed, non-verbal Psych: nl mood/affect Eyes: nl lids, nl sclera Neck: supple, other (trach intact) Respiratory: diminished breath sounds (at bases bilatrally) Cardiovascular: nl pulses, other (s1s2) Gastrointestinal: soft, other (gt intact) Musculoskeletal: muscle weakness, range of motion Extremities: normal pulses Neurological: unresponsive Lymph: nl lymph nodes CLEMENT WATSON Nov 13, 2018 14:53
--- NOTE | 2018-11-13 17:24 | CONS ---
Date/Time of Note Date/Time of Note DATE: 11/13/18 TIME: 17:22 Assessment/Plan Assessment/Plan Chief Complaint/Hosp Course No acute changes, low grade temps, looks comfortable Microbiology: Blood cultures since November 02 negative blood cultures since yesterday preliminary negative, urine culture negative stool for C. difficile negative Antimicrobials: Vanco, Merrem INDWELLINGS: Trach, PEG, Cash. PHYSICAL EXAMINATION: GENERAL: This is a chronically ill-appearing, debilitated, elderly man who is in no distress. HEENT: Head atraumatic, normocephalic. Sclerae anicteric. Buccal mucosa dry. NECK: Supple. Tracheostomy present. CHEST: Rise symmetrical. Breath sounds diminished to bases. HEART: S1, S2, tachycardic, regular. ABDOMEN: Soft, bowel tones present. EXTREMITIES: Wasted, contractured. ASSESSMENT: 1. Ongoing fevers, likely secondary to secretion retention 2. Coag negative staph bacteremia likely contaminant with repeat blood cultures negative. 3. Urinary tract infection. 4. Questionable recurrent healthcare-associated pneumonia. 5. History of Clostridium difficile colitis. 6. Quadriplegia status post cervical spine surgery. 7. DNR PLAN: Clinically unchanged, started on antibiotics for ongoing fevers, pending calcitonin level, continue aggressive pulmonary toilet Consultation Date/Type/Reason Admit Date/Time Oct 31, 2018 at 21:21 Initial Consult Date 11/01/18 Type of Consult id Exam/Review of Systems Vital Signs Vitals Vital Signs Date Temp Pulse Resp B/P (MAP) Pulse Ox O2 O2 Flow FiO2 Time Delivery Rate 11/13/18 74 16:58 11/13/18 100.1 18 110/69 100 Mechanica 15:50 (83) l Ventilato r 11/13/18 30 15:05 Intake and Output 11/12/18 11/12/18 11/13/18 1515:00 23:00 07:00 IntakeIntake Total 200 ml 1180 ml 980 ml OutputOutput Total 1200 ml 750 ml BalanceBalance 200 ml -20 ml 230 ml RISA SAWYER NP Nov 13, 2018 17:24
[2018-11-14] VITALS (23 sets, daily range): BP systolic 95–136; BP diastolic 64–76; PULSE 68–100; RESP 18–21
[2018-11-14] MEDS: BISACODYL 10 MG SUPP PR SCH (00:43)
[2018-11-14] MEDS: ALBUTEROL HFA 8 GM INHALER INH SCH ×4 (02:19→21:46)
[2018-11-14] MEDS: IPRATROPIUM (HFA) 12.9 GM INHALER INH SCH ×4 (02:19→21:45)
[2018-11-14] MEDS: ACETAMINOPHEN 650MG/20.3ML CUP GTB PRN ×3 (03:34→14:26)
[2018-11-14] MEDS: VANCOMYCIN 750 MG in SOD CHLORIDE 0.9% 150 ML IVPB SCH ×2 (06:45→18:26)
[2018-11-14] MEDS: DOCUSATE SODIUM 10 MG/ML (10ML CUP) GTB SCH ×2 (08:06→21:32)
[2018-11-14] MEDS: FERROUS SULFATE 60 MG/ML 5ML CUP GTB SCH ×2 (08:07→21:32)
[2018-11-14] MEDS: MULTIVITAMINS 30 ML CUP GTB SCH (08:07)
[2018-11-14] MEDS: ESCITALOPRAM 10 MG TAB GTB SCH (08:07)
[2018-11-14] MEDS: MEROPENEM 1 GM/50ML(PMX) 50 ML IVPB SCH ×2 (08:07→21:31)
[2018-11-14] MEDS: LANSOPRAZOLE 30 MG CAP GTB SCH (08:08)
[2018-11-14] MEDS: NYSTATIN SUSP 5 ML CUP PO SCH ×4 (08:08→21:32)
[2018-11-14] MEDS: ENOXAPARIN 30 MG/0.3 ML SYG SC SCH (08:21)
[2018-11-14] MEDS: BALSAM PERU/CASTOR OIL 60 GM TUBE TOP SCH (09:00)
--- NOTE | 2018-11-14 11:10 | CONS ---
Date/Time of Note Date/Time of Note DATE: 11/14/18 TIME: 11:08 Assessment/Plan Assessment/Plan Additional Assessment/Plan Ventilator setting; AC of 18, tidal volume 450, PEEP of 5, 50% FiO2. Assessment recommendations; 1. Patient with history of VD RF and quadriplegia admitted for recurrent sepsis due to multiple sources from sacral ulcer as well as UTI and pneumonia. Clinically improving. 2. Underlying COPD. Continue with supportive care. Prognosis is poor. Consider discharge to rehab center. Consultation Date/Type/Reason Admit Date/Time Oct 31, 2018 at 21:21 Initial Consult Date 11/01/18 Type of Consult Pulmonary 24 HR Interval Summary Free Text/Dictation Patient's condition is stable. Maintaining stable hemodynamic and pulmonary status. General exam; elderly male, on ventilator via tracheostomy, currently no dist ress. Awake and responsive. Exam/Review of Systems Vital Signs Vitals Vital Signs Date Temp Pulse Resp B/P (MAP) Pulse Ox O2 O2 Flow FiO2 Time Delivery Rate 11/14/18 85 20 99 30 09:36 11/14/18 101.0 08:52 11/14/18 97/69 (78) Trach 07:30 Collar Intake and Output 11/13/18 11/13/18 11/14/18 1515:00 23:00 07:00 IntakeIntake Total 900 ml OutputOutput Total 600 ml BalanceBalance 300 ml Exam H EENT exam; supple neck, no JVD. No lymphadenopathy. Midline trachea. No thyromegaly. There is a left corneal opacity. Patient has fair dentition. Tracheostomy in place. Insertion site is clean. Chest exam; diminished breath sounds bilaterally. S1-S2 audible, no murmurs. Regular rhythm. Abdomen exam; soft, no organomegaly. G-tube in place. Bowel sounds audible. Extremity exam; no edema or clubbing. Patient does have flexion contractures. URBAN FORESTER exam; patient is stable quadriplegia. SONYA SILVA Nov 14, 2018 11:10
--- NOTE | 2018-11-14 11:32 | PN ---
Date/Time of Note Date/Time of Note DATE: 11/14/18 TIME: 11:31 Assessment/Plan VTE Prophylaxis Risk score (from Ns)>0 risk: 5 SCD applied (from [facility] [place]): No SCD contraindicated: other Pharmacological prophylaxis: LMWH Lines/Catheters IV Catheter Type (from [facility] Mid Line Urinary Cath still in place: Yes Reason Cath still needed: skin wounds contaminated by urine Assessment/Plan Hospital Course -Recurrent sepsis with bacteremia. Continue antibiotics per ID. Dr. Tesfaye is following in infection disease consultation. -Yeast UTI -Possible healthcare acquired pneumonia -Ventilator dependent respiratory failure. Dr. Hernández is following in pulmonology consultation. 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 -C-spine epidural abscess, status post C3 to C4 laminectomy -DNR status Subjective 24 Hr Interval Summary Free Text/Dictation Eyes open but seems to be not comprehending Exam/Review of Systems Vital Signs Vitals Vital Signs Date Temp Pulse Resp B/P (MAP) Pulse Ox O2 O2 Flow FiO2 Time Delivery Rate 11/14/18 85 20 99 30 09:36 11/14/18 101.0 08:52 11/14/18 97/69 (78) Trach 07:30 Collar Intake and Output 11/13/18 11/13/18 11/14/18 1515:00 23:00 07:00 IntakeIntake Total 900 ml OutputOutput Total 600 ml BalanceBalance 300 ml Exam Constitutional: well developed Head: normocephalic, atraumatic Neck: supple Respiratory: diminished breath sounds Cardiovascular: regular rate and rhythm Gastrointestinal: soft, non-tender Extremities: normal pulses DARIO PANIAGUA Nov 14, 2018 11:31
[2018-11-14] MEDS: FLUCONAZOLE 100 MG TAB PO SCH (12:41)
--- NOTE | 2018-11-14 14:51 | CONS ---
Date/Time of Note Date/Time of Note DATE: 11/14/18 TIME: 14:45 Consultation Date/Type/Reason Admit Date/Time Oct 31, 2018 at 21:21 Initial Consult Date SUBJECTIVE: Patient continuing to spike fevers. She is sleepy, comfortable. VS: T: highest today 103.0. Now 99.8 LABS: Reviewed. WBC remains WNL. CXR 11/06/18: IMPRESSION: 1. Low lung volumes with mild interstitial edema and small right pleural effusion. Lung aeration is mildly improved when compared to the prior examination. 2. Mild cardiomegaly and aortic atherosclerosis. 3. Tracheostomy tube in place Microbiology: Blood cultures since November 02 negative blood cultures since yesterday preliminary negative, urine culture negative stool for C. difficile negative INDWELLINGS: Trach, PEG. Cash Antimicrobials: Vanco, Merrem PHYSICAL EXAMINATION: GENERAL: This is a chronically ill-appearing, debilitated, elderly man who is in no distress. HEENT: Head atraumatic, normocephalic. Sclerae anicteric. Buccal mucosa dry. NECK: Supple. Tracheostomy present. CHEST: Rise symmetrical. Breath sounds diminished to bases. HEART: S1, S2, tachycardic, regular. ABDOMEN: Soft, bowel tones present. EXTREMITIES: Wasted, contractured. ASSESSMENT: 1. Sepsis. 2. Coag negative staph bacteremia likely contaminant with repeat blood cultures negative. 3. Urinary tract infection. 4. Questionable recurrent healthcare-associated pneumonia. 5. History of Clostridium difficile colitis. 6. Quadriplegia status post cervical spine surgery. 7. DNR PLAN: Clinically unchanged. Continue current antbx. and will add Diflucan. Continue aggressive pulmonary toilet. WBC is WNL. Pending calcitonin level. Ordered CT of abd with contrast. Exam/Review of Systems Vital Signs Vitals Vital Signs Date Temp Pulse Resp B/P (MAP) Pulse Ox O2 O2 Flow FiO2 Time Delivery Rate 11/14/18 99.8 14:26 11/14/18 85 13:06 11/14/18 20 99 30 09:36 11/14/18 97/69 (78) Trach 07:30 Collar Intake and Output 11/13/18 11/13/18 11/14/18 1515:00 23:00 07:00 IntakeIntake Total 900 ml OutputOutput Total 600 ml BalanceBalance 300 ml TYLER FITZPATRICK Nov 14, 2018 14:51
[2018-11-14] MEDS ORDERED: IOHEXOL 300MG/ML 150 ML BTL ONE (15:05)
[2018-11-14] MEDS ORDERED: SOD CHLORIDE 0.9% 100 ML ONE (15:05)
[2018-11-15] VITALS (24 sets, daily range): BP systolic 100–123; BP diastolic 69–83; PULSE 73–94; RESP 18–22
[2018-11-15] MEDS: BISACODYL 10 MG SUPP PR SCH
[2018-11-15] MEDS: ALBUTEROL HFA 8 GM INHALER INH SCH ×4 (01:30→20:06)
[2018-11-15] MEDS: IPRATROPIUM (HFA) 12.9 GM INHALER INH SCH ×4 (01:30→20:06)
[2018-11-15] MEDS: VANCOMYCIN 750 MG in SOD CHLORIDE 0.9% 150 ML IVPB SCH ×2 (06:10→18:53)
[2018-11-15] MEDS: MULTIVITAMINS 30 ML CUP GTB SCH (09:35)
[2018-11-15] MEDS: FERROUS SULFATE 60 MG/ML 5ML CUP GTB SCH ×2 (09:35→21:53)
[2018-11-15] MEDS: DOCUSATE SODIUM 10 MG/ML (10ML CUP) GTB SCH ×2 (09:35→21:53)
[2018-11-15] MEDS: NYSTATIN SUSP 5 ML CUP PO SCH ×4 (09:35→21:53)
[2018-11-15] MEDS: LANSOPRAZOLE 30 MG CAP GTB SCH (09:36)
[2018-11-15] MEDS: BALSAM PERU/CASTOR OIL 60 GM TUBE TOP SCH (09:36)
[2018-11-15] MEDS: ESCITALOPRAM 10 MG TAB GTB SCH (09:36)
[2018-11-15] MEDS: MEROPENEM 1 GM/50ML(PMX) 50 ML IVPB SCH ×2 (09:36→21:53)
[2018-11-15] MEDS: FLUCONAZOLE 100 MG TAB PO SCH (09:36)
[2018-11-15] MEDS: ENOXAPARIN 30 MG/0.3 ML SYG SC SCH (09:38)
[2018-11-15] MEDS: ACETAMINOPHEN 650MG/20.3ML CUP GTB PRN (09:42)
--- NOTE | 2018-11-15 09:55 | CONS ---
Date/Time of Note Date/Time of Note DATE: 11/15/18 TIME: 09:54 Assessment/Plan Assessment/Plan Additional Assessment/Plan Ventilator setting; AC of 18, tidal volume 500, PEEP of 5, 30% FiO2. Assessment and recommendations; 1 patient admitted with sepsis due to multiple sources from UTI sacral ulcer as well as pneumonia with interval improvement. 2. History of quadriplegia. 3. COPD. 4. VDR F. Continue current supportive care. Antibiotics per ID recommendations. Consider discharge to fdc/rehab center. Prognosis is poor. Consultation Date/Type/Reason Admit Date/Time Oct 31, 2018 at 21:21 Initial Consult Date 11/01/18 Type of Consult Pulmonary 24 HR Interval Summary Free Text/Dictation Patient's condition is stable. General exam; elderly male, awake and responsive, on ventilator via tracheostomy, currently no distress. H HEENT exam; supple neck, no JVD. No lymphadenopathy. Midline trachea. No thyromegaly. Tracheostomy in place. Patient has fair dentition. Patient has a stable left corneal opacity. Chest exam; diminished but clear breath sounds. S1-S2 audible, no murmurs. Regular rhythm. Abdomen exam; soft, no organomegaly. G-tube in place. Bowel sounds audible. Extremity exam; no peripheral edema or clubbing. FRONT END MANAGER exam; patient has stable quadriplegia. Exam/Review of Systems Vital Signs Vitals Vital Signs Date Temp Pulse Resp B/P (MAP) Pulse Ox O2 O2 Flow FiO2 Time Delivery Rate 11/15/18 99.5 09:42 11/15/18 82 09:00 11/15/18 18 102/74 99 Trach 08:14 (83) Collar 11/15/18 30 07:12 Intake and Output 11/14/18 11/14/18 11/15/18 1515:00 23:00 07:00 IntakeIntake Total 900 ml 980 ml OutputOutput Total 1500 ml 800 ml BalanceBalance -600 ml 180 ml SONYA SILVA Nov 15, 2018 09:55
--- NOTE | 2018-11-15 11:15 | PN ---
Date/Time of Note Date/Time of Note DATE: 11/15/18 TIME: 11:14 Assessment/Plan VTE Prophylaxis Risk score (from Ns)>0 risk: 6 SCD applied (from [facility] [place]): No SCD contraindicated: other Pharmacological prophylaxis: LMWH Lines/Catheters IV Catheter Type (from [facility] Mid Line Urinary Cath still in place: Yes Reason Cath still needed: skin wounds contaminated by urine Assessment/Plan Hospital Course -Recurrent sepsis with bacteremia. Continue antibiotics per ID. Dr. Tesfaye is following in infection disease consultation. -Yeast UTI -Possible healthcare acquired pneumonia -Ventilator dependent respiratory failure. Dr. Hernández is following in pulmonology consultation. 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 -C-spine epidural abscess, status post C3 to C4 laminectomy -DNR status Subjective 24 Hr Interval Summary Free Text/Dictation Patient has eyes open but not communicative Exam/Review of Systems Vital Signs Vitals Vital Signs Date Temp Pulse Resp B/P (MAP) Pulse Ox O2 O2 Flow FiO2 Time Delivery Rate 11/15/18 99.5 09:42 11/15/18 82 09:00 11/15/18 30 09:00 11/15/18 18 102/74 99 Trach 08:14 (83) Collar Intake and Output 11/14/18 11/14/18 11/15/18 1515:00 23:00 07:00 IntakeIntake Total 900 ml 980 ml OutputOutput Total 1500 ml 800 ml BalanceBalance -600 ml 180 ml Exam Constitutional: well developed Head: normocephalic, atraumatic Neck: supple Respiratory: diminished breath sounds Cardiovascular: regular rate and rhythm Gastrointestinal: soft, non-tender Extremities: normal pulses DARIO PANIAGUA Nov 15, 2018 11:15
--- NOTE | 2018-11-15 13:58 | CONS ---
Date/Time of Note Date/Time of Note DATE: 11/15/18 TIME: 13:56 Assessment/Plan Assessment/Plan Chief Complaint/Hosp Course Patient continues to spike fevers with a T-max yesterday 103 T-current 102.3 Microbiology: Blood cultures remain negative stool for C. difficile negative urine culture repeated several days ago negative CT of the abdomen and pelvis revealed distal left ureteral pelvic junction stone producing moderate left obstructive uropathy and hydroureter with perinephric stranding. Bibasilar atelectasis versus mild infiltrate changes Antimicrobials: Vanco, Merrem, Diflucan INDWELLINGS: Trach, PEG, Cash. PHYSICAL EXAMINATION: GENERAL: This is a chronically ill-appearing, debilitated, elderly man who is in no distress. HEENT: Head atraumatic, normocephalic. Sclerae anicteric. Buccal mucosa dry. NECK: Supple. Tracheostomy present. CHEST: Rise symmetrical. Breath sounds diminished to bases. HEART: S1, S2, tachycardic, regular. ABDOMEN: Soft, bowel tones present. EXTREMITIES: Wasted, contractured. ASSESSMENT: 1. Ongoing fevers secondary to #2 2. Obstructive uropathy 3. Status post coag negative staph bacteremia consistent with contaminant 3. Status post urinary tract infection. 4. Healthcare-associated pneumonia. 5. History of Clostridium difficile colitis. 6. Quadriplegia status post cervical spine surgery. 7. DNR PLAN: Clinically unchanged, with ongoing fevers and continue with finding of o bstructive uropathy per CT abdomen, will ask for urology evaluation DW Dr Castillo Consultation Date/Type/Reason Admit Date/Time Oct 31, 2018 at 21:21 Initial Consult Date 11/01/18 Type of Consult id Exam/Review of Systems Vital Signs Vitals Vital Signs Date Temp Pulse Resp B/P (MAP) Pulse Ox O2 O2 Flow FiO2 Time Delivery Rate 11/15/18 78 18 98 30 13:33 11/15/18 102.3 102/74 Trach 11:48 (83) Collar Intake and Output 11/14/18 11/14/18 11/15/18 1515:00 23:00 07:00 IntakeIntake Total 900 ml 980 ml OutputOutput Total 1500 ml 800 ml BalanceBalance -600 ml 180 ml RISA SAWYER FORCE VARIATION EQUIPMENT TENDER Nov 15, 2018 13:58
--- NOTE | 2018-11-15 14:04 | CONS ---
Date/Time of Note Date/Time of Note DATE: 11/15/18 TIME: 13:43 Assessment/Plan Assessment/Plan Chief Complaint/Hosp Course 62-year-old male with history of coronary artery disease, non-ST elevation [place], hypertension, history of aspiration pneumonia ,chronic respiratory failure vent dependent. The patient has history of C-spine epidural abscess, status post C3 to C4 laminectomy. The patient is quadriplegic and has been vent-dependent. He is a resident of [facility] and was noted to have fever and was transferred to [facility] for further care and workup. Since his admission he has been having fever on and off and his temperature has reached 103. He had a CT scan of the abdomen and pelvis and that showed: 1. Distal left uretero-vesicular junction stone producing moderate left obst ructive uropathy and hydroureter with perinephric stranding. 2. Nonobstructing left lower pole renal calculus. 3. Mild right perinephric stranding. Correlation with superimposed nephritis. 4. Chronic changes of the right proximal femur with subtrochanteric fracture and remodelling with heterotopic soft tissue calcification. 5. Cholelithiasis. 6. Bibasilar atelectasis versus mild infiltrate changes Therefore a urological consultation was requested because of his persistent fever. All the information were obtained from his medical record. The patient has severe contractures and very difficult to examine him. He has an indwelling Cash catheter that is draining clear urine. He also does have a tracheostomy and G-tube in place. He did have a CT scan of the abdomen and pelvis back in January 2018 and that showed multiple small stones inside the bladder. The stones are no longer present in the bladder now. The CT scan now showed the stone in the area of the left ureterovesicular junction. The stone is small and he should be able to pass it into the bladder and if he did not he should be able to pass it later on. Considering the complexity of his contractures and his medical problem and the fact that he may have passed stones before I think it would be reasonable to give him more time to pass the stone and we could repeat his CAT scan later on and see if he did pass the stone ther efore avoiding any surgical intervention. Consultation Date/Type/Reason Admit Date/Time Oct 31, 2018 at 21:21 Date of Consultation: Nov 15, 2018 Type of Consult Urology Reason for Consultation Fever and distal left ureteral stone Requesting Provider: LORRAINE SHAH MD Hx of Present Illness 62-year-old male with history of coronary artery disease, non-ST elevation [place], hypertension, history of aspiration pneumonia ,chronic respiratory failure vent dependent. The patient has history of C-spine epidural abscess, status post C3 to C4 laminectomy. The patient is quadriplegic and has been vent-dependent. He is a resident of [facility] and was noted to have fever and was transferred to [facility] for further care and workup. Since his admission he has been having fever on and off and his temperature has reached 103. He had a CT scan of the abdomen and pelvis and that showed: 1. Distal left uretero-vesicular junction stone producing moderate left obstructive uropathy and hydroureter with perinephric stranding. 2. Nonobstructing left lower pole renal calculus. 3. Mild right perinephric stranding. Correlation with superimposed nephritis. 4. Chronic changes of the right proximal femur with subtrochanteric fracture and remodelling with heterotopic soft tissue calcification. 5. Cholelithiasis. 6. Bibasilar atelectasis versus mild infiltrate changes Therefore a urological consultation was requested because of his persistent fever. All the information were obtained from his medical record. 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 The patient is quadriplegic and has severe contractures) Skin: other (No open wounds) Neurologic: other (Quadriplegic) Endocrine: no complaints Past Medical History Medical History: coronary artery disease, hypertension, renal disease, urinary tract infection Medications Current Medications Bisacodyl (Dulcolax Supp) 10 mg Q24H [place] Last administered on 11/14/18at 00:43; Admin Dose 10 MG; Start 11/01/18 at 00:00 Enoxaparin Sodium (Lovenox) 30 mg DAILY SC Last administered on 11/15/18at 09:38; Admin Dose 30 MG; Start 11/01/18 at 09:00 Escitalopram Oxalate (Lexapro) 10 mg DAILY GTB Last administered on 11/15/18 09:36; Admin Dose 10 MG; Start 11/01/18 at 09:00 Ferrous Sulfate (Feosol Liquid Cup) 330 mg BID GTB Last administered on 11/15/18 09:35; Admin Dose 330 MG; Start 11/01/18 at 09:00 Lansoprazole (Prevacid) 30 mg DAILY GTB Last administered on 11/15/18 09:36; Admin Dose 30 MG; Start 11/01/18 at 09:00 Morphine Sulfate (morphine) 5 mg Q4H PRN GTB MODERATE TO SEVERE PAIN Last administered on 11/10/18 09:32; Admin Dose 5 MG; Start 11/01/18 at 00:00 Multivitamins (Multivitamin) 30 ml DAILY GTB Last administered on 11/15/18 09:35; Admin Dose 30 ML; Start 11/01/18 at 09:00 Docusate Sodium (Colace Liquid Cup) 100 mg BID GTB Last administered on 11/15/18 09:35; Admin Dose 100 MG; Start 11/01/18 at 09:00 Acetaminophen (Tylenol Liquid) 650 mg Q6H PRN GTB MILD PAIN(1-3)OR ELEVATED TEMP Last administered on 11/15/18 09:42; Admin Dose 650 MG; Start 11/01/18 at 12:00 Albuterol (Ventolin Hfa) 4 puff Q6H RESP THERAPY INH Last administered on 11/15/18 08:26; Admin Dose 4 PUFF; Start 11/01/18 at 20:00 Ipratropium [place] (Atrovent Hfa) 4 puff Q6H RESP THERAPY INH Last administered on 11/15/18 08:26; Admin Dose 4 PUFF; Start 11/01/18 at 20:00 Nystatin (Nystatin Susp) 5 ml QID PO Last administered on 11/15/18 09:35; Admin Dose 5 ML; Start 11/09/18 at 17:00 Meropenem/Sodium Chloride 50 ml @ 100 mls/hr Q12 IVPB Last administered on 11/15/18 09:36; Admin Dose 100 MLS/HR; Start 11/11/18 at 14:30 Vancomycin HCl (Vanco Iv Per Pharmacy) VANCOMYCIN PER PHARMACY PER PROTOCOL XX ; Start 11/11/18 at 14:30 Vancomycin HCl 750 mg/Sodium Chloride 150 ml @ 75 mls/hr Q12H IVPB Last administered on 11/15/18at 06:10; Admin Dose 75 MLS/HR; Start 11/12/18 at 07:00 Fluconazole (Diflucan) 100 mg DAILY PO Last administered on 11/15/18at 09:36; Admin Dose 100 MG; Start 11/14/18 at 11:30 Allergies: Coded Allergies: No Known Allergy (Unverified , 09/05/18) Past Surgical History Past Surgical Hx: other (Cervical spine surgery, G-tube placement and tracheostomy) Social History Alcohol Use: other (Prior history of alcohol abuse) Smoking Status: Former smoker Drug Use: none Exam/Review of Systems Vital Signs Vitals Vital Signs Date Temp Pulse Resp B/P (MAP) Pulse Ox O2 O2 Flow FiO2 Time Delivery Rate 11/15/18 78 18 98 30 13:33 11/15/18 102.3 102/74 Trach 11:48 (83) Collar Intake and Output 11/14/18 11/14/18 11/15/18 1414:59 22:59 06:59 IntakeIntake Total 900 ml 980 ml OutputOutput Total 1500 ml 800 ml BalanceBalance -600 ml 180 ml Exam Constitutional: alert Psych: no complaints Head: normocephalic Eyes: other (Blind right eye) ENMT: nl external ears & nose Neck: other (Tracheostomy) Cardiovascular: No jugular venous distention (JVD) Gastrointestinal: other (Has a G-tube in place.) Genitourinary - Male: other (Very difficult to examine him because of the severe contractures of his extremities.) Musculoskeletal: other (Severe contractures) Extremities: other (Severe contractures) Neurological: other (Quadriplegic) NOLBERTO COLLINS MD Nov 15, 2018 13:56
[2018-11-16] VITALS (23 sets, daily range): BP systolic 96–112; BP diastolic 62–73; PULSE 82–92; RESP 15–23
[2018-11-16] MEDS: BISACODYL 10 MG SUPP PR SCH
[2018-11-16] MEDS: IPRATROPIUM (HFA) 12.9 GM INHALER INH SCH ×4 (01:10→19:27)
[2018-11-16] MEDS: ALBUTEROL HFA 8 GM INHALER INH SCH ×4 (01:10→19:27)
[2018-11-16] MEDS: ACETAMINOPHEN 650MG/20.3ML CUP GTB PRN ×2 (03:54→22:17)
[2018-11-16] MEDS: VANCOMYCIN 750 MG in SOD CHLORIDE 0.9% 150 ML IVPB SCH ×2 (08:14→18:05)
[2018-11-16] MEDS: MEROPENEM 1 GM/50ML(PMX) 50 ML IVPB SCH ×2 (09:00→22:18)
[2018-11-16] MEDS: DOCUSATE SODIUM 10 MG/ML (10ML CUP) GTB SCH ×2 (09:05→22:17)
[2018-11-16] MEDS: FERROUS SULFATE 60 MG/ML 5ML CUP GTB SCH ×2 (09:05→22:17)
[2018-11-16] MEDS: MULTIVITAMINS 30 ML CUP GTB SCH (09:06)
[2018-11-16] MEDS: ENOXAPARIN 30 MG/0.3 ML SYG SC SCH (09:10)
[2018-11-16] MEDS: LANSOPRAZOLE 30 MG CAP GTB SCH (09:13)
[2018-11-16] MEDS: ESCITALOPRAM 10 MG TAB GTB SCH (09:13)
[2018-11-16] MEDS: FLUCONAZOLE 100 MG TAB PO SCH (09:13)
[2018-11-16] MEDS: BALSAM PERU/CASTOR OIL 60 GM TUBE TOP SCH (09:14)
[2018-11-16] MEDS: NYSTATIN SUSP 5 ML CUP PO SCH ×4 (09:14→22:17)
--- NOTE | 2018-11-16 09:23 | CONS ---
Date/Time of Note Date/Time of Note DATE: 11/16/18 TIME: 09:21 Assessment/Plan Assessment/Plan Additional Assessment/Plan Ventilator setting; AC of 18, tidal volume 500, PEEP of 5, 30% FiO2. Assessment and recommendations; 1. Patient admitted for sepsis from multiple sources due to pneumonia, sacral ulcer as well as UTI, currently on appropriate antimicrobial regimen. 2. History of VD RF and quadriplegia. 3. COPD. 4. Anemia. Continue current supportive care. Consider discharge to rehab center. Antibiotics per ID recommendations. Prognosis is poor. Consultation Date/Type/Reason Admit Date/Time Oct 31, 2018 at 21:21 Initial Consult Date 11/01/18 Type of Consult Pulmonary Requesting Provider: LORRAINE SHAH MD 24 HR Interval Summary Free Text/Dictation Patient's condition is stable. Remains awake and responsive. Has remained hemodynamically stable. General exam; elderly male, on ventilator via tracheostomy, awake, currently in no distress. Exam/Review of Systems Vital Signs Vitals Vital Signs Date Temp Pulse Resp B/P (MAP) Pulse Ox O2 O2 Flow FiO2 Time Delivery Rate 11/16/18 82 09:10 11/16/18 100.0 16 100/62 98 07:44 (75) 11/16/18 30 07:15 11/15/18 Trach 15:41 Collar Intake and Output 11/15/18 11/15/18 11/16/18 1515:00 23:00 07:00 IntakeIntake Total 980 ml OutputOutput Total 800 ml BalanceBalance 180 ml Exam H EENT exam; supple neck, no JVD. No lymphadenopathy. Midline trachea. No thy romegaly. Patient has a stable left corneal opacity. Has fair dentition. Tracheostomy in place. Insertion site is clean. Chest exam; diminished but clear breath sounds. S1-S2 audible, no murmurs. Regular rhythm. Abdomen exam; soft, no organomegaly. G-tube in place. Bowel sounds audible. Back exam; dressing applied over sacrum. Extremity exam; no edema. STERILE PROCESSING MANAGER exam; patient has stable quadriplegia. SONYA SILVA Nov 16, 2018 09:23
--- NOTE | 2018-11-16 10:39 | CONS ---
Date/Time of Note Date/Time of Note DATE: 11/16/18 TIME: 10:35 Consult Date/Type/Reason Admit Date/Time Oct 31, 2018 at 21:21 Initial Consult Date 11/15/18 Type of Consultation: Urology Reason for Consultation Distal left ureteral stone and fever Requesting Provider: LORRAINE SHAH MD Subjective Patient is contracted and appears to be comfortable. 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 Cash catheter is draining clear urine. Patient had a fever of 102 earlier this morning. His white count has been normal and his creatinine has been stable. The stone that he has is small and he should pass it if he has not done that yet. I am not sure his fever is because of the stone or the obstruction from it. Any intervention on him would be very challenging because of his contractures. Therefore unless it is very critical I will give him the chance to pass the stone on his own as it appears he did in the past since in January 2018 he did have multiple small stones inside the bladder which may have come from his kidney as well. Results/Medications Result Diagram: 11/13/18 0550 11/16/18 0600 Results 24 hrs Laboratory Tests Test 11/16/18 06:00 Blood Urea Nitrogen 27 H Creatinine 0.57 L Vancomycin Level Trough 15.0 Medications Current Medications Bisacodyl (Dulcolax Supp) 10 mg Q24H [place] Last administered on 11/14/18at 00:43; Admin Dose 10 MG; Start 11/01/18 at 00:00 Enoxaparin Sodium (Lovenox) 30 mg DAILY SC Last administered on 11/16/18at 09:10; Admin Dose 30 MG; Start 11/01/18 at 09:00 Escitalopram Oxalate (Lexapro) 10 mg DAILY GTB Last administered on 11/16/18 09:13; Admin Dose 10 MG; Start 11/01/18 at 09:00 Ferrous Sulfate (Feosol Liquid Cup) 330 mg BID GTB Last administered on 09:05; Admin Dose 330 MG; Start 11/01/18 at 09:00 Lansoprazole (Prevacid) 30 mg DAILY GTB Last administered on 11/16/18 09:13; Admin Dose 30 MG; Start 11/01/18 at 09:00 Morphine Sulfate (morphine) 5 mg Q4H PRN GTB MODERATE TO SEVERE PAIN Last administered on 11/10/18 09:32; Admin Dose 5 MG; Start 11/01/18 at 00:00 Multivitamins (Multivitamin) 30 ml DAILY GTB Last administered on 11/16/18 09:06; Admin Dose 30 ML; Start 11/01/18 at 09:00 Docusate Sodium (Colace Liquid Cup) 100 mg BID GTB Last administered on 11/16/18 09:05; Admin Dose 100 MG; Start 11/01/18 at 09:00 Acetaminophen (Tylenol Liquid) 650 mg Q6H PRN GTB MILD PAIN(1-3)OR ELEVATED TEMP Last administered on 11/16/18 03:54; Admin Dose 650 MG; Start 11/01/18 at 12:00 Albuterol (Ventolin Hfa) 4 puff Q6H RESP THERAPY INH Last administered on 11/16/18 07:21; Admin Dose 4 PUFF; Start 11/01/18 at 20:00 Ipratropium [place] (Atrovent Hfa) 4 puff Q6H RESP THERAPY INH Last administered on 11/16/18 07:20; Admin Dose 4 PUFF; Start 11/01/18 at 20:00 Nystatin (Nystatin Susp) 5 ml QID PO Last administered on 11/16/18 09:14; Admin Dose 5 ML; Start 11/09/18 at 17:00 Meropenem/Sodium Chloride 50 ml @ 100 mls/hr Q12 IVPB Last administered on 11/15/18 21:53; Admin Dose 100 MLS/HR; Start 11/11/18 at 14:30 Vancomycin HCl (Vanco Iv Per Pharmacy) VANCOMYCIN PER PHARMACY PER PROTOCOL XX ; Start 11/11/18 at 14:30 Vancomycin HCl 750 mg/Sodium Chloride 150 ml @ 75 mls/hr Q12H IVPB Last administered on 11/16/18at 08:14; Admin Dose 75 MLS/HR; Start 11/12/18 at 07:00 Fluconazole (Diflucan) 100 mg DAILY PO Last administered on 11/16/18at 09:13; Admin Dose 100 MG; Start 11/14/18 at 11:30 Assessment/Plan Chief Complaint/Hosp Course 62-year-old male with history of coronary artery disease, non-ST elevation [place], hypertension, history of aspiration pneumonia ,chronic respiratory failure vent dependent. The patient has history of C-spine epidural abscess, status post C3 to C4 laminectomy. The patient is quadriplegic and has been vent-dependent. He is a resident of [facility] and was noted to have fever and was transferred to [facility] for further care and workup. Since his admission he has been having fever on and off and his temperature has reached 103. He had a CT scan of the abdomen and pelvis and that showed: 1. Distal left uretero-vesicular junction stone producing moderate left obstructive uropathy and hydroureter with perinephric stranding. 2. Nonobstructing left lower pole renal calculus. 3. Mild right perinephric stranding. Correlation with superimposed nephritis. 4. Chronic changes of the right proximal femur with subtrochanteric fracture and remodelling with heterotopic soft tissue calcification. 5. Cholelithiasis. 6. Bibasilar atelectasis versus mild infiltrate changes Therefore a urological consultation was requested because of his persistent fever. All the information were obtained from his medical record. Patient has contracture of all of his extremities. Cash catheter is draining clear urine. Patient had a fever of 102 earlier this morning. His white count has been normal and his creatinine has been stable. The stone that he has is small and he should pass it if he has not done that yet. I am not sure his fever is because of the stone or the obstruction from it. Any intervention on him would be very challenging because of his contractures. Therefore unless it is very critical I will give him the chance to pass the stone on his own as it appears he did in the past since in January 2018 he did have multiple small stones inside the bladder which may have come from his kidney as well. NOLBERTO COLLINS MD Nov 16, 2018 10:39
--- NOTE | 2018-11-16 11:28 | PN ---
Date/Time of Note Date/Time of Note DATE: 11/16/18 TIME: 11:28 Assessment/Plan VTE Prophylaxis Risk score (from Ns)>0 risk: 6 SCD applied (from [facility]): No SCD contraindicated: other Pharmacological prophylaxis: LMWH Lines/Catheters IV Catheter Type (from [facility] Mid Line Urinary Cath still in place: Yes Reason Cath still needed: skin wounds contaminated by urine Assessment/Plan Hospital Course -Recurrent sepsis with bacteremia. Continue antibiotics per ID. Dr. Tesfaye is following in infection disease consultation. -Yeast UTI -Possible healthcare acquired pneumonia -Ventilator dependent respiratory failure. Dr. Hernández is following in pulmonology consultation. -Obstructive uropathy -Coronary artery disease with history of [place] -Hypertension -Dysphagia with PEG -Quadriplegia 2 to C-spine abscess -C-spine epidural abscess, status post C3 to C4 laminectomy -DNR status Subjective 24 Hr Interval Summary Free Text/Dictation Eyes open but not verbally responsive Exam/Review of Systems Vital Signs Vitals Vital Signs Date Temp Pulse Resp B/P (MAP) Pulse Ox O2 O2 Flow FiO2 Time Delivery Rate 11/16/18 100.0 83 15 96/66 (76) 95 11:15 11/16/18 30 11:00 11/15/18 Trach 15:41 Collar Intake and Output 11/15/18 11/15/18 11/16/18 1414:59 22:59 06:59 IntakeIntake Total 980 ml OutputOutput Total 800 ml BalanceBalance 180 ml Exam Constitutional: well developed Head: normocephalic, atraumatic Neck: supple Respiratory: diminished breath sounds Cardiovascular: regular rate and rhythm Gastrointestinal: soft, non-tender Extremities: normal pulses DARIO PANIAGUA Nov 16, 2018 11:28
--- NOTE | 2018-11-16 15:18 | CONS ---
Date/Time of Note Date/Time of Note DATE: 11/16/18 TIME: 15:16 Assessment/Plan Assessment/Plan Chief Complaint/Hosp Course No acute changes overnight patient continues to spike fevers, he is sleeping, looks comfortable Abdominal x-ray this morning revealed questionable ileus osseous destruction suspicion for osteomyelitis involving the right ischium Microbiology: Blood cultures remain negative stool for C. difficile negative urine culture repeated several days ago negative CT of the abdomen and pelvis revealed distal left ureteral pelvic junction stone producing moderate left obstructive uropathy and hydroureter with perinephric stranding. Bibasilar atelectasis versus mild infiltrate changes Antimicrobials: Vanco, Merrem, Diflucan INDWELLINGS: Trach, PEG, Cash. PHYSICAL EXAMINATION: GENERAL: This is a chronically ill-appearing, debilitated, elderly man who is in no distress. HEENT: Head atraumatic, normocephalic. Sclerae anicteric. Buccal mucosa dry. NECK: Supple. Tracheostomy present. CHEST: Rise symmetrical. Breath sounds diminished to bases. HEART: S1, S2, tachycardic, regular. ABDOMEN: Soft, bowel tones present. EXTREMITIES: Wasted, contractured. ASSESSMENT: 1. Ongoing fevers secondary to #2 2. Obstructive uropathy 3. Status post coag negative staph bacteremia consistent with contaminant 3. Status post urinary tract infection. 4. Healthcare-associated pneumonia. 5. History of Clostridium difficile colitis. 6. Quadriplegia status post cervical spine surgery. 7. 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 PLAN: Clinically unchanged, with ongoing fevers, urology recommendations noted, continue on current antibiotics staff Consultation Date/Type/Reason Admit Date/Time Oct 31, 2018 at 21:21 Initial Consult Date 11/01/18 Type of Consult id Requesting Provider: LORRAINE SHAH MD Exam/Review of Systems Vital Signs Vitals Vital Signs Date Temp Pulse Resp B/P (MAP) Pulse Ox O2 O2 Flow FiO2 Time Delivery Rate 11/16/18 88 21 97 30 13:05 11/16/18 100.0 96/66 (76) 11:15 11/15/18 Trach 15:41 Collar Intake and Output 11/15/18 11/15/18 11/16/18 1515:00 23:00 07:00 IntakeIntake Total 980 ml OutputOutput Total 800 ml BalanceBalance 180 ml Medications Medications Current Medications Bisacodyl (Dulcolax Supp) 10 mg Q24H [place] Last administered on 11/14/18 00:43; Admin Dose 10 MG; Start 11/01/18 at 00:00 Enoxaparin Sodium (Lovenox) 30 mg DAILY SC Last administered on 11/16/18 09:10; Admin Dose 30 MG; Start 11/01/18 at 09:00 Escitalopram Oxalate (Lexapro) 10 mg DAILY GTB Last administered on 11/16/18 09:13; Admin Dose 10 MG; Start 11/01/18 at 09:00 Ferrous Sulfate (Feosol Liquid Cup) 330 mg BID GTB Last administered on 11/16/18 09:05; Admin Dose 330 MG; Start 11/01/18 at 09:00 Lansoprazole (Prevacid) 30 mg DAILY GTB Last administered on 11/16/18 09:13; Admin Dose 30 MG; Start 11/01/18 at 09:00 Morphine Sulfate (morphine) 5 mg Q4H PRN GTB MODERATE TO SEVERE PAIN Last administered on 11/10/18 09:32; Admin Dose 5 MG; Start 11/01/18 at 00:00 Multivitamins (Multivitamin) 30 ml DAILY GTB Last administered on 11/16/18 09:06; Admin Dose 30 ML; Start 11/01/18 at 09:00 Docusate Sodium (Colace Liquid Cup) 100 mg BID GTB Last administered on 11/16/18 09:05; Admin Dose 100 MG; Start 11/01/18 at 09:00 Acetaminophen (Tylenol Liquid) 650 mg Q6H PRN GTB MILD PAIN(1-3)OR ELEVATED TEMP Last administered on 11/16/18 03:54; Admin Dose 650 MG; Start 11/01/18 at 12:00 Albuterol (Ventolin Hfa) 4 puff Q6H RESP THERAPY INH Last administered on 11/16/18 13:00; Admin Dose 4 PUFF; Start 11/01/18 at 20:00 Ipratropium [place] (Atrovent Hfa) 4 puff Q6H RESP THERAPY INH Last administered on 11/16/18 13:00; Admin Dose 4 PUFF; Start 11/01/18 at 20:00 Nystatin (Nystatin Susp) 5 ml QID PO Last administered on 11/16/18 15:08; Admin Dose 5 ML; Start 11/09/18 at 17:00 Meropenem/Sodium Chloride 50 ml @ 100 mls/hr Q12 IVPB Last administered on 11/16/18at 09:00; Admin Dose 100 MLS/HR; Start 11/11/18 at 14:30 Vancomycin HCl (Vanco Iv Per Pharmacy) VANCOMYCIN PER PHARMACY PER PROTOCOL XX ; Start 11/11/18 at 14:30 Vancomycin HCl 750 mg/Sodium Chloride 150 ml @ 75 mls/hr Q12H IVPB Last administered on 11/16/18 08:14; Admin Dose 75 MLS/HR; Start 11/12/18 at 07:00 Fluconazole (Diflucan) 100 mg DAILY PO Last administered on 11/16/18at 09:13; Admin Dose 100 MG; Start 11/14/18 at 11:30 RISA SAWYER NP Nov 16, 2018 15:18
[2018-11-17] VITALS (21 sets, daily range): BP systolic 99–132; BP diastolic 66–79; PULSE 76–90; RESP 14–22
[2018-11-17] MEDS: BISACODYL 10 MG SUPP PR SCH
[2018-11-17] MEDS: ALBUTEROL HFA 8 GM INHALER INH SCH ×4 (01:18→21:28)
[2018-11-17] MEDS: IPRATROPIUM (HFA) 12.9 GM INHALER INH SCH ×4 (01:18→21:28)
[2018-11-17] MEDS: VANCOMYCIN 750 MG in SOD CHLORIDE 0.9% 150 ML IVPB SCH ×2 (06:32→19:46)
[2018-11-17] MEDS: ESCITALOPRAM 10 MG TAB GTB SCH (08:25)
[2018-11-17] MEDS: FERROUS SULFATE 60 MG/ML 5ML CUP GTB SCH ×2 (08:25→21:19)
[2018-11-17] MEDS: DOCUSATE SODIUM 10 MG/ML (10ML CUP) GTB SCH ×2 (08:25→21:29)
[2018-11-17] MEDS: MULTIVITAMINS 30 ML CUP GTB SCH (08:25)
[2018-11-17] MEDS: NYSTATIN SUSP 5 ML CUP PO SCH ×4 (08:25→21:19)
[2018-11-17] MEDS: FLUCONAZOLE 100 MG TAB PO SCH (08:25)
[2018-11-17] MEDS: LANSOPRAZOLE 30 MG CAP GTB SCH (08:25)
[2018-11-17] MEDS: BALSAM PERU/CASTOR OIL 60 GM TUBE TOP SCH (08:26)
[2018-11-17] MEDS: ENOXAPARIN 30 MG/0.3 ML SYG SC SCH (08:33)
--- NOTE | 2018-11-17 09:15 | CONS ---
Date/Time of Note Date/Time of Note DATE: 11/17/18 TIME: 09:13 Assessment/Plan Assessment/Plan Additional Assessment/Plan Ventilator setting; AC of 18, tidal volume 500, PEEP of 5, 30% FiO2. Assessment recommendations; 1. Patient with history of VDRF due to quadriplegia admitted for sepsis with multiple sources from UTI sacral ulcer and pneumonia, currently on appropriate antimicrobial regimen. Continue current supportive care. Antibiotics per ID recommendations. Overall prognosis remains poor. Consultation Date/Type/Reason Admit Date/Time Oct 31, 2018 at 21:21 Initial Consult Date 11/01/18 Type of Consult Pulmonary Requesting Provider: LORRAINE SHAH MD 24 HR Interval Summary Free Text/Dictation Patient's condition remains stable. Remains awake and fairly responsive. Has remained hemodynamically stable. General exam; elderly male, on ventilator via tracheostomy, awake, currently in no distress. Exam/Review of Systems Vital Signs Vitals Vital Signs Date Temp Pulse Resp B/P (MAP) Pulse Ox O2 O2 Flow FiO2 Time Delivery Rate 11/17/18 30 09:00 11/17/18 76 08:46 11/17/18 18 98 07:49 11/17/18 99.8 132/75 07:44 (94) 11/15/18 Trach 15:41 Collar Intake and Output 11/16/18 11/16/18 11/17/18 1515:00 23:00 07:00 IntakeIntake Total 980 ml 980 ml OutputOutput Total 850 ml 800 ml BalanceBalance 130 ml 180 ml Exam HEENT exam; supple neck, no JVD. No lymphadenopathy. Midline trachea. No thyromegaly. Patient has fair dentition. Colostomy in place. There is a stable right corneal opacity. Chest exam; diminished but clear breath sounds. S1-S2 audible, no murmurs. Regular rhythm. Abdomen exam; soft, no organomegaly. G-tube in place. Bowel sounds audible. Extremity exam; no peripheral edema. Patient does have flexion contractures. 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 Medications Medications Current Medications Bisacodyl (Dulcolax Supp) 10 mg Q24H [place] Last administered on 11/14/18at 00:43; Admin Dose 10 MG; Start 11/01/18 at 00:00 Enoxaparin Sodium (Lovenox) 30 mg DAILY SC Last administered on 11/17/18 08:33; Admin Dose 30 MG; Start 11/01/18 at 09:00 Escitalopram Oxalate (Lexapro) 10 mg DAILY GTB Last administered on 11/17/18 08:25; Admin Dose 10 MG; Start 11/01/18 at 09:00 Ferrous Sulfate (Feosol Liquid Cup) 330 mg BID GTB Last administered on 11/17/18 08:25; Admin Dose 330 MG; Start 11/01/18 at 09:00 Lansoprazole (Prevacid) 30 mg DAILY GTB Last administered on 11/17/18 08:25; Admin Dose 30 MG; Start 11/01/18 at 09:00 Morphine Sulfate (morphine) 5 mg Q4H PRN GTB MODERATE TO SEVERE PAIN Last administered on 11/10/18 09:32; Admin Dose 5 MG; Start 11/01/18 at 00:00 Multivitamins (Multivitamin) 30 ml DAILY GTB Last administered on 11/17/18 08:25; Admin Dose 30 ML; Start 11/01/18 at 09:00 Docusate Sodium (Colace Liquid Cup) 100 mg BID GTB Last administered on 11/17/18 08:25; Admin Dose 100 MG; Start 11/01/18 at 09:00 Acetaminophen (Tylenol Liquid) 650 mg Q6H PRN GTB MILD PAIN(1-3)OR ELEVATED TEMP Last administered on 11/16/18 22:17; Admin Dose 650 MG; Start 11/01/18 at 12:00 Albuterol (Ventolin Hfa) 4 puff Q6H RESP THERAPY INH Last administered on 11/17/18 07:49; Admin Dose 4 PUFF; Start 11/01/18 at 20:00 Ipratropium [place] (Atrovent Hfa) 4 puff Q6H RESP THERAPY INH Last administered on 11/17/18 07:49; Admin Dose 4 PUFF; Start 11/01/18 at 20:00 Nystatin (Nystatin Susp) 5 ml QID PO Last administered on 11/17/18 08:25; Admin Dose 5 ML; Start 11/09/18 at 17:00 Meropenem/Sodium Chloride 50 ml @ 100 mls/hr Q12 IVPB Last administered on 1 2/24/18at 22:18; Admin Dose 100 MLS/HR; Start 11/11/18 at 14:30 Vancomycin HCl (Vanco Iv Per Pharmacy) VANCOMYCIN PER PHARMACY PER PROTOCOL XX ; Start 11/11/18 at 14:30 Vancomycin HCl 750 mg/Sodium Chloride 150 ml @ 75 mls/hr Q12H IVPB Last administered on 11/17/18at 06:32; Admin Dose 75 MLS/HR; Start 11/12/18 at 07:00 Fluconazole (Diflucan) 100 mg DAILY PO Last administered on 11/17/18at 08:25; Admin Dose 100 MG; Start 11/14/18 at 11:30 SONYA SILVA Nov 17, 2018 09:15
[2018-11-17] MEDS: MEROPENEM 1 GM/50ML(PMX) 50 ML IVPB SCH ×2 (10:01→21:20)
--- NOTE | 2018-11-17 11:05 | CONS ---
Date/Time of Note Date/Time of Note DATE: 11/17/18 TIME: 11:02 Assessment/Plan Assessment/Plan Chief Complaint/Hosp Course Spiking fevers, Tm 102. Abdominal x-ray 11/16/18 revealed questionable ileus osseous destruction suspicion for osteomyelitis involving the right ischium Microbiology: Blood and urine cx negative, sputum cx + A. baumanii and PSA, stool for C. difficile negative CT of the abdomen and pelvis revealed distal left ureteral pelvic junction stone producing moderate left obstructive uropathy and hydroureter with perinephric stranding. Bibasilar atelectasis versus mild infiltrate changes Antimicrobials: Vanco, Merrem, Diflucan INDWELLINGS: Trach, PEG, Cash. PHYSICAL EXAMINATION: GENERAL: This is a chronically ill-appearing, debilitated, elderly man who is in no distress. HEENT: Head atraumatic, normocephalic. Sclerae anicteric. Buccal mucosa dry. NECK: Supple. Tracheostomy present. CHEST: Rise symmetrical. Breath sounds diminished to bases. HEART: S1, S2, tachycardic, regular. ABDOMEN: Soft, bowel tones present. EXTREMITIES: Wasted, contractured. ASSESSMENT: 1. Ongoing fevers secondary to #2 2. Obstructive uropathy 3. Status post coag negative staph bacteremia consistent with contaminant 3. Status post urinary tract infection. 4. Healthcare-associated pneumonia. 5. History of Clostridium difficile colitis. 6. Quadriplegia status post cervical spine surgery. 7. 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 PLAN: Clinically unchanged, fevers persist, will add Tobramycin INH, f/u urology recommendations [facility] staff Consultation Date/Type/Reason Admit Date/Time Oct 31, 2018 at 21:21 Initial Consult Date 11/01/18 Type of Consult id Requesting Provider: LORRAINE SHAH MD Exam/Review of Systems Vital Signs Vitals Vital Signs Date Temp Pulse Resp B/P (MAP) Pulse Ox O2 O2 Flow FiO2 Time Delivery Rate 11/17/18 76 19 99 30 09:39 11/17/18 99.8 132/75 07:44 (94) 11/15/18 Trach 15:41 Collar Intake and Output 11/16/18 11/16/18 11/17/18 1515:00 23:00 07:00 IntakeIntake Total 980 ml 980 ml OutputOutput Total 850 ml 800 ml BalanceBalance 130 ml 180 ml Medications Medications Current Medications Bisacodyl (Dulcolax Supp) 10 mg Q24H [place] Last administered on 11/14/18 00:43; Admin Dose 10 MG; Start 11/01/18 at 00:00 Enoxaparin Sodium (Lovenox) 30 mg DAILY [place] Last administered on 11/17/18 08:33; Admin Dose 30 MG; Start 11/01/18 at 09:00 Escitalopram Oxalate (Lexapro) 10 mg DAILY GTB Last administered on 11/17/18 08:25; Admin Dose 10 MG; Start 11/01/18 at 09:00 Ferrous Sulfate (Feosol Liquid Cup) 330 mg BID GTB Last administered on 11/17/18 08:25; Admin Dose 330 MG; Start 11/01/18 at 09:00 Lansoprazole (Prevacid) 30 mg DAILY GTB Last administered on 11/17/18 08:25; Admin Dose 30 MG; Start 11/01/18 at 09:00 Morphine Sulfate (morphine) 5 mg Q4H PRN GTB MODERATE TO SEVERE PAIN Last administered on 11/10/18 09:32; Admin Dose 5 MG; Start 11/01/18 at 00:00 Multivitamins (Multivitamin) 30 ml DAILY GTB Last administered on 11/17/18 08:25; Admin Dose 30 ML; Start 11/01/18 at 09:00 Docusate Sodium (Colace Liquid Cup) 100 mg BID GTB Last administered on 11/17/18 08:25; Admin Dose 100 MG; Start 11/01/18 at 09:00 Acetaminophen (Tylenol Liquid) 650 mg Q6H PRN GTB MILD PAIN(1-3)OR ELEVATED TEMP Last administered on 11/16/18 22:17; Admin Dose 650 MG; Start 11/01/18 at 12:00 Albuterol (Ventolin Hfa) 4 puff Q6H RESP THERAPY INH Last administered on 11/17/18 07:49; Admin Dose 4 PUFF; Start 11/01/18 at 20:00 Ipratropium [place] (Atrovent Hfa) 4 puff Q6H RESP THERAPY INH Last administered on 11/17/18 07:49; Admin Dose 4 PUFF; Start 11/01/18 at 20:00 Nystatin (Nystatin Susp) 5 ml QID PO Last administered on 11/17/18at 08:25; Admin Dose 5 ML; Start 11/09/18 at 17:00 Meropenem/Sodium Chloride 50 ml @ 100 mls/hr Q12 IVPB Last administered on 11/17/18at 10:01; Admin Dose 100 MLS/HR; Start 11/11/18 at 14:30 Vancomycin HCl (Vanco Iv Per Pharmacy) VANCOMYCIN PER PHARMACY PER PROTOCOL XX ; Start 11/11/18 at 14:30 Vancomycin HCl 750 mg/Sodium Chloride 150 ml @ 75 mls/hr Q12H IVPB Last administered on 11/17/18at 06:32; Admin Dose 75 MLS/HR; Start 11/12/18 at 07:00 Fluconazole (Diflucan) 100 mg DAILY PO Last administered on 11/17/18at 08:25; Admin Dose 100 MG; Start 11/14/18 at 11:30 RISA SAWYER NP Nov 17, 2018 11:05
--- NOTE | 2018-11-17 11:43 | PN ---
Date/Time of Note Date/Time of Note DATE: 11/17/18 TIME: 11:42 Assessment/Plan VTE Prophylaxis Risk score (from [facility] [place] risk: 9 SCD applied (from [facility] [place]): No SCD contraindicated: other Pharmacological prophylaxis: LMWH Lines/Catheters IV Catheter Type (from [facility]): Mid Line Urinary Cath still in place: Yes Reason Cath still needed: skin wounds contaminated by urine Assessment/Plan Hospital Course -Recurrent sepsis with bacteremia. Continue antibiotics per ID. Dr. Tesfaye is following in infection disease consultation. -Yeast UTI -Possible healthcare acquired pneumonia -Ventilator dependent respiratory failure. Dr. Hernández is following in pulmonology consultation. -Obstructive uropathy -Coronary artery disease with history of [place] -Hypertension -Dysphagia with PEG -Quadriplegia 2 to C-spine abscess -C-spine epidural abscess, status post C3 to C4 laminectomy -DNR status Result Diagram: 11/17/18 0650 11/17/18 0650 Results 24hrs Laboratory Tests Test 11/17/18 06:50 White Blood Count 6.3 # Red Blood Count 3.97 L Hemoglobin 11.3 L Hematocrit 37.2 L Mean Corpuscular Volume 93.7 Mean Corpuscular Hemoglobin 28.5 L Mean Corpuscular Hemoglobin Concent 30.4 L Red Cell Distribution Width 15.2 H Platelet Count 218 Mean Platelet Volume 11.5 H Immature Granulocytes % 0.500 H Neutrophils % 73.8 Lymphocytes % 13.9 L Monocytes % 9.1 Eosinophils % 1.9 Basophils % 0.8 Nucleated Red Blood Cells % 0.0 Immature Granulocytes # 0.030 Neutrophils # 4.7 Lymphocytes # 0.9 Monocytes # 0.6 Eosinophils # 0.1 Basophils # 0.1 Nucleated Red Blood Cells # 0.0 Sodium Level 146 H Potassium Level 4.6 Chloride Level 104 Carbon Dioxide Level 32 H Anion Gap 10 Blood Urea Nitrogen 33 H Creatinine 0.53 L Est Glomerular Filtrat Rate mL/min > 60 Glucose Level 146 Calcium Level 9.0 Total Bilirubin 0.3 Direct Bilirubin 0.00 Indirect Bilirubin 0.3 Aspartate Amino Transf (AST/SGOT) 18 Alanine Aminotransferase (ALT/SGPT) 18 Alkaline Phosphatase 109 Total Protein 6.8 Albumin 3.5 Globulin 3.30 H Albumin/Globulin Ratio 1.06 Subjective 24 Hr Interval Summary Free Text/Dictation Patient resting, appears comfortable Exam/Review of Systems Vital Signs Vitals Vital Signs Date Temp Pulse Resp B/P (MAP) Pulse Ox O2 O2 Flow FiO2 Time Delivery Rate 11/17/18 84 18 100 30 11:17 11/17/18 99.8 132/75 07:44 (94) 11/15/18 Trach 15:41 Collar Intake and Output 11/16/18 11/16/18 11/17/18 1515:00 23:00 07:00 IntakeIntake Total 980 ml 980 ml OutputOutput Total 850 ml 800 ml BalanceBalance 130 ml 180 ml Exam Constitutional: well developed Head: normocephalic, atraumatic Neck: supple Respiratory: diminished breath sounds Cardiovascular: regular rate and rhythm Gastrointestinal: soft, non-tender Extremities: normal pulses Medications Medications Current Medications Bisacodyl (Dulcolax Supp) 10 mg Q24H [place] Last administered on 11/14/18at 00:43; Admin Dose 10 MG; Start 11/01/18 at 00:00 Enoxaparin Sodium (Lovenox) 30 mg DAILY SC Last administered on 11/17/18 08:33; Admin Dose 30 MG; Start 11/01/18 at 09:00 Escitalopram Oxalate (Lexapro) 10 mg DAILY GTB Last administered on 11/17/18 08:25; Admin Dose 10 MG; Start 11/01/18 at 09:00 Ferrous Sulfate (Feosol Liquid Cup) 330 mg BID GTB Last administered on 11/17/18 08:25; Admin Dose 330 MG; Start 11/01/18 at 09:00 Lansoprazole (Prevacid) 30 mg DAILY GTB Last administered on 11/17/18 08:25; Admin Dose 30 MG; Start 11/01/18 at 09:00 Morphine Sulfate (morphine) 5 mg Q4H PRN GTB MODERATE TO SEVERE PAIN Last administered on 11/10/18 09:32; Admin Dose 5 MG; Start 11/01/18 at 00:00 Multivitamins (Multivitamin) 30 ml DAILY GTB Last administered on 11/17/18 08:25; Admin Dose 30 ML; Start 11/01/18 at 09:00 Docusate Sodium (Colace Liquid Cup) 100 mg BID GTB Last administered on 11/17/18 08:25; Admin Dose 100 MG; Start 11/01/18 at 09:00 Acetaminophen (Tylenol Liquid) 650 mg Q6H PRN GTB MILD PAIN(1-3)OR ELEVATED TEMP Last administered on 11/16/18 22:17; Admin Dose 650 MG; Start 11/01/18 at 12:00 Albuterol (Ventolin Hfa) 4 puff Q6H RESP THERAPY INH Last administered on 11/17/18 07:49; Admin Dose 4 PUFF; Start 11/01/18 at 20:00 Ipratropium [place] (Atrovent Hfa) 4 puff Q6H RESP THERAPY INH Last administered on 11/17/18 07:49; Admin Dose 4 PUFF; Start 11/01/18 at 20:00 Nystatin (Nystatin Susp) 5 ml QID PO Last administered on 11/17/18 08:25; Admin Dose 5 ML; Start 11/09/18 at 17:00 Meropenem/Sodium Chloride 50 ml @ 100 mls/hr Q12 IVPB Last administered on 11/17/18at 10:01; Admin Dose 100 MLS/HR; Start 11/11/18 at 14:30 Vancomycin HCl (Vanco Iv Per Pharmacy) VANCOMYCIN PER PHARMACY PER PROTOCOL XX ; Start 11/11/18 at 14:30 Vancomycin HCl 750 mg/Sodium Chloride 150 ml @ 75 mls/hr Q12H IVPB Last administered on 11/17/18at 06:32; Admin Dose 75 MLS/HR; Start 11/12/18 at 07:00 Fluconazole (Diflucan) 100 mg DAILY PO Last administered on 11/17/18 08:25; Admin Dose 100 MG; Start 11/14/18 at 11:30 Tobramycin Sulfate/Sodium Chloride (Art Inhal) 300 mg BID RESP THERAPY NEB ; Start 11/17/18 at 20:00 DARIO PANIAGUA Nov 17, 2018 11:43
[2018-11-17] MEDS: ACETAMINOPHEN 650MG/20.3ML CUP GTB PRN (18:24)
[2018-11-17] MEDS: TOBRAMYCIN/0.25NS 300 MG/5 ML INHAL NEB SCH (20:00)
[2018-11-18] VITALS (22 sets, daily range): BP systolic 102–134; BP diastolic 74–93; PULSE 78–87; RESP 18–27
[2018-11-18] MEDS: BISACODYL 10 MG SUPP PR SCH
[2018-11-18] MEDS: ALBUTEROL HFA 8 GM INHALER INH SCH ×4 (01:44→19:57)
[2018-11-18] MEDS: IPRATROPIUM (HFA) 12.9 GM INHALER INH SCH ×4 (01:44→19:57)
[2018-11-18] MEDS: VANCOMYCIN 750 MG in SOD CHLORIDE 0.9% 150 ML IVPB SCH ×2 (07:07→19:08)
[2018-11-18] MEDS: BALSAM PERU/CASTOR OIL 60 GM TUBE TOP SCH (08:32)
[2018-11-18] MEDS: MEROPENEM 1 GM/50ML(PMX) 50 ML IVPB SCH (08:33)
[2018-11-18] MEDS: DOCUSATE SODIUM 10 MG/ML (10ML CUP) GTB SCH ×2 (08:34→21:00)
[2018-11-18] MEDS: ACETAMINOPHEN 650MG/20.3ML CUP GTB PRN ×2 (08:34→14:47)
[2018-11-18] MEDS: MULTIVITAMINS 30 ML CUP GTB SCH (08:34)
[2018-11-18] MEDS: LANSOPRAZOLE 30 MG CAP GTB SCH (08:35)
[2018-11-18] MEDS: FERROUS SULFATE 60 MG/ML 5ML CUP GTB SCH ×2 (08:35→21:50)
[2018-11-18] MEDS: ESCITALOPRAM 10 MG TAB GTB SCH (08:35)
[2018-11-18] MEDS: NYSTATIN SUSP 5 ML CUP PO SCH ×4 (08:35→21:50)
[2018-11-18] MEDS: FLUCONAZOLE 100 MG TAB PO SCH (08:35)
[2018-11-18] MEDS: ENOXAPARIN 30 MG/0.3 ML SYG SC SCH (08:41)
[2018-11-18] MEDS: TOBRAMYCIN/0.25NS 300 MG/5 ML INHAL NEB SCH (08:50)
--- NOTE | 2018-11-18 09:33 | CONS ---
Date/Time of Note Date/Time of Note DATE: 11/18/18 TIME: 09:30 Assessment/Plan Assessment/Plan Assessment/Plan Ventilator setting; AC of 18, tidal volume 500, PEEP of 5, 30% FiO2. Assessment and recommendations; 1. Patient with history of quadriplegia and VDR F admitted for sepsis with multiple sources including UTI, wound infection and pneumonia with interval improvement. Continue current supportive care. Result Diagram: 11/17/18 0650 11/17/18 0650 Consultation Date/Type/Reason Admit Date/Time Oct 31, 2018 at 21:21 Initial Consult Date 11/01/18 Type of Consult Pulmonary Requesting Provider: LORRAINE SHAH MD 24 HR Interval Summary Free Text/Dictation Patient's condition is stable. Has remained hemodynamically stable. No untoward events reported. General exam; elderly male, on ventilator via tracheostomy, awake and responsive. Currently in no distress. Exam/Review of Systems Vital Signs Vitals Vital Signs Date Temp Pulse Resp B/P (MAP) Pulse Ox O2 O2 Flow FiO2 Time Delivery Rate 11/18/18 30 09:24 11/18/18 81 19 98 08:50 11/18/18 102.5 130/77 [place] 07:50 (94) l Ventilato r Intake and Output 11/17/18 11/17/18 11/18/18 1515:00 23:00 07:00 IntakeIntake Total 1180 ml 866 ml OutputOutput Total 700 ml 700 ml BalanceBalance 480 ml 166 ml Exam H EENT exam; supple neck, no JVD. No lymphadenopathy. Midline trachea. No thyromegaly. Tracheostomy in place. Patient has a stable right corneal opacity. Has fair dentition. Chest exam; diminished but clear breath sounds. S1-S2 audible, no murmurs. Regular rhythm. Abdomen exam; soft, no organomegaly. G-tube in place. Bowel sounds audible. Extremity exam; no peripheral edema. Patient does have flexion contractures. WET SANDER exam; patient has stable quadriplegia. Medications Medications Current Medications Bisacodyl (Dulcolax Supp) 10 mg Q24H [place] Last administered on 11/14/18at 00:43; Admin Dose 10 MG; Start 11/01/18 at 00:00 Enoxaparin Sodium (Lovenox) 30 mg DAILY SC Last administered on 11/18/18 08:4 1; Admin Dose 30 MG; Start 11/01/18 at 09:00 Escitalopram Oxalate (Lexapro) 10 mg DAILY GTB Last administered on 11/18/18 08:35; Admin Dose 10 MG; Start 11/01/18 at 09:00 Ferrous Sulfate (Feosol Liquid Cup) 330 mg BID GTB Last administered on 11/18/18 08:35; Admin Dose 330 MG; Start 11/01/18 at 09:00 Lansoprazole (Prevacid) 30 mg DAILY GTB Last administered on 11/18/18 08:35; Admin Dose 30 MG; Start 11/01/18 at 09:00 Morphine Sulfate (morphine) 5 mg Q4H PRN GTB MODERATE TO SEVERE PAIN Last administered on 11/10/18 09:32; Admin Dose 5 MG; Start 11/01/18 at 00:00 Multivitamins (Multivitamin) 30 ml DAILY GTB Last administered on 11/18/18 08:34; Admin Dose 30 ML; Start 11/01/18 at 09:00 Docusate Sodium (Colace Liquid Cup) 100 mg BID GTB Last administered on 11/18/18 08:34; Admin Dose 100 MG; Start 11/01/18 at 09:00 Acetaminophen (Tylenol Liquid) 650 mg Q6H PRN GTB MILD PAIN(1-3)OR ELEVATED TEMP Last administered on 11/18/18 08:34; Admin Dose 650 MG; Start 11/01/18 at 12:00 Albuterol (Ventolin Hfa) 4 puff Q6H RESP THERAPY INH Last administered on 11/18/18 07:46; Admin Dose 4 PUFF; Start 11/01/18 at 20:00 Ipratropium [place] (Atrovent Hfa) 4 puff Q6H RESP THERAPY INH Last administered on 11/18/18 07:46; Admin Dose 4 PUFF; Start 11/01/18 at 20:00 Nystatin (Nystatin Susp) 5 ml QID PO Last administered on 11/18/18 08:35; Admin Dose 5 ML; Start 11/09/18 at 17:00 Meropenem/Sodium Chloride 50 ml @ 100 mls/hr Q12 IVPB Last administered on 12/26/18at 08:33; Admin Dose 100 MLS/HR; Start 11/11/18 at 14:30 Vancomycin HCl (Vanco Iv Per Pharmacy) VANCOMYCIN PER PHARMACY PER PROTOCOL XX ; Start 11/11/18 at 14:30 Vancomycin HCl 750 mg/Sodium Chloride 150 ml @ 75 mls/hr Q12H IVPB Last administered on 11/18/18at 07:07; Admin Dose 75 MLS/HR; Start 11/12/18 at 07:00 Fluconazole (Diflucan) 100 mg DAILY PO Last administered on 11/18/18at 08:35; Admin Dose 100 MG; Start 11/14/18 at 11:30 Tobramycin Sulfate/Sodium Chloride (Art Inhal) 300 mg BID RESP THERAPY NEB Last administered on 11/18/18at 08:50; Admin Dose 300 MG; Start 11/17/18 at 20:00 SONYA SILVA Nov 18, 2018 09:33
--- NOTE | 2018-11-18 11:49 | PN ---
Date/Time of Note Date/Time of Note DATE: 11/18/18 TIME: 11:48 Assessment/Plan VTE Prophylaxis Risk score (from [facility] [place])>0 risk: 9 SCD applied (from [facility] [place]): No SCD contraindicated: other Pharmacological prophylaxis: LMWH Lines/Catheters IV Catheter Type (from [facility]): Mid Line Urinary Cath still in place: Yes Reason Cath still needed: skin wounds contaminated by urine Assessment/Plan Hospital Course -Recurrent sepsis with bacteremia. Continue antibiotics per ID. Dr. Tesfaye is following in infection disease consultation. -Yeast UTI -Possible healthcare acquired pneumonia -Ventilator dependent respiratory failure. Dr. Hernández is following in pulmonology consultation. 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 -C-spine epidural abscess, status post C3 to C4 laminectomy -DNR status Result Diagram: 11/17/18 0650 11/17/18 0650 Subjective 24 Hr Interval Summary Free Text/Dictation Patient remain unchanged, eyes open Exam/Review of Systems Vital Signs Vitals Vital Signs Date Temp Pulse Resp B/P (MAP) Pulse Ox O2 O2 Flow FiO2 Time Delivery Rate 11/18/18 30 09:24 11/18/18 81 19 98 08:50 11/18/18 102.5 130/77 [place] 07:50 (94) l Ventilato r Intake and Output 11/17/18 11/17/18 11/18/18 1515:00 23:00 07:00 IntakeIntake Total 1180 ml 866 ml OutputOutput Total 700 ml 700 ml BalanceBalance 480 ml 166 ml Exam Constitutional: well developed Head: normocephalic, atraumatic Neck: supple Respiratory: diminished breath sounds Cardiovascular: regular rate and rhythm Gastrointestinal: soft, non-tender Extremities: normal pulses Medications Medications Current Medications Bisacodyl (Dulcolax Supp) 10 mg Q24H [place] Last administered on 11/14/18at 00:43; Admin Dose 10 MG; Start 11/01/18 at 00:00 Enoxaparin Sodium (Lovenox) 30 mg DAILY [place] Last administered on 11/18/18at 08:41; Admin Dose 30 MG; Start 11/01/18 at 09:00 Escitalopram Oxalate (Lexapro) 10 mg DAILY GTB Last administered on 11/18/18 08:35; Admin Dose 10 MG; Start 11/01/18 at 09:00 Ferrous Sulfate (Feosol Liquid Cup) 330 mg BID GTB Last administered on 11/18/18 08:35; Admin Dose 330 MG; Start 11/01/18 at 09:00 Lansoprazole (Prevacid) 30 mg DAILY GTB Last administered on 11/18/18 08:35; Admin Dose 30 MG; Start 11/01/18 at 09:00 Morphine Sulfate (morphine) 5 mg Q4H PRN GTB MODERATE TO SEVERE PAIN Last administered on 11/10/18 09:32; Admin Dose 5 MG; Start 11/01/18 at 00:00 Multivitamins (Multivitamin) 30 ml DAILY GTB Last administered on 11/18/18 08:34; Admin Dose 30 ML; Start 11/01/18 at 09:00 Docusate Sodium (Colace Liquid Cup) 100 mg BID GTB Last administered on 11/18/18 08:34; Admin Dose 100 MG; Start 11/01/18 at 09:00 Acetaminophen (Tylenol Liquid) 650 mg Q6H PRN GTB MILD PAIN(1-3)OR ELEVATED TEMP Last administered on 11/18/18 08:34; Admin Dose 650 MG; Start 11/01/18 at 12:00 Albuterol (Ventolin Hfa) 4 puff Q6H RESP THERAPY INH Last administered on 11/18/18 07:46; Admin Dose 4 PUFF; Start 11/01/18 at 20:00 Ipratropium [place] (Atrovent Hfa) 4 puff Q6H RESP THERAPY INH Last administered on 11/18/18 07:46; Admin Dose 4 PUFF; Start 11/01/18 at 20:00 Nystatin (Nystatin Susp) 5 ml QID PO Last administered on 11/18/18 08:35; Admin Dose 5 ML; Start 11/09/18 at 17:00 Meropenem/Sodium Chloride 50 ml @ 100 mls/hr Q12 IVPB Last administered on 11/18/18 08:33; Admin Dose 100 MLS/HR; Start 11/11/18 at 14:30 Vancomycin HCl (Vanco Iv Per Pharmacy) VANCOMYCIN PER PHARMACY PER PROTOCOL XX ; Start 11/11/18 at 14:30 Vancomycin HCl 750 mg/Sodium Chloride 150 ml @ 75 mls/hr Q12H IVPB Last administered on 11/18/18at 07:07; Admin Dose 75 MLS/HR; Start 11/12/18 at 07:00 Fluconazole (Diflucan) 100 mg DAILY PO Last administered on 11/18/18 08:35; Admin Dose 100 MG; Start 11/14/18 at 11:30 Tobramycin Sulfate/Sodium Chloride (Art Inhal) 300 mg BID RESP THERAPY NEB Last administered on 11/18/18at 08:50; Admin Dose 300 MG; Start 11/17/18 at 20:00 DARIO PANIAGUA Nov 18, 2018 11:49
--- NOTE | 2018-11-18 12:56 | CONS ---
Date/Time of Note Date/Time of Note DATE: 11/18/18 TIME: 12:53 Consult Date/Type/Reason Admit Date/Time Oct 31, 2018 at 21:21 Initial Consult Date 11/15/18 Type of Consultation: Urology Reason for Consultation Distal left ureteral stone. Requesting Provider: LORRAINE SHAH MD Subjective Patient condition is unchanged. Continues to have fever. Objective Vital Signs Date Temp Pulse Resp B/P (MAP) Pulse Ox O2 O2 Flow FiO2 Time Delivery Rate 11/18/18 101.3 79 19 107/76 98 [place] 12:11 (86) l Ventilato r 11/18/18 30 09:24 Intake and Output 11/17/18 11/17/18 11/18/18 1515:00 23:00 07:00 IntakeIntake Total 1180 ml 866 ml OutputOutput Total 700 ml 700 ml BalanceBalance 480 ml 166 ml Exam The Cash catheter is draining clear urine, his renal function is stable. Culture from tracheal aspiration showing Pseudomonas and Acinetobacter. Results/Medications Result Diagram: 11/17/18 0650 11/17/18 0650 Medications Current Medications Bisacodyl (Dulcolax Supp) 10 mg Q24H [place] Last administered on 11/14/18at 00:43; Admin Dose 10 MG; Start 11/01/18 at 00:00 Enoxaparin Sodium (Lovenox) 30 mg DAILY SC Last administered on 11/18/18at 08:41; Admin Dose 30 MG; Start 11/01/18 at 09:00 Escitalopram Oxalate (Lexapro) 10 mg DAILY GTB Last administered on 11/18/18at 08:35; Admin Dose 10 MG; Start 11/01/18 at 09:00 Ferrous Sulfate (Feosol Liquid Cup) 330 mg BID GTB Last administered on 11/18/18at 08:35; Admin Dose 330 MG; Start 11/01/18 at 09:00 Lansoprazole (Prevacid) 30 mg DAILY GTB Last administered on 11/18/18at 08:35; Admin Dose 30 MG; Start 11/01/18 at 09:00 Morphine Sulfate (morphine) 5 mg Q4H PRN GTB MODERATE TO SEVERE PAIN Last administered on 11/10/18at 09:32; Admin Dose 5 MG; Start 11/01/18 at 00:00 Multivitamins (Multivitamin) 30 ml DAILY GTB Last administered on 11/18/18 08:34; Admin Dose 30 ML; Start 11/01/18 at 09:00 Docusate Sodium (Colace Liquid Cup) 100 mg BID GTB Last administered on 11/18/18 08:34; Admin Dose 100 MG; Start 11/01/18 at 09:00 Acetaminophen (Tylenol Liquid) 650 mg Q6H PRN GTB MILD PAIN(1-3)OR ELEVATED TEMP Last administered on 11/18/18 08:34; Admin Dose 650 MG; Start 11/01/18 at 12:00 Albuterol (Ventolin Hfa) 4 puff Q6H RESP THERAPY INH Last administered on 11/18/18 07:46; Admin Dose 4 PUFF; Start 11/01/18 at 20:00 Ipratropium [place] (Atrovent Hfa) 4 puff Q6H RESP THERAPY INH Last administered on 11/18/18 07:46; Admin Dose 4 PUFF; Start 11/01/18 at 20:00 Nystatin (Nystatin Susp) 5 ml QID PO Last administered on 11/18/18 12:42; Admin Dose 5 ML; Start 11/09/18 at 17:00 Meropenem/Sodium Chloride 50 ml @ 100 mls/hr Q12 IVPB Last administered on 11/18/18 08:33; Admin Dose 100 MLS/HR; Start 11/11/18 at 14:30 Vancomycin HCl (Vanco Iv Per Pharmacy) VANCOMYCIN PER PHARMACY PER PROTOCOL XX ; Start 11/11/18 at 14:30 Vancomycin HCl 750 mg/Sodium Chloride 150 ml @ 75 mls/hr Q12H IVPB Last administered on 11/18/18 07:07; Admin Dose 75 MLS/HR; Start 11/12/18 at 07:00 Fluconazole (Diflucan) 100 mg DAILY PO Last administered on 11/18/18 08:35; Admin Dose 100 MG; Start 11/14/18 at 11:30 Tobramycin Sulfate/Sodium Chloride (Art Inhal) 300 mg BID RESP THERAPY NEB Last administered on 11/18/18 08:50; Admin Dose 300 MG; Start 11/17/18 at 20:00 Assessment/Plan Chief Complaint/Hosp Course 62-year-old male with history of coronary artery disease, non-ST elevation LA, hypertension, history of aspiration pneumonia ,chronic respiratory failure vent dependent. The patient has history of C-spine epidural abscess, status post C3 to C4 laminectomy. The patient is quadriplegic and has been vent-dependent. He is a resident of [facility] and was noted to have fever and was transferred to [facility] for further care and workup. Since his admission he has been having fever on and off and his temperature has reached 103. He had a CT scan of the abdomen and pelvis and that showed: 1. Distal left uretero-vesicular junction stone producing moderate left obstructive uropathy and hydroureter with perinephric stranding. 2. Nonobstructing left lower pole renal calculus. 3. Mild right perinephric stranding. Correlation with superimposed nephritis. 4. Chronic changes of the right proximal femur with subtrochanteric fracture and remodelling with heterotopic soft tissue calcification. 5. Cholelithiasis. 6. Bibasilar atelectasis versus mild infiltrate changes Therefore a urological consultation was requested because of his persistent fever. All the information were obtained from his medical record. Patient has contracture of all of his extremities. Cash catheter is draining clear urine. Patient had a fever of 101.3 earlier this morning. His white count has been normal and his creatinine has been stable. The stone that he has is small and he should pass it if he has not done that yet. I am not sure his fever is because of the stone or the obstruction from it. Any intervention on him would be very challenging because of his contractures. Therefore unless it is very critical I will give him the chance to pass the stone on his own as it appears he did in the past since in January 2018 he did have multiple small stones inside the bladder which may have come from his kidney as well. The patient does have positive culture from tracheal aspiration with Acinetobacter and Pseudomonas. NOLBERTO COLLINS MD Nov 18, 2018 12:56
--- NOTE | 2018-11-18 13:01 | CONS ---
Date/Time of Note Date/Time of Note DATE: 11/18/18 TIME: 12:59 Assessment/Plan Assessment/Plan Hospital Course Spiking fevers, Tm 102.9 Abdominal x-ray 11/16/18 revealed questionable ileus osseous destruction suspici on for osteomyelitis involving the right ischium Microbiology: Blood and urine cx negative, sputum cx + A. baumanii and PSA, stool for C. difficile negative CT of the abdomen and pelvis revealed distal left ureteral pelvic junction stone producing moderate left obstructive uropathy and hydroureter with perinephric stranding. Bibasilar atelectasis versus mild infiltrate changes Antimicrobials: Vanco, Merrem, Diflucan INDWELLINGS: Trach, PEG, Cash. PHYSICAL EXAMINATION: GENERAL: This is a chronically ill-appearing, debilitated, elderly man who is in no distress. HEENT: Head atraumatic, normocephalic. Sclerae anicteric. Buccal mucosa dry. NECK: Supple. Tracheostomy present. CHEST: Rise symmetrical. Breath sounds diminished to bases. HEART: S1, S2, tachycardic, regular. ABDOMEN: Soft, bowel tones present. EXTREMITIES: Wasted, contractured. ASSESSMENT: 1. Ongoing fevers secondary to #2 2. Obstructive uropathy 3. Status post coag negative staph bacteremia consistent with contaminant 3. Status post urinary tract infection. 4. Healthcare-associated pneumonia. 5. History of Clostridium difficile colitis. 6. Quadriplegia status post cervical spine surgery. 7. 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 PLAN: Clinically unchanged, fevers persist, change Merrem to IV Tobramycin, f/u urology/pulmonary rec-s [facility] staff Result Diagram: 11/17/18 0650 11/17/18 0650 Consultation Date/Type/Reason Admit Date/Time Oct 31, 2018 at 21:21 Initial Consult Date 11/01/18 Type of Consult id Requesting Provider: LORRAINE SHAH MD Exam/Review of Systems Vital Signs Vitals Vital Signs Date Temp Pulse Resp B/P (MAP) Pulse Ox O2 O2 Flow FiO2 Time Delivery Rate 11/18/18 101.3 79 19 107/76 98 [place] 12:11 (86) l Ventilato r 11/18/18 30 09:24 Intake and Output 11/17/18 11/17/18 11/18/18 1515:00 23:00 07:00 IntakeIntake Total 1180 ml 866 ml OutputOutput Total 700 ml 700 ml BalanceBalance 480 ml 166 ml Medications Medications Current Medications Bisacodyl (Dulcolax Supp) 10 mg Q24H [place] Last administered on 11/14/18 00:43; Admin Dose 10 MG; Start 11/01/18 at 00:00 Enoxaparin Sodium (Lovenox) 30 mg DAILY SC Last administered on 11/18/18 08:41; Admin Dose 30 MG; Start 11/01/18 at 09:00 Escitalopram Oxalate (Lexapro) 10 mg DAILY GTB Last administered on 11/18/18 08:35; Admin Dose 10 MG; Start 11/01/18 at 09:00 Ferrous Sulfate (Feosol Liquid Cup) 330 mg BID GTB Last administered on 08:35; Admin Dose 330 MG; Start 11/01/18 at 09:00 Lansoprazole (Prevacid) 30 mg DAILY GTB Last administered on 11/18/18 08:35; Admin Dose 30 MG; Start 11/01/18 at 09:00 Morphine Sulfate (morphine) 5 mg Q4H PRN GTB MODERATE TO SEVERE PAIN Last administered on 11/10/18 09:32; Admin Dose 5 MG; Start 11/01/18 at 00:00 Multivitamins (Multivitamin) 30 ml DAILY GTB Last administered on 11/18/18 08:34; Admin Dose 30 ML; Start 11/01/18 at 09:00 Docusate Sodium (Colace Liquid Cup) 100 mg BID GTB Last administered on 11/18/18 08:34; Admin Dose 100 MG; Start 11/01/18 at 09:00 Acetaminophen (Tylenol Liquid) 650 mg Q6H PRN GTB MILD PAIN(1-3)OR ELEVATED TEMP Last administered on 11/18/18 08:34; Admin Dose 650 MG; Start 11/01/18 at 12:00 Albuterol (Ventolin Hfa) 4 puff Q6H RESP THERAPY INH Last administered on 11/18/18 07:46; Admin Dose 4 PUFF; Start 11/01/18 at 20:00 Ipratropium [place] (Atrovent Hfa) 4 puff Q6H RESP THERAPY INH Last administered on 12/26/18at 07:46; Admin Dose 4 PUFF; Start 11/01/18 at 20:00 Nystatin (Nystatin Susp) 5 ml QID PO Last administered on 11/18/18at 12:42; Admin Dose 5 ML; Start 11/09/18 at 17:00 Meropenem/Sodium Chloride 50 ml @ 100 mls/hr Q12 IVPB Last administered on 11/18/18at 08:33; Admin Dose 100 MLS/HR; Start 11/11/18 at 14:30 Vancomycin HCl (Vanco Iv Per Pharmacy) VANCOMYCIN PER PHARMACY PER PROTOCOL XX ; Start 11/11/18 at 14:30 Vancomycin HCl 750 mg/Sodium Chloride 150 ml @ 75 mls/hr Q12H IVPB Last administered on 11/18/18at 07:07; Admin Dose 75 MLS/HR; Start 11/12/18 at 07:00 Fluconazole (Diflucan) 100 mg DAILY PO Last administered on 11/18/18at 08:35; Admin Dose 100 MG; Start 11/14/18 at 11:30 Tobramycin Sulfate/Sodium Chloride (Art Inhal) 300 mg BID RESP THERAPY NEB Last administered on 11/18/18at 08:50; Admin Dose 300 MG; Start 11/17/18 at 20:00 RISA SAWYER NP Nov 18, 2018 13:01
--- NOTE | 2018-11-18 13:04 | RADRPT ---
Vent Rate: 78 bpm RR Interval: 0 msec IL Interval: 140 msec QRS Duration: 74 msec QT Interval: 376 msec QTC Interval: 428 msec P-R-T [place]: 0 - -31 - 63 degrees Unusual P axis, possible ectopic atrial rhythm Left axis deviation Abnormal ECG Electronically Signed By: Rick Garcia [id number]
[2018-11-18] MEDS ORDERED: TOBRAMYCIN IV PER PHARMACY XX SCH (13:30)
[2018-11-18] MEDS ORDERED: TOBRAMYCIN 300 MG in SOD CHLORIDE 0.9% 100 ML IVPB SCH (17:00)
[2018-11-18] MEDS: TOBRAMYCIN 300 MG in SOD CHLORIDE 0.9% 100 ML IVPB SCH (17:47)
[2018-11-19] VITALS (23 sets, daily range): BP systolic 106–121; BP diastolic 73–86; PULSE 78–92; RESP 17–21
[2018-11-19] MEDS: BISACODYL 10 MG SUPP PR SCH
[2018-11-19] MEDS: ALBUTEROL HFA 8 GM INHALER INH SCH ×4 (01:52→19:25)
[2018-11-19] MEDS: IPRATROPIUM (HFA) 12.9 GM INHALER INH SCH ×4 (01:52→19:25)
[2018-11-19] MEDS: ACETAMINOPHEN 650MG/20.3ML CUP GTB PRN ×2 (04:31→12:13)
[2018-11-19] MEDS: VANCOMYCIN 750 MG in SOD CHLORIDE 0.9% 150 ML IVPB SCH ×2 (06:27→22:41)
[2018-11-19] MEDS: BALSAM PERU/CASTOR OIL 60 GM TUBE TOP SCH (08:53)
[2018-11-19] MEDS: FERROUS SULFATE 60 MG/ML 5ML CUP GTB SCH ×2 (08:54→22:35)
[2018-11-19] MEDS: LANSOPRAZOLE 30 MG CAP GTB SCH (08:54)
[2018-11-19] MEDS: ESCITALOPRAM 10 MG TAB GTB SCH (08:54)
[2018-11-19] MEDS: FLUCONAZOLE 100 MG TAB PO SCH (08:54)
[2018-11-19] MEDS: MULTIVITAMINS 30 ML CUP GTB SCH (08:54)
[2018-11-19] MEDS: NYSTATIN SUSP 5 ML CUP PO SCH ×4 (08:54→22:35)
[2018-11-19] MEDS: DOCUSATE SODIUM 10 MG/ML (10ML CUP) GTB SCH ×2 (08:55→21:00)
[2018-11-19] MEDS: ENOXAPARIN 30 MG/0.3 ML SYG SC SCH (08:58)
--- NOTE | 2018-11-19 09:26 | CONS ---
Date/Time of Note Date/Time of Note DATE: 11/19/18 TIME: 09:23 Assessment/Plan Assessment/Plan Assessment/Plan Ventilator setting; AC of 18, tidal volume 500, PEEP of 5, 30% FiO2. Assessment recommendations; 1. Patient with history of VD RF and quadriplegia admitted for sepsis with multiple sources from pneumonia as well as decubitus ulcer and UTI. Currently on appropriate antimicrobial regimen. Continue current supportive care. Antibiotics per ID recommendations. Result Diagram: 11/17/18 0650 11/17/18 0650 Results 24hrs Laboratory Tests Test 11/19/18 05:28 Random Tobramycin Level 2.6 Consultation Date/Type/Reason Admit Date/Time Oct 31, 2018 at 21:21 Initial Consult Date 11/01/18 Type of Consult Pulmonary Requesting Provider: LORRAINE SHAH MD 24 HR Interval Summary Free Text/Dictation Patient condition is stable. Remains awake and fairly responsive. Has remained hemodynamically stable. General exam; elderly male, on ventilator via tracheostomy, awake, currently in no distress. Exam/Review of Systems Vital Signs Vitals Vital Signs Date Temp Pulse Resp B/P (MAP) Pulse Ox O2 O2 Flow FiO2 Time Delivery Rate 11/19/18 78 08:00 11/19/18 100.1 19 121/86 98 07:50 (98) 11/19/18 35 04:56 11/18/18 [place] 15:05 l Ventilato r Intake and Output 11/18/18 11/18/18 11/19/18 1515:00 23:00 07:00 IntakeIntake Total 200 ml 1057.5 ml 1000 ml OutputOutput Total 550 ml 1250 ml BalanceBalance 200 ml 507.5 ml -250 ml Exam H EENT exam; supple neck, no JVD. No lymphadenopathy. Midline trachea. No thyromegaly. Tracheostomy in place. Patient has fair dentition. There is a stable left corneal opacity. Chest exam; diminished but clear breath sounds. S1-S2 audible, no murmurs. Regular rhythm. Abdomen exam; soft, no organomegaly. G-tube in place. Bowel sounds audible. Extremity exam; no peripheral edema or clubbing. SAW OFFBEARER exam; patient awake exhibiting stable quadriplegia. Medications Medications Current Medications Bisacodyl (Dulcolax Supp) 10 mg Q24H [place] Last administered on 11/14/18 00:43; Admin Dose 10 MG; Start 11/01/18 at 00:00 Enoxaparin Sodium (Lovenox) 30 mg DAILY SC Last administered on 11/19/18 08:58; Admin Dose 30 MG; Start 11/01/18 at 09:00 Escitalopram Oxalate (Lexapro) 10 mg DAILY GTB Last administered on 11/19/18 08:54; Admin Dose 10 MG; Start 11/01/18 at 09:00 Ferrous Sulfate (Feosol Liquid Cup) 330 mg BID GTB Last administered on 11/19/18 08:54; Admin Dose 330 MG; Start 11/01/18 at 09:00 Lansoprazole (Prevacid) 30 mg DAILY GTB Last administered on 11/19/18 08:54; Admin Dose 30 MG; Start 11/01/18 at 09:00 Morphine Sulfate (morphine) 5 mg Q4H PRN GTB MODERATE TO SEVERE PAIN Last administered on 11/10/18 09:32; Admin Dose 5 MG; Start 11/01/18 at 00:00 Multivitamins (Multivitamin) 30 ml DAILY GTB Last administered on 11/19/18 08:54; Admin Dose 30 ML; Start 11/01/18 at 09:00 Docusate Sodium (Colace Liquid Cup) 100 mg BID GTB Last administered on 08:34; Admin Dose 100 MG; Start 11/01/18 at 09:00 Acetaminophen (Tylenol Liquid) 650 mg Q6H PRN GTB MILD PAIN(1-3)OR ELEVATED TEMP Last administered on 11/19/18 04:31; Admin Dose 650 MG; Start 11/01/18 at 12:00 Albuterol (Ventolin Hfa) 4 puff Q6H RESP THERAPY INH Last administered on 11/19/18 08:55; Admin Dose 4 PUFF; Start 11/01/18 at 20:00 Ipratropium [place] (Atrovent Hfa) 4 puff Q6H RESP THERAPY INH Last administered on 11/19/18 08:55; Admin Dose 4 PUFF; Start 11/01/18 at 20:00 Nystatin (Nystatin Susp) 5 ml QID PO Last administered on 11/19/18 08:54; Admin Dose 5 ML; Start 11/09/18 at 17:00 Vancomycin HCl (Vanco Iv Per Pharmacy) VANCOMYCIN PER PHARMACY PER PROTOCOL XX ; Start 11/11/18 at 14:30 Vancomycin HCl 750 mg/Sodium Chloride 150 ml @ 75 mls/hr Q12H IVPB Last administered on 11/19/18at 06:27; Admin Dose 75 MLS/HR; Start 11/12/18 at 07:00 Fluconazole (Diflucan) 100 mg DAILY PO Last administered on 11/19/18at 08:54; Admin Dose 100 MG; Start 11/14/18 at 11:30 Tobramycin (Tobramycin Iv Per Pharmacy) TOBRAMYCIN PER PHARMACY NOTE XX ; Start 11/18/18 at 13:30 Tobramycin 300 mg/ Sodium Chloride 107.5 ml @ 108 mls/hr Q24H IVPB Last administered on 11/18/18at 17:47; Admin Dose 108 MLS/HR; Start 11/18/18 at 17:00 SONYA SILVA Nov 19, 2018 09:26
--- NOTE | 2018-11-19 12:06 | PN ---
Date/Time of Note Date/Time of Note DATE: 11/19/18 TIME: 12:05 Assessment/Plan VTE Prophylaxis Risk score (from N[place])>0 risk: 4 [place] [facility] [place] contraindicated: other Pharmacological prophylaxis: LMWH Lines/Catheters IV C[facility]from [facility] Mid Line Urinary Cath still in place: Yes Reason Cath still needed: skin wounds contaminated by urine Assessment/Plan Hospital Course -Recurrent sepsis with bacteremia. Continue antibiotics per ID. Dr. Tesfaye is following in infection disease consultation. -Yeast UTI -Possible healthcare acquired pneumonia -Ventilator dependent respiratory failure. Dr. Hernández is following in pulmonology consultation. 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 -C-spine epidural abscess, status post C3 to C4 laminectomy -DNR status Result Diagram: 11/17/18 0650 11/17/18 0650 Results 24hrs Laboratory Tests Test 11/19/18 05:28 Random Tobramycin Level 2.6 Subjective 24 Hr Interval Summary Free Text/Dictation Patient has eyes open, not verbally communicative Exam/Review of Systems Vital Signs Vitals Vital Signs Date Temp Pulse Resp B/P (MAP) Pulse Ox O2 O2 Flow FiO2 Time Delivery Rate 11/19/18 102.2 91 17 114/75 97 11:59 (88) 11/19/18 35 09:45 11/18/18 [place] 15:05 l Ventilato r Intake and Output 11/18/18 11/18/18 11/19/18 1515:00 23:00 07:00 IntakeIntake Total 200 ml 1057.5 ml 1000 ml OutputOutput Total 550 ml 1250 ml BalanceBalance 200 ml 507.5 ml -250 ml Exam Constitutional: well developed Head: normocephalic, atraumatic Neck: supple Respiratory: diminished breath sounds Cardiovascular: regular rate and rhythm Gastrointestinal: soft, non-tender Extremities: normal pulses Medications Medications Current Medications Bisacodyl (Dulcolax Supp) 10 mg Q24H [place] Last administered on 11/14/18at 00:43; Admin Dose 10 MG; Start 11/01/18 at 00:00 Enoxaparin Sodium (Lovenox) 30 mg DAILY SC Last administered on 11/19/18at 08:58; Admin Dose 30 MG; Start 11/01/18 at 09:00 Escitalopram Oxalate (Lexapro) 10 mg DAILY GTB Last administered on 11/19/18 08:54; Admin Dose 10 MG; Start 11/01/18 at 09:00 Ferrous Sulfate (Feosol Liquid Cup) 330 mg BID GTB Last administered on 11/19/18 08:54; Admin Dose 330 MG; Start 11/01/18 at 09:00 Lansoprazole (Prevacid) 30 mg DAILY GTB Last administered on 11/19/18 08:54; Admin Dose 30 MG; Start 11/01/18 at 09:00 Morphine Sulfate (morphine) 5 mg Q4H PRN GTB MODERATE TO SEVERE PAIN Last administered on 11/10/18 09:32; Admin Dose 5 MG; Start 11/01/18 at 00:00 Multivitamins (Multivitamin) 30 ml DAILY GTB Last administered on 11/19/18 08:54; Admin Dose 30 ML; Start 11/01/18 at 09:00 Docusate Sodium (Colace Liquid Cup) 100 mg BID GTB Last administered on 11/18/18 08:34; Admin Dose 100 MG; Start 11/01/18 at 09:00 Acetaminophen (Tylenol Liquid) 650 mg Q6H PRN GTB MILD PAIN(1-3)OR ELEVATED TEMP Last administered on 11/19/18at 04:31; Admin Dose 650 MG; Start 11/01/18 at 12:00 Albuterol (Ventolin Hfa) 4 puff Q6H RESP THERAPY INH Last administered on 11/19/18 08:55; Admin Dose 4 PUFF; Start 11/01/18 at 20:00 Ipratropium [place] (Atrovent Hfa) 4 puff Q6H RESP THERAPY INH Last ad ministered on 11/19/18 08:55; Admin Dose 4 PUFF; Start 11/01/18 at 20:00 Nystatin (Nystatin Susp) 5 ml QID PO Last administered on 11/19/18 08:54; Admin Dose 5 ML; Start 11/09/18 at 17:00 Vancomycin HCl (Vanco Iv Per Pharmacy) VANCOMYCIN PER PHARMACY PER PROTOCOL XX ; Start 11/11/18 at 14:30 Vancomycin HCl 750 mg/Sodium Chloride 150 ml @ 75 mls/hr Q12H IVPB Last administered on 11/19/18at 06:27; Admin Dose 75 MLS/HR; Start 11/12/18 at 07:00 Fluconazole (Diflucan) 100 mg DAILY PO Last administered on 11/19/18at 08:54; Admin Dose 100 MG; Start 11/14/18 at 11:30 Tobramycin (Tobramycin Iv Per Pharmacy) TOBRAMYCIN PER PHARMACY NOTE XX ; Start 11/18/18 at 13:30 Tobramycin 300 mg/ Sodium Chloride 107.5 ml @ 108 mls/hr Q24H IVPB Last administered on 11/18/18at 17:47; Admin Dose 108 MLS/HR; Start 11/18/18 at 17:00 Miscellaneous Information (*Rx Drug Level Order Reminder*) TOBRA TR AT 1,600 ONCE ONCE XX ; Start 11/20/18 at 16:00; Stop 11/20/18 at 16:01 DARIO PANIAGUA Nov 19, 2018 12:06
--- NOTE | 2018-11-19 14:17 | CONS ---
Date/Time of Note Date/Time of Note DATE: 11/19/18 TIME: 14:16 Assessment/Plan Assessment/Plan Hospital Course Clinically unchanged looks comfortable still with ongoing fevers T-max 102.2 no labs this morning Abdominal x-ray 11/16/18 revealed questionable ileus osseous destruction suspicion for osteomyelitis involving the right ischium Microbiology: Blood and urine cx negative, sputum cx + A. baumanii and PSA, st ool for C. difficile negative CT of the abdomen and pelvis revealed distal left ureteral pelvic junction stone producing moderate left obstructive uropathy and hydroureter with perinephric stranding. Bibasilar atelectasis versus mild infiltrate changes Antimicrobials: Vanco, tobramycin, Diflucan INDWELLINGS: Trach, PEG, Cash. PHYSICAL EXAMINATION: GENERAL: This is a chronically ill-appearing, debilitated, elderly man who is in no distress. HEENT: Head atraumatic, normocephalic. Sclerae anicteric. Buccal mucosa dry. NECK: Supple. Tracheostomy present. CHEST: Rise symmetrical. Breath sounds diminished to bases. HEART: S1, S2, tachycardic, regular. ABDOMEN: Soft, bowel tones present. EXTREMITIES: Wasted, contractured. ASSESSMENT: 1. Ongoing fevers secondary to #2 2. Obstructive uropathy 3. Status post coag negative staph bacteremia consistent with contaminant 3. Status post urinary tract infection. 4. Healthcare-associated pneumonia. 5. History of Clostridium difficile colitis. 6. Quadriplegia status post cervical spine surgery. 7. 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 staff Result Diagram: 11/17/18 0650 11/17/18 0650 Results 24hrs Laboratory Tests Test 11/19/18 05:28 Random Tobramycin Level 2.6 Consultation Date/Type/Reason Admit Date/Time Oct 31, 2018 at 21:21 Initial Consult Date 11/01/18 Type of Consult id Requesting Provider: LORRAINE SHAH MD Exam/Review of Systems Vital Signs Vitals Vital Signs Date Temp Pulse Resp B/P (MAP) Pulse Ox O2 O2 Flow FiO2 Time Delivery Rate 11/19/18 3 20 95 30 13:22 11/19/18 101.0 12:58 11/19/18 114/75 11:59 (88) 11/18/18 [place] 15:05 l Ventilato r Intake and Output 11/18/18 11/18/18 11/19/18 1515:00 23:00 07:00 IntakeIntake Total 200 ml 1057.5 ml 1000 ml OutputOutput Total 550 ml 1250 ml BalanceBalance 200 ml 507.5 ml -250 ml Medications Medications Current Medications Bisacodyl (Dulcolax Supp) 10 mg Q24H [place] Last administered on 11/14/18 00:43; Admin Dose 10 MG; Start 11/01/18 at 00:00 Enoxaparin Sodium (Lovenox) 30 mg DAILY SC Last administered on 11/19/18 08:58; Admin Dose 30 MG; Start 11/01/18 at 09:00 Escitalopram Oxalate (Lexapro) 10 mg DAILY GTB Last administered on 11/19/18 08:54; Admin Dose 10 MG; Start 11/01/18 at 09:00 Ferrous Sulfate (Feosol Liquid Cup) 330 mg BID GTB Last administered on 11/19/18 08:54; Admin Dose 330 MG; Start 11/01/18 at 09:00 Lansoprazole (Prevacid) 30 mg DAILY GTB Last administered on 11/19/18 08:54; Admin Dose 30 MG; Start 11/01/18 at 09:00 Morphine Sulfate (morphine) 5 mg Q4H PRN GTB MODERATE TO SEVERE PAIN Last administered on 11/10/18 09:32; Admin Dose 5 MG; Start 11/01/18 at 00:00 Multivitamins (Multivitamin) 30 ml DAILY GTB Last administered on 11/19/18 08:54; Admin Dose 30 ML; Start 11/01/18 at 09:00 Docusate Sodium (Colace Liquid Cup) 100 mg BID GTB Last administered on 11/18/18 08:34; Admin Dose 100 MG; Start 11/01/18 at 09:00 Acetaminophen (Tylenol Liquid) 650 mg Q6H PRN GTB MILD PAIN(1-3)OR ELEVATED TEMP Last administered on 11/19/18 12:13; Admin Dose 650 MG; Start 11/01/18 at 12:00 Albuterol (Ventolin Hfa) 4 puff Q6H RESP THERAPY INH Last administered on 11/19/18at 13:21; Admin Dose 4 PUFF; Start 11/01/18 at 20:00 Ipratropium [place] (Atrovent Hfa) 4 puff Q6H RESP THERAPY INH Last administered on 11/19/18at 13:21; Admin Dose 4 PUFF; Start 11/01/18 at 20:00 Nystatin (Nystatin Susp) 5 ml QID PO Last administered on 11/19/18at 13:29; Admin Dose 5 ML; Start 11/09/18 at 17:00 Vancomycin HCl (Vanco Iv Per Pharmacy) VANCOMYCIN PER PHARMACY PER PROTOCOL XX ; Start 11/11/18 at 14:30 Vancomycin HCl 750 mg/Sodium Chloride 150 ml @ 75 mls/hr Q12H IVPB Last administered on 11/19/18at 06:27; Admin Dose 75 MLS/HR; Start 11/12/18 at 07:00 Fluconazole (Diflucan) 100 mg DAILY PO Last administered on 11/19/18at 08:54; Admin Dose 100 MG; Start 11/14/18 at 11:30 Tobramycin (Tobramycin Iv Per Pharmacy) TOBRAMYCIN PER PHARMACY NOTE XX ; Start 11/18/18 at 13:30 Tobramycin 300 mg/ Sodium Chloride 107.5 ml @ 108 mls/hr Q24H IVPB Last admin istered on 11/18/18at 17:47; Admin Dose 108 MLS/HR; Start 11/18/18 at 17:00 Miscellaneous Information (*Rx Drug Level Order Reminder*) TOBRA TR AT 1,600 ONCE ONCE XX ; Start 11/20/18 at 16:00; Stop 11/20/18 at 16:01 RISA SAWYER NP Nov 19, 2018 14:17
[2018-11-19] MEDS: TOBRAMYCIN 300 MG in SOD CHLORIDE 0.9% 100 ML IVPB SCH (16:39)
[2018-11-20] VITALS (24 sets, daily range): BP systolic 105–123; BP diastolic 67–73; PULSE 70–89; RESP 18–22
[2018-11-20] MEDS: BISACODYL 10 MG SUPP PR SCH
[2018-11-20] MEDS: ALBUTEROL HFA 8 GM INHALER INH SCH ×4 (01:16→19:51)
[2018-11-20] MEDS: IPRATROPIUM (HFA) 12.9 GM INHALER INH SCH ×4 (01:16→19:51)
[2018-11-20] MEDS ORDERED: VANCOMYCIN 750 MG (PMX) 250 ML IVPB SCH (07:00)
--- NOTE | 2018-11-20 08:39 | CONS ---
Date/Time of Note Date/Time of Note DATE: 11/20/18 TIME: 08:35 Consult Date/Type/Reason Admit Date/Time Oct 31, 2018 at 21:21 Initial Consult Date 11/15/18 Type of Consultation: Urology Reason for Consultation Distal left ureteral stone Requesting Provider: LORRAINE SHAH MD Subjective Patient condition is unchanged. His maximum temperature was 101.1 His renal function is stable and his white count is normal. Objective Vital Signs Date Temp Pulse Resp B/P (MAP) Pulse Ox O2 O2 Flow FiO2 Time Delivery Rate 11/20/18 99.4 82 20 107/71 100 Mechanical 07:11 (83) Ventilator 11/20/18 30 05:11 Results/Medications Result Diagram: 11/20/18 0559 11/20/18 0559 Results 24 hrs Laboratory Tests Test 11/19/18 17:59 11/20/18 05:59 Vancomycin Level Trough 18.3 White Blood Count 10.1 # Red Blood Count 3.98 L Hemoglobin 11.6 L Hematocrit 36.1 L Mean Corpuscular Volume 90.7 Mean Corpuscular Hemoglobin 29.1 Mean Corpuscular Hemoglobin Concent 32.1 Red Cell Distribution Width 14.6 H Platelet Count 209 Mean Platelet Volume 11.8 H Immature Granulocytes % 0.300 Neutrophils % 79.7 H Lymphocytes % 9.8 L Monocytes % 8.9 Eosinophils % 0.8 Basophils % 0.5 Nucleated Red Blood Cells % 0.0 Immature Granulocytes # 0.030 Neutrophils # 8.0 H Lymphocytes # 1.0 Monocytes # 0.9 Eosinophils # 0.1 Basophils # 0.1 Nucleated Red Blood Cells # 0.0 Sodium Level 144 Potassium Level 4.7 Chloride Level 101 Carbon Dioxide Level 34 H Anion Gap 9 Blood Urea Nitrogen 35 H Creatinine 0.57 L Est Glomerular Filtrat Rate mL/min > 60 Glucose Level 124 Calcium Level 9.2 Medications Current Medications Bisacodyl (Dulcolax Supp) 10 mg Q24H [place] Last administered on 11/14/18at 00:43; Admin Dose 10 MG; Start 11/01/18 at 00:00 Enoxaparin Sodium (Lovenox) 30 mg DAILY [place] Last administered on 11/19/18at 08:58; Admin Dose 30 MG; Start 11/01/18 at 09:00 Escitalopram Oxalate (Lexapro) 10 mg DAILY GTB Last administered on 11/19/18 08:54; Admin Dose 10 MG; Start 11/01/18 at 09:00 Ferrous Sulfate (Feosol Liquid Cup) 330 mg BID GTB Last administered on 11/19/18 22:35; Admin Dose 330 MG; Start 11/01/18 at 09:00 Lansoprazole (Prevacid) 30 mg DAILY GTB Last administered on 11/19/18 08:54; Admin Dose 30 MG; Start 11/01/18 at 09:00 Morphine Sulfate (morphine) 5 mg Q4H PRN GTB MODERATE TO SEVERE PAIN Last adm inistered on 11/10/18 09:32; Admin Dose 5 MG; Start 11/01/18 at 00:00 Multivitamins (Multivitamin) 30 ml DAILY GTB Last administered on 11/19/18 08:54; Admin Dose 30 ML; Start 11/01/18 at 09:00 Docusate Sodium (Colace Liquid Cup) 100 mg BID GTB Last administered on 11/18/18 08:34; Admin Dose 100 MG; Start 11/01/18 at 09:00 Acetaminophen (Tylenol Liquid) 650 mg Q6H PRN GTB MILD PAIN(1-3)OR ELEVATED TEMP Last administered on 11/19/18at 12:13; Admin Dose 650 MG; Start 11/01/18 at 12:00 Albuterol (Ventolin Hfa) 4 puff Q6H RESP THERAPY INH Last administered on 11/20/18 01:16; Admin Dose 4 PUFF; Start 11/01/18 at 20:00 Ipratropium [place] (Atrovent Hfa) 4 puff Q6H RESP THERAPY INH Last administered on 11/20/18 01:16; Admin Dose 4 PUFF; Start 11/01/18 at 20:00 Nystatin (Nystatin Susp) 5 ml QID PO Last administered on 11/19/18 22:35; Admin Dose 5 ML; Start 11/09/18 at 17:00 Vancomycin HCl (Vanco Iv Per Pharmacy) VANCOMYCIN PER PHARMACY PER PROTOCOL XX ; Start 11/11/18 at 14:30 Fluconazole (Diflucan) 100 mg DAILY PO Last administered on 11/19/18 08:54; Admin Dose 100 MG; Start 11/14/18 at 11:30 Tobramycin (Tobramycin Iv Per Pharmacy) TOBRAMYCIN PER PHARMACY NOTE XX ; Start 11/18/18 at 13:30 Tobramycin 300 mg/ Sodium Chloride 107.5 ml @ 108 mls/hr Q24H IVPB Last administered on 11/19/18at 16:39; Admin Dose 108 MLS/HR; Start 11/18/18 at 17:00 Miscellaneous Information (*Rx Drug Level Order Reminder*) TOBRA TR AT 1,600 ONCE ONCE XX ; Start 11/20/18 at 16:00; Stop 11/20/18 at 16:01 Vancomycin/Sodium Chloride 250 ml @ 125 mls/hr Q12H IVPB Last administered on 11/20/18at 06:47; Admin Dose 125 MLS/HR; Start 11/20/18 at 07:00 Assessment/Plan Chief Complaint/Hosp Course 62-year-old male with history of coronary artery disease, non-ST elevation [place], hypertension, history of aspiration pneumonia ,chronic respiratory failure vent dependent. The patient has history of C-spine epidural abscess, status post C3 to C4 laminectomy. The patient is quadriplegic and has been vent-dependent. He is a resident of [facility] and was noted to have fever and was transferred to [facility] for further care and workup. Since his admission he has been having fever on and off and his temperature has reached 103. He had a CT scan of the abdomen and pelvis and that showed: 1. Distal left uretero-vesicular junction stone producing moderate left obstructive uropathy and hydroureter with perinephric stranding. 2. Nonobstructing left lower pole renal calculus. 3. Mild right perinephric stranding. Correlation with superimposed nephritis. 4. Chronic changes of the right proximal femur with subtrochanteric fracture and remodelling with heterotopic soft tissue calcification. 5. Cholelithiasis. 6. Bibasilar atelectasis versus mild infiltrate changes Therefore a urological consultation was requested because of his persistent fever. All the information were obtained from his medical record. Patient has contracture of all of his extremities. Cash catheter is draining clear urine. Patient had a fever of 101.1 earlier this morning. His white count has been normal and his creatinine has been stable. The stone that he has is small and he should pass it if he has not done that yet. I am not sure his fever is because of the stone or the obstruction from it. Any intervention on him would be very challenging because of his contractures. Therefore unless it is very critical I will give him the chance to pass the stone on his own as it appears he did in the past since in January 2018 he did have multiple small stones inside the bladder which may have come from his kidney as well. Continue present treatment. NOLBERTO COLLINS MD Nov 20, 2018 08:39
[2018-11-20] MEDS: MULTIVITAMINS 30 ML CUP GTB SCH (09:33)
[2018-11-20] MEDS: FERROUS SULFATE 60 MG/ML 5ML CUP GTB SCH ×2 (09:33→21:39)
[2018-11-20] MEDS: DOCUSATE SODIUM 10 MG/ML (10ML CUP) GTB SCH ×2 (09:33→21:39)
[2018-11-20] MEDS: FLUCONAZOLE 100 MG TAB PO SCH (09:34)
[2018-11-20] MEDS: LANSOPRAZOLE 30 MG CAP GTB SCH (09:34)
[2018-11-20] MEDS: NYSTATIN SUSP 5 ML CUP PO SCH ×4 (09:35→21:39)
[2018-11-20] MEDS: BALSAM PERU/CASTOR OIL 60 GM TUBE TOP SCH (09:36)
[2018-11-20] MEDS: ESCITALOPRAM 10 MG TAB GTB SCH (09:36)
[2018-11-20] MEDS: ENOXAPARIN 30 MG/0.3 ML SYG SC SCH (09:43)
--- NOTE | 2018-11-20 11:53 | CONS ---
Date/Time of Note Date/Time of Note DATE: 11/20/18 TIME: 11:51 Assessment/Plan Assessment/Plan Hospital Course Clinically unchanged, with ongoing fevers, nad Abdominal x-ray 11/16/18 revealed questionable ileus osseous destruction suspicion for osteomyelitis involving the right ischium Microbiology: Blood and urine cx negative, sputum cx + A. baumanii and PSA, stool for C. difficile negative CT of the abdomen and pelvis revealed distal left ureteral pelvic junction stone producing moderate left obstructive uropathy and hydroureter with perinephric stranding. Bibasilar atelectasis versus mild infiltrate changes Antimicrobials: Vanco, tobramycin, Diflucan INDWELLINGS: Trach, PEG, Cash. PHYSICAL EXAMINATION: GENERAL: This is a chronically ill-appearing, debilitated, elderly man who is in no distress. HEENT: Head atraumatic, normocephalic. Sclerae anicteric. Buccal mucosa dry. NECK: Supple. Tracheostomy present. CHEST: Rise symmetrical. Breath sounds diminished to bases. HEART: S1, S2, tachycardic, regular. ABDOMEN: Soft, bowel tones present. EXTREMITIES: Wasted, contractured. ASSESSMENT: 1. Ongoing fevers 2. Obstructive uropathy 3. Status post coag negative staph bacteremia consistent with contaminant 3. Status post urinary tract infection. 4. Healthcare-associated pneumonia. 5. History of Clostridium difficile colitis. 6. Quadriplegia status post cervical spine surgery. 7. 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 PLAN: Clinically unchanged, fevers persist, urology rec-s noted, will order WBC labeled nuclear scan and reculture pt Result Diagram: 11/20/18 0559 11/20/18 0559 Results 24hrs Laboratory Tests Test 11/19/18 17:59 11/20/18 05:59 Vancomycin Level Trough 18.3 White Blood Count 10.1 # Red Blood Count 3.98 L Hemoglobin 11.6 L Hematocrit 36.1 L Mean Corpuscular Volume 90.7 Mean Corpuscular Hemoglobin 29.1 Mean Corpuscular Hemoglobin Concent 32.1 Red Cell Distribution Width 14.6 H Platelet Count 209 Mean Platelet Volume 11.8 H Immature Granulocytes % 0.300 Neutrophils % 79.7 H Lymphocytes % 9.8 L Monocytes % 8.9 Eosinophils % 0.8 Basophils % 0.5 Nucleated Red Blood Cells % 0.0 Immature Granulocytes # 0.030 Neutrophils # 8.0 H Lymphocytes # 1.0 Monocytes # 0.9 Eosinophils # 0.1 Basophils # 0.1 Nucleated Red Blood Cells # 0.0 Sodium Level 144 Potassium Level 4.7 Chloride Level 101 Carbon Dioxide Level 34 H Anion Gap 9 Blood Urea Nitrogen 35 H Creatinine 0.57 L Est Glomerular Filtrat Rate mL/min > 60 Glucose Level 124 Calcium Level 9.2 Consultation Date/Type/Reason Admit Date/Time Oct 31, 2018 at 21:21 Initial Consult Date 11/01/18 Type of Consult id Requesting Provider: LORRAINE SHAH MD Exam/Review of Systems Vital Signs Vitals Vital Signs Date Temp Pulse Resp B/P (MAP) Pulse Ox O2 O2 Flow FiO2 Time Delivery Rate 11/20/18 87 20 97 30 11:39 11/20/18 97.7 123/73 Mechanical 11:02 (90) Ventilator Medications Medications Current Medications Bisacodyl (Dulcolax Supp) 10 mg Q24H [place] Last administered on 11/14/18 00:43; Admin Dose 10 MG; Start 11/01/18 at 00:00 Enoxaparin Sodium (Lovenox) 30 mg DAILY SC Last administered on 11/20/18 09:43; Admin Dose 30 MG; Start 11/01/18 at 09:00 Escitalopram Oxalate (Lexapro) 10 mg DAILY GTB Last administered on 11/20/18 09:36; Admin Dose 10 MG; Start 11/01/18 at 09:00 Ferrous Sulfate (Feosol Liquid Cup) 330 mg BID GTB Last administered on 11/20/18 09:33; Admin Dose 330 MG; Start 11/01/18 at 09:00 Lansoprazole (Prevacid) 30 mg DAILY GTB Last administered on 11/20/18 09:34; Admin Dose 30 MG; Start 11/01/18 at 09:00 Morphine Sulfate (morphine) 5 mg Q4H PRN GTB MODERATE TO SEVERE PAIN Last administered on 11/10/18 09:32; Admin Dose 5 MG; Start 11/01/18 at 00:00 Multivitamins (Multivitamin) 30 ml DAILY GTB Last administered on 11/20/18 09:33; Admin Dose 30 ML; Start 11/01/18 at 09:00 Docusate Sodium (Colace Liquid Cup) 100 mg BID GTB Last administered on 11/20/18 09:33; Admin Dose 100 MG; Start 11/01/18 at 09:00 Acetaminophen (Tylenol Liquid) 650 mg Q6H PRN GTB MILD PAIN(1-3)OR ELEVATED TEMP Last administered on 11/19/18 12:13; Admin Dose 650 MG; Start 11/01/18 at 12:00 Albuterol (Ventolin Hfa) 4 puff Q6H RESP THERAPY INH Last administered on 11/20/18 01:16; Admin Dose 4 PUFF; Start 11/01/18 at 20:00 Ipratropium [place] (Atrovent Hfa) 4 puff Q6H RESP THERAPY INH Last administered on 11/20/18 01:16; Admin Dose 4 PUFF; Start 11/01/18 at 20:00 Nystatin (Nystatin Susp) 5 ml QID PO Last administered on 11/20/18 09:35; Admin Dose 5 ML; Start 11/09/18 at 17:00 Vancomycin HCl (Vanco Iv Per Pharmacy) VANCOMYCIN PER PHARMACY PER PROTOCOL XX ; Start 11/11/18 at 14:30 Fluconazole (Diflucan) 100 mg DAILY PO Last administered on 11/20/18 09:34; Admin Dose 100 MG; Start 11/14/18 at 11:30 Tobramycin (Tobramycin Iv Per Pharmacy) TOBRAMYCIN PER PHARMACY NOTE XX ; Start 11/18/18 at 13:30 Tobramycin 300 mg/ Sodium Chloride 107.5 ml @ 108 mls/hr Q24H IVPB Last administered on 11/19/18at 16:39; Admin Dose 108 MLS/HR; Start 11/18/18 at 17:00 Miscellaneous Information (*Rx Drug Level Order Reminder*) TOBRA TR AT 1,600 ONCE ONCE XX ; Start 11/20/18 at 16:00; Stop 11/20/18 at 16:01 Vancomycin/Sodium Chloride 250 ml @ 125 mls/hr Q12H IVPB Last administered on 11/20/18at 06:47; Admin Dose 125 MLS/HR; Start 11/20/18 at 07:00 RISA SAWYER NP Nov 20, 2018 11:53
--- NOTE | 2018-11-20 14:28 | CONS ---
Date/Time of Note Date/Time of Note DATE: 11/20/18 TIME: 14:28 Consult Date/Type/Reason Admit Date/Time Oct 31, 2018 at 21:21 Initial Consult Date 11/01/18 Type of Consultation: Pulmonary Requesting Provider: LORRAINE SHAH MD Subjective No significant changes. Objective Vital Signs Date Temp Pulse Resp B/P (MAP) Pulse Ox O2 O2 Flow FiO2 Time Delivery Rate 11/20/18 82 12:33 11/20/18 20 97 30 11:39 11/20/18 97.7 123/73 Mechanical 11:02 (90) Ventilator Exam GENERAL: Chronically ill-appearing gentleman on mechanical ventilation via tracheostomy VITAL SIGNS: per chart NECK: Supple. No JVD or lymphadenopathy. CARDIAC EXAM: S1, S2. No added sounds or murmurs. CHEST: Diminished air entry bilaterally with few rales ABDOMEN: Soft, nontender. No guarding or rebound. EXTREMITIES: No cyanosis, clubbing or edema. NEUROLOGIC: Generalized weakness. No focal deficits. Results/Medications Result Diagram: 11/20/18 0559 11/20/18 0559 Results 24 hrs Laboratory Tests Test 11/19/18 17:59 11/20/18 05:59 Vancomycin Level Trough 18.3 White Blood Count 10.1 # Red Blood Count 3.98 L Hemoglobin 11.6 L Hematocrit 36.1 L Mean Corpuscular Volume 90.7 Mean Corpuscular Hemoglobin 29.1 Mean Corpuscular Hemoglobin Concent 32.1 Red Cell Distribution Width 14.6 H Platelet Count 209 Mean Platelet Volume 11.8 H Immature Granulocytes % 0.300 Neutrophils % 79.7 H Lymphocytes % 9.8 L Monocytes % 8.9 Eosinophils % 0.8 Basophils % 0.5 Nucleated Red Blood Cells % 0.0 Immature Granulocytes # 0.030 Neutrophils # 8.0 H Lymphocytes # 1.0 Monocytes # 0.9 Eosinophils # 0.1 Basophils # 0.1 Nucleated Red Blood Cells # 0.0 Sodium Level 144 Potassium Level 4.7 Chloride Level 101 Carbon Dioxide Level 34 H Anion Gap 9 Blood Urea Nitrogen 35 H Creatinine 0.57 L Est Glomerular Filtrat Rate mL/min > 60 Glucose Level 124 Calcium Level 9.2 Medications Current Medications Bisacodyl (Dulcolax Supp) 10 mg Q24H [place] Last administered on 11/14/18at 00:43; Admin Dose 10 MG; Start 12/9/18 at 00:00 Enoxaparin Sodium (Lovenox) 30 mg DAILY SC Last administered on 11/20/18 09:43; Admin Dose 30 MG; Start 11/01/18 at 09:00 Escitalopram Oxalate (Lexapro) 10 mg DAILY GTB Last administered on 11/20/18 09:36; Admin Dose 10 MG; Start 11/01/18 at 09:00 Ferrous Sulfate (Feosol Liquid Cup) 330 mg BID GTB Last administered on 11/20/18 09:33; Admin Dose 330 MG; Start 11/01/18 at 09:00 Lansoprazole (Prevacid) 30 mg DAILY GTB Last administered on 11/20/18 09:34; Admin Dose 30 MG; Start 11/01/18 at 09:00 Morphine Sulfate (morphine) 5 mg Q4H PRN GTB MODERATE TO SEVERE PAIN Last administered on 11/10/18 09:32; Admin Dose 5 MG; Start 11/01/18 at 00:00 Multivitamins (Multivitamin) 30 ml DAILY GTB Last administered on 11/20/18 09:33; Admin Dose 30 ML; Start 11/01/18 at 09:00 Docusate Sodium (Colace Liquid Cup) 100 mg BID GTB Last administered on 11/20/18 09:33; Admin Dose 100 MG; Start 11/01/18 at 09:00 Acetaminophen (Tylenol Liquid) 650 mg Q6H PRN GTB MILD PAIN(1-3)OR ELEVATED TEMP Last administered on 11/19/18 12:13; Admin Dose 650 MG; Start 11/01/18 at 12:00 Albuterol (Ventolin Hfa) 4 puff Q6H RESP THERAPY INH Last administered on 11/20/18 01:16; Admin Dose 4 PUFF; Start 11/01/18 at 20:00 Ipratropium [place] (Atrovent Hfa) 4 puff Q6H RESP THERAPY INH Last administer ed on 11/20/18 01:16; Admin Dose 4 PUFF; Start 11/01/18 at 20:00 Nystatin (Nystatin Susp) 5 ml QID PO Last administered on 11/20/18 09:35; Admin Dose 5 ML; Start 11/09/18 at 17:00 Vancomycin HCl (Vanco Iv Per Pharmacy) VANCOMYCIN PER PHARMACY PER PROTOCOL XX ; Start 11/11/18 at 14:30 Fluconazole (Diflucan) 100 mg DAILY PO Last administered on 11/20/18at 09:34; Admin Dose 100 MG; Start 11/14/18 at 11:30 Tobramycin (Tobramycin Iv Per Pharmacy) TOBRAMYCIN PER PHARMACY NOTE XX ; Start 11/18/18 at 13:30 Tobramycin 300 mg/ Sodium Chloride 107.5 ml @ 108 mls/hr Q24H IVPB Last administered on 11/19/18at 16:39; Admin Dose 108 MLS/HR; Start 11/18/18 at 17:00 Miscellaneous Information (*Rx Drug Level Order Reminder*) TOBRA TR AT 1,600 ONCE ONCE XX ; Start 11/20/18 at 16:00; Stop 11/20/18 at 16:01 Vancomycin/Sodium Chloride 250 ml @ 125 mls/hr Q12H IVPB Last administered on 11/20/18at 06:47; Admin Dose 125 MLS/HR; Start 11/20/18 at 07:00 Assessment/Plan Chief Complaint/Hosp Course IMP: 1. Urosepsis with persistent fevers. 2. Chronic respiratory failure, vent dependent. 3. 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 4. Pre-renal azotemia 5. Right corneal opacity chronic with blindness. 6. History of coronary artery disease with history of myocardial infarction. 7. Chronic sacral coccygeal decubitus RECS: 1. TF 2. ID recs. 3. Feeding as tolerated 4. Wound care 5. DVT and GI prophylaxis LIVIA VALDERRAMA MD, [facility] Nov 20, 2018 14:28
--- NOTE | 2018-11-20 14:52 | PN ---
Date/Time of Note Date/Time of Note DATE: 11/20/18 TIME: 14:51 Assessment/Plan VTE Prophylaxis Risk score (from [facility] [place])>0 risk: 6 SCD applied (from [facility] [place]): No SCD contraindicated: other Pharmacological prophylaxis: LMWH Lines/Catheters IV Catheter Type (from [facility]): Mid Line Urinary Cath still in place: Yes Reason Cath still needed: skin wounds contaminated by urine Assessment/Plan Hospital Course -Recurrent sepsis with bacteremia. Continue antibiotics per ID. Dr. Tesfaye is following in infection disease consultation. -Yeast UTI -Possible healthcare acquired pneumonia -Ventilator dependent respiratory failure. Dr. Hernández is following in pulmonology consultation. 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030 Neutrophils # 8.0 H Lymphocytes # 1.0 Monocytes # 0.9 Eosinophils # 0.1 Basophils # 0.1 Nucleated Red Blood Cells # 0.0 Sodium Level 144 Potassium Level 4.7 Chloride Level 101 Carbon Dioxide Level 34 H Anion Gap 9 Blood Urea Nitrogen 35 H Creatinine 0.57 L Est Glomerular Filtrat Rate mL/min > 60 Glucose Level 124 Calcium Level 9.2 Subjective 24 Hr Interval Summary Free Text/Dictation Eyes open, nonverbal Exam/Review of Systems Vital Signs Vitals Vital Signs Date Temp Pulse Resp B/P (MAP) Pulse Ox O2 O2 Flow FiO2 Time Delivery Rate 11/20/18 82 12:33 11/20/18 20 97 30 11:39 11/20/18 97.7 123/73 Mechanical 11:02 (90) Ventilator Exam Constitutional: well developed Head: normocephalic, atraumatic Neck: supple Respiratory: diminished breath sounds Cardiovascular: regular rate and rhythm Gastrointestinal: soft, non-tender Extremities: normal pulses Medications Medications Current Medications Bisacodyl (Dulcolax Supp) 10 mg Q24H [place] Last administered on 11/14/18 00:43; Admin Dose 10 MG; Start 11/01/18 at 00:00 Enoxaparin Sodium (Lovenox) 30 mg DAILY [place] Last administered on 11/20/18 09:43; Admin Dose 30 MG; Start 11/01/18 at 09:00 Escitalopram Oxalate (Lexapro) 10 mg DAILY GTB Last administered on 11/20/18 09:36; Admin Dose 10 MG; Start 11/01/18 at 09:00 Ferrous Sulfate (Feosol Liquid Cup) 330 mg BID GTB Last administered on 11/20/18 09:33; Admin Dose 330 MG; Start 11/01/18 at 09:00 Lansoprazole (Prevacid) 30 mg DAILY GTB Last administered on 11/20/18 09:34; Admin Dose 30 MG; Start 11/01/18 at 09:00 Morphine Sulfate (morphine) 5 mg Q4H PRN GTB MODERATE TO SEVERE PAIN Last administered on 11/10/18 09:32; Admin Dose 5 MG; Start 11/01/18 at 00:00 Multivitamins (Multivitamin) 30 ml DAILY GTB Last administered on 11/20/18 09:33; Admin Dose 30 ML; Start 11/01/18 at 09:00 Docusate Sodium (Colace Liquid Cup) 100 mg BID GTB Last administered on 11/20/18 09:33; Admin Dose 100 MG; Start 11/01/18 at 09:00 Acetaminophen (Tylenol Liquid) 650 mg Q6H PRN GTB MILD PAIN(1-3)OR ELEVATED TEMP Last administered on 11/19/18 12:13; Admin Dose 650 MG; Start 11/01/18 at 12:00 Albuterol (Ventolin Hfa) 4 puff Q6H RESP THERAPY INH Last administered on 11/20/18 01:16; Admin Dose 4 PUFF; Start 11/01/18 at 20:00 Ipratropium [place] (Atrovent Hfa) 4 puff Q6H RESP THERAPY INH Last administered on 11/20/18at 01:16; Admin Dose 4 PUFF; Start 11/01/18 at 20:00 Nystatin (Nystatin Susp) 5 ml QID PO Last administered on 11/20/18at 09:35; Admin Dose 5 ML; Start 11/09/18 at 17:00 Vancomycin HCl (Vanco Iv Per Pharmacy) VANCOMYCIN PER PHARMACY PER PROTOCOL XX ; Start 11/11/18 at 14:30 Fluconazole (Diflucan) 100 mg DAILY PO Last administered on 11/20/18at 09:34; Admin Dose 100 MG; Start 11/14/18 at 11:30 Tobramycin (Tobramycin Iv Per Pharmacy) TOBRAMYCIN PER PHARMACY NOTE XX ; Start 11/18/18 at 13:30 Tobramycin 300 mg/ Sodium Chloride 107.5 ml @ 108 mls/hr Q24H IVPB Last administered on 11/19/18at 16:39; Admin Dose 108 MLS/HR; Start 11/18/18 at 17: 00 Miscellaneous Information (*Rx Drug Level Order Reminder*) TOBRA TR AT 1,600 ONCE ONCE XX ; Start 11/20/18 at 16:00; Stop 11/20/18 at 16:01 Vancomycin/Sodium Chloride 250 ml @ 125 mls/hr Q12H IVPB Last administered on 11/20/18at 06:47; Admin Dose 125 MLS/HR; Start 11/20/18 at 07:00 DARIO PANIAGUA Nov 20, 2018 14:52
[2018-11-20] MEDS: TOBRAMYCIN 300 MG in SOD CHLORIDE 0.9% 100 ML IVPB SCH (16:59)
[2018-11-20] MEDS: ACETAMINOPHEN 650MG/20.3ML CUP GTB PRN (17:06)
[2018-11-20] MEDS: VANCOMYCIN 500 MG (PMX) 100 ML IVPB SCH (18:58)
[2018-11-21] VITALS (24 sets, daily range): BP systolic 99–107; BP diastolic 66–76; PULSE 75–105; RESP 18–23
[2018-11-21] MEDS: BISACODYL 10 MG SUPP PR SCH (00:10)
[2018-11-21] MEDS: ALBUTEROL HFA 8 GM INHALER INH SCH ×4 (01:45→19:20)
[2018-11-21] MEDS: IPRATROPIUM (HFA) 12.9 GM INHALER INH SCH ×4 (01:46→19:20)
[2018-11-21] MEDS: NYSTATIN SUSP 5 ML CUP PO SCH ×4 (08:50→20:43)
[2018-11-21] MEDS: DOCUSATE SODIUM 10 MG/ML (10ML CUP) GTB SCH ×2 (08:50→20:43)
[2018-11-21] MEDS: MULTIVITAMINS 30 ML CUP GTB SCH (08:51)
[2018-11-21] MEDS: ACETAMINOPHEN 650MG/20.3ML CUP GTB PRN ×2 (08:51→14:13)
[2018-11-21] MEDS: FERROUS SULFATE 60 MG/ML 5ML CUP GTB SCH ×2 (08:51→20:43)
[2018-11-21] MEDS: FLUCONAZOLE 100 MG TAB PO SCH (08:51)
[2018-11-21] MEDS: LANSOPRAZOLE 30 MG CAP GTB SCH (08:51)
[2018-11-21] MEDS: ESCITALOPRAM 10 MG TAB GTB SCH (08:51)
[2018-11-21] MEDS: VANCOMYCIN 500 MG (PMX) 100 ML IVPB SCH ×2 (08:52→20:43)
[2018-11-21] MEDS: BALSAM PERU/CASTOR OIL 60 GM TUBE TOP SCH (08:52)
[2018-11-21] MEDS: ENOXAPARIN 30 MG/0.3 ML SYG SC SCH (09:14)
--- NOTE | 2018-11-21 11:40 | PN ---
Date/Time of Note Date/Time of Note DATE: 11/21/18 TIME: 11:40 Assessment/Plan VTE Prophylaxis Risk score (from Ns)>0 risk: 5 SCD applied (from Ns): Yes Pharmacological prophylaxis: LMWH Lines/Catheters IV Catheter Type (from Nrs): Mid Line Urinary Cath still in place: Yes Reason Cath still needed: skin wounds contaminated by urine Assessment/Plan Hospital Course -Recurrent sepsis with bacteremia. Continue antibiotics per ID. Dr. Tesfaye is following in infection disease consultation. -Yeast UTI -Possible healthcare acquired pneumonia -Ventilator dependent respiratory failure. Dr. Hernández is following in pulmonology consultation. 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 -C-spine epidural abscess, status post C3 to C4 laminectomy -DNR status Result Diagram: 11/20/18 0559 11/20/18 0559 Results 24hrs Laboratory Tests Test 11/20/18 17:18 Tobramycin Level Trough 1.9 Subjective 24 Hr Interval Summary Free Text/Dictation Eyes open, appears to try to verballize Exam/Review of Systems Vital Signs Vitals Vital Signs Date Temp Pulse Resp B/P (MAP) Pulse Ox O2 O2 Flow FiO2 Time Delivery Rate 11/21/18 99.3 09:50 11/21/18 30 09:44 11/21/18 89 21 95 09:37 11/21/18 101/69 07:47 (80) 11/20/18 Mechanical 15:52 Ventilator Intake and Output 11/20/18 11/20/18 11/21/18 1414:59 22:59 06:59 IntakeIntake Total 965 ml 950 ml OutputOutput Total 900 ml 650 ml BalanceBalance 65 ml 300 ml Exam Constitutional: well developed Head: normocephalic, atraumatic Neck: supple Respiratory: diminished breath sounds Cardiovascular: regular rate and rhythm Gastrointestinal: soft, non-tender Extremities: normal pulses Medications Medications Current Medications Bisacodyl (Dulcolax Supp) 10 mg Q24H [place] Last administered on 11/21/18at 00:10; Admin Dose 10 MG; Start 11/01/18 at 00:00 Enoxaparin Sodium (Lovenox) 30 mg DAILY [place] Last administered on 11/21/18at 09:14; Admin Dose 30 MG; Start 11/01/18 at 09:00 Escitalopram Oxalate (Lexapro) 10 mg DAILY GTB Last administered on 11/21/18 08:51; Admin Dose 10 MG; Start 11/01/18 at 09:00 Ferrous Sulfate (Feosol Liquid Cup) 330 mg BID GTB Last administered on 11/21/18 08:51; Admin Dose 330 MG; Start 11/01/18 at 09:00 Lansoprazole (Prevacid) 30 mg DAILY GTB Last administered on 11/21/18 08:51; Admin Dose 30 MG; Start 11/01/18 at 09:00 Morphine Sulfate (morphine) 5 mg Q4H PRN GTB MODERATE TO SEVERE PAIN Last administered on 11/10/18 09:32; Admin Dose 5 MG; Start 11/01/18 at 00:00 Multivitamins (Multivitamin) 30 ml DAILY GTB Last administered on 11/21/18 08:51; Admin Dose 30 ML; Start 11/01/18 at 09:00 Docusate Sodium (Colace Liquid Cup) 100 mg BID GTB Last administered on 11/21/18 08:50; Admin Dose 100 MG; Start 11/01/18 at 09:00 Acetaminophen (Tylenol Liquid) 650 mg Q6H PRN GTB MILD PAIN(1-3)OR ELEVATED TEMP Last administered on 11/21/18 08:51; Admin Dose 650 MG; Start 11/01/18 at 12:00 Albuterol (Ventolin Hfa) 4 puff Q6H RESP THERAPY INH Last administered on 11/21/18 07:57; Admin Dose 4 PUFF; Start 11/01/18 at 20:00 Ipratropium [place] (Atrovent Hfa) 4 puff Q6H RESP THERAPY INH Last administered on 11/21/18 07:58; Admin Dose 4 PUFF; Start 11/01/18 at 20:00 Nystatin (Nystatin Susp) 5 ml QID PO Last administered on 11/21/18 08:50; Admin Dose 5 ML; Start 11/09/18 at 17:00 Vancomycin HCl (Vanco Iv Per Pharmacy) VANCOMYCIN PER PHARMACY PER PROTOCOL XX ; Start 11/11/18 at 14:30 Fluconazole (Diflucan) 100 mg DAILY PO Last administered on 12/29/18at 08:51; Admin Dose 100 MG; Start 11/14/18 at 11:30 Tobramycin (Tobramycin Iv Per Pharmacy) TOBRAMYCIN PER PHARMACY NOTE XX ; Start 11/18/18 at 13:30 Tobramycin 300 mg/ Sodium Chloride 107.5 ml @ 108 mls/hr Q24H IVPB Last administered on 11/20/18at 16:59; Admin Dose 108 MLS/HR; Start 11/18/18 at 17:00 Vancomycin HCl 100 ml @ 100 mls/hr Q12H IVPB Last administered on 11/21/18at 08:52; Admin Dose 100 MLS/HR; Start 11/20/18 at 19:00 Miscellaneous Information (*Rx Drug Level Order Reminder*) TOBRAMYCIN TR TODAY 10/25... ONCE ONCE XX ; Start 11/21/18 at 16:00; Stop 11/21/18 at 16:01 Miscellaneous Information (*Rx Drug Level Order Reminder*) VANCO TR @ 0,600 ONCE ONCE XX ; Start 11/22/18 at 06:00; Stop 11/22/18 at 06:01 DARIO PANIAGUA Nov 21, 2018 11:40
--- NOTE | 2018-11-21 12:09 | CONS ---
Date/Time of Note Date/Time of Note DATE: 11/21/18 TIME: 12:06 Consult Date/Type/Reason Admit Date/Time Oct 31, 2018 at 21:21 Initial Consult Date 11/15/18 Type of Consultation: Urology Reason for Consultation Distal left ureteral stone. Requesting Provider: LORRAINE SHAH MD Subjective No change in the patient's condition. Objective Vital Signs Date Temp Pulse Resp B/P (MAP) Pulse Ox O2 O2 Flow FiO2 Time Delivery Rate 11/21/18 85 22 98 30 11:46 11/21/18 101.6 101/72 11:45 (82) 11/20/18 [place] 15:52 l Ventilato r Intake and Output 11/20/18 11/20/18 11/21/18 1515:00 23:00 07:00 IntakeIntake Total 965 ml 950 ml OutputOutput Total 900 ml 650 ml BalanceBalance 65 ml 300 ml Exam Patient had a temperature of 102.7 this morning. Patient is on the respirator through the tracheostomy tube. Cash catheter is draining clear urine. Results/Medications Result Diagram: 11/20/18 0559 11/20/18 0559 Results 24 hrs Laboratory Tests Test 11/20/18 17:18 Tobramycin Level Trough 1.9 Medications Current Medications Bisacodyl (Dulcolax Supp) 10 mg Q24H [place] Last administered on 11/21/18at 00:10; Admin Dose 10 MG; Start 11/01/18 at 00:00 Enoxaparin Sodium (Lovenox) 30 mg DAILY [place] Last administered on 11/21/18at 09:14; Admin Dose 30 MG; Start 11/01/18 at 09:00 Escitalopram Oxalate (Lexapro) 10 mg DAILY GTB Last administered on 11/21/18at 08:51; Admin Dose 10 MG; Start 11/01/18 at 09:00 Ferrous Sulfate (Feosol Liquid Cup) 330 mg BID GTB Last administered on 11/21/18at 08:51; Admin Dose 330 MG; Start 11/01/18 at 09:00 Lansoprazole (Prevacid) 30 mg DAILY GTB Last administered on 11/21/18at 08:51; Admin Dose 30 MG; Start 11/01/18 at 09:00 Morphine Sulfate (morphine) 5 mg Q4H PRN GTB MODERATE TO SEVERE PAIN Last administered on 11/10/18 09:32; Admin Dose 5 MG; Start 11/01/18 at 00:00 Multivitamins (Multivitamin) 30 ml DAILY GTB Last administered on 11/21/18 08:51; Admin Dose 30 ML; Start 11/01/18 at 09:00 Docusate Sodium (Colace Liquid Cup) 100 mg BID GTB Last administered on 11/21/18 08:50; Admin Dose 100 MG; Start 11/01/18 at 09:00 Acetaminophen (Tylenol Liquid) 650 mg Q6H PRN GTB MILD PAIN(1-3)OR ELEVATED TEMP Last administered on 11/21/18 08:51; Admin Dose 650 MG; Start 11/01/18 at 12:00 Albuterol (Ventolin Hfa) 4 puff Q6H RESP THERAPY INH Last administered on 11/21/18 07:57; Admin Dose 4 PUFF; Start 11/01/18 at 20:00 Ipratropium [place] (Atrovent Hfa) 4 puff Q6H RESP THERAPY INH Last administered on 11/21/18 07:58; Admin Dose 4 PUFF; Start 11/01/18 at 20:00 Nystatin (Nystatin Susp) 5 ml QID PO Last administered on 11/21/18 08:50; Ad min Dose 5 ML; Start 11/09/18 at 17:00 Vancomycin HCl (Vanco Iv Per Pharmacy) VANCOMYCIN PER PHARMACY PER PROTOCOL XX ; Start 11/11/18 at 14:30 Fluconazole (Diflucan) 100 mg DAILY PO Last administered on 11/21/18 08:51; Admin Dose 100 MG; Start 11/14/18 at 11:30 Tobramycin (Tobramycin Iv Per Pharmacy) TOBRAMYCIN PER PHARMACY NOTE XX ; Start 11/18/18 at 13:30 Tobramycin 300 mg/ Sodium Chloride 107.5 ml @ 108 mls/hr Q24H IVPB Last administered on 11/20/18 16:59; Admin Dose 108 MLS/HR; Start 11/18/18 at 17:00 Vancomycin HCl 100 ml @ 100 mls/hr Q12H IVPB Last administered on 11/21/18 08:52; Admin Dose 100 MLS/HR; Start 12/28/18 at 19:00 Miscellaneous Information (*Rx Drug Level Order Reminder*) TOBRAMYCIN TR TODAY 10/25... ONCE ONCE XX ; Start 11/21/18 at 16:00; Stop 11/21/18 at 16:01 Miscellaneous Information (*Rx Drug Level Order Reminder*) VANCO TR @ 0,600 ONCE ONCE XX ; Start 11/22/18 at 06:00; Stop 11/22/18 at 06:01 Assessment/Plan Chief Complaint/Hosp Course 62-year-old male with history of coronary artery disease, non-ST elevation [place], hypertension, history of aspiration pneumonia ,chronic respiratory failure vent dependent. The patient has history of C-spine epidural abscess, status post C3 to C4 laminectomy. The patient is quadriplegic and has been vent-dependent. He is a resident of [facility] and was noted to have fever and was transferred to [facility] for further care and workup. Since his admission he has been having fever on and off and his temperature has reached 103. He had a CT scan of the abdomen and pelvis and that showed: 1. Distal left uretero-vesicular junction stone producing moderate left obstructive uropathy and hydroureter with perinephric stranding. 2. Nonobstructing left lower pole renal calculus. 3. Mild right perinephric stranding. Correlation with superimposed nephritis. 4. Chronic changes of the right proximal femur with subtrochanteric fracture an d remodelling with heterotopic soft tissue calcification. 5. Cholelithiasis. 6. Bibasilar atelectasis versus mild infiltrate changes Therefore a urological consultation was requested because of his persistent fever. All the information were obtained from his medical record. Patient has contracture of all of his extremities. Cash catheter is draining clear urine. Patient had a fever of 102.7 earlier this morning. His white count has been normal and his creatinine has been stable. The stone that he has is small and he should pass it if he has not done that yet. I am not sure his fever is because of the stone or the obstruction from it. Any intervention on him would be very challenging because of his contractures. Therefore unless it is very critical I will give him the chance to pass the stone on his own as it appears he did in the past since in January 2018 he did have multiple small stones inside the bladder which may have came from his kidney as well. Continue p resent treatment. NOLBERTO COLLINS MD Nov 21, 2018 12:09
--- NOTE | 2018-11-21 13:20 | CONS ---
Date/Time of Note Date/Time of Note DATE: 11/21/18 TIME: 12:53 Assessment/Plan Assessment/Plan Hospital Course ID NOTE CURRENT ABX=> Vanco IV + TOBRA IV + Diflucan 11/20/18 0559 11/20/18 0559 24H INTERVAL SUMMARY * Awake, alert, responsive, anxious on the Vent with diaphoresis + intermittent fevers * Abdominal x-ray 11/16/18 revealed questionable ileus osseous destruction suspicion for osteomyelitis involving the right ischium * CT of the abdomen and pelvis revealed distal left ureteral pelvic junction stone producing moderate left obstructive uropathy and hydroureter with perinephric stranding. Bibasilar atelectasis versus mild infiltrate changes * INDWELLINGS: Trach, PEG, Cash. * MICRO * 10/31/18 BCx (+)CoNS --> Repeat BCx (-) * 10/31/18 Urine Cx URINE CULTURE Final Organism 1 YEAST,NOT RUBIN ALBICANS COLONY COUNT >100,000 CFU/ml * 11/06/18 Urine URINE CULTURE Final NO GROWTH AFTER 48 HOURS * 11/14/18 resp cx: RESPIRATORY CULTURE Final Organism 1 ACINETOBACTER BAUMANNII QUANTITY 2+ Organism 2 PSEUDOMONAS AERUGINOSA QUANTITY 2+ A.BAUMANNI P.AERUG M.I.C. RX M.I.C. RX --------- --- --------- --- AMIKACIN R <=2 S AZTREONAM S CEFEPIME 32 R 16 I CEFTAZIDIME >=64 R 2 S CIPROFLOXACIN >=4 R 2 I GENTAMICIN <=1 S 4 S LEVOFLOXACIN >=8 R >=8 R TOBRAMYCIN <=1 S <=1 S PIPERACILLIN/TAZOBACTAM >=128 R 8 S EXAM GENERAL:A/A-> able to communicate via mouthing words, c/o all over body pain HEENT: AT,NC, anicteric moist mucous membranes, no thrush NECK: Supple, trachea (+)Secure to patient and vent CHEST: Equal chest rise bilaterally, without distress HEART: Pulse RRR ABDOMEN: Distended (+)Peg EXTREMITIES: warm, contracted hip ID ASSESSMENT 63 yo M w/Hx SCI post spine decompression w/quadriplegia, VDRF w/Trach + Peg + urinary retention admit with: 1. Sepsis w/persistent intermittent fevers -- source unclear possibly osteomyelitis ? * 10/31/18 BCx (+)CoNS --> Repeat BCx (-) 2. Obstructive uropathy w/left nephrolithiasis + hydronephrosis * CT of the abdomen and pelvis revealed distal left ureteral pelvic junction stone producing moderate left obstructive uropathy and hydroureter with perinephric stranding. Bibasilar atelectasis versus mild infiltrate changes 3. Complex GNR / YEAST recurrent UTI /Pyelonephritis 4. Healthcare-associated pneumonia. 5. Chronic Aspiration Syndrome - dysphagia w/PEG 6. Gastroparesis w/intermittent gastroenteritis and Ileus + emesis * 11/16/18 ABX XR: The bowel gas pattern reflects an ileus. 7. Hx of recurrent C. Diff Colitis w/watery diarrhea. * 11/08/18 C.Diff (-) 8. BLEXT contractures 9. 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 * 04/02/18 WBC SCAN: Low-level activity in the region of the left hip possibly represent inflammatory process. 10. Psych: Anxiety 11. Cholelithiasis (-)MRSA Nares INVASIVES: PIV,Trach, Peg,FC ABX ALLERGY: KNDA CURRENT ABX=>=> Vanco IV + TOBRA IV + Diflucan ID RECOMMENDATIONS 1. Add Flagyl for empiric aerobic coverage due to persistent fevers + diarrhea 2. Add Colistin INH BID via RTx to offload ACBA/PSAR trach pathogens 3. Repeat UA C&S -- continues to spike fevers > 102 today Result Diagram: 11/20/18 0559 11/20/18 0559 Results 24hrs Laboratory Tests Test 11/20/18 17:18 Tobramycin Level Trough 1.9 Consultation Date/Type/Reason Admit Date/Time Oct 31, 2018 at 21:21 Initial Consult Date 11/15/18 Requesting Provider: LORRAINE SHAH MD Exam/Review of Systems Vital Signs Vitals Vital Signs Date Temp Pulse Resp B/P (MAP) Pulse Ox O2 O2 Flow FiO2 Time Delivery Rate 11/21/18 85 12:30 11/21/18 22 98 30 11:46 11/21/18 101.6 101/72 11:45 (82) 11/20/18 [place] 15:52 l Ventilato r Intake and Output 11/20/18 11/20/18 11/21/18 1515:00 23:00 07:00 IntakeIntake Total 965 ml 950 ml OutputOutput Total 900 ml 650 ml BalanceBalance 65 ml 300 ml Medications Medications Current Medications Bisacodyl (Dulcolax Supp) 10 mg Q24H [place] Last administered on 11/21/18 00:10; Admin Dose 10 MG; Start 11/01/18 at 00:00 Enoxaparin Sodium (Lovenox) 30 mg DAILY [place] Last administered on 11/21/18 09:14; Admin Dose 30 MG; Start 11/01/18 at 09:00 Escitalopram Oxalate (Lexapro) 10 mg DAILY GTB Last administered on 11/21/18 08:51; Admin Dose 10 MG; Start 11/01/18 at 09:00 Ferrous Sulfate (Feosol Liquid Cup) 330 mg BID GTB Last administered on 11/21/18 08:51; Admin Dose 330 MG; Start 11/01/18 at 09:00 Lansoprazole (Prevacid) 30 mg DAILY GTB Last administered on 11/21/18 08:51; Admin Dose 30 MG; Start 11/01/18 at 09:00 Morphine Sulfate (morphine) 5 mg Q4H PRN GTB MODERATE TO SEVERE PAIN Last a dministered on 11/10/18 09:32; Admin Dose 5 MG; Start 11/01/18 at 00:00 Multivitamins (Multivitamin) 30 ml DAILY GTB Last administered on 11/21/18 08:51; Admin Dose 30 ML; Start 11/01/18 at 09:00 Docusate Sodium (Colace Liquid Cup) 100 mg BID GTB Last administered on 11/21/18 08:50; Admin Dose 100 MG; Start 11/01/18 at 09:00 Acetaminophen (Tylenol Liquid) 650 mg Q6H PRN GTB MILD PAIN(1-3)OR ELEVATED TEMP Last administered on 11/21/18 08:51; Admin Dose 650 MG; Start 11/01/18 at 12:00 Albuterol (Ventolin Hfa) 4 puff Q6H RESP THERAPY INH Last administered on 11/21/18 07:57; Admin Dose 4 PUFF; Start 11/01/18 at 20:00 Ipratropium [place] (Atrovent Hfa) 4 puff Q6H RESP THERAPY INH Last administered on 11/21/18 07:58; Admin Dose 4 PUFF; Start 11/01/18 at 20:00 Nystatin (Nystatin Susp) 5 ml QID PO Last administered on 11/21/18 08:50; Admin Dose 5 ML; Start 11/09/18 at 17:00 Vancomycin HCl (Vanco Iv Per Pharmacy) VANCOMYCIN PER PHARMACY PER PROTOCOL XX ; Start 11/11/18 at 14:30 Fluconazole (Diflucan) 100 mg DAILY PO Last administered on 11/21/18at 08:51; Admin Dose 100 MG; Start 11/14/18 at 11:30 Tobramycin (Tobramycin Iv Per Pharmacy) TOBRAMYCIN PER PHARMACY NOTE XX ; Start 11/18/18 at 13:30 Tobramycin 300 mg/ Sodium Chloride 107.5 ml @ 108 mls/hr Q24H IVPB Last administered on 11/20/18at 16:59; Admin Dose 108 MLS/HR; Start 11/18/18 at 17:00 Vancomycin HCl 100 ml @ 100 mls/hr Q12H IVPB Last administered on 11/21/18at 08:52; Admin Dose 100 MLS/HR; Start 11/20/18 at 19:00 Miscellaneous Information (*Rx Drug Level Order Reminder*) TOBRAMYCIN TR TODAY 1 2/2... ONCE ONCE XX ; Start 11/21/18 at 16:00; Stop 11/21/18 at 16:01 Miscellaneous Information (*Rx Drug Level Order Reminder*) VANCO TR @ 0,600 ONCE ONCE XX ; Start 11/22/18 at 06:00; Stop 11/22/18 at 06:01 INDER DICKINSON NP Nov 21, 2018 13:04
[2018-11-21] MEDS: metroNIDAZOLE 500 MG/NS (PMX) 100 ML IVPB SCH ×2 (14:13→22:02)
--- NOTE | 2018-11-21 15:41 | CONS ---
Date/Time of Note Date/Time of Note DATE: 11/21/18 TIME: 15:39 Consult Date/Type/Reason Admit Date/Time Oct 31, 2018 at 21:21 Initial Consult Date 11/15/18 Type of Consultation: Pulm Requesting Provider: LORRAINE SHAH MD Subjective no events. comfortable on MV. Objective Vital Signs Date Temp Pulse Resp B/P (MAP) Pulse Ox O2 O2 Flow FiO2 Time Delivery Rate 11/21/18 95 22 97 30 15:20 11/21/18 99.2 15:09 11/21/18 101/72 11:45 (82) 11/20/18 Mechanical 15:52 Ventilator Intake and Output 11/20/18 11/20/18 11/21/18 1515:00 23:00 07:00 IntakeIntake Total 965 ml 950 ml OutputOutput Total 900 ml 650 ml BalanceBalance 65 ml 300 ml Exam NECK: Supple. No JVD or lymphadenopathy. CARDIAC EXAM: S1, S2. No added sounds or murmurs. CHEST: Diminished air entry bilaterally with few rales ABDOMEN: Soft, nontender. No guarding or rebound. EXTREMITIES: No cyanosis, clubbing or edema. NEUROLOGIC: Generalized weakness. No focal deficits. Results/Medications Result Diagram: 11/20/18 0559 11/20/18 0559 Results 24 hrs Laboratory Tests Test 11/20/18 17:18 Tobramycin Level Trough 1.9 Medications Current Medications Bisacodyl (Dulcolax Supp) 10 mg Q24H [place] Last administered on 11/21/18at 00:10; Admin Dose 10 MG; Start 11/01/18 at 00:00 Enoxaparin Sodium (Lovenox) 30 mg DAILY [place] Last administered on 11/21/18at 09:14; Admin Dose 30 MG; Start 11/01/18 at 09:00 Escitalopram Oxalate (Lexapro) 10 mg DAILY GTB Last administered on 11/21/18at 08:51; Admin Dose 10 MG; Start 11/01/18 at 09:00 Ferrous Sulfate (Feosol Liquid Cup) 330 mg BID GTB Last administered on 11/21/18 08:51; Admin Dose 330 MG; Start 11/01/18 at 09:00 Lansoprazole (Prevacid) 30 mg DAILY GTB Last administered on 11/21/18at 08:51; Admin Dose 30 MG; Start 11/01/18 at 09:00 Morphine Sulfate (morphine) 5 mg Q4H PRN GTB MODERATE TO SEVERE PAIN Last administered on 11/10/18 09:32; Admin Dose 5 MG; Start 11/01/18 at 00:00 Multivitamins (Multivitamin) 30 ml DAILY GTB Last administered on 11/21/18 08:51; Admin Dose 30 ML; Start 11/01/18 at 09:00 Docusate Sodium (Colace Liquid Cup) 100 mg BID GTB Last administered on 08:50; Admin Dose 100 MG; Start 11/01/18 at 09:00 Acetaminophen (Tylenol Liquid) 650 mg Q6H PRN GTB MILD PAIN(1-3)OR ELEVATED TEMP Last administered on 11/21/18 14:13; Admin Dose 650 MG; Start 11/01/18 at 12:00 Albuterol (Ventolin Hfa) 4 puff Q6H RESP THERAPY INH Last administered on 14:48; Admin Dose 4 PUFF; Start 11/01/18 at 20:00 Ipratropium [place] (Atrovent Hfa) 4 puff Q6H RESP THERAPY INH Last administered on 11/21/18 14:48; Admin Dose 4 PUFF; Start 11/01/18 at 20:00 Nystatin (Nystatin Susp) 5 ml QID PO Last administered on 11/21/18 14:13; Admin Dose 5 ML; Start 11/09/18 at 17:00 Vancomycin HCl (Vanco Iv Per Pharmacy) VANCOMYCIN PER PHARMACY PER PROTOCOL XX ; Start 11/11/18 at 14:30 Fluconazole (Diflucan) 100 mg DAILY PO Last administered on 11/21/18 08:51; Admin Dose 100 MG; Start 11/14/18 at 11:30 Tobramycin (Tobramycin Iv Per Pharmacy) TOBRAMYCIN PER PHARMACY NOTE XX ; Start 11/18/18 at 13:30 Tobramycin 300 mg/ Sodium Chloride 107.5 ml @ 108 mls/hr Q24H IVPB Last administered on 11/20/18at 16:59; Admin Dose 108 MLS/HR; Start 11/18/18 at 17:00 Vancomycin HCl 100 ml @ 100 mls/hr Q12H IVPB Last administered on 11/21/18at 08:52; Admin Dose 100 MLS/HR; Start 11/20/18 at 19:00 Miscellaneous Information (*Rx Drug Level Order Reminder*) TOBRAMYCIN TR TODAY 10/25... ONCE ONCE XX ; Start 11/21/18 at 16:00; Stop 11/21/18 at 16:01 Miscellaneous Information (*Rx Drug Level Order Reminder*) VANCO TR @ 0,600 ONCE ONCE XX ; Start 11/22/18 at 06:00; Stop 11/22/18 at 06:01 Metronidazole 100 ml @ 100 mls/hr Q8 IVPB Last administered on 11/21/18at 14:13; Admin Dose 100 MLS/HR; Start 11/21/18 at 14:00 Colistimethate Sodium (Colistin Inhal) 75 mg BID RESP THERAPY NEB ; Start 11/21/18 at 20:00; Stop 11/28/18 at 19:59 Assessment/Plan Chief Complaint/Hosp Course Briefly, this is a 63-year-old gentleman with history of coronary artery disease, rnon-ST elevation [place], hypertension, history of aspiration pneumonia and chronic respiratory failure, C-spine epidural abscess, status post C3 to C4 laminectomy, quadriplegic, vent-dependent, prior Klebsiella UTI, obstructive uropathy, SNF resident. He was transferred from SNF with ALOC and fevers. Additional Assessment/Plan IMP: 1. Urosepsis with persistent fevers. 2. Chronic respiratory failure, vent dependent. 3. 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 4. Pre-renal azotemia 5. Right corneal opacity chronic with blindness. 6. History of coronary artery disease with history of myocardial infarction. 7. Chronic sacral coccygeal decubitus RECS: 1. TF/Free H20 2. Abx per ID 3. Vent support 4. Wound care 5. DVT and GI prophylaxis MIGUEL SWARTZ MD Nov 21, 2018 15:41
[2018-11-21] MEDS: morphine LIQ (10 MG/5 ML) CUP GTB PRN (17:42)
[2018-11-21] MEDS: TOBRAMYCIN 300 MG in SOD CHLORIDE 0.9% 100 ML IVPB SCH (18:32)
[2018-11-21] MEDS: COLISTIMETHATE (25 MG/ML INHAL SYG) NEB SCH (19:30)
[2018-11-22] VITALS (23 sets, daily range): BP systolic 104–115; BP diastolic 63–76; PULSE 69–95; RESP 18–23
[2018-11-22] MEDS: BISACODYL 10 MG SUPP PR SCH (00:20)
[2018-11-22] MEDS: IPRATROPIUM (HFA) 12.9 GM INHALER INH SCH ×4 (01:00→19:34)
[2018-11-22] MEDS: ALBUTEROL HFA 8 GM INHALER INH SCH ×4 (01:00→19:34)
[2018-11-22] MEDS: metroNIDAZOLE 500 MG/NS (PMX) 100 ML IVPB SCH ×3 (05:53→22:19)
[2018-11-22] MEDS: NYSTATIN SUSP 5 ML CUP PO SCH ×4 (08:37→20:42)
[2018-11-22] MEDS: VANCOMYCIN 500 MG (PMX) 100 ML IVPB SCH ×2 (08:37→18:27)
[2018-11-22] MEDS: LANSOPRAZOLE 30 MG CAP GTB SCH (08:38)
[2018-11-22] MEDS: MULTIVITAMINS 30 ML CUP GTB SCH (08:38)
[2018-11-22] MEDS: FERROUS SULFATE 60 MG/ML 5ML CUP GTB SCH ×2 (08:38→20:42)
[2018-11-22] MEDS: ESCITALOPRAM 10 MG TAB GTB SCH (08:38)
[2018-11-22] MEDS: DOCUSATE SODIUM 10 MG/ML (10ML CUP) GTB SCH ×2 (08:38→20:42)
[2018-11-22] MEDS: FLUCONAZOLE 100 MG TAB PO SCH (08:38)
[2018-11-22] MEDS: BALSAM PERU/CASTOR OIL 60 GM TUBE TOP SCH (08:39)
[2018-11-22] MEDS: ENOXAPARIN 30 MG/0.3 ML SYG SC SCH (08:43)
[2018-11-22] MEDS: COLISTIMETHATE (25 MG/ML INHAL SYG) NEB SCH (09:00)
[2018-11-22] MEDS: ACETAMINOPHEN 650MG/20.3ML CUP GTB PRN ×2 (09:02→15:17)
--- NOTE | 2018-11-22 13:18 | PN ---
Date/Time of Note Date/Time of Note DATE: 11/22/18 TIME: 13:18 Assessment/Plan VTE Prophylaxis Risk score (from Ns)>0 risk: 9 SCD applied (from Ns): Yes Pharmacological prophylaxis: LMWH Lines/Catheters IV Catheter Type (from Nrs): Mid Line Urinary Cath still in place: Yes Reason Cath still needed: skin wounds contaminated by urine Assessment/Plan Hospital Course -Recurrent sepsis with bacteremia. Continue antibiotics per ID. Dr. Tesfaye is following in infection disease consultation. -Yeast UTI -Possible healthcare acquired pneumonia -Ventilator dependent respiratory failure. Dr. Hernández is following in pulmonology consultation. -Obstructive uropathy -Coronary artery disease with history of AR -Hypertension -Dysphagia with PEG -Quadriplegia 2 to C-spine abscess -C-spine epidural abscess, status post C3 to C4 laminectomy -DNR status Result Diagram: 11/20/18 0559 11/20/18 0559 Results 24hrs Laboratory Tests Test 11/21/18 16:12 11/22/18 06:01 Tobramycin Level Trough 0.9 L Erythrocyte Sedimentation Rate 64 H C-Reactive Protein 2.7 H Vancomycin Level Trough 14.6 Subjective 24 Hr Interval Summary Free Text/Dictation Eyes open, nonverbal Exam/Review of Systems Vital Signs Vitals Vital Signs Date Temp Pulse Resp B/P (MAP) Pulse Ox O2 O2 Flow FiO2 Time Delivery Rate 11/22/18 96 20 96 30 12:46 11/22/18 100.0 111/76 11:48 (88) 11/22/18 Trach 00:26 Collar Intake and Output 11/21/18 11/21/18 11/22/18 1515:00 23:00 07:00 IntakeIntake Total 1157.5 ml 1050 ml OutputOutput Total 500 ml 1500 ml BalanceBalance 657.5 ml -450 ml Exam Constitutional: well developed Head: normocephalic, atraumatic Neck: supple Respiratory: diminished breath sounds Cardiovascular: regular rate and rhythm Gastrointestinal: soft, non-tender Extremities: normal pulses Medications Medications Current Medications Bisacodyl (Dulcolax Supp) 10 mg Q24H [place] Last administered on 11/22/18at 00:20; Admin Dose 10 MG; Start 11/01/18 at 00:00 Enoxaparin Sodium (Lovenox) 30 mg DAILY SC Last administered on 11/22/18 08:43; Admin Dose 30 MG; Start 11/01/18 at 09:00 Escitalopram Oxalate (Lexapro) 10 mg DAILY GTB Last administered on 11/22/18 08:38; Admin Dose 10 MG; Start 11/01/18 at 09:00 Ferrous Sulfate (Feosol Liquid Cup) 330 mg BID GTB Last administered on 11/22/18 08:38; Admin Dose 330 MG; Start 11/01/18 at 09:00 Lansoprazole (Prevacid) 30 mg DAILY GTB Last administered on 11/22/18 08:38; Admin Dose 30 MG; Start 11/01/18 at 09:00 Morphine Sulfate (morphine) 5 mg Q4H PRN GTB MODERATE TO SEVERE PAIN Last administered on 11/21/18 17:42; Admin Dose 5 MG; Start 11/01/18 at 00:00 Multivitamins (Multivitamin) 30 ml DAILY GTB Last administered on 11/22/18 08:38; Admin Dose 30 ML; Start 11/01/18 at 09:00 Docusate Sodium (Colace Liquid Cup) 100 mg BID GTB Last administered on 11/22/18 08:38; Admin Dose 100 MG; Start 11/01/18 at 09:00 Acetaminophen (Tylenol Liquid) 650 mg Q6H PRN GTB MILD PAIN(1-3)OR ELEVATED TEMP Last administered on 11/22/18 09:02; Admin Dose 650 MG; Start 11/01/18 at 12:00 Albuterol (Ventolin Hfa) 4 puff Q6H RESP THERAPY INH Last administered on 11/22/18 07:57; Admin Dose 4 PUFF; Start 11/01/18 at 20:00 Ipratropium [place] (Atrovent Hfa) 4 puff Q6H RESP THERAPY INH Last administered on 11/22/18 07:57; Admin Dose 4 PUFF; Start 11/01/18 at 20:00 Nystatin (Nystatin Susp) 5 ml QID PO Last administered on 11/22/18 12:38; Admin Dose 5 ML; Start 11/09/18 at 17:00 Vancomycin HCl (Vanco Iv Per Pharmacy) VANCOMYCIN PER PHARMACY PER PROTOCOL XX ; Start 11/11/18 at 14:30 Fluconazole (Diflucan) 100 mg DAILY PO Last administered on 11/22/18 08:38; Admin Dose 100 MG; Start 11/14/18 at 11:30 Tobramycin (Tobramycin Iv Per Pharmacy) TOBRAMYCIN PER PHARMACY NOTE XX ; Start 11/18/18 at 13:30 Tobramycin 300 mg/ Sodium Chloride 107.5 ml @ 108 mls/hr Q24H IVPB Last administered on 11/21/18at 18:32; Admin Dose 108 MLS/HR; Start 11/18/18 at 17:00 Vancomycin HCl 100 ml @ 100 mls/hr Q12H IVPB Last administered on 11/22/18 08:37; Admin Dose 100 MLS/HR; Start 11/20/18 at 19:00 Metronidazole 100 ml @ 100 mls/hr Q8 IVPB Last administered on 11/22/18at 05:53; Admin Dose 100 MLS/HR; Start 11/21/18 at 14:00 Colistimethate Sodium (Colistin Inhal) 75 mg BID RESP THERAPY NEB Last administered on 11/21/18at 19:30; Admin Dose 75 MG; Start 11/21/18 at 20:00; Stop 11/28/18 at 19:59 DARIO PANIAGUA Nov 22, 2018 13:18
--- NOTE | 2018-11-22 14:28 | CONS ---
Date/Time of Note Date/Time of Note DATE: 11/22/18 TIME: 14:25 Consult Date/Type/Reason Admit Date/Time Oct 31, 2018 at 21:21 Initial Consult Date 11/15/18 Type of Consultation: Pulm Requesting Provider: LORRAINE SHAH MD Subjective Persistently febrile overnight. Just underwent tagged WBC scan. Objective Vital Signs Date Temp Pulse Resp B/P (MAP) Pulse Ox O2 O2 Flow FiO2 Time Delivery Rate 11/22/18 96 20 96 30 12:46 11/22/18 100.0 111/76 11:48 (88) 11/22/18 Trach 00:26 Collar Intake and Output 11/21/18 11/21/18 11/22/18 1414:59 22:59 06:59 IntakeIntake Total 1157.5 ml 1050 ml OutputOutput Total 500 ml 1500 ml BalanceBalance 657.5 ml -450 ml Exam NECK: Supple. No JVD or lymphadenopathy. CARDIAC EXAM: S1, S2. No added sounds or murmurs. CHEST: Diminished air entry bilaterally with few rales ABDOMEN: Soft, nontender. No guarding or rebound. EXTREMITIES: No cyanosis, clubbing or edema. NEUROLOGIC: Generalized weakness. No focal deficits. Results/Medications Result Diagram: 11/20/18 0559 11/20/18 0559 Results 24 hrs Laboratory Tests Test 11/21/18 16:12 11/22/18 06:01 Tobramycin Level Trough 0.9 L Erythrocyte Sedimentation Rate 64 H C-Reactive Protein 2.7 H Vancomycin Level Trough 14.6 Medications Current Medications Bisacodyl (Dulcolax Supp) 10 mg Q24H [place] Last administered on 11/22/18at 00:20; Admin Dose 10 MG; Start 11/01/18 at 00:00 Enoxaparin Sodium (Lovenox) 30 mg DAILY SC Last administered on 11/22/18at 08:43; Admin Dose 30 MG; Start 11/01/18 at 09:00 Escitalopram Oxalate (Lexapro) 10 mg DAILY GTB Last administered on 11/22/18at 08:38; Admin Dose 10 MG; Start 11/01/18 at 09:00 Ferrous Sulfate (Feosol Liquid Cup) 330 mg BID GTB Last administered on at 08:38; Admin Dose 330 MG; Start 11/01/18 at 09:00 Lansoprazole (Prevacid) 30 mg DAILY GTB Last administered on 11/22/18 08:38; Admin Dose 30 MG; Start 11/01/18 at 09:00 Morphine Sulfate (morphine) 5 mg Q4H PRN GTB MODERATE TO SEVERE PAIN Last administered on 11/21/18 17:42; Admin Dose 5 MG; Start 11/01/18 at 00:00 Multivitamins (Multivitamin) 30 ml DAILY GTB Last administered on 11/22/18 08:38; Admin Dose 30 ML; Start 11/01/18 at 09:00 Docusate Sodium (Colace Liquid Cup) 100 mg BID GTB Last administered on 11/22/18 08:38; Admin Dose 100 MG; Start 11/01/18 at 09:00 Acetaminophen (Tylenol Liquid) 650 mg Q6H PRN GTB MILD PAIN(1-3)OR ELEVATED TEMP Last administered on 11/22/18 09:02; Admin Dose 650 MG; Start 11/01/18 at 12:00 Albuterol (Ventolin Hfa) 4 puff Q6H RESP THERAPY INH Last administered on 11/22/18 07:57; Admin Dose 4 PUFF; Start 11/01/18 at 20:00 Ipratropium [place] (Atrovent Hfa) 4 puff Q6H RESP THERAPY INH Last administered on 11/22/18 07:57; Admin Dose 4 PUFF; Start 11/01/18 at 20:00 Nystatin (Nystatin Susp) 5 ml QID PO Last administered on 11/22/18 12:38; Admin Dose 5 ML; Start 11/09/18 at 17:00 Vancomycin HCl (Vanco Iv Per Pharmacy) VANCOMYCIN PER PHARMACY PER PROTOCOL XX ; Start 11/11/18 at 14:30 Fluconazole (Diflucan) 100 mg DAILY PO Last administered on 11/22/18 08:38; Admin Dose 100 MG; Start 11/14/18 at 11:30 Tobramycin (Tobramycin Iv Per Pharmacy) TOBRAMYCIN PER PHARMACY NOTE XX ; Start 11/18/18 at 13:30 Tobramycin 300 mg/ Sodium Chloride 107.5 ml @ 108 mls/hr Q24H IVPB Last administered on 11/21/18 18:32; Admin Dose 108 MLS/HR; Start 11/18/18 at 17:00 Vancomycin HCl 100 ml @ 100 mls/hr Q12H IVPB Last administered on 11/22/18at 08:37; Admin Dose 100 MLS/HR; Start 11/20/18 at 19:00 Metronidazole 100 ml @ 100 mls/hr Q8 IVPB Last administered on 11/22/18at 05:53; Admin Dose 100 MLS/HR; Start 11/21/18 at 14:00 Colistimethate Sodium (Colistin Inhal) 75 mg BID RESP THERAPY NEB Last administered on 11/21/18at 19:30; Admin Dose 75 MG; Start 11/21/18 at 20:00; Stop 11/28/18 at 19:59 Assessment/Plan Chief Complaint/Hosp Course Briefly, this is a 63-year-old gentleman with history of coronary artery disease, rnon-ST elevation [place], hypertension, history of aspiration pneumonia and chronic respiratory failure, C-spine epidural abscess, status post C3 to C4 laminectomy, quadriplegic, vent-dependent, prior Klebsiella UTI, obstructive uropathy, SNF resident. He was transferred from SNF with ALOC and fevers. Additional Assessment/Plan IMP: 1. Urosepsis with persistent fevers. 2. Chronic respiratory failure, vent dependent. 3. 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 4. Pre-renal azotemia 5. Right corneal opacity chronic with blindness. 6. History of coronary artery disease with history of myocardial infarction. 7. Chronic sacral coccygeal decubitus RECS: 1. TF/Free H20 2. Abx per ID 3. Vent support 4. Await results of tagged WBC nuclear scintigraphy MIGUEL SWARTZ MD Nov 22, 2018 14:28
--- NOTE | 2018-11-22 15:55 | CONS ---
Date/Time of Note Date/Time of Note DATE: 11/22/18 TIME: 15:50 Consult Date/Type/Reason Admit Date/Time Oct 31, 2018 at 21:21 Initial Consult Date 11/15/18 Type of Consultation: Urology Reason for Consultation Distal left ureteral stone Requesting Provider: LORRAINE SHAH MD Subjective Patient conditions is unchanged Objective Vital Signs Date Temp Pulse Resp B/P (MAP) Pulse Ox O2 O2 Flow FiO2 Time Delivery Rate 11/22/18 88 18 99 30 14:59 11/22/18 102.9 114/63 14:54 (80) 11/22/18 Trach 00:26 Collar Intake and Output 11/21/18 11/21/18 11/22/18 1515:00 23:00 07:00 IntakeIntake Total 1157.5 ml 1050 ml OutputOutput Total 500 ml 1500 ml BalanceBalance 657.5 ml -450 ml Exam Cash catheter is draining well, the urine is clear and he has good urine output Results/Medications Result Diagram: 11/20/18 0559 11/20/18 0559 Results 24 hrs Laboratory Tests Test 11/21/18 16:12 11/22/18 06:01 Tobramycin Level Trough 0.9 L Erythrocyte Sedimentation Rate 64 H C-Reactive Protein 2.7 H Vancomycin Level Trough 14.6 Medications Current Medications Bisacodyl (Dulcolax Supp) 10 mg Q24H [place] Last administered on 11/22/18at 00:20; Admin Dose 10 MG; Start 11/01/18 at 00:00 Enoxaparin Sodium (Lovenox) 30 mg DAILY SC Last administered on 11/22/18at 08:43; Admin Dose 30 MG; Start 11/01/18 at 09:00 Escitalopram Oxalate (Lexapro) 10 mg DAILY GTB Last administered on 11/22/18at 08:38; Admin Dose 10 MG; Start 11/01/18 at 09:00 Ferrous Sulfate (Feosol Liquid Cup) 330 mg BID GTB Last administered on 11/22/18at 08:38; Admin Dose 330 MG; Start 11/01/18 at 09:00 Lansoprazole (Prevacid) 30 mg DAILY GTB Last administered on 11/22/18at 08:38; Admin Dose 30 MG; Start 11/01/18 at 09:00 Morphine Sulfate (morphine) 5 mg Q4H PRN GTB MODERATE TO SEVERE PAIN Last administered on 11/21/18 17:42; Admin Dose 5 MG; Start 11/01/18 at 00:00 Multivitamins (Multivitamin) 30 ml DAILY GTB Last administered on 11/22/18 08:38; Admin Dose 30 ML; Start 11/01/18 at 09:00 Docusate Sodium (Colace Liquid Cup) 100 mg BID GTB Last administered on 11/22/18 08:38; Admin Dose 100 MG; Start 11/01/18 at 09:00 Acetaminophen (Tylenol Liquid) 650 mg Q6H PRN GTB MILD PAIN(1-3)OR ELEVATED TEMP Last administered on 11/22/18 15:17; Admin Dose 650 MG; Start 11/01/18 at 12:00 Albuterol (Ventolin Hfa) 4 puff Q6H RESP THERAPY INH Last administered on 11/22/18 14:59; Admin Dose 4 PUFF; Start 11/01/18 at 20:00 Ipratropium [place] (Atrovent Hfa) 4 puff Q6H RESP THERAPY INH Last administered on 11/22/18 14:59; Admin Dose 4 PUFF; Start 11/01/18 at 20:00 Nystatin (Nystatin Susp) 5 ml QID PO Last administered on 11/22/18 12:38; Admin Dose 5 ML; Start 11/09/18 at 17:00 Vancomycin HCl (Vanco Iv Per Pharmacy) VANCOMYCIN PER PHARMACY PER PROTOCOL XX ; Start 11/11/18 at 14:30 Fluconazole (Diflucan) 100 mg DAILY PO Last administered on 11/22/18 08:38; Admin Dose 100 MG; Start 11/14/18 at 11:30 Tobramycin (Tobramycin Iv Per Pharmacy) TOBRAMYCIN PER PHARMACY NOTE XX ; Start 11/18/18 at 13:30 Tobramycin 300 mg/ Sodium Chloride 107.5 ml @ 108 mls/hr Q24H IVPB Last administered on 11/21/18 18:32; Admin Dose 108 MLS/HR; Start 11/18/18 at 17:00 Vancomycin HCl 100 ml @ 100 mls/hr Q12H IVPB Last administered on 11/22/18 08:37; Admin Dose 100 MLS/HR; Start 11/20/18 at 19:00 Metronidazole 100 ml @ 100 mls/hr Q8 IVPB Last administered on 11/22/18at 15:17; Admin Dose 100 MLS/HR; Start 11/21/18 at 14:00 Colistimethate Sodium (Colistin Inhal) 75 mg BID RESP THERAPY NEB Last administered on 11/21/18at 19:30; Admin Dose 75 MG; Start 11/21/18 at 20:00; Stop 11/28/18 at 19:59 Assessment/Plan Chief Complaint/Hosp Course 62-year-old male with history of coronary artery disease, non-ST elevation [place], hypertension, history of aspiration pneumonia ,chronic respiratory failure vent dependent. The patient has history of C-spine epidural abscess, status post C3 to C4 laminectomy. The patient is quadriplegic and has been vent-dependent. He is a resident of [facility] and was noted to have fever and was transferred to [facility] for further care and workup. Since his admission he has been having fever on and off and his temperature has reached 103. He had a CT scan of the abdomen and pelvis and that showed: 1. Distal left uretero-vesicular junction stone producing moderate left obstructive uropathy and hydroureter with perinephric stranding. 2. Nonobstructing left lower pole renal calculus. 3. Mild right perinephric stranding. Correlation with superimposed nephritis. 4. Chronic changes of the right proximal femur with subtrochanteric fracture and remodelling with heterotopic soft tissue calcification. 5. Cholelithiasis. 6. Bibasilar atelectasis versus mild infiltrate changes Therefore a urological consultation was requested because of his persistent fever. All the information were obtained from his medical record. Patient has contracture of all of his extremities. Cash catheter is draining clear urine. Patient had a fever of 102.9 earlier this morning. His white count has been normal and his creatinine has been stable. The stone that he has is small and he should pass it if he has not done that yet. I am not sure his fever is because of the stone or the obstruction from it. Any intervention on him would be very challenging because of his contractures. Therefore unless it is very critical I will give him the chance to pass the stone on his own as it appears he did in the past since in January 2018 he did have multiple small stones inside the bladder which may have came from his kidney as well. I will order a repeat CT scan of abdomen and pelvis to see if the stone still obstructing. NOLBERTO COLLINS MD Nov 22, 2018 15:55
[2018-11-22] MEDS: TOBRAMYCIN 300 MG in SOD CHLORIDE 0.9% 100 ML IVPB SCH (17:28)
--- NOTE | 2018-11-22 20:00 | CONS ---
Date/Time of Note Date/Time of Note DATE: 11/22/18 TIME: 19:46 Assessment/Plan Assessment/Plan Hospital Course ID NOTE CURRENT ABX=> Vanco IV + TOBRA IV + Diflucan + Flagyl + Colistin INH 11/20/18 0559 11/20/18 0559 24H INTERVAL SUMMARY * SPIKING FEVERS AGAIN --- currently sleeping on the vent with diaphoresis + intermittent fevers * CRP 2.7 + ESR 64 === moderately elevated -- not compelling for osteomyelitis * 11/21/18 WBC SCAN: Suboptimal for the evaluation images (lateral views) with no definite abnormal focal areas of increased activity. * Abdominal x-ray 11/16/18 revealed questionable ileus osseous destruction suspicion for osteomyelitis involving the right ischium * CT of the abdomen and pelvis revealed distal left ureteral pelvic junction stone producing moderate left obstructive uropathy and hydroureter with perinephric stranding. Bibasilar atelectasis versus mild infiltrate changes * INDWELLINGS: Trach, PEG, Cash. * MICRO * 10/31/18 BCx (+)CoNS --> Repeat BCx (-) * 10/31/18 Urine Cx URINE CULTURE Final Organism 1 YEAST,NOT RUBIN ALBICANS COLONY COUNT >100,000 CFU/ml * 11/06/18 Urine URINE CULTURE Final NO GROWTH AFTER 48 HOURS * 11/14/18 resp cx: RESPIRATORY CULTURE Final Organism 1 ACINETOBACTER BAUMANNII QUANTITY 2+ Organism 2 PSEUDOMONAS AERUGINOSA QUANTITY 2+ A.BAUMANNI P.AERUG M.I.C. RX M.I.C. RX --------- --- --------- --- AMIKACIN R <=2 S AZTREONAM S CEFEPIME 32 R 16 I CEFTAZIDIME >=64 R 2 S CIPROFLOXACIN >=4 R 2 I GENTAMICIN <=1 S 4 S LEVOFLOXACIN >=8 R >=8 R TOBRAMYCIN <=1 S <=1 S PIPERACILLIN/TAZOBACTAM >=128 R 8 S EXAM GENERAL:A/A-> able to communicate via mouthing words, c/o all over body pain HEENT: AT,NC, anicteric moist mucous membranes, no thrush NECK: Supple, trachea (+)Secure to patient and vent CHEST: Equal chest rise bilaterally, without distress HEART: Pulse RRR ABDOMEN: Distended (+)Peg EXTREMITIES: warm, contracted hip ID ASSESSMENT 63 yo M w/Hx SCI post spine decompression w/quadriplegia, VDRF w/Trach + Peg + urinary retention admit with: 1. Sepsis w/persistent intermittent fevers -- source unclear possibly osteomyelitis ? * 10/31/18 BCx (+)CoNS --> Repeat BCx (-) 2. Obstructive uropathy w/left nephrolithiasis + hydronephrosis * CT of the abdomen and pelvis revealed distal left ureteral pelvic junction stone producing moderate left obstructive uropathy and hydroureter with perinephric stranding. Bibasilar atelectasis versus mild infiltrate changes 3. Complex GNR / YEAST recurrent UTI /Pyelonephritis 4. Healthcare-associated pneumonia. 5. Chronic Aspiration Syndrome - dysphagia w/PEG 6. Gastroparesis w/intermittent gastroenteritis and Ileus + emesis * 11/16/18 ABX XR: The bowel gas pattern reflects an ileus. 7. Hx of recurrent C. Diff Colitis w/watery diarrhea. * 11/08/18 C.Diff (-) 8. BLEXT contractures 9. 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 * 04/02/18 WBC SCAN: Low-level activity in the region of the left hip possibly represent inflammatory process. 10. Psych: Anxiety 11. Cholelithiasis (-)MRSA Nares INVASIVES: PIV,Trach, Peg,FC ABX ALLERGY: KNDA CURRENT ABX=>=> Vanco IV + TOBRA IV + Diflucan + Flagyl + Colistin INH ID RECOMMENDATIONS 1. Fevers continue -- etiology remains unclear-- ?Central fevers ? * ?CT Maxillofacial and/or Brain? Result Diagram: 11/20/18 0559 11/20/18 0559 Results 24hrs Laboratory Tests Test 11/22/18 06:01 Erythrocyte Sedimentation Rate 64 H C-Reactive Protein 2.7 H Vancomycin Level Trough 14.6 Consultation Date/Type/Reason Admit Date/Time Oct 31, 2018 at 21:21 Initial Consult Date 11/15/18 Requesting Provider: LORRAINE SHAH MD Exam/Review of Systems Vital Signs Vitals Vital Signs Date Temp Pulse Resp B/P (MAP) Pulse Ox O2 O2 Flow FiO2 Time Delivery Rate 11/22/18 71 18 100 30 18:08 11/22/18 101.2 16:05 11/22/18 114/63 14:54 (80) 11/22/18 Trach 00:26 Collar Intake and Output 11/21/18 11/21/18 11/22/18 1515:00 23:00 07:00 IntakeIntake Total 1157.5 ml 1150 ml OutputOutput Total 500 ml 1500 ml BalanceBalance 657.5 ml -350 ml Medications Medications Current Medications Bisacodyl (Dulcolax Supp) 10 mg Q24H PA Last administered on 11/22/18at 00:20; Admin Dose 10 MG; Start 11/01/18 at 00:00 Enoxaparin Sodium (Lovenox) 30 mg DAILY SC Last administered on 11/22/18 08:43; Admin Dose 30 MG; Start 11/01/18 at 09:00 Escitalopram Oxalate (Lexapro) 10 mg DAILY GTB Last administered on 11/22/18 08:38; Admin Dose 10 MG; Start 11/01/18 at 09:00 Ferrous Sulfate (Feosol Liquid Cup) 330 mg BID GTB Last administered on 08:38; Admin Dose 330 MG; Start 11/01/18 at 09:00 Lansoprazole (Prevacid) 30 mg DAILY GTB Last administered on 11/22/18 08:38; Admin Dose 30 MG; Start 11/01/18 at 09:00 Morphine Sulfate (morphine) 5 mg Q4H PRN GTB MODERATE TO SEVERE PAIN Last administered on 11/21/18at 17:42; Admin Dose 5 MG; Start 11/01/18 at 00:00 Multivitamins (Multivitamin) 30 ml DAILY GTB Last administered on 11/22/18 08:38; Admin Dose 30 ML; Start 11/01/18 at 09:00 Docusate Sodium (Colace Liquid Cup) 100 mg BID GTB Last administered on 11/22/18 08:38; Admin Dose 100 MG; Start 11/01/18 at 09:00 Acetaminophen (Tylenol Liquid) 650 mg Q6H PRN GTB MILD PAIN(1-3)OR ELEVATED TEMP Last administered on 11/22/18 15:17; Admin Dose 650 MG; Start 11/01/18 at 12:00 Albuterol (Ventolin Hfa) 4 puff Q6H RESP THERAPY INH Last administered on 11/22/18 19:34; Admin Dose 4 PUFF; Start 11/01/18 at 20:00 Ipratropium [place] (Atrovent Hfa) 4 puff Q6H RESP THERAPY INH Last administered on 11/22/18 19:34; Admin Dose 4 PUFF; Start 11/01/18 at 20:00 Nystatin (Nystatin Susp) 5 ml QID PO Last administered on 11/22/18 17:24; Admin Dose 5 ML; Start 11/09/18 at 17:00 Vancomycin HCl (Vanco Iv Per Pharmacy) VANCOMYCIN PER PHARMACY PER PROTOCOL XX ; Start 11/11/18 at 14:30 Fluconazole (Diflucan) 100 mg DAILY PO Last administered on 11/22/18 08:38; Admin Dose 100 MG; Start 11/14/18 at 11:30 Tobramycin (Tobramycin Iv Per Pharmacy) TOBRAMYCIN PER PHARMACY NOTE XX ; Start 11/18/18 at 13:30 Tobramycin 300 mg/ Sodium Chloride 107.5 ml @ 108 mls/hr Q24H IVPB Last administered on 11/22/18 17:28; Admin Dose 108 MLS/HR; Start 11/18/18 at 17:00 Vancomycin HCl 100 ml @ 100 mls/hr Q12H IVPB Last administered on 11/22/18 18:27; Admin Dose 100 MLS/HR; Start 11/20/18 at 19:00 Metronidazole 100 ml @ 100 mls/hr Q8 IVPB Last administered on 11/22/18 15:17; Admin Dose 100 MLS/HR; Start 11/21/18 at 14:00 Colistimethate Sodium (Colistin Inhal) 75 mg BID RESP THERAPY NEB Last administered on 11/21/18 19:30; Admin Dose 75 MG; Start 11/21/18 at 20:00; Stop 11/28/18 at 19:59 INDER DICKINSON NP Nov 22, 2018 19:58
[2018-11-23] VITALS (22 sets, daily range): BP systolic 93–120; BP diastolic 62–72; PULSE 76–95; RESP 18–25
[2018-11-23] MEDS: IPRATROPIUM (HFA) 12.9 GM INHALER INH SCH ×4 (01:50→19:40)
[2018-11-23] MEDS: ALBUTEROL HFA 8 GM INHALER INH SCH ×4 (01:50→19:40)
[2018-11-23] MEDS: metroNIDAZOLE 500 MG/NS (PMX) 100 ML IVPB SCH ×3 (05:41→20:55)
[2018-11-23] MEDS: VANCOMYCIN 500 MG (PMX) 100 ML IVPB SCH ×2 (06:44→17:57)
[2018-11-23] MEDS: COLISTIMETHATE (25 MG/ML INHAL SYG) NEB SCH ×2 (08:05→19:41)
--- NOTE | 2018-11-23 08:12 | CONS ---
Date/Time of Note Date/Time of Note DATE: 11/23/18 TIME: 08:10 Consult Date/Type/Reason Admit Date/Time Oct 31, 2018 at 21:21 Initial Consult Date 11/15/18 Type of Consultation: Urology Reason for Consultation Distal left ureteral stone. Fever Requesting Provider: LORRAINE SHAH MD Subjective Patient general condition is unchanged. He continues to have high temperature. Objective Vital Signs Date Temp Pulse Resp B/P (MAP) Pulse Ox O2 O2 Flow FiO2 Time Delivery Rate 11/23/18 85 18 95 30 05:39 11/23/18 99.8 93/62 (72) 04:23 11/22/18 Trach 00:26 Collar Intake and Output 11/22/18 11/22/18 11/23/18 1515:00 23:00 07:00 IntakeIntake Total 100 ml 1107.5 ml 1050 ml OutputOutput Total 400 ml 600 ml 800 ml BalanceBalance -300 ml 507.5 ml 250 ml Exam The Cash catheter is draining clear urine. The WBC scan is pending as well as the CT scan of the abdomen and pelvis. Results/Medications Result Diagram: 11/20/18 0559 11/23/18 0617 Results 24 hrs Laboratory Tests Test 11/23/18 06:17 Blood Urea Nitrogen 49 H Creatinine 0.75 Medications Current Medications Bisacodyl (Dulcolax Supp) 10 mg Q24H [place] Last administered on 11/22/18at 00:20; Admin Dose 10 MG; Start 11/01/18 at 00:00 Enoxaparin Sodium (Lovenox) 30 mg DAILY SC Last administered on 11/22/18at 08:43; Admin Dose 30 MG; Start 11/01/18 at 09:00 Escitalopram Oxalate (Lexapro) 10 mg DAILY GTB Last administered on 11/22/18 08:38; Admin Dose 10 MG; Start 11/01/18 at 09:00 Ferrous Sulfate (Feosol Liquid Cup) 330 mg BID GTB Last administered on 11/22/18at 20:42; Admin Dose 330 MG; Start 11/01/18 at 09:00 Lansoprazole (Prevacid) 30 mg DAILY GTB Last administered on 11/22/18at 08:38; Admin Dose 30 MG; Start 11/01/18 at 09:00 Morphine Sulfate (morphine) 5 mg Q4H PRN GTB MODERATE TO SEVERE PAIN Last administered on 11/21/18 17:42; Admin Dose 5 MG; Start 11/01/18 at 00:00 Multivitamins (Multivitamin) 30 ml DAILY GTB Last administered on 11/22/18 08:38; Admin Dose 30 ML; Start 11/01/18 at 09:00 Docusate Sodium (Colace Liquid Cup) 100 mg BID GTB Last administered on 11/22/18 08:38; Admin Dose 100 MG; Start 11/01/18 at 09:00 Acetaminophen (Tylenol Liquid) 650 mg Q6H PRN GTB MILD PAIN(1-3)OR ELEVATED TE MP Last administered on 11/22/18 15:17; Admin Dose 650 MG; Start 11/01/18 at 12:00 Albuterol (Ventolin Hfa) 4 puff Q6H RESP THERAPY INH Last administered on 11/23/18 08:06; Admin Dose 4 PUFF; Start 11/01/18 at 20:00 Ipratropium [place] (Atrovent Hfa) 4 puff Q6H RESP THERAPY INH Last administ ered on 11/23/18 08:06; Admin Dose 4 PUFF; Start 11/01/18 at 20:00 Nystatin (Nystatin Susp) 5 ml QID PO Last administered on 11/22/18 20:42; Admin Dose 5 ML; Start 11/09/18 at 17:00 Vancomycin HCl (Vanco Iv Per Pharmacy) VANCOMYCIN PER PHARMACY PER PROTOCOL XX ; Start 11/11/18 at 14:30 Fluconazole (Diflucan) 100 mg DAILY PO Last administered on 11/22/18 08:38; Admin Dose 100 MG; Start 11/14/18 at 11:30 Tobramycin (Tobramycin Iv Per Pharmacy) TOBRAMYCIN PER PHARMACY NOTE XX ; Start 11/18/18 at 13:30 Tobramycin 300 mg/ Sodium Chloride 107.5 ml @ 108 mls/hr Q24H IVPB Last administered on 11/22/18 17:28; Admin Dose 108 MLS/HR; Start 11/18/18 at 17:00 Vancomycin HCl 100 ml @ 100 mls/hr Q12H IVPB Last administered on 11/23/18 06:44; Admin Dose 100 MLS/HR; Start 11/20/18 at 19:00 Metronidazole 100 ml @ 100 mls/hr Q8 IVPB Last administered on 11/23/18at 05:41; Admin Dose 100 MLS/HR; Start 11/21/18 at 14:00 Colistimethate Sodium (Colistin Inhal) 75 mg BID RESP THERAPY NEB Last administered on 11/23/18at 08:05; Admin Dose 75 MG; Start 11/21/18 at 20:00; Stop 11/28/18 at 19:59 Assessment/Plan Chief Complaint/Hosp Course 62-year-old male with history of coronary artery disease, non-ST elevation [place], hypertension, history of aspiration pneumonia ,chronic respiratory failure vent dependent. The patient has history of C-spine epidural abscess, status post C3 to C4 laminectomy. The patient is quadriplegic and has been vent-dependent. He is a resident of [facility] and was noted to have fever and was transferred to [facility] for further care and workup. Since his admission he has been having fever on and off and his temperature has reached 103. He had a CT scan of the abdomen and pelvis and that showed: 1. Distal left uretero-vesicular junction stone producing moderate left obstructive uropathy and hydroureter with perinephric stranding. 2. Nonobstructing left lower pole renal calculus. 3. Mild right perinephric stranding. Correlation with superimposed nephritis. 4. Chronic changes of the right proximal femur with subtrochanteric fracture and remodelling with heterotopic soft tissue calcification. 5. Cholelithiasis. 6. Bibasilar atelectasis versus mild infiltrate changes Therefore a urological consultation was requested because of his persistent fever. All the information were obtained from his medical record. Patient has contracture of all of his extremities. Cash catheter is draining clear urine. Patient had a fever of 103.2 yesterday. His white count has been normal and his creatinine has been stable. The stone that he has is small and he should pass it if he has not done that yet. I am not sure his fever is because of the stone or the obstruction from it. Any intervention on him would be very challenging because of his contractures. Therefore unless it is very critical I will give him the chance to pass the stone on his own as it appears he did in the past since in January 2018 he did have multiple small stones inside the bladder which may have came from his kidney as well. I did order a repeat CT scan of abdomen and pelvis to see if the stone still obstructing and that is still pending. NOLBERTO COLLINS MD Nov 23, 2018 08:12
[2018-11-23] MEDS: FERROUS SULFATE 60 MG/ML 5ML CUP GTB SCH ×2 (08:50→20:55)
[2018-11-23] MEDS: ESCITALOPRAM 10 MG TAB GTB SCH (08:50)
[2018-11-23] MEDS: MULTIVITAMINS 30 ML CUP GTB SCH (08:50)
[2018-11-23] MEDS: NYSTATIN SUSP 5 ML CUP PO SCH ×4 (08:50→20:55)
[2018-11-23] MEDS: FLUCONAZOLE 100 MG TAB PO SCH (08:50)
[2018-11-23] MEDS: LANSOPRAZOLE 30 MG CAP GTB SCH (08:50)
[2018-11-23] MEDS: DOCUSATE SODIUM 10 MG/ML (10ML CUP) GTB SCH ×2 (08:50→20:55)
[2018-11-23] MEDS: ENOXAPARIN 30 MG/0.3 ML SYG SC SCH (08:55)
[2018-11-23] MEDS: BALSAM PERU/CASTOR OIL 60 GM TUBE TOP SCH (09:00)
--- NOTE | 2018-11-23 12:35 | CONS ---
Date/Time of Note Date/Time of Note DATE: 11/23/18 TIME: 12:34 Consult Date/Type/Reason Admit Date/Time Oct 31, 2018 at 21:21 Initial Consult Date 11/01/18 Type of Consultation: Pulmonary ICU Requesting Provider: LORRAINE SHAH MD Subjective Continues to remain febrile. Objective Vital Signs Date Temp Pulse Resp B/P (MAP) Pulse Ox O2 O2 Flow FiO2 Time Delivery Rate 11/23/18 90 12:21 11/23/18 98.0 22 120/67 98 12:12 (84) 11/23/18 30 09:58 11/22/18 Trach 00:26 Collar Intake and Output 11/22/18 11/22/18 11/23/18 1515:00 23:00 07:00 IntakeIntake Total 100 ml 1107.5 ml 1050 ml OutputOutput Total 400 ml 600 ml 800 ml BalanceBalance -300 ml 507.5 ml 250 ml Exam GENERAL: Chronically ill-appearing gentleman VITAL SIGNS: per chart NECK: Supple. No JVD or lymphadenopathy. CARDIAC EXAM: S1, S2. No added sounds or murmurs. CHEST: clear bilaterally, No added sounds, rales or wheezes ABDOMEN: Soft, nontender. No guarding or rebound. EXTREMITIES: No cyanosis, clubbing or edema. NEUROLOGIC: Generalized weakness. No focal deficits. Results/Medications Result Diagram: 11/20/18 0559 11/23/18 0617 Results 24 hrs Laboratory Tests Test 11/23/18 06:17 Blood Urea Nitrogen 49 H Creatinine 0.75 Prostate Specific Antigen 3.1 Medications Current Medications Bisacodyl (Dulcolax Supp) 10 mg Q24H [place] Last administered on 11/22/18at 00:20; Admin Dose 10 MG; Start 11/01/18 at 00:00 Enoxaparin Sodium (Lovenox) 30 mg DAILY SC Last administered on 11/23/18at 08:55; Admin Dose 30 MG; Start 11/01/18 at 09:00 Escitalopram Oxalate (Lexapro) 10 mg DAILY GTB Last administered on 11/23/18at 08:50; Admin Dose 10 MG; Start 11/01/18 at 09:00 Ferrous Sulfate (Feosol Liquid Cup) 330 mg BID GTB Last administered on 11/23/18at 08:50; Admin Dose 330 MG; Start 11/01/18 at 09:00 Lansoprazole (Prevacid) 30 mg DAILY GTB Last administered on 11/23/18 08:50; Admin Dose 30 MG; Start 11/01/18 at 09:00 Morphine Sulfate (morphine) 5 mg Q4H PRN GTB MODERATE TO SEVERE PAIN Last administered on 11/21/18 17:42; Admin Dose 5 MG; Start 11/01/18 at 00:00 Multivitamins (Multivitamin) 30 ml DAILY GTB Last administered on 11/23/18 08:50; Admin Dose 30 ML; Start 11/01/18 at 09:00 Docusate Sodium (Colace Liquid Cup) 100 mg BID GTB Last administered on 11/23/18 08:50; Admin Dose 100 MG; Start 11/01/18 at 09:00 Acetaminophen (Tylenol Liquid) 650 mg Q6H PRN GTB MILD PAIN(1-3)OR ELEVATED TEMP Last administered on 11/22/18 15:17; Admin Dose 650 MG; Start 11/01/18 at 12:00 Albuterol (Ventolin Hfa) 4 puff Q6H RESP THERAPY INH Last administered on 11/23/18 08:06; Admin Dose 4 PUFF; Start 11/01/18 at 20:00 Ipratropium [place] (Atrovent Hfa) 4 puff Q6H RESP THERAPY INH Last administered on 11/23/18 08:06; Admin Dose 4 PUFF; Start 11/01/18 at 20:00 Nystatin (Nystatin Susp) 5 ml QID PO Last administered on 11/23/18 08:50; Admin Dose 5 ML; Start 11/09/18 at 17:00 Vancomycin HCl (Vanco Iv Per Pharmacy) VANCOMYCIN PER PHARMACY PER PROTOCOL XX ; Start 11/11/18 at 14:30 Fluconazole (Diflucan) 100 mg DAILY PO Last administered on 11/23/18 08:50; Admin Dose 100 MG; Start 11/14/18 at 11:30 Tobramycin (Tobramycin Iv Per Pharmacy) TOBRAMYCIN PER PHARMACY NOTE XX ; Start 11/18/18 at 13:30 Tobramycin 300 mg/ Sodium Chloride 107.5 ml @ 108 mls/hr Q24H IVPB Last administered on 12/30/18at 17:28; Admin Dose 108 MLS/HR; Start 11/18/18 at 17:00 Vancomycin HCl 100 ml @ 100 mls/hr Q12H IVPB Last administered on 11/23/18at 06:44; Admin Dose 100 MLS/HR; Start 11/20/18 at 19:00 Metronidazole 100 ml @ 100 mls/hr Q8 IVPB Last administered on 11/23/18at 05:41; Admin Dose 100 MLS/HR; Start 11/21/18 at 14:00 Colistimethate Sodium (Colistin Inhal) 75 mg BID RESP THERAPY NEB Last admi nistered on 11/23/18at 08:05; Admin Dose 75 MG; Start 11/21/18 at 20:00; Stop 11/28/18 at 19:59 Assessment/Plan Chief Complaint/Hosp Course IMP: 1. Urosepsis with persistent fevers. 2. Chronic respiratory failure, vent dependent. 3. 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 4. Pre-renal azotemia 5. Right corneal opacity chronic with blindness. 6. History of coronary artery disease with history of myocardial infarction. 7. Chronic sacral coccygeal decubitus RECS: 1. TF 2. ID recs. 3. Feeding as tolerated 4. Wound care 5. DVT and GI prophylaxis Prognosis guarded. LIVIA VALDERRAMA MD, [facility] Nov 23, 2018 12:35
--- NOTE | 2018-11-23 12:47 | CONS ---
Date/Time of Note Date/Time of Note DATE: 11/23/18 TIME: 12:39 Assessment/Plan Assessment/Plan Hospital Course ID NOTE CURRENT ABX=> Vanco IV + TOBRA IV + Diflucan + Flagyl + Colistin INH 11/20/18 0559 11/23/18 0617 24H INTERVAL SUMMARY * Afebrile today --- HAD BEEN SPIKING FEVERS 48 HOURS PRIOR TO TODAY * == CT reveals he is passing renal ureter stones possible source of fever * == CT also revealing FC in the bulbar urethra == needs to be changed * * CRP 2.7 + ESR 64 === moderately elevated -- not compelling for osteomyelitis * 11/22/18 CT ABD-PEL: IMPRESSION: * 1. Previously seen stone at the left UVJ now identified in a different location along the posterior aspect of the bladder, layering dependently and measuring up to 0.6 cm. * 2. Persistent and grossly unchanged moderate left hydroureternephrosis. Punctate nonobstructing stones are seen in the left kidney measuring up to 2 mm. * 3. Cash catheter, with balloon seen in the bulbar urethra. Advise repositioning. * 4. Right greater than left lower lobe atelectasis and/or infiltrate re- identified. Apparent tree in bud opacities in this region, suggestive of bronchiolitis. Emphysematous changes are seen in the lungs. * 5. Mild extrahepatic ductal dilatation measuring up to 1.1 cm, though without evidence of distal obstructing mass or radiopaque stone. Please consider correlation with liver function exam. * 6. Additional findings as above * 11/21/18 WBC SCAN: Suboptimal for the evaluation images (lateral views) with no definite abnormal focal areas of increased activity. * Abdominal x-ray 11/16/18 revealed questionable ileus osseous destruction suspicion for osteomyelitis involving the right ischium * INDWELLINGS: Trach, PEG, Cash. * MICRO * 10/31/18 BCx (+)CoNS --> Repeat BCx (-) * 10/31/18 Urine Cx URINE CULTURE Final Organism 1 YEAST,NOT RUBIN ALBICANS COLONY COUNT >100,000 CFU/ml * 11/06/18 Urine URINE CULTURE Final NO GROWTH AFTER 48 HOURS * 11/14/18 resp cx: RESPIRATORY CULTURE Final Organism 1 ACINETOBACTER BAUMANNII QUANTITY 2+ Organism 2 PSEUDOMONAS AERUGINOSA QUANTITY 2+ A.BAUMANNI P.AERUG M.I.C. RX M.I.C. RX --------- --- --------- --- AMIKACIN R <=2 S AZTREONAM S CEFEPIME 32 R 16 I CEFTAZIDIME >=64 R 2 S CIPROFLOXACIN >=4 R 2 I GENTAMICIN <=1 S 4 S LEVOFLOXACIN >=8 R >=8 R TOBRAMYCIN <=1 S <=1 S PIPERACILLIN/TAZOBACTAM >=128 R 8 S EXAM GENERAL:A/A-> able to communicate via mouthing words, c/o all over body pain HEENT: AT,NC, anicteric moist mucous membranes, no thrush NECK: Supple, trachea (+)Secure to patient and vent CHEST: Equal chest rise bilaterally, without distress HEART: Pulse RRR ABDOMEN: Distended (+)Peg EXTREMITIES: warm, contracted hip ID ASSESSMENT 63 yo M w/Hx SCI post spine decompression w/quadriplegia, VDRF w/Trach + Peg + urinary retention admit with: 1. Sepsis w/persistent intermittent fevers * 10/31/18 BCx (+)CoNS --> Repeat BCx (-) * Afebrile today --- HAD BEEN SPIKING FEVERS 48 HOURS PRIOR TO TODAY * == CT reveals he is passing renal ureter stones possible source of fever * == CT also revealing FC in the bulbar urethra == needs to be changed 2. Obstructive uropathy w/left nephrolithiasis + hydronephrosis * CT of the abdomen and pelvis revealed distal left ureteral pelvic junction stone producing moderate left obstructive uropathy and hydroureter with perinephric stranding. Bibasilar atelectasis versus mild infiltrate changes 3. Complex GNR / YEAST recurrent UTI /Pyelonephritis 4. Healthcare-associated pneumonia. 5. Chronic Aspiration Syndrome - dysphagia w/PEG 6. Gastroparesis w/intermittent gastroenteritis and Ileus + emesis * 11/16/18 ABX XR: The bowel gas pattern reflects an ileus. 7. Hx of recurrent C. Diff Colitis w/watery diarrhea. * 11/08/18 C.Diff (-) 8. BLEXT contractures 9. 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 * 04/02/18 WBC SCAN: Low-level activity in the region of the left hip possibly represent inflammatory process. 10. Psych: Anxiety 11. Cholelithiasis (-)MRSA Nares INVASIVES: PIV,Trach, Peg,FC ABX ALLERGY: KNDA CURRENT ABX=>=> Vanco IV + TOBRA IV + Diflucan + Flagyl + Colistin INH ID RECOMMENDATIONS Afebrile today --- HAD BEEN SPIKING FEVERS 48 HOURS PRIOR TO TODAY * == CT reveals he is passing renal ureter stones possible source of fever * == CT also revealing FC in the bulbar urethra == needs to be changed Result Diagram: 11/20/18 0559 11/23/18 0617 Results 24hrs Laboratory Tests Test 11/23/18 06:17 Blood Urea Nitrogen 49 H Creatinine 0.75 Prostate Specific Antigen 3.1 Consultation Date/Type/Reason Admit Date/Time Oct 31, 2018 at 21:21 Initial Consult Date 11/15/18 Requesting Provider: LORRAINE SHAH MD Exam/Review of Systems Vital Signs Vitals Vital Signs Date Temp Pulse Resp B/P (MAP) Pulse Ox O2 O2 Flow FiO2 Time Delivery Rate 11/23/18 90 12:21 11/23/18 98.0 22 120/67 98 12:12 (84) 11/23/18 30 09:58 11/22/18 Trach 00:26 Collar Intake and Output 11/22/18 11/22/18 11/23/18 1515:00 23:00 07:00 IntakeIntake Total 100 ml 1107.5 ml 1050 ml OutputOutput Total 400 ml 600 ml 800 ml BalanceBalance -300 ml 507.5 ml 250 ml Medications Medications Current Medications Bisacodyl (Dulcolax Supp) 10 mg Q24H [place] Last administered on 11/22/18at 00:20; Admin Dose 10 MG; Start 11/01/18 at 00:00 Enoxaparin Sodium (Lovenox) 30 mg DAILY SC Last administered on 11/23/18 08:55; Admin Dose 30 MG; Start 11/01/18 at 09:00 Escitalopram Oxalate (Lexapro) 10 mg DAILY GTB Last administered on 11/23/18 08:50; Admin Dose 10 MG; Start 11/01/18 at 09:00 Ferrous Sulfate (Feosol Liquid Cup) 330 mg BID GTB Last administered on 11/23/18 08:50; Admin Dose 330 MG; Start 11/01/18 at 09:00 Lansoprazole (Prevacid) 30 mg DAILY GTB Last administered on 11/23/18 08:50; Admin Dose 30 MG; Start 11/01/18 at 09:00 Morphine Sulfate (morphine) 5 mg Q4H PRN GTB MODERATE TO SEVERE PAIN Last administered on 11/21/18 17:42; Admin Dose 5 MG; Start 11/01/18 at 00:00 Multivitamins (Multivitamin) 30 ml DAILY GTB Last administered on 11/23/18 08:50; Admin Dose 30 ML; Start 11/01/18 at 09:00 Docusate Sodium (Colace Liquid Cup) 100 mg BID GTB Last administered on 11/23/18 08:50; Admin Dose 100 MG; Start 11/01/18 at 09:00 Acetaminophen (Tylenol Liquid) 650 mg Q6H PRN GTB MILD PAIN(1-3)OR ELEVATED TEMP Last administered on 11/22/18 15:17; Admin Dose 650 MG; Start 11/01/18 at 12:00 Albuterol (Ventolin Hfa) 4 puff Q6H RESP THERAPY INH Last administered on 11/23/18 08:06; Admin Dose 4 PUFF; Start 11/01/18 at 20:00 Ipratropium [place] (Atrovent Hfa) 4 puff Q6H RESP THERAPY INH Last administered on 11/23/18 08:06; Admin Dose 4 PUFF; Start 11/01/18 at 20:00 Nystatin (Nystatin Susp) 5 ml QID PO Last administered on 11/23/18 08:50; Admin Dose 5 ML; Start 11/09/18 at 17:00 Vancomycin HCl (Vanco Iv Per Pharmacy) VANCOMYCIN PER PHARMACY PER PROTOCOL XX ; Start 11/11/18 at 14:30 Fluconazole (Diflucan) 100 mg DAILY PO Last administered on 11/23/18at 08:50; Admin Dose 100 MG; Start 11/14/18 at 11:30 Tobramycin (Tobramycin Iv Per Pharmacy) TOBRAMYCIN PER PHARMACY NOTE XX ; Start 11/18/18 at 13:30 Tobramycin 300 mg/ Sodium Chloride 107.5 ml @ 108 mls/hr Q24H IVPB Last administered on 11/22/18at 17:28; Admin Dose 108 MLS/HR; Start 11/18/18 at 17:00 Vancomycin HCl 100 ml @ 100 mls/hr Q12H IVPB Last administered on 11/23/18at 06:44; Admin Dose 100 MLS/HR; Start 11/20/18 at 19:00 Metronidazole 100 ml @ 100 mls/hr Q8 IVPB Last administered on 11/23/18at 05:41; Admin Dose 100 MLS/HR; Start 11/21/18 at 14:00 Colistimethate Sodium (Colistin Inhal) 75 mg BID RESP THERAPY NEB Last administered on 11/23/18at 08:05; Admin Dose 75 MG; Start 11/21/18 at 20:00; Stop 11/28/18 at 19:59 INEDR DICKINSON NP Nov 23, 2018 12:47
--- NOTE | 2018-11-23 13:41 | PN ---
Date/Time of Note Date/Time of Note DATE: 11/23/18 TIME: 13:40 Assessment/Plan VTE Prophylaxis Risk score (from Ns)>0 risk: 6 SCD applied (from [facility]): No SCD contraindicated: other Pharmacological prophylaxis: LMWH Lines/Catheters IV Catheter Type (from [facility] [place]): Mid Line Urinary Cath still in place: Yes Reason Cath still needed: skin wounds contaminated by urine Assessment/Plan Hospital Course -Recurrent sepsis with bacteremia. Continue antibiotics per ID. Dr. Tesfaye is following in infection disease consultation. -Yeast UTI -Possible healthcare acquired pneumonia -Ventilator dependent respiratory failure. Dr. Hernández is following in pulmonology consultation. -Obstructive uropathy -Coronary artery disease with history of PA -Hypertension -Dysphagia with PEG -Quadriplegia 2 to C-spine abscess -C-spine epidural abscess, status post C3 to C4 laminectomy -DNR status Result Diagram: 11/20/18 0559 11/23/18 0617 Results 24hrs Laboratory Tests Test 11/23/18 06:17 Blood Urea Nitrogen 49 H Creatinine 0.75 Prostate Specific Antigen 3.1 Subjective 24 Hr Interval Summary Free Text/Dictation Patient has eyes open but is nonverbal Exam/Review of Systems Vital Signs Vitals Vital Signs Date Temp Pulse Resp B/P (MAP) Pulse Ox O2 O2 Flow FiO2 Time Delivery Rate 11/23/18 90 12:21 11/23/18 98.0 22 120/67 98 12:12 (84) 11/23/18 30 09:58 11/22/18 Trach 00:26 Collar Intake and Output 11/22/18 11/22/18 11/23/18 1515:00 23:00 07:00 IntakeIntake Total 100 ml 1107.5 ml 1050 ml OutputOutput Total 400 ml 600 ml 800 ml BalanceBalance -300 ml 507.5 ml 250 ml Exam Constitutional: well developed Head: normocephalic, atraumatic Neck: supple Respiratory: diminished breath sounds Cardiovascular: regular rate and rhythm Gastrointestinal: soft, non-tender Extremities: normal pulses Medications Medications Current Medications Bisacodyl (Dulcolax Supp) 10 mg Q24H [place] Last administered on 11/22/18at 00:20; Admin Dose 10 MG; Start 11/01/18 at 00:00 Enoxaparin Sodium (Lovenox) 30 mg DAILY SC Last administered on 11/23/18 08:55; Admin Dose 30 MG; Start 11/01/18 at 09:00 Escitalopram Oxalate (Lexapro) 10 mg DAILY GTB Last administered on 11/23/18 08:50; Admin Dose 10 MG; Start 11/01/18 at 09:00 Ferrous Sulfate (Feosol Liquid Cup) 330 mg BID GTB Last administered on 11/23/18 08:50; Admin Dose 330 MG; Start 11/01/18 at 09:00 Lansoprazole (Prevacid) 30 mg DAILY GTB Last administered on 11/23/18 08:50; Admin Dose 30 MG; Start 11/01/18 at 09:00 Morphine Sulfate (morphine) 5 mg Q4H PRN GTB MODERATE TO SEVERE PAIN Last administered on 11/21/18 17:42; Admin Dose 5 MG; Start 11/01/18 at 00:00 Multivitamins (Multivitamin) 30 ml DAILY GTB Last administered on 11/23/18 08:50; Admin Dose 30 ML; Start 11/01/18 at 09:00 Docusate Sodium (Colace Liquid Cup) 100 mg BID GTB Last administered on 11/23/18 08:50; Admin Dose 100 MG; Start 11/01/18 at 09:00 Acetaminophen (Tylenol Liquid) 650 mg Q6H PRN GTB MILD PAIN(1-3)OR ELEVATED TEMP Last administered on 11/22/18 15:17; Admin Dose 650 MG; Start 11/01/18 at 12:00 Albuterol (Ventolin Hfa) 4 puff Q6H RESP THERAPY INH Last administered on 11/23/18 13:37; Admin Dose 4 PUFF; Start 11/01/18 at 20:00 Ipratropium [place] (Atrovent Hfa) 4 puff Q6H RESP THERAPY INH Last administered on 11/23/18 13:37; Admin Dose 4 PUFF; Start 11/01/18 at 20:00 Nystatin (Nystatin Susp) 5 ml QID PO Last administered on 11/23/18 13:06; Admin Dose 5 ML; Start 11/09/18 at 17:00 Vancomycin HCl (Vanco Iv Per Pharmacy) VANCOMYCIN PER PHARMACY PER PROTOCOL XX ; Start 11/11/18 at 14:30 Fluconazole (Diflucan) 100 mg DAILY PO Last administered on 11/23/18at 08:50; Admin Dose 100 MG; Start 11/14/18 at 11:30 Tobramycin (Tobramycin Iv Per Pharmacy) TOBRAMYCIN PER PHARMACY NOTE XX ; Start 11/18/18 at 13:30 Vancomycin HCl 100 ml @ 100 mls/hr Q12H IVPB Last administered on 11/23/18at 06:44; Admin Dose 100 MLS/HR; Start 11/20/18 at 19:00 Metronidazole 100 ml @ 100 mls/hr Q8 IVPB Last administered on 11/23/18at 13:28; Admin Dose 100 MLS/HR; Start 11/21/18 at 14:00 Colistimethate Sodium (Colistin Inhal) 75 mg BID RESP THERAPY NEB Last administered on 11/23/18at 08:05; Admin Dose 75 MG; Start 11/21/18 at 20:00; Stop 11/28/18 at 19:59 Tobramycin 300 mg/ Sodium Chloride 107.5 ml @ 108 mls/hr Q36H IVPB ; Start 11/24/18 at 05:00 DARIO PANIAGUA Nov 23, 2018 13:41
[2018-11-23] MEDS ORDERED: VITAMIN A & D 5 GM OINT PACKET TOP ONE (17:50)
[2018-11-23] MEDS: BISACODYL 10 MG SUPP PR SCH ×2 (23:51)
[2018-11-24] VITALS (25 sets, daily range): BP systolic 82–103; BP diastolic 57–73; PULSE 67–104; RESP 12–28
[2018-11-24] MEDS: IPRATROPIUM (HFA) 12.9 GM INHALER INH SCH ×4 (01:32→19:41)
[2018-11-24] MEDS: ALBUTEROL HFA 8 GM INHALER INH SCH ×4 (01:32→19:41)
[2018-11-24] MEDS: ACETAMINOPHEN 650MG/20.3ML CUP GTB PRN ×3 (04:28→20:27)
[2018-11-24] MEDS ORDERED: TOBRAMYCIN 300 MG in SOD CHLORIDE 0.9% 100 ML IVPB SCH (05:00)
[2018-11-24] MEDS: metroNIDAZOLE 500 MG/NS (PMX) 100 ML IVPB SCH ×3 (05:34→23:02)
[2018-11-24] MEDS: VANCOMYCIN 500 MG (PMX) 100 ML IVPB SCH ×2 (07:01→20:17)
[2018-11-24] MEDS: LANSOPRAZOLE 30 MG CAP GTB SCH (08:54)
[2018-11-24] MEDS: ESCITALOPRAM 10 MG TAB GTB SCH (08:54)
[2018-11-24] MEDS: DOCUSATE SODIUM 10 MG/ML (10ML CUP) GTB SCH ×2 (08:54→20:25)
[2018-11-24] MEDS: FERROUS SULFATE 60 MG/ML 5ML CUP GTB SCH ×2 (08:54→20:25)
[2018-11-24] MEDS: NYSTATIN SUSP 5 ML CUP PO SCH ×4 (08:54→20:25)
[2018-11-24] MEDS: MULTIVITAMINS 30 ML CUP GTB SCH (08:54)
[2018-11-24] MEDS: FLUCONAZOLE 100 MG TAB PO SCH (08:54)
[2018-11-24] MEDS: BALSAM PERU/CASTOR OIL 60 GM TUBE TOP SCH (08:55)
[2018-11-24] MEDS: ENOXAPARIN 30 MG/0.3 ML SYG SC SCH (09:10)
[2018-11-24] MEDS: SOD CHLORIDE 0.9% 1,000 ML IV SCH ×2 (09:30→22:05)
--- NOTE | 2018-11-24 10:08 | CONS ---
Date/Time of Note Date/Time of Note DATE: 11/24/18 TIME: 10:00 Consult Date/Type/Reason Admit Date/Time Oct 31, 2018 at 21:21 Initial Consult Date 11/15/18 Type of Consultation: Urology Reason for Consultation Distal left ureteral stone and left hydronephrosis Requesting Provider: LORRAINE SHAH MD Subjective The patient condition is unchanged. He continues to have fever Objective Vital Signs Date Temp Pulse Resp B/P (MAP) Pulse Ox O2 O2 Flow FiO2 Time Delivery Rate 11/24/18 97 09:26 11/24/18 19 95 30 07:20 11/24/18 102.2 93/57 (69) 07:14 11/24/18 Mechanica 04:00 l Ventilato r Intake and Output 11/23/18 11/23/18 11/24/18 1414:59 22:59 06:59 IntakeIntake Total 200 ml 1058 ml OutputOutput Total 850 ml 400 ml 400 ml BalanceBalance -850 ml -[address] ml [address] scan of the abdomen and pelvis: 1. Previously seen stone at the left UVJ now identified in a different location along the posterior aspect of the bladder, layering dependently and measuring up to 0.6 cm. 2. Persistent and grossly unchanged moderate left hydroureternephrosis. Punctate nonobstructing stones are seen in the left kidney measuring up to 2 mm. 3. Cash catheter, with balloon seen in the bulbar urethra. Advise repositioning. 4. Right greater than left lower lobe atelectasis and/or infiltrate re-i dentified. Apparent tree in bud opacities in this region, suggestive of bronchiolitis. Emphysematous changes are seen in the lungs. 5. Mild extrahepatic ductal dilatation measuring up to 1.1 cm, though without evidence of distal obstructing mass or radiopaque stone. Please consider correlation with liver function exam. 6. Additional findings as above Because the Cash catheter was brought inside his bladder I had it removed last night. The patient has been voiding. His bladder is not distended. As I was about to insert a new catheter for him he did urinate and the urine was clear. I still went ahead and inserted a 14 [place] coud catheter and that went into the bladder. I aspirated from the bladder about 170 mL and that is a postvoid residual urine. I sent specimen for UA, culture and sensitivity. Results/Medications Result Diagram: 11/20/18 0559 11/24/18 0459 Results 24 hrs Laboratory Tests Test 11/24/18 04:59 Blood Urea Nitrogen 49 H Creatinine 0.75 Medications Current Medications Bisacodyl (Dulcolax Supp) 10 mg Q24H [place] Last administered on 11/22/18at 00:20; Admin Dose 10 MG; Start 11/01/18 at 00:00 Enoxaparin Sodium (Lovenox) 30 mg DAILY SC Last administered on 11/24/18 09:10; Admin Dose 30 MG; Start 11/01/18 at 09:00 Escitalopram Oxalate (Lexapro) 10 mg DAILY GTB Last administered on 11/24/18 08:54; Admin Dose 10 MG; Start 11/01/18 at 09:00 Ferrous Sulfate (Feosol Liquid Cup) 330 mg BID GTB Last administered on 11/24/18 08:54; Admin Dose 330 MG; Start 11/01/18 at 09:00 Lansoprazole (Prevacid) 30 mg DAILY GTB Last administered on 11/24/18 08:54; A dmin Dose 30 MG; Start 11/01/18 at 09:00 Morphine Sulfate (morphine) 5 mg Q4H PRN GTB MODERATE TO SEVERE PAIN Last administered on 11/21/18at 17:42; Admin Dose 5 MG; Start 11/01/18 at 00:00 Multivitamins (Multivitamin) 30 ml DAILY GTB Last administered on 11/24/18 08:54; Admin Dose 30 ML; Start 11/01/18 at 09:00 Docusate Sodium (Colace Liquid Cup) 100 mg BID GTB Last administered on 11/24/18 08:54; Admin Dose 100 MG; Start 11/01/18 at 09:00 Acetaminophen (Tylenol Liquid) 650 mg Q6H PRN GTB MILD PAIN(1-3)OR ELEVATED TEMP Last administered on 11/24/18 04:28; Admin Dose 650 MG; Start 11/01/18 at 12:00 Albuterol (Ventolin Hfa) 4 puff Q6H RESP THERAPY INH Last administered on 11/24/18 07:27; Admin Dose 4 PUFF; Start 11/01/18 at 20:00 Ipratropium [place] (Atrovent Hfa) 4 puff Q6H RESP THERAPY INH Last administered on 11/24/18 07:27; Admin Dose 4 PUFF; Start 11/01/18 at 20:00 Nystatin (Nystatin Susp) 5 ml QID PO Last administered on 11/24/18 08:54; Admin Dose 5 ML; Start 11/09/18 at 17:00 Vancomycin HCl (Vanco Iv Per Pharmacy) VANCOMYCIN PER PHARMACY PER PROTOCOL XX ; Start 11/11/18 at 14:30 Fluconazole (Diflucan) 100 mg DAILY PO Last administered on 11/24/18 08:54; Admin Dose 100 MG; Start 11/14/18 at 11:30 Tobramycin (Tobramycin Iv Per Pharmacy) TOBRAMYCIN PER PHARMACY NOTE XX ; Start 11/18/18 at 13:30 Vancomycin HCl 100 ml @ 100 mls/hr Q12H IVPB Last administered on 11/24/18 07:01; Admin Dose 100 MLS/HR; Start 11/20/18 at 19:00 Metronidazole 100 ml @ 100 mls/hr Q8 IVPB Last administered on 11/24/18 05:34; Admin Dose 100 MLS/HR; Start 11/21/18 at 14:00 Colistimethate Sodium (Colistin Inhal) 75 mg BID RESP THERAPY NEB Last administered on 11/23/18at 19:41; Admin Dose 75 MG; Start 11/21/18 at 20:00; Stop 11/28/18 at 19:59 Tobramycin 300 mg/ Sodium Chloride 107.5 ml @ 108 mls/hr Q36H IVPB Last administered on 11/24/18 04:28; Admin Dose 108 MLS/HR; Start 11/24/18 at 05:00 Sodium Chloride 1,000 ml @ 100 mls/hr Q10H IV ; Start 11/24/18 at 09:30 Assessment/Plan Chief Complaint/Hosp Course 62-year-old male with history of coronary artery disease, non-ST elevation MA, hypertension, history of aspiration pneumonia ,chronic respiratory failure vent dependent. The patient has history of C-spine epidural abscess, status post C3 to C4 laminectomy. The patient is quadriplegic and has been vent-dependent. He is a resident of [facility] and was noted to have fever and was transferred to [facility] for further care and workup. Since his admission he has been having fever on and off and his temperature has reached 103. He had a CT scan of the abdomen and pelvis and that showed: 1. Distal left uretero-vesicular junction stone producing moderate left obstructive uropathy and hydroureter with perinephric stranding. 2. Nonobstructing left lower pole renal calculus. 3. Mild right perinephric stranding. Correlation with superimposed nephritis. 4. Chronic changes of the right proximal femur with subtrochanteric fracture and remodelling with heterotopic soft tissue calcification. 5. Cholelithiasis. 6. Bibasilar atelectasis versus mild infiltrate changes Therefore a urological consultation was requested because of his persistent fever. All the information were obtained from his medical record. To reevaluate the distal left ureteral stone I had him undergo a CT scan at that was done and that showed that the stone has passed from the UVJ into the bladder. Therefore there is no need for intervention on the stone. He continues to have left hydronephrosis. The Cash catheter that he had was not inside the bladder and the balloon was inflated in the bulbar urethra. Therefore I had the catheter removed last night. Presently his temperature is 102.2 and his bladder is not distended. He just voided in front of me as I was getting ready to insert a new Cash catheter for him. I did go ahead and insert a 14 Italian coud catheter. I aspirated about 160 mL of clear urine from his bladder. And this represent a postvoid residual. A specimen was sent for urine analysis and urine culture and sensitivity. Because of his contractures it may be difficult to replace the Cash catheter by the nursing staff and one has to make sure every time a catheter is placed that it is inside the bladder. To find that they have to hand irrigate the catheter and if it does irrigate well it indicates good placement NOLBERTO COLLINS MD Nov 24, 2018 10:08
[2018-11-24] MEDS: COLISTIMETHATE (25 MG/ML INHAL SYG) NEB SCH ×2 (10:24→19:41)
--- NOTE | 2018-11-24 12:01 | CONS ---
Date/Time of Note Date/Time of Note DATE: 11/24/18 TIME: 12:01 Consult Date/Type/Reason Admit Date/Time Oct 31, 2018 at 21:21 Initial Consult Date 11/01/18 Type of Consultation: Pulm Requesting Provider: LORRAINE SHAH MD Subjective No events. Objective Vital Signs Date Temp Pulse Resp B/P (MAP) Pulse Ox O2 O2 Flow FiO2 Time Delivery Rate 11/24/18 101.3 73 21 82/67 (72) 95 11:12 11/24/18 30 11:10 11/24/18 Mechanica 04:00 l Ventilato r Intake and Output 11/23/18 11/23/18 11/24/18 1515:00 23:00 07:00 IntakeIntake Total 200 ml 1058 ml OutputOutput Total 850 ml 400 ml 400 ml BalanceBalance -850 ml -200 ml 658 ml Exam GENERAL: Chronically ill-appearing gentleman VITAL SIGNS: per chart NECK: Supple. No JVD or lymphadenopathy. CARDIAC EXAM: S1, S2. No added sounds or murmurs. CHEST: clear bilaterally, No added sounds, rales or wheezes ABDOMEN: Soft, nontender. No guarding or rebound. EXTREMITIES: No cyanosis, clubbing or edema. NEUROLOGIC: Generalized weakness. No focal deficits. Results/Medications Result Diagram: 11/20/18 0559 11/24/18 0459 Results 24 hrs Laboratory Tests Test 11/24/18 04:59 11/24/18 10:00 Blood Urea Nitrogen 49 H Creatinine 0.75 Lactic Acid Level 2.0 Medications Current Medications Bisacodyl (Dulcolax Supp) 10 mg Q24H [place] Last administered on 11/22/18at 00:20; Admin Dose 10 MG; Start 11/01/18 at 00:00 Enoxaparin Sodium (Lovenox) 30 mg DAILY SC Last administered on 11/24/18at 09:10; Admin Dose 30 MG; Start 11/01/18 at 09:00 Escitalopram Oxalate (Lexapro) 10 mg DAILY GTB Last administered on 11/24/18at 08:54; Admin Dose 10 MG; Start 11/01/18 at 09:00 Ferrous Sulfate (Feosol Liquid Cup) 330 mg BID GTB Last administered on 11/24/18at 08:54; Admin Dose 330 MG; Start 11/01/18 at 09:00 Lansoprazole (Prevacid) 30 mg DAILY GTB Last administered on 11/24/18 08:54; Admin Dose 30 MG; Start 11/01/18 at 09:00 Morphine Sulfate (morphine) 5 mg Q4H PRN GTB MODERATE TO SEVERE PAIN Last administered on 11/21/18at 17:42; Admin Dose 5 MG; Start 11/01/18 at 00:00 Multivitamins (Multivitamin) 30 ml DAILY GTB Last administered on 11/24/18 08:54; Admin Dose 30 ML; Start 11/01/18 at 09:00 Docusate Sodium (Colace Liquid Cup) 100 mg BID GTB Last administered on 11/24/18 08:54; Admin Dose 100 MG; Start 11/01/18 at 09:00 Acetaminophen (Tylenol Liquid) 650 mg Q6H PRN GTB MILD PAIN(1-3)OR ELEVATED TEMP Last administered on 11/24/18 04:28; Admin Dose 650 MG; Start 11/01/18 at 12:00 Albuterol (Ventolin Hfa) 4 puff Q6H RESP THERAPY INH Last administered on 11/24/18 07:27; Admin Dose 4 PUFF; Start 11/01/18 at 20:00 Ipratropium [place] (Atrovent Hfa) 4 puff Q6H RESP THERAPY INH Last administered on 11/24/18 07:27; Admin Dose 4 PUFF; Start 11/01/18 at 20:00 Nystatin (Nystatin Susp) 5 ml QID PO Last administered on 11/24/18 08:54; Admin Dose 5 ML; Start 11/09/18 at 17:00 Vancomycin HCl (Vanco Iv Per Pharmacy) VANCOMYCIN PER PHARMACY PER PROTOCOL XX ; Start 11/11/18 at 14:30 Fluconazole (Diflucan) 100 mg DAILY PO Last administered on 11/24/18 08:54; Admin Dose 100 MG; Start 11/14/18 at 11:30 Tobramycin (Tobramycin Iv Per Pharmacy) TOBRAMYCIN PER PHARMACY NOTE XX ; Start 11/18/18 at 13:30 Vancomycin HCl 100 ml @ 100 mls/hr Q12H IVPB Last administered on 11/24/18 07 :01; Admin Dose 100 MLS/HR; Start 11/20/18 at 19:00 Metronidazole 100 ml @ 100 mls/hr Q8 IVPB Last administered on 11/24/18at 05:34; Admin Dose 100 MLS/HR; Start 11/21/18 at 14:00 Colistimethate Sodium (Colistin Inhal) 75 mg BID RESP THERAPY NEB Last administered on 11/24/18at 10:24; Admin Dose 75 MG; Start 11/21/18 at 20:00; Stop 11/28/18 at 19:59 Tobramycin 300 mg/ Sodium Chloride 107.5 ml @ 108 mls/hr Q36H IVPB Last administered on 11/24/18at 04:28; Admin Dose 108 MLS/HR; Start 11/24/18 at 05:00 Sodium Chloride 1,000 ml @ 100 mls/hr Q10H IV Last administered on 11/24/18at 09:30; Admin Dose 100 MLS/HR; Start 11/24/18 at 09:30 Assessment/Plan Chief Complaint/Hosp Course IMP: 1. UTI with sepsis with persistent fevers. 2. Chronic respiratory failure, vent dependent. 3. 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 4. Pre-renal azotemia 5. Right corneal opacity chronic with blindness. 6. History of coronary artery disease with history of myocardial infarction. 7. Chronic sacral coccygeal decubitus RECS: 1. TF 2. ID recs. 3. Feeding as tolerated 4. Wound care 5. DVT and GI prophylaxis Prognosis guarded. LIVIA VALDERRAMA MD, [facility] Nov 24, 2018 12:01
--- NOTE | 2018-11-24 13:11 | PN ---
Date/Time of Note Date/Time of Note DATE: 11/24/18 TIME: 13:10 Assessment/Plan VTE Prophylaxis Risk score (from [facility])>0 risk: 2 SCD applied (from [facility]): No SCD contraindicated: other Pharmacological prophylaxis: LMWH Lines/Catheters IV Catheter Type (from [facility]): Mid Line Urinary Cath still in place: Yes Reason Cath still needed: skin wounds contaminated by urine Assessment/Plan Hospital Course -Recurrent sepsis with bacteremia. Continue antibiotics per ID. Dr. Tesfaye is following in infection disease consultation. -Yeast UTI -Possible healthcare acquired pneumonia -Ventilator dependent respiratory failure. Dr. Hernández is following in pulmonology consultation. -Obstructive uropathy -Coronary artery disease with history of LA -Hypertension -Dysphagia with PEG -Quadriplegia 2 to C-spine abscess -C-spine epidural abscess, status post C3 to C4 laminectomy -DNR status Result Diagram: 11/20/18 0559 11/24/18 0459 Results 24hrs Laboratory Tests Test 11/24/18 04:59 11/24/18 10:00 Blood Urea Nitrogen 49 H Creatinine 0.75 Lactic Acid Level 2.0 Subjective 24 Hr Interval Summary Free Text/Dictation Patient having fever and hypotension. Blood cultures done, continue antibiotics, adjust as needed Exam/Review of Systems Vital Signs Vitals Vital Signs Date Temp Pulse Resp B/P (MAP) Pulse Ox O2 O2 Flow FiO2 Time Delivery Rate 11/24/18 100.2 12:13 11/24/18 73 21 82/67 (72) 95 11:12 11/24/18 30 11:10 11/24/18 Mechanica 04:00 l Ventilato r Intake and Output 11/23/18 11/23/18 11/24/18 1515:00 23:00 07:00 IntakeIntake Total 200 ml 1058 ml OutputOutput Total 850 ml 400 ml 400 ml BalanceBalance -850 ml -200 ml 658 ml Exam Constitutional: well developed Head: normocephalic, atraumatic Neck: supple Respiratory: diminished breath sounds Cardiovascular: regular rate and rhythm Gastrointestinal: soft, non-tender Extremities: normal pulses Medications Medications Current Medications Bisacodyl (Dulcolax Supp) 10 mg Q24H [place] Last administered on 11/22/18at 00:20; Admin Dose 10 MG; Start 11/01/18 at 00:00 Enoxaparin Sodium (Lovenox) 30 mg DAILY SC Last administered on 11/24/18 09:10; Admin Dose 30 MG; Start 11/01/18 at 09:00 Escitalopram Oxalate (Lexapro) 10 mg DAILY GTB Last administered on 11/24/18 08:54; Admin Dose 10 MG; Start 11/01/18 at 09:00 Ferrous Sulfate (Feosol Liquid Cup) 330 mg BID GTB Last administered on 11/24/18 08:54; Admin Dose 330 MG; Start 11/01/18 at 09:00 Lansoprazole (Prevacid) 30 mg DAILY GTB Last administered on 11/24/18 08:54; Admin Dose 30 MG; Start 11/01/18 at 09:00 Morphine Sulfate (morphine) 5 mg Q4H PRN GTB MODERATE TO SEVERE PAIN Last administered on 11/21/18at 17:42; Admin Dose 5 MG; Start 11/01/18 at 00:00 Multivitamins (Multivitamin) 30 ml DAILY GTB Last administered on 11/24/18 08:54; Admin Dose 30 ML; Start 11/01/18 at 09:00 Docusate Sodium (Colace Liquid Cup) 100 mg BID GTB Last administered on 11/24/18 08:54; Admin Dose 100 MG; Start 11/01/18 at 09:00 Acetaminophen (Tylenol Liquid) 650 mg Q6H PRN GTB MILD PAIN(1-3)OR ELEVATED TEMP Last administered on 11/24/18 12:13; Admin Dose 650 MG; Start 11/01/18 at 12:00 Albuterol (Ventolin Hfa) 4 puff Q6H RESP THERAPY INH Last administered on 11/24/18 07:27; Admin Dose 4 PUFF; Start 11/01/18 at 20:00 Ipratropium [place] (Atrovent Hfa) 4 puff Q6H RESP THERAPY INH Last administe red on 11/24/18 07:27; Admin Dose 4 PUFF; Start 11/01/18 at 20:00 Nystatin (Nystatin Susp) 5 ml QID PO Last administered on 11/24/18 08:54; Admin Dose 5 ML; Start 11/09/18 at 17:00 Vancomycin HCl (Vanco Iv Per Pharmacy) VANCOMYCIN PER PHARMACY PER PROTOCOL XX ; Start 11/11/18 at 14:30 Fluconazole (Diflucan) 100 mg DAILY PO Last administered on 11/24/18at 08:54; Admin Dose 100 MG; Start 11/14/18 at 11:30 Tobramycin (Tobramycin Iv Per Pharmacy) TOBRAMYCIN PER PHARMACY NOTE XX ; Start 11/18/18 at 13:30 Vancomycin HCl 100 ml @ 100 mls/hr Q12H IVPB Last administered on 11/24/18at 07:01; Admin Dose 100 MLS/HR; Start 11/20/18 at 19:00 Metronidazole 100 ml @ 100 mls/hr Q8 IVPB Last administered on 11/24/18 05:34; Admin Dose 100 MLS/HR; Start 11/21/18 at 14:00 Colistimethate Sodium (Colistin Inhal) 75 mg BID RESP THERAPY NEB Last administered on 11/24/18at 10:24; Admin Dose 75 MG; Start 11/21/18 at 20:00; Stop 11/28/18 at 19:59 Tobramycin 300 mg/ Sodium Chloride 107.5 ml @ 108 mls/hr Q36H IVPB Last administered on 11/24/18 04:28; Admin Dose 108 MLS/HR; Start 11/24/18 at 05:00 Sodium Chloride 1,000 ml @ 100 mls/hr Q10H IV Last administered on 11/24/18 09:30; Admin Dose 100 MLS/HR; Start 11/24/18 at 09:30 DARIO PANIAGUA Nov 24, 2018 13:11
[2018-11-24] MEDS ORDERED: SOD CHLORIDE 0.9% 1,000 ML IV ONE (13:30)
--- NOTE | 2018-11-24 15:45 | CONS ---
Date/Time of Note Date/Time of Note DATE: 11/24/18 TIME: 15:43 Assessment/Plan Assessment/Plan Hospital Course ID NOTE CURRENT ABX=> Vanco IV + TOBRA IV + Diflucan + Flagyl + Colistin INH 24H INTERVAL SUMMARY * SPIKING FEVERS again -- FC was found to be in the Urethra and he is passing renal stones * CRP 2.7 + ESR 64 === moderately elevated -- not compelling for osteomyelitis * 11/22/18 CT ABD-PEL: IMPRESSION: * 1. Previously seen stone at the left UVJ now identified in a different location along the posterior aspect of the bladder, layering dependently and measuring up to 0.6 cm. * 2. Persistent and grossly unchanged moderate left hydroureternephrosis. Punctate nonobstructing stones are seen in the left kidney measuring up to 2 mm. * 3. Cash catheter, with balloon seen in the bulbar urethra. Advise repositioning. * 4. Right greater than left lower lobe atelectasis and/or infiltrate re-identified. Apparent tree in bud opacities in this region, suggestive of bronchiolitis. Emphysematous changes are seen in the lungs. * 5. Mild extrahepatic ductal dilatation measuring up to 1.1 cm, though w ithout evidence of distal obstructing mass or radiopaque stone. Please consider correlation with liver function exam. * 6. Additional findings as above * 11/21/18 WBC SCAN: Suboptimal for the evaluation images (lateral views) with no definite abnormal focal areas of increased activity. * Abdominal x-ray 11/16/18 revealed questionable ileus osseous destruction suspicion for osteomyelitis involving the right ischium * INDWELLINGS: Trach, PEG, Cash. * MICRO * 10/31/18 BCx (+)CoNS --> Repeat BCx (-) * 10/31/18 Urine Cx URINE CULTURE Final Organism 1 YEAST,NOT RUBIN ALBICANS COLONY COUNT >100,000 CFU/ml * 11/06/18 Urine URINE CULTURE Final NO GROWTH AFTER 48 HOURS * 11/14/18 resp cx: RESPIRATORY CULTURE Final Organism 1 ACINETOBACTER BAUMANNII QUANTITY 2+ Organism 2 PSEUDOMONAS AERUGINOSA QUANTITY 2+ A.BAUMANNI P.AERUG M.I.C. RX M.I.C. RX --------- --- --------- --- AMIKACIN R <=2 S AZTREONAM S CEFEPIME 32 R 16 I CEFTAZIDIME >=64 R 2 S CIPROFLOXACIN >=4 R 2 I GENTAMICIN <=1 S 4 S LEVOFLOXACIN >=8 R >=8 R TOBRAMYCIN <=1 S <=1 S PIPERACILLIN/TAZOBACTAM >=128 R 8 S EXAM GENERAL:A/A-> able to communicate via mouthing words, c/o all over body pain HEENT: AT,NC, anicteric moist mucous membranes, no thrush NECK: Supple, trachea (+)Secure to patient and vent CHEST: Equal chest rise bilaterally, without distress HEART: Pulse RRR ABDOMEN: Distended (+)Peg EXTREMITIES: warm, contracted hip ID ASSESSMENT 63 yo M w/Hx SCI post spine decompression w/quadriplegia, VDRF w/Trach + Peg + urinary retention admit with: 1. Sepsis w/persistent intermittent fevers * 10/31/18 BCx (+)CoNS --> Repeat BCx (-) * SPIKING FEVERS -- FC was found to be in the Urethra and he is passing renal s tones 2. Obstructive uropathy w/left nephrolithiasis + hydronephrosis * CT of the abdomen and pelvis revealed distal left ureteral pelvic junction stone producing moderate left obstructive uropathy and hydroureter with perinephric stranding. Bibasilar atelectasis versus mild infiltrate changes 3. Complex GNR / YEAST recurrent UTI /Pyelonephritis 4. Healthcare-associated pneumonia. 5. Chronic Aspiration Syndrome - dysphagia w/PEG 6. Gastroparesis w/intermittent gastroenteritis and Ileus + emesis * 11/16/18 ABX XR: The bowel gas pattern reflects an ileus. 7. Hx of recurrent C. Diff Colitis w/watery diarrhea. * 11/08/18 C.Diff (-) 8. BLEXT contractures 9. 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 * 04/02/18 WBC SCAN: Low-level activity in the region of the left hip possibly represent inflammatory process. 10. Psych: Anxiety 11. Cholelithiasis (-)MRSA Nares INVASIVES: PIV,Trach, Peg,FC ABX ALLERGY: KNDA CURRENT ABX=>=> Vanco IV + TOBRA IV + Diflucan + Flagyl + Colistin INH ID RECOMMENDATIONS SPIKING FEVERS TODAY * == CT reveals he is passing renal ureter stones possible source of fever * == CT also revealing FC in the bulbar urethra == needs to be changed Result Diagram: 11/20/18 0559 11/24/18 0459 Results 24hrs Laboratory Tests Test 11/24/18 01:45 11/24/18 04:59 11/24/18 10:00 Urine Color YELLOW Urine Clarity CLOUDY A Urine pH 5.0 Urine Specific [place] 1.017 Urine Ketones NEGATIVE Urine Nitrite NEGATIVE Urine Bilirubin NEGATIVE Urine Urobilinogen NEGATIVE Urine Leukocyte Esterase TRACE A Urine Microscopic RBC 5 Urine Microscopic WBC 12 H Urine Hemoglobin NEGATIVE Urine Glucose NEGATIVE Urine Total Protein 2+ H Blood Urea Nitrogen 49 H Creatinine 0.75 Lactic Acid Level 2.0 Consultation Date/Type/Reason Admit Date/Time Oct 31, 2018 at 21:21 Initial Consult Date 11/15/18 Requesting Provider: LORRAINE SHAH MD Exam/Review of Systems Vital Signs Vitals Vital Signs Date Temp Pulse Resp B/P (MAP) Pulse Ox O2 O2 Flow FiO2 Time Delivery Rate 11/24/18 97.8 21 101/66 Mechanical 14:19 (78) Ventilator 11/24/18 90 13:21 11/24/18 97 30 13:15 Intake and Output 11/23/18 11/23/18 11/24/18 1515:00 23:00 07:00 IntakeIntake Total 200 ml 1058 ml OutputOutput Total 850 ml 400 ml 400 ml BalanceBalance -850 ml -200 ml 658 ml Medications Medications Current Medications Bisacodyl (Dulcolax Supp) 10 mg Q24H MD Last administered on 11/22/18at 00:20; Admin Dose 10 MG; Start 11/01/18 at 00:00 Enoxaparin Sodium (Lovenox) 30 mg DAILY SC Last administered on 11/24/18at 09:10; Admin Dose 30 MG; Start 11/01/18 at 09:00 Escitalopram Oxalate (Lexapro) 10 mg DAILY GTB Last administered on 11/24/18 08:54; Admin Dose 10 MG; Start 11/01/18 at 09:00 Ferrous Sulfate (Feosol Liquid Cup) 330 mg BID GTB Last administered on 11/24/18 08:54; Admin Dose 330 MG; Start 11/01/18 at 09:00 Lansoprazole (Prevacid) 30 mg DAILY GTB Last administered on 11/24/18 08:54; Admin Dose 30 MG; Start 11/01/18 at 09:00 Morphine Sulfate (morphine) 5 mg Q4H PRN GTB MODERATE TO SEVERE PAIN Last administered on 11/21/18at 17:42; Admin Dose 5 MG; Start 11/01/18 at 00:00 Multivitamins (Multivitamin) 30 ml DAILY GTB Last administered on 11/24/18 08:54; Admin Dose 30 ML; Start 11/01/18 at 09:00 Docusate Sodium (Colace Liquid Cup) 100 mg BID GTB Last administered on 11/24/18 08:54; Admin Dose 100 MG; Start 11/01/18 at 09:00 Acetaminophen (Tylenol Liquid) 650 mg Q6H PRN GTB MILD PAIN(1-3)OR ELEVATED TEMP Last administered on 11/24/18 12:13; Admin Dose 650 MG; Start 11/01/18 at 12:00 Albuterol (Ventolin Hfa) 4 puff Q6H RESP THERAPY INH Last administered on 11/24/18 13:14; Admin Dose 4 PUFF; Start 11/01/18 at 20:00 Ipratropium [place] (Atrovent Hfa) 4 puff Q6H RESP THERAPY INH Last administered on 11/24/18 13:13; Admin Dose 4 PUFF; Start 11/01/18 at 20:00 Nystatin (Nystatin Susp) 5 ml QID PO Last administered on 11/24/18 13:00; Admin Dose 5 ML; Start 11/09/18 at 17:00 Vancomycin HCl (Vanco Iv Per Pharmacy) VANCOMYCIN PER PHARMACY PER PROTOCOL XX ; Start 11/11/18 at 14:30 Fluconazole (Diflucan) 100 mg DAILY PO Last administered on 1/1/19at 08:54; Admin Dose 100 MG; Start 11/14/18 at 11:30 Tobramycin (Tobramycin Iv Per Pharmacy) TOBRAMYCIN PER PHARMACY NOTE XX ; Start 11/18/18 at 13:30 Vancomycin HCl 100 ml @ 100 mls/hr Q12H IVPB Last administered on 11/24/18 07:01; Admin Dose 100 MLS/HR; Start 11/20/18 at 19:00 Metronidazole 100 ml @ 100 mls/hr Q8 IVPB Last administered on 11/24/18at 15:24; Admin Dose 100 MLS/HR; Start 11/21/18 at 14:00 Colistimethate Sodium (Colistin Inhal) 75 mg BID RESP THERAPY NEB Last administered on 11/24/18 10:24; Admin Dose 75 MG; Start 11/21/18 at 20:00; Stop 11/28/18 at 19:59 Tobramycin 300 mg/ Sodium Chloride 107.5 ml @ 108 mls/hr Q36H IVPB Last administered on 11/24/18at 04:28; Admin Dose 108 MLS/HR; Start 11/24/18 at 05:00 Sodium Chloride 1,000 ml @ 100 mls/hr Q10H IV Last administered on 11/24/18 09:30; Admin Dose 100 MLS/HR; Start 11/24/18 at 09:30 Sodium Chloride 1,000 ml @ 50 mls/hr Q20H ONCE IV ; Start 11/24/18 at 13:30; Stop 11/25/18 at 09:29 INDER DICKINSON NP Nov 24, 2018 15:45
[2018-11-24] MEDS: MEROPENEM 1 GM/50ML(PMX) 50 ML IVPB SCH (22:05)
[2018-11-25] VITALS (24 sets, daily range): BP systolic 90–100; BP diastolic 55–80; PULSE 68–87; RESP 17–22
[2018-11-25] MEDS: BISACODYL 10 MG SUPP PR SCH
[2018-11-25] MEDS: IPRATROPIUM (HFA) 12.9 GM INHALER INH SCH ×4 (01:25→20:25)
[2018-11-25] MEDS: ALBUTEROL HFA 8 GM INHALER INH SCH ×4 (01:25→20:25)
[2018-11-25] MEDS: SOD CHLORIDE 0.9% 1,000 ML IV SCH ×3 (05:30→18:08)
[2018-11-25] MEDS: metroNIDAZOLE 500 MG/NS (PMX) 100 ML IVPB SCH (06:19)
[2018-11-25] MEDS: DOCUSATE SODIUM 10 MG/ML (10ML CUP) GTB SCH ×2 (08:57→20:47)
[2018-11-25] MEDS: FERROUS SULFATE 60 MG/ML 5ML CUP GTB SCH ×2 (08:57→20:47)
[2018-11-25] MEDS: NYSTATIN SUSP 5 ML CUP PO SCH ×4 (08:57→20:47)
[2018-11-25] MEDS: FLUCONAZOLE 100 MG TAB PO SCH (08:58)
[2018-11-25] MEDS: MEROPENEM 1 GM/50ML(PMX) 50 ML IVPB SCH ×2 (08:58→20:47)
[2018-11-25] MEDS: LANSOPRAZOLE 30 MG CAP GTB SCH (08:58)
[2018-11-25] MEDS: ESCITALOPRAM 10 MG TAB GTB SCH (08:58)
[2018-11-25] MEDS: ACETAMINOPHEN 650MG/20.3ML CUP GTB PRN ×2 (08:58→17:24)
[2018-11-25] MEDS: MULTIVITAMINS 30 ML CUP GTB SCH (08:58)
[2018-11-25] MEDS: COLISTIMETHATE (25 MG/ML INHAL SYG) NEB SCH (09:00)
[2018-11-25] MEDS: ENOXAPARIN 30 MG/0.3 ML SYG SC SCH (09:00)
[2018-11-25] MEDS: VANCOMYCIN 500 MG (PMX) 100 ML IVPB SCH (09:02)
[2018-11-25] MEDS: BALSAM PERU/CASTOR OIL 60 GM TUBE TOP SCH (09:09)
--- NOTE | 2018-11-25 13:11 | CONS ---
Date/Time of Note Date/Time of Note DATE: 11/25/18 TIME: 13:06 Consult Date/Type/Reason Admit Date/Time Oct 31, 2018 at 21:21 Initial Consult Date 11/15/18 Type of Consultation: Urology Reason for Consultation Distal left ureteral stone. Previous indwelling Cash catheter with balloon inflated into the urethra. Requesting Provider: LORRAINE SHAH MD Subjective The patient appears to be comfortable. The wound nurse is checking him and he had blisters on his heels. Objective Vital Signs Date Temp Pulse Resp B/P (MAP) Pulse Ox O2 O2 Flow FiO2 Time Delivery Rate 11/25/18 77 12:34 11/25/18 100.4 18 94/55 (68) 100 11:50 11/25/18 30 11:22 11/25/18 Trach 04:41 Collar Intake and Output 11/24/18 11/24/18 11/25/18 1414:59 22:59 06:59 IntakeIntake Total 1100 ml 200 ml OutputOutput Total 550 ml BalanceBalance 550 ml 200 ml Exam Cash catheter is draining clear urine. Patient does have blisters on his heels. His temperature has come down but he still have fever 100.4 today Results/Medications Result Diagram: 11/24/18 0459 Medications Current Medications Bisacodyl (Dulcolax Supp) 10 mg Q24H [place] Last administered on 11/22/18at 00:20; Admin Dose 10 MG; Start 11/01/18 at 00:00 Enoxaparin Sodium (Lovenox) 30 mg DAILY SC Last administered on 11/25/18at 09:00; Admin Dose 30 MG; Start 11/01/18 at 09:00 Escitalopram Oxalate (Lexapro) 10 mg DAILY GTB Last administered on 11/25/18 08:58; Admin Dose 10 MG; Start 11/01/18 at 09:00 Ferrous Sulfate (Feosol Liquid Cup) 330 mg BID GTB Last administered on 11/25/18 08:57; Admin Dose 330 MG; Start 11/01/18 at 09:00 Lansoprazole (Prevacid) 30 mg DAILY GTB Last administered on 11/25/18 08:58; Admin Dose 30 MG; Start 11/01/18 at 09:00 Morphine Sulfate (morphine) 5 mg Q4H PRN GTB MODERATE TO SEVERE PAIN Last administered on 11/21/18 17:42; Admin Dose 5 MG; Start 11/01/18 at 00:00 Multivitamins (Multivitamin) 30 ml DAILY GTB Last administered on 11/25/18 08:58; Admin Dose 30 ML; Start 11/01/18 at 09:00 Docusate Sodium (Colace Liquid Cup) 100 mg BID GTB Last administered on 11/25/18 08:57; Admin Dose 100 MG; Start 11/01/18 at 09:00 Acetaminophen (Tylenol Liquid) 650 mg Q6H PRN GTB MILD PAIN(1-3)OR ELEVATED TEMP Last administered on 11/25/18 08:58; Admin Dose 650 MG; Start 11/01/18 at 12:00 Albuterol (Ventolin Hfa) 4 puff Q6H RESP THERAPY INH Last administered on 11/25/18 08:32; Admin Dose 4 PUFF; Start 11/01/18 at 20:00 Ipratropium [place] (Atrovent Hfa) 4 puff Q6H RESP THERAPY INH Last administered on 11/25/18 08:32; Admin Dose 4 PUFF; Start 11/01/18 at 20:00 Nystatin (Nystatin Susp) 5 ml QID PO Last administered on 11/25/18 08:57; Admin Dose 5 ML; Start 11/09/18 at 17:00 Vancomycin HCl (Vanco Iv Per Pharmacy) VANCOMYCIN PER PHARMACY PER PROTOCOL XX ; Start 11/11/18 at 14:30 Fluconazole (Diflucan) 100 mg DAILY PO Last administered on 11/25/18 08:58; Admin Dose 100 MG; Start 11/14/18 at 11:30 Tobramycin (Tobramycin Iv Per Pharmacy) TOBRAMYCIN PER PHARMACY NOTE XX ; Start 11/18/18 at 13:30 Vancomycin HCl 100 ml @ 100 mls/hr Q12H IVPB Last administered on 11/25/18 09:02; Admin Dose 100 MLS/HR; Start 11/20/18 at 19:00 Metronidazole 100 ml @ 100 mls/hr Q8 IVPB Last administered on 11/25/18 06:19; Admin Dose 100 MLS/HR; Start 11/21/18 at 14:00 Colistimethate Sodium (Colistin Inhal) 75 mg BID RESP THERAPY NEB Last administered on 11/24/18at 19:41; Admin Dose 75 MG; Start 11/21/18 at 20:00; Stop 11/28/18 at 19:59 Tobramycin 300 mg/ Sodium Chloride 107.5 ml @ 108 mls/hr Q36H IVPB Last administered on 11/24/18at 04:28; Admin Dose 108 MLS/HR; Start 11/24/18 at 05:00 Sodium Chloride 1,000 ml @ 100 mls/hr Q10H IV Last administered on 11/25/18at 12:13; Admin Dose 100 MLS/HR; Start 11/24/18 at 09:30 Meropenem/Sodium Chloride 50 ml @ 100 mls/hr Q12 IVPB Last administered on 11/25/18at 08:58; Admin Dose 100 MLS/HR; Start 11/24/18 at 21:00 Assessment/Plan Chief Complaint/Hosp Course 62-year-old male with history of coronary artery disease, non-ST elevation DC, hypertension, history of aspiration pneumonia ,chronic respiratory failure vent dependent. The patient has history of C-spine epidural abscess, status post C3 to C4 laminectomy. The patient is quadriplegic and has been vent-dependent. He is a resident of [facility] and was noted to have fever and was transferred to [facility] for further care and workup. Since his admission he has been having fever on and off and his temperature has reached 103. He had a CT scan of the abdomen and pelvis and that showed: 1. Distal left uretero-vesicular junction stone producing moderate left obstructive uropathy and hydroureter with perinephric stranding. 2. Nonobstructing left lower pole renal calculus. 3. Mild right perinephric stranding. Correlation with superimposed nephritis. 4. Chronic changes of the right proximal femur with subtrochanteric fracture and remodelling with heterotopic soft tissue calcification. 5. Cholelithiasis. 6. Bibasilar atelectasis versus mild infiltrate changes Therefore a urological consultation was requested because of his persistent fever. All the information were obtained from his medical record. He passed the distal left ureteral stone. The Cash catheter that he had with the balloon inflated into the bulbar urethra was removed and a new catheter was inserted. Catheter size is 14 [place] coud catheter. The catheter is draining well and the urine culture from November 24, 2018 is no growth so far. Presently she will continue the same treatment. NOLBERTO COLLINS MD Nov 25, 2018 13:11
--- NOTE | 2018-11-25 13:45 | CONS ---
Date/Time of Note Date/Time of Note DATE: 11/25/18 TIME: 13:43 Assessment/Plan Assessment/Plan Hospital Course Patient is lying comfortably in bed still with low-grade fevers. Status post Cash catheter changed by urology yesterday, no labs this morning. Microbiology: Blood culture yesterday growing gram-negative rods, sputum culture on November 14 grew Acinetobacter pneumonia and pseudomonas aeruginosa Antimicrobials: Colistin inhalation, Flagyl, vancomycin, meropenem, tobramycin INDWELLINGS: Trach, PEG, Cash. PHYSICAL EXAMINATION: GENERAL: This is a chronically ill-appearing, debilitated, elderly man who is in no distress. HEENT: Head atraumatic, normocephalic. Sclerae anicteric. Buccal mucosa dry. NECK: Supple. Tracheostomy present. CHEST: Rise symmetrical. Breath sounds diminished to bases. HEART: S1, S2, tachycardic, regular. ABDOMEN: Soft, bowel tones present. EXTREMITIES: Wasted, contractured. ASSESSMENT: 1. Ongoing fevers with gram-negative willow bacteremia 2. Obstructive uropathy, patient passed the stone for repeat CT 3. Status post coag negative staph bacteremia consistent with contaminant 3. Status post urinary tract infection. 4. Healthcare-associated pneumonia. 5. History of Clostridium difficile colitis. 6. Quadriplegia status post cervical spine surgery. 7. 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 PLAN: Clinically unchanged, status post Cash changed by urology, pending urine culture, continue meropenem and DC other antibiotics, await for final cultures [facility] staff Result Diagram: 11/24/18 0459 Consultation Date/Type/Reason Admit Date/Time Oct 31, 2018 at 21:21 Initial Consult Date 11/01/18 Type of Consult id Requesting Provider: LORRAINE SHAH MD Exam/Review of Systems Vital Signs Vitals Vital Signs Date Temp Pulse Resp B/P (MAP) Pulse Ox O2 O2 Flow FiO2 Time Delivery Rate 11/25/18 78 18 100 30 13:23 11/25/18 100.4 94/55 (68) 11:50 11/25/18 Trach 04:41 Collar Intake and Output 11/24/18 11/24/18 11/25/18 1515:00 23:00 07:00 IntakeIntake Total 1100 ml 200 ml OutputOutput Total 550 ml BalanceBalance 550 ml 200 ml Medications Medications Current Medications Bisacodyl (Dulcolax Supp) 10 mg Q24H NM Last administered on 11/22/18 00:20; Admin Dose 10 MG; Start 11/01/18 at 00:00 Enoxaparin Sodium (Lovenox) 30 mg DAILY SC Last administered on 11/25/18 09:00; Admin Dose 30 MG; Start 11/01/18 at 09:00 Escitalopram Oxalate (Lexapro) 10 mg DAILY GTB Last administered on 11/25/18 08:58; Admin Dose 10 MG; Start 11/01/18 at 09:00 Ferrous Sulfate (Feosol Liquid Cup) 330 mg BID GTB Last administered on 11/25/18 08:57; Admin Dose 330 MG; Start 11/01/18 at 09:00 Lansoprazole (Prevacid) 30 mg DAILY GTB Last administered on 11/25/18 08:58; Admin Dose 30 MG; Start 11/01/18 at 09:00 Morphine Sulfate (morphine) 5 mg Q4H PRN GTB MODERATE TO SEVERE PAIN Last administered on 11/21/18 17:42; Admin Dose 5 MG; Start 11/01/18 at 00:00 Multivitamins (Multivitamin) 30 ml DAILY GTB Last administered on 11/25/18 08:58; Admin Dose 30 ML; Start 11/01/18 at 09:00 Docusate Sodium (Colace Liquid Cup) 100 mg BID GTB Last administered on 11/25/18 08:57; Admin Dose 100 MG; Start 11/01/18 at 09:00 Acetaminophen (Tylenol Liquid) 650 mg Q6H PRN GTB MILD PAIN(1-3)OR ELEVATED TEMP Last administered on 11/25/18 08:58; Admin Dose 650 MG; Start 11/01/18 at 12:00 Albuterol (Ventolin Hfa) 4 puff Q6H RESP THERAPY INH Last administered on 11/25/18 13:28; Admin Dose 4 PUFF; Start 11/01/18 at 20:00 Ipratropium [place] (Atrovent Hfa) 4 puff Q6H RESP THERAPY INH Last administered on 11/25/18 13:27; Admin Dose 4 PUFF; Start 11/01/18 at 20:00 Nystatin (Nystatin Susp) 5 ml QID PO Last administered on 11/25/18 08:57; Admin Dose 5 ML; Start 11/09/18 at 17:00 Vancomycin HCl (Vanco Iv Per Pharmacy) VANCOMYCIN PER PHARMACY PER PROTOCOL XX ; Start 11/11/18 at 14:30 Fluconazole (Diflucan) 100 mg DAILY PO Last administered on 11/25/18 08:58; Admin Dose 100 MG; Start 11/14/18 at 11:30 Tobramycin (Tobramycin Iv Per Pharmacy) TOBRAMYCIN PER PHARMACY NOTE XX ; Start 11/18/18 at 13:30 Vancomycin HCl 100 ml @ 100 mls/hr Q12H IVPB Last administered on 11/25/18 09: 02; Admin Dose 100 MLS/HR; Start 11/20/18 at 19:00 Metronidazole 100 ml @ 100 mls/hr Q8 IVPB Last administered on 11/25/18 06:19; Admin Dose 100 MLS/HR; Start 11/21/18 at 14:00 Colistimethate Sodium (Colistin Inhal) 75 mg BID RESP THERAPY NEB Last administered on 11/24/18 19:41; Admin Dose 75 MG; Start 11/21/18 at 20:00; Stop 11/28/18 at 19:59 Tobramycin 300 mg/ Sodium Chloride 107.5 ml @ 108 mls/hr Q36H IVPB Last administered on 11/24/18 04:28; Admin Dose 108 MLS/HR; Start 11/24/18 at 05:00 Sodium Chloride 1,000 ml @ 100 mls/hr Q10H IV Last administered on 11/25/18 12:13; Admin Dose 100 MLS/HR; Start 11/24/18 at 09:30 Meropenem/Sodium Chloride 50 ml @ 100 mls/hr Q12 IVPB Last administered on 11/25/18 08:58; Admin Dose 100 MLS/HR; Start 11/24/18 at 21:00 RISA SAWYER NP Nov 25, 2018 13:45
--- NOTE | 2018-11-25 13:57 | CONS ---
Date/Time of Note Date/Time of Note DATE: 11/25/18 TIME: 13:56 Consult Date/Type/Reason Admit Date/Time Oct 31, 2018 at 21:21 Initial Consult Date 11/01/18 Type of Consultation: Pulmonary Requesting Provider: LORRAINE SHAH MD Subjective Still remains febrile. Objective Vital Signs Date Temp Pulse Resp B/P (MAP) Pulse Ox O2 O2 Flow FiO2 Time Delivery Rate 11/25/18 78 18 100 30 13:23 11/25/18 100.4 94/55 (68) 11:50 11/25/18 Trach 04:41 Collar Intake and Output 11/24/18 11/24/18 11/25/18 1515:00 23:00 07:00 IntakeIntake Total 1100 ml 200 ml OutputOutput Total 550 ml BalanceBalance 550 ml 200 ml Exam GENERAL: Chronically ill-appearing gentleman VITAL SIGNS: per chart NECK: Supple. No JVD or lymphadenopathy. CARDIAC EXAM: S1, S2. No added sounds or murmurs. CHEST: clear bilaterally, No added sounds, rales or wheezes ABDOMEN: Soft, nontender. No guarding or rebound. EXTREMITIES: No cyanosis, clubbing or edema. NEUROLOGIC: Generalized weakness. No focal deficits. Results/Medications Result Diagram: 11/24/18 0459 Medications Current Medications Bisacodyl (Dulcolax Supp) 10 mg Q24H [place] Last administered on 11/22/18at 00:20; Admin Dose 10 MG; Start 11/01/18 at 00:00 Enoxaparin Sodium (Lovenox) 30 mg DAILY SC Last administered on 11/25/18 09:00; Admin Dose 30 MG; Start 11/01/18 at 09:00 Escitalopram Oxalate (Lexapro) 10 mg DAILY GTB Last administered on 11/25/18 08:58; Admin Dose 10 MG; Start 11/01/18 at 09:00 Ferrous Sulfate (Feosol Liquid Cup) 330 mg BID GTB Last administered on 11/25/18 08:57; Admin Dose 330 MG; Start 11/01/18 at 09:00 Lansoprazole (Prevacid) 30 mg DAILY GTB Last administered on 11/25/18 08:58; Admin Dose 30 MG; Start 11/01/18 at 09:00 Morphine Sulfate (morphine) 5 mg Q4H PRN GTB MODERATE TO SEVERE PAIN Last administered on 11/21/18 17:42; Admin Dose 5 MG; Start 11/01/18 at 00:00 Multivitamins (Multivitamin) 30 ml DAILY GTB Last administered on 11/25/18 08:58; Admin Dose 30 ML; Start 11/01/18 at 09:00 Docusate Sodium (Colace Liquid Cup) 100 mg BID GTB Last administered on 11/25/18 08:57; Admin Dose 100 MG; Start 11/01/18 at 09:00 Acetaminophen (Tylenol Liquid) 650 mg Q6H PRN GTB MILD PAIN(1-3)OR ELEVATED TEMP Last administered on 11/25/18 08:58; Admin Dose 650 MG; Start 11/01/18 at 12:00 Albuterol (Ventolin Hfa) 4 puff Q6H RESP THERAPY INH Last administered on 11/25/18 13:28; Admin Dose 4 PUFF; Start 11/01/18 at 20:00 Ipratropium [place] (Atrovent Hfa) 4 puff Q6H RESP THERAPY INH Last administered on 11/25/18 13:27; Admin Dose 4 PUFF; Start 11/01/18 at 20:00 Nystatin (Nystatin Susp) 5 ml QID PO Last administered on 11/25/18 08:57; Admin Dose 5 ML; Start 11/09/18 at 17:00 Sodium Chloride 1,000 ml @ 100 mls/hr Q10H IV Last administered on 11/25/18 12:13; Admin Dose 100 MLS/HR; Start 11/24/18 at 09:30 Meropenem/Sodium Chloride 50 ml @ 100 mls/hr Q12 IVPB Last administered on 11/25/18 08:58; Admin Dose 100 MLS/HR; Start 11/24/18 at 21:00 Assessment/Plan Chief Complaint/Hosp Course IMP: 1. UTI with sepsis with persistent fevers. 2. Chronic respiratory failure, vent dependent. 3. 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 4. Pre-renal azotemia 5. Right corneal opacity chronic with blindness. 6. History of coronary artery disease with history of myocardial infarction. 7. Chronic sacral coccygeal decubitus RECS: 1. TF 2. ID recs. 3. Feeding as tolerated 4. Wound care 5. DVT and GI prophylaxis Prognosis guarded. LIVIA VALDERRAMA MD, [facility] Nov 25, 2018 13:57
--- NOTE | 2018-11-25 17:02 | PN ---
Date/Time of Note Date/Time of Note DATE: 11/25/18 TIME: 16:48 Assessment/Plan VTE [place]axis [place] [facility] [place]: 5 [place]CD [place] [facility] [place] Yes Pharmacological prophylaxis: LMWH Lines/Catheters [facility]atheter Type (from [facility]): Peripheral IV Central line still needed: Yes Urinary Cath still in place: Yes Reason Cath still needed: urinary retention Assessment/Plan Hospital Course Patient is awake, low-grade fever good urine output Via Cash catheter but patient status post Cash catheter changed yesterday, comfortable on vent. Assessment/Plan -Obstructive uropathy, passed the distal left ureteral stone. Cash catheter changed to cardiac catheter [place] [address] on[address] Castillo is following in urology consultation. -Recurrent sepsis with bacteremia. Continue antibiotics per ID. Dr. Tesfaye is following in infection disease consultation. -S/p Yeast UTI -S/p possible healthcare acquired pneumonia -Ventilator dependent respiratory failure. Dr. Hernández is following in pulmonology consultation. 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 Plan of care discussed with Dr. Bautista. Result Diagram: 11/24/18 0459 Exam/Review of Systems Vital Signs Vitals Vital Signs Date Temp Pulse Resp B/P (MAP) Pulse Ox O2 O2 Flow FiO2 Time Delivery Rate 11/25/18 74 16:40 11/25/18 18 100 30 15:23 11/25/18 100.0 100/80 15:18 (87) 11/25/18 Trach 04:41 Collar Intake and Output 11/24/18 11/24/18 11/25/18 1515:00 23:00 07:00 IntakeIntake Total 1100 ml 200 ml OutputOutput Total 550 ml BalanceBalance 550 ml 200 ml Exam Constitutional: alert, oriented Neck: supple, other (trach) Respiratory: diminished breath sounds Cardiovascular: regular rate and rhythm Gastrointestinal: other (GT) Musculoskeletal: nl extremities to inspection Extremities: normal pulses, other (Contracted) Medications Medications Current Medications Bisacodyl (Dulcolax Supp) 10 mg Q24H [place] Last administered on 11/22/18at 00:20; Admin Dose 10 MG; Start 12/9/18 at 00:00 Enoxaparin Sodium (Lovenox) 30 mg DAILY SC Last administered on 11/25/18 09:00; Admin Dose 30 MG; Start 11/01/18 at 09:00 Escitalopram Oxalate (Lexapro) 10 mg DAILY GTB Last administered on 11/25/18 08:58; Admin Dose 10 MG; Start 11/01/18 at 09:00 Ferrous Sulfate (Feosol Liquid Cup) 330 mg BID GTB Last administered on 11/25/18 08:57; Admin Dose 330 MG; Start 11/01/18 at 09:00 Lansoprazole (Prevacid) 30 mg DAILY GTB Last administered on 11/25/18 08:58; Admin Dose 30 MG; Start 11/01/18 at 09:00 Morphine Sulfate (morphine) 5 mg Q4H PRN GTB MODERATE TO SEVERE PAIN Last administered on 11/21/18at 17:42; Admin Dose 5 MG; Start 11/01/18 at 00:00 Multivitamins (Multivitamin) 30 ml DAILY GTB Last administered on 11/25/18 08:58; Admin Dose 30 ML; Start 11/01/18 at 09:00 Docusate Sodium (Colace Liquid Cup) 100 mg BID GTB Last administered on 11/25/18 08:57; Admin Dose 100 MG; Start 11/01/18 at 09:00 Acetaminophen (Tylenol Liquid) 650 mg Q6H PRN GTB MILD PAIN(1-3)OR ELEVATED TEMP Last administered on 11/25/18 08:58; Admin Dose 650 MG; Start 11/01/18 at 12:00 Albuterol (Ventolin Hfa) 4 puff Q6H RESP THERAPY INH Last administered on 11/25/18 13:28; Admin Dose 4 PUFF; Start 11/01/18 at 20:00 Ipratropium [place] (Atrovent Hfa) 4 puff Q6H RESP THERAPY INH Last administered on 11/25/18 13:27; Admin Dose 4 PUFF; Start 11/01/18 at 20:00 Nystatin (Nystatin Susp) 5 ml QID PO Last administered on 11/25/18 13:00; Admin Dose 5 ML; Start 11/09/18 at 17:00 Sodium Chloride 1,000 ml @ 100 mls/hr Q10H IV Last administered on 11/25/18at 12:13; Admin Dose 100 MLS/HR; Start 11/24/18 at 09:30 Meropenem/Sodium Chloride 50 ml @ 100 mls/hr Q12 IVPB Last administered on 11/25/18at 08:58; Admin Dose 100 MLS/HR; Start 11/24/18 at 21:00 MICHELLE EUGENE Nov 25, 2018 17:01
[2018-11-25] MEDS ORDERED: VANCOMYCIN IV PER PHARMACY XX SCH (22:00)
[2018-11-26] VITALS (22 sets, daily range): BP systolic 92–105; BP diastolic 58–69; PULSE 61–88; RESP 17–22
[2018-11-26] MEDS: BISACODYL 10 MG SUPP PR SCH
[2018-11-26] MEDS: VANCOMYCIN 500 MG (PMX) 100 ML IVPB SCH ×3 (00:33→22:32)
[2018-11-26] MEDS: ACETAMINOPHEN 650MG/20.3ML CUP GTB PRN ×3 (00:37→22:00)
[2018-11-26] MEDS: ALBUTEROL HFA 8 GM INHALER INH SCH ×4 (01:35→19:47)
[2018-11-26] MEDS: IPRATROPIUM (HFA) 12.9 GM INHALER INH SCH ×4 (01:35→19:47)
[2018-11-26] MEDS: SOD CHLORIDE 0.9% 1,000 ML IV SCH ×2 (05:31→09:40)
[2018-11-26] MEDS: DOCUSATE SODIUM 10 MG/ML (10ML CUP) GTB SCH ×2 (09:00→22:00)
[2018-11-26] MEDS: BALSAM PERU/CASTOR OIL 60 GM TUBE TOP SCH (09:00)
[2018-11-26] MEDS: LANSOPRAZOLE 30 MG CAP GTB SCH (09:39)
[2018-11-26] MEDS: NYSTATIN SUSP 5 ML CUP PO SCH ×4 (09:39→22:00)
[2018-11-26] MEDS: MEROPENEM 1 GM/50ML(PMX) 50 ML IVPB SCH (09:39)
[2018-11-26] MEDS: MULTIVITAMINS 30 ML CUP GTB SCH (09:39)
[2018-11-26] MEDS: ESCITALOPRAM 10 MG TAB GTB SCH (09:39)
[2018-11-26] MEDS: FERROUS SULFATE 60 MG/ML 5ML CUP GTB SCH ×2 (09:39→22:00)
[2018-11-26] MEDS: ENOXAPARIN 30 MG/0.3 ML SYG SC SCH (10:01)
[2018-11-26] MEDS ORDERED: FLUCONAZOLE 100 MG TAB PO SCH (11:30)
--- NOTE | 2018-11-26 12:13 | CONS ---
Date/Time of Note Date/Time of Note DATE: 11/26/18 TIME: 12:13 Consult Date/Type/Reason Admit Date/Time Oct 31, 2018 at 21:21 Initial Consult Date 11/01/18 Type of Consultation: Pulmonary Requesting Provider: LORRAINE SHAH MD Subjective Remains febrile Objective Vital Signs Date Temp Pulse Resp B/P (MAP) Pulse Ox O2 O2 Flow FiO2 Time Delivery Rate 11/26/18 99.7 78 22 105/65 100 11:12 (78) 11/26/18 30 08:04 11/26/18 Mechanical 08:00 Ventilator Intake and Output 11/25/18 11/25/18 11/26/18 1515:00 23:00 07:00 IntakeIntake Total 1610 ml 1030 ml 2050 ml OutputOutput Total 700 ml 500 ml 950 ml BalanceBalance 910 ml 530 ml 1100 ml Exam GENERAL: Chronically ill-appearing gentleman VITAL SIGNS: per chart NECK: Supple. No JVD or lymphadenopathy. CARDIAC EXAM: S1, S2. No added sounds or murmurs. CHEST: clear bilaterally, No added sounds, rales or wheezes ABDOMEN: Soft, nontender. No guarding or rebound. EXTREMITIES: No cyanosis, clubbing or edema. NEUROLOGIC: Generalized weakness. No focal deficits. Results/Medications Result Diagram: 11/26/18 0534 11/26/18 0534 Results 24 hrs Laboratory Tests Test 11/26/18 05:34 White Blood Count 11.5 H Red Blood Count 2.99 #L Hemoglobin 8.8 #L Hematocrit 28.9 L Mean Corpuscular Volume 96.7 Mean Corpuscular Hemoglobin 29.4 Mean Corpuscular Hemoglobin Concent 30.4 L Red Cell Distribution Width 14.6 H Platelet Count 117 #L Mean Platelet Volume 12.9 H Immature Granulocytes % 1.100 H Neutrophils % 89.4 H Lymphocytes % 5.9 L Monocytes % 3.0 Eosinophils % 0.3 Basophils % 0.3 Nucleated Red Blood Cells % 0.0 Immature Granulocytes # 0.130 H Neutrophils # 10.3 H Lymphocytes # 0.7 L Monocytes # 0.3 Eosinophils # 0.0 Basophils # 0.0 Nucleated Red Blood Cells # 0.0 Sodium Level 154 H Potassium Level 3.7 Chloride Level 116 H Carbon Dioxide Level 32 H Anion Gap 6 Blood Urea Nitrogen 35 H Creatinine 0.70 Est Glomerular Filtrat Rate mL/min > 60 Glucose Level 168 Calcium Level 8.3 L Medications Current Medications Bisacodyl (Dulcolax Supp) 10 mg Q24H [place] Last administered on 11/22/18 00:20; Admin Dose 10 MG; Start 11/01/18 at 00:00 Enoxaparin Sodium (Lovenox) 30 mg DAILY SC Last administered on 11/26/18 10:01; Admin Dose 30 MG; Start 11/01/18 at 09:00 Escitalopram Oxalate (Lexapro) 10 mg DAILY GTB Last administered on 11/26/18 09:39; Admin Dose 10 MG; Start 11/01/18 at 09:00 Ferrous Sulfate (Feosol Liquid Cup) 330 mg BID GTB Last administered on 11/26/18 t 09:39; Admin Dose 330 MG; Start 11/01/18 at 09:00 Lansoprazole (Prevacid) 30 mg DAILY GTB Last administered on 11/26/18 09:39; Admin Dose 30 MG; Start 11/01/18 at 09:00 Morphine Sulfate (morphine) 5 mg Q4H PRN GTB MODERATE TO SEVERE PAIN Last administered on 11/21/18 17:42; Admin Dose 5 MG; Start 11/01/18 at 00:00 Multivitamins (Multivitamin) 30 ml DAILY GTB Last administered on 11/26/18 09 :39; Admin Dose 30 ML; Start 11/01/18 at 09:00 Docusate Sodium (Colace Liquid Cup) 100 mg BID GTB Last administered on 11/25/18 20:47; Admin Dose 100 MG; Start 11/01/18 at 09:00 Acetaminophen (Tylenol Liquid) 650 mg Q6H PRN GTB MILD PAIN(1-3)OR ELEVATED TEMP Last administered on 11/26/18 00:37; Admin Dose 650 MG; Start 11/01/18 at 12:00 Albuterol (Ventolin Hfa) 4 puff Q6H RESP THERAPY INH Last administered on 11/26/18 08:11; Admin Dose 4 PUFF; Start 11/01/18 at 20:00 Ipratropium [place] (Atrovent Hfa) 4 puff Q6H RESP THERAPY INH Last administered on 11/26/18 08:11; Admin Dose 4 PUFF; Start 11/01/18 at 20:00 Nystatin (Nystatin Susp) 5 ml QID PO Last administered on 11/26/18at 12:09; Admin Dose 5 ML; Start 11/09/18 at 17:00 Sodium Chloride 1,000 ml @ 100 mls/hr Q10H IV Last administered on 11/26/18at 09:40; Admin Dose 100 MLS/HR; Start 11/24/18 at 09:30 Vancomycin HCl (Vanco Iv Per Pharmacy) VANCOMYCIN PER PHARMACY PER PROTOCOL XX ; Start 11/25/18 at 22:00 Vancomycin HCl 100 ml @ 100 mls/hr Q12H IVPB Last administered on 11/26/18at 10:59; Admin Dose 100 MLS/HR; Start 11/25/18 at 22:00 Fluconazole (Diflucan) 100 mg DAILY PO ; Start 11/26/18 at 11:30; Status UNV Cefepime HCl 50 ml @ 100 mls/hr Q12 IVPB ; Start 11/26/18 at 21:00; Status UNV Assessment/Plan Chief Complaint/Hosp Course IMP: 1. UTI with sepsis with persistent fevers. 2. Chronic respiratory failure, vent dependent. 3. 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 4. Pre-renal azotemia 5. Right corneal opacity chronic with blindness. 6. History of coronary artery disease with history of myocardial infarction. 7. Chronic sacral coccygeal decubitus RECS: 1. TF 2. ID recs. 3. Feeding as tolerated 4. Wound care 5. DVT and GI prophylaxis Prognosis guarded. LIVIA VALDERRAMA MD, [facility] Nov 26, 2018 12:13
[2018-11-26] MEDS: CEFEPIME 1GM/50 ML (PMX) 50 ML IVPB SCH ×2 (13:45→22:00)
--- NOTE | 2018-11-26 14:36 | PN ---
Date/Time of Note Date/Time of Note DATE: 11/26/18 TIME: 14:34 Assessment/Plan VTE Prophylaxis Risk score (from [facility] [place]0 risk: 8 SCD applied (from [facility] [place]): No SCD contraindicated: other Pharmacological prophylaxis: LMWH Lines/Catheters IV Catheter Type (from [facility]): Peripheral IV Central line still needed: Yes Urinary Cath still in place: Yes Reason Cath still needed: urinary retention Assessment/Plan Hospital Course Patient spiked fever overnight, started on caspofungin for fungemia. Assessment/Plan -Obstructive uropathy, passed the distal left ureteral stone. Cash catheter changed to cardiac catheter [place] [address] on11/24/[address] Castillo is following in urology consultation. -Recurrent sepsis with bacteremia. Continue antibiotics per ID. Dr. Tesfaye is following in infection disease consultation. -S/p Yeast UTI -S/p possible healthcare acquired pneumonia -Ventilator dependent respiratory failure. Dr. Hernández is following in pulmonology consultation. -Coronary artery disease with history of [place] -Hypertension -Dysphagia with PEG -Quadriplegia 2 to C-spine abscess -C-spine epidural abscess, status post C3 to C4 laminectomy -DNR status Further recommendations based on clinical course. Plan of care discussed with Dr. Bautista. Result Diagram: 11/26/18 0534 11/26/18 0534 Results 24hrs Laboratory Tests Test 11/26/18 05:34 White Blood Count 11.5 H Red Blood Count 2.99 #L Hemoglobin 8.8 #L Hematocrit 28.9 L Mean Corpuscular Volume 96.7 Mean Corpuscular Hemoglobin 29.4 Mean Corpuscular Hemoglobin Concent 30.4 L Red Cell Distribution Width 14.6 H Platelet Count 117 #L Mean Platelet Volume 12.9 H Immature Granulocytes % 1.100 H Neutrophils % 89.4 H Lymphocytes % 5.9 L Monocytes % 3.0 Eosinophils % 0.3 Basophils % 0.3 Nucleated Red Blood Cells % 0.0 Immature Granulocytes # 0.130 H Neutrophils # 10.3 H Lymphocytes # 0.7 L Monocytes # 0.3 Eosinophils # 0.0 Basophils # 0.0 Nucleated Red Blood Cells # 0.0 Sodium Level 154 H Potassium Level 3.7 Chloride Level 116 H Carbon Dioxide Level 32 H Anion Gap 6 Blood Urea Nitrogen 35 H Creatinine 0.70 Est Glomerular Filtrat Rate mL/min > 60 Glucose Level 168 Calcium Level 8.3 L Exam/Review of Systems Vital Signs Vitals Vital Signs Date Temp Pulse Resp B/P (MAP) Pulse Ox O2 O2 Flow FiO2 Time Delivery Rate 11/26/18 30 12:36 11/26/18 Mechanical 12:14 Ventilator 11/26/18 61 12:00 11/26/18 20 99 11:20 11/26/18 99.7 105/65 11:12 (78) Intake and Output 11/25/18 11/25/18 11/26/18 1515:00 23:00 07:00 IntakeIntake Total 1610 ml 1030 ml 2050 ml OutputOutput Total 700 ml 500 ml 950 ml BalanceBalance 910 ml 530 ml 1100 ml Exam Constitutional: alert, oriented Neck: supple, other (trach) Respiratory: diminished breath sounds Cardiovascular: regular rate and rhythm Gastrointestinal: other (GT) Musculoskeletal: nl extremities to inspection Extremities: normal pulses, other (Contracted) Medications Medications Current Medications Bisacodyl (Dulcolax Supp) 10 mg Q24H [place] Last administered on 11/22/18 00:20; Admin Dose 10 MG; Start 11/01/18 at 00:00 Enoxaparin Sodium (Lovenox) 30 mg DAILY SC Last administered on 11/26/18 10:01; Admin Dose 30 MG; Start 11/01/18 at 09:00 Escitalopram Oxalate (Lexapro) 10 mg DAILY GTB Last administered on 11/26/18 09:39; Admin Dose 10 MG; Start 11/01/18 at 09:00 Ferrous Sulfate (Feosol Liquid Cup) 330 mg BID GTB Last administered on 11/26/18 09:39; Admin Dose 330 MG; Start 11/01/18 at 09:00 Lansoprazole (Prevacid) 30 mg DAILY GTB Last administered on 11/26/18 09:39; Admin Dose 30 MG; Start 11/01/18 at 09:00 Morphine Sulfate (morphine) 5 mg Q4H PRN GTB MODERATE TO SEVERE PAIN Last a dministered on 11/21/18at 17:42; Admin Dose 5 MG; Start 11/01/18 at 00:00 Multivitamins (Multivitamin) 30 ml DAILY GTB Last administered on 11/26/18 09:39; Admin Dose 30 ML; Start 11/01/18 at 09:00 Docusate Sodium (Colace Liquid Cup) 100 mg BID GTB Last administered on 11/25/18 20:47; Admin Dose 100 MG; Start 11/01/18 at 09:00 Acetaminophen (Tylenol Liquid) 650 mg Q6H PRN GTB MILD PAIN(1-3)OR ELEVATED TEMP Last administered on 11/26/18 00:37; Admin Dose 650 MG; Start 11/01/18 at 12:00 Albuterol (Ventolin Hfa) 4 puff Q6H RESP THERAPY INH Last administered on 11/26/18 13:23; Admin Dose 4 PUFF; Start 11/01/18 at 20:00 Ipratropium [place] (Atrovent Hfa) 4 puff Q6H RESP THERAPY INH Last ad ministered on 11/26/18 13:23; Admin Dose 4 PUFF; Start 11/01/18 at 20:00 Nystatin (Nystatin Susp) 5 ml QID PO Last administered on 11/26/18 12:09; Admin Dose 5 ML; Start 11/09/18 at 17:00 Sodium Chloride 1,000 ml @ 100 mls/hr Q10H IV Last administered on 11/26/18 09:40; Admin Dose 100 MLS/HR; Start 11/24/18 at 09:30 Vancomycin HCl (Vanco Iv Per Pharmacy) VANCOMYCIN PER PHARMACY PER PROTOCOL XX ; Start 11/25/18 at 22:00 Vancomycin HCl 100 ml @ 100 mls/hr Q12H IVPB Last administered on 11/26/18 10:59; Admin Dose 100 MLS/HR; Start 11/25/18 at 22:00 Fluconazole (Diflucan) 100 mg DAILY PO Last administered on 11/26/18 13:45; Admin Dose 100 MG; Start 11/26/18 at 11:30 Cefepime HCl 50 ml @ 100 mls/hr Q12 IVPB Last administered on 11/26/18 13:45; Admin Dose 100 MLS/HR; Start 11/26/18 at 13:00 MICHELLE EUGENE Nov 26, 2018 14:36
--- NOTE | 2018-11-26 15:19 | CONS ---
Date/Time of Note Date/Time of Note DATE: 11/26/18 TIME: 15:17 Assessment/Plan Assessment/Plan Hospital Course Patient had been spiking fevers, T-max 102 yesterday to current 99.7. Urine culture growing Filomena species not albicans blood culture grew Serratia and gram-positive cocci in clusters Antimicrobials: Vanco fluconazole cefepime INDWELLINGS: Trach, PEG, Cash. PHYSICAL EXAMINATION: GENERAL: This is a chronically ill-appearing, debilitated, elderly man who is in no distress. HEENT: Head atraumatic, normocephalic. Sclerae anicteric. Buccal mucosa dry. NECK: Supple. Tracheostomy present. CHEST: Rise symmetrical. Breath sounds diminished to bases. HEART: S1, S2, tachycardic, regular. ABDOMEN: Soft, bowel tones present. EXTREMITIES: Wasted, contractured. ASSESSMENT: 1. Sepsis with polymicrobial bacteremia 2. Obstructive uropathy, patient passed the stone for repeat CT 3. Status post coag negative staph bacteremia consistent with contaminant 3. Recurrent urinary tract infection. 4. Healthcare-associated pneumonia. 5. History of Clostridium difficile colitis. 6. Quadriplegia status post cervical spine surgery. 7. 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 PLAN: Clinically unchanged, we will will change fluconazole to voriconazole, repeat blood cultures, continue antibiotics, follow urology and pulmonary recommendations staff Result Diagram: 11/26/18 0534 11/26/18 0534 Results 24hrs Laboratory Tests Test 11/26/18 05:34 White Blood Count 11.5 H Red Blood Count 2.99 #L Hemoglobin 8.8 #L Hematocrit 28.9 L Mean Corpuscular Volume 96.7 Mean Corpuscular Hemoglobin 29.4 Mean Corpuscular Hemoglobin Concent 30.4 L Red Cell Distribution Width 14.6 H Platelet Count 117 #L Mean Platelet Volume 12.9 H Immature Granulocytes % 1.100 H Neutrophils % 89.4 H Lymphocytes % 5.9 L Monocytes % 3.0 Eosinophils % 0.3 Basophils % 0.3 Nucleated Red Blood Cells % 0.0 Immature Granulocytes # 0.130 H Neutrophils # 10.3 H Lymphocytes # 0.7 L Monocytes # 0.3 Eosinophils # 0.0 Basophils # 0.0 Nucleated Red Blood Cells # 0.0 Sodium Level 154 H Potassium Level 3.7 Chloride Level 116 H Carbon Dioxide Level 32 H Anion Gap 6 Blood Urea Nitrogen 35 H Creatinine 0.70 Est Glomerular Filtrat Rate mL/min > 60 Glucose Level 168 Calcium Level 8.3 L Consultation Date/Type/Reason Admit Date/Time Oct 31, 2018 at 21:21 Initial Consult Date 11/01/18 Type of Consult id Requesting Provider: LORRAINE SHAH MD Exam/Review of Systems Vital Signs Vitals Vital Signs Date Temp Pulse Resp B/P (MAP) Pulse Ox O2 O2 Flow FiO2 Time Delivery Rate 11/26/18 30 12:36 11/26/18 Mechanical 12:14 Ventilator 11/26/18 61 12:00 11/26/18 20 99 11:20 11/26/18 99.7 105/65 11:12 (78) Intake and Output 11/25/18 11/25/18 11/26/18 1515:00 23:00 07:00 IntakeIntake Total 1610 ml 1030 ml 2050 ml OutputOutput Total 700 ml 500 ml 950 ml BalanceBalance 910 ml 530 ml 1100 ml Medications Medications Current Medications Bisacodyl (Dulcolax Supp) 10 mg Q24H [place] Last administered on 11/22/18at 00:20; Admin Dose 10 MG; Start 11/01/18 at 00:00 Enoxaparin Sodium (Lovenox) 30 mg DAILY SC Last administered on 11/26/18 10:01; Admin Dose 30 MG; Start 11/01/18 at 09:00 Escitalopram Oxalate (Lexapro) 10 mg DAILY GTB Last administered on 11/26/18 09:39; Admin Dose 10 MG; Start 11/01/18 at 09:00 Ferrous Sulfate (Feosol Liquid Cup) 330 mg BID GTB Last administered on 11/26/18 09:39; Admin Dose 330 MG; Start 11/01/18 at 09:00 Lansoprazole (Prevacid) 30 mg DAILY GTB Last administered on 11/26/18 09:39; Admin Dose 30 MG; Start 11/01/18 at 09:00 Morphine Sulfate (morphine) 5 mg Q4H PRN GTB MODERATE TO SEVERE PAIN Last administered on 11/21/18at 17:42; Admin Dose 5 MG; Start 11/01/18 at 00:00 Multivitamins (Multivitamin) 30 ml DAILY GTB Last administered on 11/26/18 09:39; Admin Dose 30 ML; Start 11/01/18 at 09:00 Docusate Sodium (Colace Liquid Cup) 100 mg BID GTB Last administered on 11/25/18 20:47; Admin Dose 100 MG; Start 11/01/18 at 09:00 Acetaminophen (Tylenol Liquid) 650 mg Q6H PRN GTB MILD PAIN(1-3)OR ELEVATED TEMP Last administered on 11/26/18 00:37; Admin Dose 650 MG; Start 11/01/18 at 12:00 Albuterol (Ventolin Hfa) 4 puff Q6H RESP THERAPY INH Last administered on 11/26/18 13:23; Admin Dose 4 PUFF; Start 11/01/18 at 20:00 Ipratropium [place] (Atrovent Hfa) 4 puff Q6H RESP THERAPY INH Last administered on 11/26/18 13:23; Admin Dose 4 PUFF; Start 11/01/18 at 20:00 Nystatin (Nystatin Susp) 5 ml QID PO Last administered on 11/26/18 12:09; Admin Dose 5 ML; Start 11/09/18 at 17:00 Sodium Chloride 1,000 ml @ 100 mls/hr Q10H IV Last administered on 11/26/18 09:40; Admin Dose 100 MLS/HR; Start 11/24/18 at 09:30 Vancomycin HCl (Vanco Iv Per Pharmacy) VANCOMYCIN PER PHARMACY PER PROTOCOL XX ; Start 11/25/18 at 22:00 Vancomycin HCl 100 ml @ 100 mls/hr Q12H IVPB Last administered on 11/26/18 10:59; Admin Dose 100 MLS/HR; Start 11/25/18 at 22:00 Fluconazole (Diflucan) 100 mg DAILY PO Last administered on 11/26/18 13:45; Admin Dose 100 MG; Start 11/26/18 at 11:30 Cefepime HCl 50 ml @ 100 mls/hr Q12 IVPB Last administered on 11/26/18 13:45; Admin Dose 100 MLS/HR; Start 11/26/18 at 13:00 RISA SAWYER NP Nov 26, 2018 15:19
--- NOTE | 2018-11-26 18:37 | CONS ---
Date/Time of Note Date/Time of Note DATE: 11/26/18 TIME: 18:34 Consult Date/Type/Reason Admit Date/Time Oct 31, 2018 at 21:21 Initial Consult Date 11/15/18 Type of Consultation: Urology Reason for Consultation Distal left ureteral stone that has passed into the bladder. Requesting Provider: LORRAINE SHAH MD Subjective Patient is awake and appears to be comfortable. Objective Vital Signs Date Temp Pulse Resp B/P (MAP) Pulse Ox O2 O2 Flow FiO2 Time Delivery Rate 11/26/18 75 18 99 30 17:30 11/26/18 Mechanical 16:03 Ventilator 11/26/18 99.3 100/62 15:26 (75) Intake and Output 11/25/18 11/25/18 11/26/18 1515:00 23:00 07:00 IntakeIntake Total 1610 ml 1030 ml 2050 ml OutputOutput Total 700 ml 500 ml 950 ml BalanceBalance 910 ml 530 ml 1100 ml Exam Cash catheter is draining clear urine. Patient has contractures of lower extremities. Results/Medications Result Diagram: 11/26/18 0534 11/26/18 0534 Results 24 hrs Laboratory Tests Test 11/26/18 05:34 White Blood Count 11.5 H Red Blood Count 2.99 #L Hemoglobin 8.8 #L Hematocrit 28.9 L Mean Corpuscular Volume 96.7 Mean Corpuscular Hemoglobin 29.4 Mean Corpuscular Hemoglobin Concent 30.4 L Red Cell Distribution Width 14.6 H Platelet Count 117 #L Mean Platelet Volume 12.9 H Immature Granulocytes % 1.100 H Neutrophils % 89.4 H Lymphocytes % 5.9 L Monocytes % 3.0 Eosinophils % 0.3 Basophils % 0.3 Nucleated Red Blood Cells % 0.0 Immature Granulocytes # 0.130 H Neutrophils # 10.3 H Lymphocytes # 0.7 L Monocytes # 0.3 Eosinophils # 0.0 Basophils # 0.0 Nucleated Red Blood Cells # 0.0 Sodium Level 154 H Potassium Level 3.7 Chloride Level 116 H Carbon Dioxide Level 32 H Anion Gap 6 Blood Urea Nitrogen 35 H Creatinine 0.70 Est Glomerular Filtrat Rate mL/min > 60 Glucose Level 168 Calcium Level 8.3 L Medications Current Medications Bisacodyl (Dulcolax Supp) 10 mg Q24H [place] Last administered on 11/22/18at 00:20; Admin Dose 10 MG; Start 11/01/18 at 00:00 Enoxaparin Sodium (Lovenox) 30 mg DAILY SC Last administered on 11/26/18 10:01; Admin Dose 30 MG; Start 11/01/18 at 09:00 Escitalopram Oxalate (Lexapro) 10 mg DAILY GTB Last administered on 11/26/18 09:39; Admin Dose 10 MG; Start 11/01/18 at 09:00 Ferrous Sulfate (Feosol Liquid Cup) 330 mg BID GTB Last administered on 11/26/18 09:39; Admin Dose 330 MG; Start 11/01/18 at 09:00 Lansoprazole (Prevacid) 30 mg DAILY GTB Last administered on 11/26/18 09:39; Admin Dose 30 MG; Start 11/01/18 at 09:00 Morphine Sulfate (morphine) 5 mg Q4H PRN GTB MODERATE TO SEVERE PAIN Last administered on 11/21/18 17:42; Admin Dose 5 MG; Start 11/01/18 at 00:00 Multivitamins (Multivitamin) 30 ml DAILY GTB Last administered on 11/26/18 09:39; Admin Dose 30 ML; Start 11/01/18 at 09:00 Docusate Sodium (Colace Liquid Cup) 100 mg BID GTB Last administered on 11/25/18 20:47; Admin Dose 100 MG; Start 11/01/18 at 09:00 Acetaminophen (Tylenol Liquid) 650 mg Q6H PRN GTB MILD PAIN(1-3)OR ELEVATED TEMP Last administered on 11/26/18 00:37; Admin Dose 650 MG; Start 11/01/18 at 12:00 Albuterol (Ventolin Hfa) 4 puff Q6H RESP THERAPY INH Last administered on 11/26/18 13:23; Admin Dose 4 PUFF; Start 11/01/18 at 20:00 Ipratropium [place] (Atrovent Hfa) 4 puff Q6H RESP THERAPY INH Last a dministered on 11/26/18 13:23; Admin Dose 4 PUFF; Start 11/01/18 at 20:00 Nystatin (Nystatin Susp) 5 ml QID PO Last administered on 11/26/18 16:39; Admin Dose 5 ML; Start 11/09/18 at 17:00 Sodium Chloride 1,000 ml @ 100 mls/hr Q10H IV Last administered on 11/26/18at 09:40; Admin Dose 100 MLS/HR; Start 11/24/18 at 09:30 Vancomycin HCl (Vanco Iv Per Pharmacy) VANCOMYCIN PER PHARMACY PER PROTOCOL XX ; Start 11/25/18 at 22:00 Vancomycin HCl 100 ml @ 100 mls/hr Q12H IVPB Last administered on 11/26/18at 10:59; Admin Dose 100 MLS/HR; Start 11/25/18 at 22:00 Cefepime HCl 50 ml @ 100 mls/hr Q12 IVPB Last administered on 11/26/18at 13:45; Admin Dose 100 MLS/HR; Start 11/26/18 at 13:00 Voriconazole (Vfend) 200 mg BID PO ; Start 11/26/18 at 21:00 Assessment/Plan Chief Complaint/Hosp Course 62-year-old male with history of coronary artery disease, non-ST elevation CA, hypertension, history of aspiration pneumonia ,chronic respiratory failure vent dependent. The patient has history of C-spine epidural abscess, status post C3 to C4 laminectomy. The patient is quadriplegic and has been vent-dependent. He is a resident of [facility] and was noted to have fever and was transferred to [facility] for further care and workup. Since his admission he has been having fever on and off and his temperature has reached 103. He had a CT scan of the abdomen and pelvis and that showed: 1. Distal left uretero-vesicular junction stone producing moderate left obstructive uropathy and hydroureter with perinephric stranding. 2. Nonobstructing left lower pole renal calculus. 3. Mild right perinephric stranding. Correlation with superimposed nephritis. 4. Chronic changes of the right proximal femur with subtrochanteric fracture and remodelling with heterotopic soft tissue calcification. 5. Cholelithiasis. 6. Bibasilar atelectasis versus mild infiltrate changes Therefore a urological consultation was requested because of his persistent fever. All the information were obtained from his medical record. He passed the distal left ureteral stone. The Cash catheter that he had with the balloon inflated into the bulbar urethra was removed and a new catheter was inserted. Catheter size is 14 [place] coud catheter. The catheter is draining well and the urine culture from November 24, 2018 grew Filomena not albicans. He is on fluconazole. His temperature is trending down. Continue present treatment. NOLBERTO COLLINS MD Nov 26, 2018 18:37
[2018-11-26] MEDS: VORICONAZOLE 200 MG TAB PO SCH (22:00)
[2018-11-27] VITALS (23 sets, daily range): BP systolic 92–118; BP diastolic 61–74; PULSE 65–91; RESP 14–23
[2018-11-27] MEDS: BISACODYL 10 MG SUPP PR SCH
[2018-11-27] MEDS: ALBUTEROL HFA 8 GM INHALER INH SCH ×4 (01:30→20:07)
[2018-11-27] MEDS: IPRATROPIUM (HFA) 12.9 GM INHALER INH SCH ×4 (01:30→20:07)
[2018-11-27] MEDS: SOD CHLORIDE 0.9% 1,000 ML IV SCH ×2 (01:49→16:09)
[2018-11-27] MEDS: IBUPROFEN 400 MG TAB NGT PRN ×2 (01:50→21:25)
[2018-11-27] MEDS: LANSOPRAZOLE 30 MG CAP GTB SCH (09:49)
[2018-11-27] MEDS: NYSTATIN SUSP 5 ML CUP PO SCH ×4 (09:49→21:24)
[2018-11-27] MEDS: MULTIVITAMINS 30 ML CUP GTB SCH (09:49)
[2018-11-27] MEDS: ESCITALOPRAM 10 MG TAB GTB SCH (09:49)
[2018-11-27] MEDS: CEFEPIME 1GM/50 ML (PMX) 50 ML IVPB SCH ×2 (09:49→21:24)
[2018-11-27] MEDS: FERROUS SULFATE 60 MG/ML 5ML CUP GTB SCH ×2 (09:49→21:24)
[2018-11-27] MEDS: VORICONAZOLE 200 MG TAB PO SCH ×2 (09:49→21:25)
[2018-11-27] MEDS: DOCUSATE SODIUM 10 MG/ML (10ML CUP) GTB SCH ×2 (09:49→21:25)
[2018-11-27] MEDS: BALSAM PERU/CASTOR OIL 60 GM TUBE TOP SCH (09:50)
[2018-11-27] MEDS: ENOXAPARIN 30 MG/0.3 ML SYG SC SCH (10:14)
[2018-11-27] MEDS: VANCOMYCIN 500 MG (PMX) 100 ML IVPB SCH ×2 (10:55→22:55)
--- NOTE | 2018-11-27 14:59 | CONS ---
Date/Time of Note Date/Time of Note DATE: 11/27/18 TIME: 14:57 Assessment/Plan Assessment/Plan Hospital Course No acute changes overnight comfortably in bed highest latest fever last night was 102.7. Currently afebrile. WBC 6.8 H&H 7.8 and 25.3 platelets 160 neutrophils 82.8 BUN 27 creatinine 0.55 Microbiology: Urine culture grew Filomena species, not albicans, blood culture growing staph and Serratia marcescens Antimicrobials: Vanco Vfend cefepime INDWELLINGS: Trach, PEG, Cash. PHYSICAL EXAMINATION: GENERAL: This is a chronically ill-appearing, debilitated, elderly man who is in no distress. HEENT: Head atraumatic, normocephalic. Sclerae anicteric. Buccal mucosa dry. NECK: Supple. Tracheostomy present. CHEST: Rise symmetrical. Breath sounds diminished to bases. HEART: S1, S2, tachycardic, regular. ABDOMEN: Soft, bowel tones present. EXTREMITIES: Wasted, contractured. ASSESSMENT: 1. Sepsis with polymicrobial bacteremia 2. Obstructive uropathy, patient passed the stone for repeat CT 3. Status post coag negative staph bacteremia consistent with contaminant 3. Recurrent urinary tract infection. 4. Healthcare-associated pneumonia. 5. History of Clostridium difficile colitis. 6. Quadriplegia status post cervical spine surgery. 7. 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 staff Result Diagram: 11/27/18 0832 11/27/18 0721 Results 24hrs Laboratory Tests Test 11/27/18 07:21 11/27/18 08:32 Sodium Level 150 H Potassium Level 4.3 Chloride Level 117 H Carbon Dioxide Level 29 Anion Gap 4 L Blood Urea Nitrogen 27 H Creatinine 0.55 L Est Glomerular Filtrat Rate mL/min > 60 Glucose Level 126 # Calcium Level 7.9 L White Blood Count 6.8 # Red Blood Count 2.66 L Hemoglobin 7.8 L Hematocrit 25.3 L Mean Corpuscular Volume 95.1 Mean Corpuscular Hemoglobin 29.3 Mean Corpuscular Hemoglobin Concent 30.8 L Red Cell Distribution Width 14.3 Platelet Count 116 L Mean Platelet Volume 12.5 H Immature Granulocytes % 1.000 H Neutrophils % 82.8 H Lymphocytes % 10.3 L Monocytes % 5.0 Eosinophils % 0.6 Basophils % 0.3 Nucleated Red Blood Cells % 0.0 Immature Granulocytes # 0.070 H Neutrophils # 5.7 Lymphocytes # 0.7 L Monocytes # 0.3 Eosinophils # 0.0 Basophils # 0.0 Nucleated Red Blood Cells # 0.0 Consultation Date/Type/Reason Admit Date/Time Oct 31, 2018 at 21:21 Initial Consult Date 11/01/18 Type of Consult id Requesting Provider: LORRAINE SHAH MD Exam/Review of Systems Vital Signs Vitals Vital Signs Date Temp Pulse Resp B/P (MAP) Pulse Ox O2 O2 Flow FiO2 Time Delivery Rate 11/27/18 71 13:01 11/27/18 99 30 11:43 11/27/18 97.7 118/74 Mechanical 11:37 (89) Ventilator Intake and Output 11/26/18 11/26/18 11/27/18 1414:59 22:59 06:59 IntakeIntake Total 1290 ml 620 ml 2250 ml OutputOutput Total 300 ml 600 ml 750 ml BalanceBalance 990 ml 20 ml 1500 ml Medications Medications Current Medications Bisacodyl (Dulcolax Supp) 10 mg Q24H [place] Last administered on 11/22/18at 00:20; Admin Dose 10 MG; Start 11/01/18 at 00:00 Enoxaparin Sodium (Lovenox) 30 mg DAILY SC Last administered on 11/27/18 10:14; Admin Dose 30 MG; Start 11/01/18 at 09:00 Escitalopram Oxalate (Lexapro) 10 mg DAILY GTB Last administered on 11/27/18 09:49; Admin Dose 10 MG; Start 11/01/18 at 09:00 Ferrous Sulfate (Feosol Liquid Cup) 330 mg BID GTB Last administered on 11/27/18 09:49; Admin Dose 330 MG; Start 11/01/18 at 09:00 Lansoprazole (Prevacid) 30 mg DAILY GTB Last administered on 11/27/18 09:49; Admin Dose 30 MG; Start 11/01/18 at 09:00 Morphine Sulfate (morphine) 5 mg Q4H PRN GTB MODERATE TO SEVERE PAIN Last administered on 11/21/18at 17:42; Admin Dose 5 MG; Start 11/01/18 at 00:00 Multivitamins (Multivitamin) 30 ml DAILY GTB Last administered on 11/27/18 09:49; Admin Dose 30 ML; Start 11/01/18 at 09:00 Docusate Sodium (Colace Liquid Cup) 100 mg BID GTB Last administered on 11/27/18 at 09:49; Admin Dose 100 MG; Start 11/01/18 at 09:00 Acetaminophen (Tylenol Liquid) 650 mg Q6H PRN GTB MILD PAIN(1-3)OR ELEVATED TEMP Last administered on 11/26/18 22:00; Admin Dose 650 MG; Start 11/01/18 at 12:00 Albuterol (Ventolin Hfa) 4 puff Q6H RESP THERAPY INH Last administered on 11/27/18 13:09; Admin Dose 4 PUFF; Start 11/01/18 at 20:00 Ipratropium [place] (Atrovent Hfa) 4 puff Q6H RESP THERAPY INH Last administered on 11/27/18 13:09; Admin Dose 4 PUFF; Start 11/01/18 at 20:00 Nystatin (Nystatin Susp) 5 ml QID PO Last administered on 11/27/18 13:26; Admin Dose 5 ML; Start 11/09/18 at 17:00 Sodium Chloride 1,000 ml @ 100 mls/hr Q10H IV Last administered on 11/27/18 01:49; Admin Dose 100 MLS/HR; Start 11/24/18 at 09:30 Vancomycin HCl (Vanco Iv Per Pharmacy) VANCOMYCIN PER PHARMACY PER PROTOCOL XX ; Start 11/25/18 at 22:00 Vancomycin HCl 100 ml @ 100 mls/hr Q12H IVPB Last administered on 11/27/18 10:55; Admin Dose 100 MLS/HR; Start 11/25/18 at 22:00 Cefepime HCl 50 ml @ 100 mls/hr Q12 IVPB Last administered on 11/27/18 09:49; Admin Dose 100 MLS/HR; Start 11/26/18 at 13:00 Voriconazole (Vfend) 200 mg BID PO Last administered on 11/27/18 09:49; Admin Dose 200 MG; Start 11/26/18 at 21:00 Ibuprofen (Motrin) 400 mg Q6H PRN NGT MILD PAIN LEVEL 1-3 Last administered on 1/4/19at 01:50; Admin Dose 400 MG; Start 11/27/18 at 01:30 Miscellaneous Information (*Rx Drug Level Order Reminder*) VANCO TROUGH 11/27 @ 2,100 ONCE ONCE XX ; Start 11/27/18 at 21:00; Stop 11/27/18 at 21:01 RISA SAWYER NP Nov 27, 2018 14:59
--- NOTE | 2018-11-27 15:43 | CONS ---
Date/Time of Note Date/Time of Note DATE: 11/27/18 TIME: 15:42 Consult Date/Type/Reason Admit Date/Time Oct 31, 2018 at 21:21 Initial Consult Date 11/01/18 Type of Consultation: Pulmonary ICU Requesting Provider: LORRAINE SHAH MD Subjective No significant changes continues to remain febrile at night. Objective Vital Signs Date Temp Pulse Resp B/P (MAP) Pulse Ox O2 O2 Flow FiO2 Time Delivery Rate 11/27/18 98.1 77 14 101/66 100 Mechanical 15:29 (78) Ventilator 11/27/18 30 11:43 Intake and Output 11/26/18 11/26/18 11/27/18 1515:00 23:00 07:00 IntakeIntake Total 1290 ml 620 ml 2250 ml OutputOutput Total 300 ml 600 ml 750 ml BalanceBalance 990 ml 20 ml 1500 ml Exam GENERAL: Chronically ill-appearing gentleman VITAL SIGNS: per chart NECK: Supple. No JVD or lymphadenopathy. CARDIAC EXAM: S1, S2. No added sounds or murmurs. CHEST: clear bilaterally, No added sounds, rales or wheezes ABDOMEN: Soft, nontender. No guarding or rebound. EXTREMITIES: No cyanosis, clubbing or edema. NEUROLOGIC: Generalized weakness. No focal deficits. Results/Medications Result Diagram: 11/27/18 0832 11/27/18 0721 Results 24 hrs Laboratory Tests Test 11/27/18 07:21 11/27/18 08:32 Sodium Level 150 H Potassium Level 4.3 Chloride Level 117 H Carbon Dioxide Level 29 Anion Gap 4 L Blood Urea Nitrogen 27 H Creatinine 0.55 L Est Glomerular Filtrat Rate mL/min > 60 Glucose Level 126 # Calcium Level 7.9 L White Blood Count 6.8 # Red Blood Count 2.66 L Hemoglobin 7.8 L Hematocrit 25.3 L Mean Corpuscular Volume 95.1 Mean Corpuscular Hemoglobin 29.3 Mean Corpuscular Hemoglobin Concent 30.8 L Red Cell Distribution Width 14.3 Platelet Count 116 L Mean Platelet Volume 12.5 H Immature Granulocytes % 1.000 H Neutrophils % 82.8 H Lymphocytes % 10.3 L Monocytes % 5.0 Eosinophils % 0.6 Basophils % 0.3 Nucleated Red Blood Cells % 0.0 Immature Granulocytes # 0.070 H Neutrophils # 5.7 Lymphocytes # 0.7 L Monocytes # 0.3 Eosinophils # 0.0 Basophils # 0.0 Nucleated Red Blood Cells # 0.0 Medications Current Medications Bisacodyl (Dulcolax Supp) 10 mg Q24H [place] Last administered on 11/22/18 00:20; Admin Dose 10 MG; Start 11/01/18 at 00:00 Enoxaparin Sodium (Lovenox) 30 mg DAILY SC Last administered on 11/27/18 10:14; Admin Dose 30 MG; Start 11/01/18 at 09:00 Escitalopram Oxalate (Lexapro) 10 mg DAILY GTB Last administered on 11/27/18 09:49; Admin Dose 10 MG; Start 11/01/18 at 09:00 Ferrous Sulfate (Feosol Liquid Cup) 330 mg BID GTB Last administered on 11/27/18 09:49; Admin Dose 330 MG; Start 11/01/18 at 09:00 Lansoprazole (Prevacid) 30 mg DAILY GTB Last administered on 11/27/18 09:49; A dmin Dose 30 MG; Start 11/01/18 at 09:00 Morphine Sulfate (morphine) 5 mg Q4H PRN GTB MODERATE TO SEVERE PAIN Last administered on 11/21/18 17:42; Admin Dose 5 MG; Start 11/01/18 at 00:00 Multivitamins (Multivitamin) 30 ml DAILY GTB Last administered on 11/27/18 09:49; Admin Dose 30 ML; Start 11/01/18 at 09:00 Docusate Sodium (Colace Liquid Cup) 100 mg BID GTB Last administered on 11/27/18 09:49; Admin Dose 100 MG; Start 11/01/18 at 09:00 Acetaminophen (Tylenol Liquid) 650 mg Q6H PRN GTB MILD PAIN(1-3)OR ELEVATED TEMP Last administered on 11/26/18 22:00; Admin Dose 650 MG; Start 11/01/18 at 12:00 Albuterol (Ventolin Hfa) 4 puff Q6H RESP THERAPY INH Last administered on 11/27/18 13:09; Admin Dose 4 PUFF; Start 11/01/18 at 20:00 Ipratropium [place] (Atrovent Hfa) 4 puff Q6H RESP THERAPY INH Last administered on 11/27/18 13:09; Admin Dose 4 PUFF; Start 11/01/18 at 20:00 Nystatin (Nystatin Susp) 5 ml QID PO Last administered on 11/27/18 13:26; Admin Dose 5 ML; Start 11/09/18 at 17:00 Sodium Chloride 1,000 ml @ 100 mls/hr Q10H IV Last administered on 11/27/18 01:49; Admin Dose 100 MLS/HR; Start 11/24/18 at 09:30 Vancomycin HCl (Vanco Iv Per Pharmacy) VANCOMYCIN PER PHARMACY PER PROTOCOL XX ; Start 11/25/18 at 22:00 Vancomycin HCl 100 ml @ 100 mls/hr Q12H IVPB Last administered on 11/27/18 10:55; Admin Dose 100 MLS/HR; Start 11/25/18 at 22:00 Cefepime HCl 50 ml @ 100 mls/hr Q12 IVPB Last administered on 11/27/18 09:49; Admin Dose 100 MLS/HR; Start 11/26/18 at 13:00 Voriconazole (Vfend) 200 mg BID PO Last administered on 11/27/18 09:49; Admin Dose 200 MG; Start 11/26/18 at 21:00 Ibuprofen (Motrin) 400 mg Q6H PRN NGT MILD PAIN LEVEL 1-3 Last administered on 11/27/18 01:50; Admin Dose 400 MG; Start 11/27/18 at 01:30 Miscellaneous Information (*Rx Drug Level Order Reminder*) VANCO TROUGH 11/27 @ 2,100 ONCE ONCE XX ; Start 11/27/18 at 21:00; Stop 11/27/18 at 21:01 Assessment/Plan Chief Complaint/Hosp Course IMP: 1. UTI with sepsis with persistent fevers. 2. Chronic respiratory failure, vent dependent. 3. 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 4. Pre-renal azotemia 5. Right corneal opacity chronic with blindness. 6. History of coronary artery disease with history of myocardial infarction. 7. Chronic sacral coccygeal decubitus RECS: 1. TF 2. ID recs. 3. Feeding as tolerated 4. Wound care 5. DVT and GI prophylaxis Prognosis guarded. LIVIA VALDERRAMA MD, [facility] Nov 27, 2018 15:43
--- NOTE | 2018-11-27 16:31 | PN ---
Date/Time of Note Date/Time of Note DATE: 11/27/18 TIME: 16:29 Assessment/Plan VTE Prophylaxis Risk score (from Ns)>0 risk: 4 SCD applied (from [facility]): No SCD contraindicated: other Pharmacological prophylaxis: LMWH Lines/Catheters IV [facility]ter Type (from [facility]): Peripheral IV Central line still needed: Yes Urinary Cath still in place: Yes Reason Cath still needed: urinary retention Assessment/Plan Hospital Course Patient has low-grade fever, continues on ventilatory support. I spoke over the phone to patient's sister, updated her regarding patient's condition. residential mental health worker is asked to see patient for determining the primary decision maker. Assessment/Plan -Obstructive uropathy, passed the distal left ureteral stone. Cash catheter changed to cardiac catheter [place] [address] Castillo is following in urology consultation. -Recurrent sepsis with bacteremia. Continue antibiotics per ID. Dr. Tesfaye is following in infection disease consultation. -S/p Yeast UTI -S/p possible healthcare acquired pneumonia -Ventilator dependent respiratory failure. Dr. Hernández is following in pulmonology consultation. 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 Plan of care discussed with Dr. Bautista. Result Diagram: 11/27/18 0832 11/27/18 0721 Results 24hrs Laboratory Tests Test 11/27/18 07:21 11/27/18 08:32 Sodium Level 150 H Potassium Level 4.3 Chloride Level 117 H Carbon Dioxide Level 29 Anion Gap 4 L Blood Urea Nitrogen 27 H Creatinine 0.55 L Est Glomerular Filtrat Rate mL/min > 60 Glucose Level 126 # Calcium Level 7.9 L White Blood Count 6.8 # Red Blood Count 2.66 L Hemoglobin 7.8 L Hematocrit 25.3 L Mean Corpuscular Volume 95.1 Mean Corpuscular Hemoglobin 29.3 Mean Corpuscular Hemoglobin Concent 30.8 L Red Cell Distribution Width 14.3 Platelet Count 116 L Mean Platelet Volume 12.5 H Immature Granulocytes % 1.000 H Neutrophils % 82.8 H Lymphocytes % 10.3 L Monocytes % 5.0 Eosinophils % 0.6 Basophils % 0.3 Nucleated Red Blood Cells % 0.0 Immature Granulocytes # 0.070 H Neutrophils # 5.7 Lymphocytes # 0.7 L Monocytes # 0.3 Eosinophils # 0.0 Basophils # 0.0 Nucleated Red Blood Cells # 0.0 Exam/Review of Systems Vital Signs Vitals Vital Signs Date Temp Pulse Resp B/P (MAP) Pulse Ox O2 O2 Flow FiO2 Time Delivery Rate 11/27/18 98.1 77 14 101/66 100 Mechanical 15:29 (78) Ventilator 11/27/18 30 11:43 Intake and Output 11/26/18 11/26/18 11/27/18 1515:00 23:00 07:00 IntakeIntake Total 1290 ml 620 ml 2250 ml OutputOutput Total 300 ml 600 ml 750 ml BalanceBalance 990 ml 20 ml 1500 ml Exam Constitutional: alert, oriented Neck: supple, other (trach) Respiratory: diminished breath sounds Cardiovascular: regular rate and rhythm Gastrointestinal: other (GT) Musculoskeletal: nl extremities to inspection Extremities: normal pulses, other (Contracted) Medications Medications Current Medications Bisacodyl (Dulcolax Supp) 10 mg Q24H [place] Last administered on 11/22/18 00:20; Admin Dose 10 MG; Start 11/01/18 at 00:00 Enoxaparin Sodium (Lovenox) 30 mg DAILY SC Last administered on 11/27/18 10:14; Admin Dose 30 MG; Start 11/01/18 at 09:00 Escitalopram Oxalate (Lexapro) 10 mg DAILY GTB Last administered on 11/27/18 09:49; Admin Dose 10 MG; Start 11/01/18 at 09:00 Ferrous Sulfate (Feosol Liquid Cup) 330 mg BID GTB Last administered on 11/27/18 09:49; Admin Dose 330 MG; Start 11/01/18 at 09:00 Lansoprazole (Prevacid) 30 mg DAILY GTB Last administered on 11/27/18 09:49; Admin Dose 30 MG; Start 11/01/18 at 09:00 Morphine Sulfate (morphine) 5 mg Q4H PRN GTB MODERATE TO SEVERE PAIN Last administered on 11/21/18 17:42; Admin Dose 5 MG; Start 11/01/18 at 00:00 Multivitamins (Multivitamin) 30 ml DAILY GTB Last administered on 11/27/18 09:49; Admin Dose 30 ML; Start 11/01/18 at 09:00 Docusate Sodium (Colace Liquid Cup) 100 mg BID GTB Last administered on 11/27/18 09:49; Admin Dose 100 MG; Start 11/01/18 at 09:00 Acetaminophen (Tylenol Liquid) 650 mg Q6H PRN GTB MILD PAIN(1-3)OR ELEVATED TEMP Last administered on 11/26/18 22:00; Admin Dose 650 MG; Start 11/01/18 at 12:00 Albuterol (Ventolin Hfa) 4 puff Q6H RESP THERAPY INH Last administered on 11/27/18 13:09; Admin Dose 4 PUFF; Start 11/01/18 at 20:00 Ipratropium [place] (Atrovent Hfa) 4 puff Q6H RESP THERAPY INH Last administered on 11/27/18 13:09; Admin Dose 4 PUFF; Start 11/01/18 at 20:00 Nystatin (Nystatin Susp) 5 ml QID PO Last administered on 11/27/18 16:21; Admin Dose 5 ML; Start 11/09/18 at 17:00 Sodium Chloride 1,000 ml @ 100 mls/hr Q10H IV Last administered on 11/27/18 16:09; Admin Dose 100 MLS/HR; Start 11/24/18 at 09:30 Vancomycin HCl (Vanco Iv Per Pharmacy) VANCOMYCIN PER PHARMACY PER PROTOCOL XX ; Start 11/25/18 at 22:00 Vancomycin HCl 100 ml @ 100 mls/hr Q12H IVPB Last administered on 11/27/18 10:55; Admin Dose 100 MLS/HR; Start 11/25/18 at 22:00 Cefepime HCl 50 ml @ 100 mls/hr Q12 IVPB Last administered on 11/27/18 09:49; Admin Dose 100 MLS/HR; Start 11/26/18 at 13:00 Voriconazole (Vfend) 200 mg BID PO Last administered on 11/27/18 09:49; Admin Dose 200 MG; Start 11/26/18 at 21:00 Ibuprofen (Motrin) 400 mg Q6H PRN NGT MILD PAIN LEVEL 1-3 Last administered on 11/27/18 01:50; Admin Dose 400 MG; Start 11/27/18 at 01:30 Miscellaneous Information (*Rx Drug Level Order Reminder*) VANCO TROUGH 11/27 @ 2,100 ONCE ONCE XX ; Start 11/27/18 at 21:00; Stop 11/27/18 at 21:01 MICHELLE EUGENE Nov 27, 2018 16:31
[2018-11-27] MEDS: ACETAMINOPHEN 650MG/20.3ML CUP GTB PRN (17:13)
--- NOTE | 2018-11-27 18:11 | CONS ---
Date/Time of Note Date/Time of Note DATE: 11/27/18 TIME: 18:07 Consult Date/Type/Reason Admit Date/Time Oct 31, 2018 at 21:21 Initial Consult Date 11/15/18 Type of Consultation: Urology Reason for Consultation Distal left ureteral stone, Cash catheter adjustment Requesting Provider: LORRAINE SHAH MD Subjective Patient's condition is unchanged. Is still have episodes of fever Objective Vital Signs Date Temp Pulse Resp B/P (MAP) Pulse Ox O2 O2 Flow FiO2 Time Delivery Rate 11/27/18 100.1 17:13 11/27/18 73 17:01 11/27/18 20 100 30 17:00 11/27/18 101/66 [place] 15:29 (78) l Ventilato r Intake and Output 11/26/18 11/26/18 11/27/18 1515:00 23:00 07:00 IntakeIntake Total 1290 ml 620 ml 2250 ml OutputOutput Total 300 ml 600 ml 750 ml BalanceBalance 990 ml 20 ml 1500 ml Exam Patient is on the ventilator. The Cash catheter is draining clear urine and is in good position. Patient continues to have fever Results/Medications Result Diagram: 11/27/18 0832 11/27/18 0721 Results 24 hrs Laboratory Tests Test 11/27/18 07:21 11/27/18 08:32 Sodium Level 150 H Potassium Level 4.3 Chloride Level 117 H Carbon Dioxide Level 29 Anion Gap 4 L Blood Urea Nitrogen 27 H Creatinine 0.55 L Est Glomerular Filtrat Rate mL/min > 60 Glucose Level 126 # Calcium Level 7.9 L White Blood Count 6.8 # Red Blood Count 2.66 L Hemoglobin 7.8 L Hematocrit 25.3 L Mean Corpuscular Volume 95.1 Mean Corpuscular Hemoglobin 29.3 Mean Corpuscular Hemoglobin Concent 30.8 L Red Cell Distribution Width 14.3 Platelet Count 116 L Mean Platelet Volume 12.5 H Immature Granulocytes % 1.000 H Neutrophils % 82.8 H Lymphocytes % 10.3 L Monocytes % 5.0 Eosinophils % 0.6 Basophils % 0.3 Nucleated Red Blood Cells % 0.0 Immature Granulocytes # 0.070 H Neutrophils # 5.7 Lymphocytes # 0.7 L Monocytes # 0.3 Eosinophils # 0.0 Basophils # 0.0 Nucleated Red Blood Cells # 0.0 Medications Current Medications Bisacodyl (Dulcolax Supp) 10 mg Q24H MA Last administered on 11/22/18 00:20; Admin Dose 10 MG; Start 11/01/18 at 00:00 Enoxaparin Sodium (Lovenox) 30 mg DAILY SC Last administered on 11/27/18 10:14; Admin Dose 30 MG; Start 11/01/18 at 09:00 Escitalopram Oxalate (Lexapro) 10 mg DAILY GTB Last administered on 11/27/18 09:49; Admin Dose 10 MG; Start 11/01/18 at 09:00 Ferrous Sulfate (Feosol Liquid Cup) 330 mg BID GTB Last administered on 11/27/18 09:49; Admin Dose 330 MG; Start 11/01/18 at 09:00 Lansoprazole (Prevacid) 30 mg DAILY GTB Last administered on 11/27/18 09:49; Admin Dose 30 MG; Start 11/01/18 at 09:00 Morphine Sulfate (morphine) 5 mg Q4H PRN GTB MODERATE TO SEVERE PAIN Last administered on 11/21/18 17:42; Admin Dose 5 MG; Start 11/01/18 at 00:00 Multivitamins (Multivitamin) 30 ml DAILY GTB Last administered on 11/27/18 09:49; Admin Dose 30 ML; Start 11/01/18 at 09:00 Docusate Sodium (Colace Liquid Cup) 100 mg BID GTB Last administered on 11/27 09:49; Admin Dose 100 MG; Start 11/01/18 at 09:00 Acetaminophen (Tylenol Liquid) 650 mg Q6H PRN GTB MILD PAIN(1-3)OR ELEVATED TEMP Last administered on 11/27/18 17:13; Admin Dose 650 MG; Start 11/01/18 at 12:00 Albuterol (Ventolin Hfa) 4 puff Q6H RESP THERAPY INH Last administered on 11/27/18 13:09; Admin Dose 4 PUFF; Start 11/01/18 at 20:00 Ipratropium [place] (Atrovent Hfa) 4 puff Q6H RESP THERAPY INH Last administered on 11/27/18 13:09; Admin Dose 4 PUFF; Start 11/01/18 at 20:00 Nystatin (Nystatin Susp) 5 ml QID PO Last administered on 11/27/18 16:21; Admin Dose 5 ML; Start 11/09/18 at 17:00 Sodium Chloride 1,000 ml @ 100 mls/hr Q10H IV Last administered on 11/27/18 16:09; Admin Dose 100 MLS/HR; Start 11/24/18 at 09:30 Vancomycin HCl (Vanco Iv Per Pharmacy) VANCOMYCIN PER PHARMACY PER PROTOCOL XX ; Start 11/25/18 at 22:00 Vancomycin HCl 100 ml @ 100 mls/hr Q12H IVPB Last administered on 11/27/18 10:55; Admin Dose 100 MLS/HR; Start 11/25/18 at 22:00 Cefepime HCl 50 ml @ 100 mls/hr Q12 IVPB Last administered on 11/27/18 09:49; Admin Dose 100 MLS/HR; Start 11/26/18 at 13:00 Voriconazole (Vfend) 200 mg BID PO Last administered on 11/27/18 09:49; Admin Dose 200 MG; Start 11/26/18 at 21:00 Ibuprofen (Motrin) 400 mg Q6H PRN NGT MILD PAIN LEVEL 1-3 Last administered on 11/27/18 01:50; Admin Dose 400 MG; Start 11/27/18 at 01:30 Miscellaneous Information (*Rx Drug Level Order Reminder*) VANCO TROUGH 11/27 @ 2,100 ONCE ONCE XX ; Start 11/27/18 at 21:00; Stop 11/27/18 at 21:01 Assessment/Plan Chief Complaint/Hosp Course 62-year-old male with history of coronary artery disease, non-ST elevation [place], hypertension, history of aspiration pneumonia ,chronic respiratory failure vent dependent. The patient has history of C-spine epidural abscess, status post C3 to C4 laminectomy. The patient is quadriplegic and has been vent-dependent. He is a resident of [facility] and was noted to have fever and was transferred to [facility] for further care and workup. Since his admission he has been having fever on and off and his temperature has reached 103. He had a CT scan of the abdomen and pelvis and that showed: 1. Distal left uretero-vesicular junction stone producing moderate left obstructive uropathy and hydroureter with perinephric stranding. 2. Nonobstructing left lower pole renal calculus. 3. Mild right perinephric stranding. Correlation with superimposed nephritis. 4. Chronic changes of the right proximal femur with subtrochanteric fracture and remodelling with heterotopic soft tissue calcification. 5. Cholelithiasis. 6. Bibasilar atelectasis versus mild infiltrate changes Therefore a urological consultation was requested because of his persistent fever. All the information were obtained from his medical record. He passed the distal left ureteral stone. The Cash catheter that he had with the balloon inflated into the bulbar urethra was removed and a new catheter was inserted. Catheter size is 14 Ghanaian coud catheter. The catheter is draining well and the urine culture from November 24, 2018 grew Filomena not albicans. He is on fluconazole. His temperature is trending down. Continue the present treatment. NOLBERTO COLLINS MD Nov 27, 2018 18:10
[2018-11-28] VITALS (22 sets, daily range): BP systolic 98–120; BP diastolic 59–75; PULSE 69–92; RESP 17–21
[2018-11-28] MEDS: IPRATROPIUM (HFA) 12.9 GM INHALER INH SCH ×4 (01:21→20:23)
[2018-11-28] MEDS: ALBUTEROL HFA 8 GM INHALER INH SCH ×4 (01:21→20:23)
[2018-11-28] MEDS: NYSTATIN SUSP 5 ML CUP PO SCH ×4 (09:54→20:42)
[2018-11-28] MEDS: CEFEPIME 1GM/50 ML (PMX) 50 ML IVPB SCH ×2 (09:54→20:42)
[2018-11-28] MEDS: FERROUS SULFATE 60 MG/ML 5ML CUP GTB SCH ×2 (09:55→20:42)
[2018-11-28] MEDS: MULTIVITAMINS 30 ML CUP GTB SCH (09:55)
[2018-11-28] MEDS: LANSOPRAZOLE 30 MG CAP GTB SCH (09:55)
[2018-11-28] MEDS: VORICONAZOLE 200 MG TAB PO SCH ×2 (09:55→20:42)
[2018-11-28] MEDS: DOCUSATE SODIUM 10 MG/ML (10ML CUP) GTB SCH ×2 (09:55→20:41)
[2018-11-28] MEDS: ESCITALOPRAM 10 MG TAB GTB SCH (09:55)
--- NOTE | 2018-11-28 09:56 | CONS ---
Date/Time of Note Date/Time of Note DATE: 11/28/18 TIME: 09:52 Consult Date/Type/Reason Admit Date/Time Oct 31, 2018 at 21:21 Initial Consult Date 11/15/18 Type of Consultation: Urology Reason for Consultation Urinary tract infection and adjustment of indwelling Cash catheter Requesting Provider: LORRAINE SHAH MD Subjective Patient condition is unchanged Objective Vital Signs Date Temp Pulse Resp B/P (MAP) Pulse Ox O2 O2 Flow FiO2 Time Delivery Rate 11/28/18 84 08:05 11/28/18 18 96 30 07:30 11/28/18 98.0 99/59 (72) 07:28 11/28/18 Mechanical 03:14 Ventilator Intake and Output 11/27/18 11/27/18 11/28/18 1515:00 23:00 07:00 IntakeIntake Total 150 ml 2265 ml 1250 ml OutputOutput Total 900 ml 550 ml BalanceBalance 150 ml 1365 ml 700 ml Exam Cash catheter is draining clear urine. Results/Medications Result Diagram: 11/28/18 0601 11/28/18 0601 Results 24 hrs Laboratory Tests Test 11/27/18 20:52 11/28/18 06:01 Vancomycin Level Trough 12.6 White Blood Count 6.7 Red Blood Count 3.10 L Hemoglobin 8.9 L Hematocrit 28.9 L Mean Corpuscular Volume 93.2 Mean Corpuscular Hemoglobin 28.7 L Mean Corpuscular Hemoglobin Concent 30.8 L Red Cell Distribution Width 14.5 Platelet Count 113 L Mean Platelet Volume 12.4 H Immature Granulocytes % 0.600 H Neutrophils % 84.0 H Segmented Neutrophils % (Manual) 81 H Band Neutrophils % (Manual) 6 H Lymphocytes % 8.7 L Lymphocytes % (Manual) 4 L Reactive Lymphocytes % (Manual) 2 H Monocytes % 5.4 Monocytes % (Manual) 6 Eosinophils % 0.9 Basophils % 0.4 Promyelocytes % (Manual) 1 H Nucleated Red Blood Cells % 0.0 Immature Granulocytes # 0.040 H Neutrophils # 5.6 Neutrophils # (Manual) 5.5 Band Neutrophils # 0.4 Lymphocytes (Manual) 0.2 L Lymphocytes # 0.6 L Reactive Lymphocytes # 0.1 H Monocytes # 0.4 Monocytes # (Manual) 0.4 Eosinophils # 0.1 Basophils # 0.0 Promyelocytes # 0.0 Nucleated Red Blood Cells # 0.0 Toxic Granulation 1+ Platelet Estimate DECREASED Giant Platelets 11 H Poikilocytosis 1+ Anisocytosis 1+ Sodium Level 151 H Potassium Level 3.9 Chloride Level 116 H Carbon Dioxide Level 30 Anion Gap 5 Blood Urea Nitrogen 23 H Creatinine 0.54 L Est Glomerular Filtrat Rate mL/min > 60 Glucose Level 129 Calcium Level 8.2 L Medications Current Medications Bisacodyl (Dulcolax Supp) 10 mg Q24H MS Last administered on 11/22/18 00:20; Admin Dose 10 MG; Start 11/01/18 at 00:00 Enoxaparin Sodium (Lovenox) 30 mg DAILY SC Last administered on 11/27/18 10:14; Admin Dose 30 MG; Start 11/01/18 at 09:00 Escitalopram Oxalate (Lexapro) 10 mg DAILY GTB Last administered on 11/27/18 09:49; Admin Dose 10 MG; Start 11/01/18 at 09:00 Ferrous Sulfate (Feosol Liquid Cup) 330 mg BID GTB Last administered on 11/27/18 21:24; Admin Dose 330 MG; Start 11/01/18 at 09:00 Lansoprazole (Prevacid) 30 mg DAILY GTB Last administered on 11/27/18 09:49; Admin Dose 30 MG; Start 11/01/18 at 09:00 Morphine Sulfate (morphine) 5 mg Q4H PRN GTB MODERATE TO SEVERE PAIN Last administered on 11/21/18 17:42; Admin Dose 5 MG; Start 11/01/18 at 00:00 Multivitamins (Multivitamin) 30 ml DAILY GTB Last administered on 11/27/18 09:49; Admin Dose 30 ML; Start 11/01/18 at 09:00 Docusate Sodium (Colace Liquid Cup) 100 mg BID GTB Last administered on 11/27/18 21:25; Admin Dose 100 MG; Start 11/01/18 at 09:00 Acetaminophen (Tylenol Liquid) 650 mg Q6H PRN GTB MILD PAIN(1-3)OR ELEVATED TEMP Last administered on 11/27/18 17:13; Admin Dose 650 MG; Start 11/01/18 at 12:00 Albuterol (Ventolin Hfa) 4 puff Q6H RESP THERAPY INH Last administered on 11/28/18 08:34; Admin Dose 4 PUFF; Start 11/01/18 at 20:00 Ipratropium [place] (Atrovent Hfa) 4 puff Q6H RESP THERAPY INH Last administered on 11/28/18 08:34; Admin Dose 4 PUFF; Start 11/01/18 at 20:00 Nystatin (Nystatin Susp) 5 ml QID PO Last administered on 11/27/18 21:24; Admin Dose 5 ML; Start 11/09/18 at 17:00 Sodium Chloride 1,000 ml @ 100 mls/hr Q10H IV Last administered on 11/27/18 16:09; Admin Dose 100 MLS/HR; Start 11/24/18 at 09:30 Vancomycin HCl (Vanco Iv Per Pharmacy) VANCOMYCIN PER PHARMACY PER PROTOCOL XX ; Start 11/25/18 at 22:00 Vancomycin HCl 100 ml @ 100 mls/hr Q12H IVPB Last administered on 11/27/18 22:55; Admin Dose 100 MLS/HR; Start 11/25/18 at 22:00 Cefepime HCl 50 ml @ 100 mls/hr Q12 IVPB Last administered on 11/27/18 21:24; Admin Dose 100 MLS/HR; Start 11/26/18 at 13:00 Voriconazole (Vfend) 200 mg BID PO Last administered on 11/27/18 21:25; Admin Dose 200 MG; Start 11/26/18 at 21:00 Ibuprofen (Motrin) 400 mg Q6H PRN NGT MILD PAIN LEVEL 1-3 Last administered on 11/27/18 21:25; Admin Dose 400 MG; Start 11/27/18 at 01:30 Assessment/Plan Chief Complaint/Hosp Course 62-year-old male with history of coronary artery disease, non-ST elevation [place], hypertension, history of aspiration pneumonia ,chronic respiratory failure vent dependent. The patient has history of C-spine epidural abscess, status post C3 to C4 laminectomy. The patient is quadriplegic and has been vent-dependent. He is a resident of [facility] and was noted to have fever and was transferred to [facility] for further care and workup. Since his admission he has been having fever on and off and his temperature has reached 103. He had a CT scan of the abdomen and pelvis and that showed: 1. Distal left uretero-vesicular junction stone producing moderate left obstructive uropathy and hydroureter with perinephric stranding. 2. Nonobstructing left lower pole renal calculus. 3. Mild right perinephric stranding. Correlation with superimposed nephritis. 4. Chronic changes of the right proximal femur with subtrochanteric fracture and remodelling with heterotopic soft tissue calcification. 5. Cholelithiasis. 6. Bibasilar atelectasis versus mild infiltrate changes Therefore a urological consultation was requested because of his persistent fever. All the information were obtained from his medical record. He passed the distal left ureteral stone. The Cash catheter that he had with the balloon inflated into the bulbar urethra was removed and a new catheter was inserted. Catheter size is 14 [place] coud catheter. The catheter is draining well and the urine culture from November 24, 2018 grew Filomena not albicans. He is on voriconazole. His temperature is trending down. Continue the present treatment. NOLBERTO COLLINS MD Nov 28, 2018 09:56
[2018-11-28] MEDS: ENOXAPARIN 30 MG/0.3 ML SYG SC SCH (10:13)
[2018-11-28] MEDS: morphine LIQ (10 MG/5 ML) CUP GTB PRN (11:03)
[2018-11-28] MEDS: BALSAM PERU/CASTOR OIL 60 GM TUBE TOP SCH (11:03)
[2018-11-28] MEDS: VANCOMYCIN 500 MG (PMX) 100 ML IVPB SCH ×2 (11:12→23:45)
[2018-11-28] MEDS: SOD CHLORIDE 0.9% 1,000 ML IV SCH ×3 (11:12→23:46)
--- NOTE | 2018-11-28 16:33 | PN ---
Date/Time of Note Date/Time of Note DATE: 11/28/18 TIME: 16:33 Assessment/Plan VTE Prophylaxis Risk score (from [facility])>0 risk: 3 SCD applied (from [facility]): No SCD contraindicated: other Pharmacological prophylaxis: other Lines/Catheters IV Catheter Type (from [facility] Peripheral IV Urinary Cath still in place: Yes Reason Cath still needed: urinary retention, pres ulcer contaminated by urine, skin wounds contaminated by urine Assessment/Plan Assessment/Plan -Obstructive uropathy, passed the distal left ureteral stone. Cash catheter changed to cardiac catheter Hungarian 14 on11/24/18. - Dr. Castillo is following in urology consultation. -Recurrent sepsis with bacteremia. Continue antibiotics per ID. Dr. Tesfaye is following in infection disease consultation. -S/p Yeast UTI -S/p possible healthcare acquired pneumonia -Ventilator dependent respiratory failure. Dr. Hernández is following in pulmonology consultation. 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 -C-spine epidural abscess, status post C3 to C4 laminectomy -DNR status DW Dr Burnette Result Diagram: 11/28/18 0601 11/28/18 0601 Results 24hrs Laboratory Tests Test 11/27/18 20:52 11/28/18 06:01 Vancomycin Level Trough 12.6 White Blood Count 6.7 Red Blood Count 3.10 L Hemoglobin 8.9 L Hematocrit 28.9 L Mean Corpuscular Volume 93.2 Mean Corpuscular Hemoglobin 28.7 L Mean Corpuscular Hemoglobin Concent 30.8 L Red Cell Distribution Width 14.5 Platelet Count 113 L Mean Platelet Volume 12.4 H Immature Granulocytes % 0.600 H Neutrophils % 84.0 H Segmented Neutrophils % (Manual) 81 H Band Neutrophils % (Manual) 6 H Lymphocytes % 8.7 L Lymphocytes % (Manual) 4 L Reactive Lymphocytes % (Manual) 2 H Monocytes % 5.4 Monocytes % (Manual) 6 Eosinophils % 0.9 Basophils % 0.4 Promyelocytes % (Manual) 1 H Nucleated Red Blood Cells % 0.0 Immature Granulocytes # 0.040 H Neutrophils # 5.6 Neutrophils # (Manual) 5.5 Band Neutrophils # 0.4 Lymphocytes (Manual) 0.2 L Lymphocytes # 0.6 L Reactive Lymphocytes # 0.1 H Monocytes # 0.4 Monocytes # (Manual) 0.4 Eosinophils # 0.1 Basophils # 0.0 Promyelocytes # 0.0 Nucleated Red Blood Cells # 0.0 Toxic Granulation 1+ Platelet Estimate DECREASED Giant Platelets 11 H Poikilocytosis 1+ Anisocytosis 1+ Sodium Level 151 H Potassium Level 3.9 Chloride Level 116 H Carbon Dioxide Level 30 Anion Gap 5 Blood Urea Nitrogen 23 H Creatinine 0.54 L Est Glomerular Filtrat Rate mL/min > 60 Glucose Level 129 Calcium Level 8.2 L Subjective 24 Hr Interval Summary Free Text/Dictation nad afebrile obstructive uropathy- urology follows no new events reported overnight Subjective hx not possible: pt non-verbal Constitutional: requiring O2 Exam/Review of Systems Vital Signs Vitals Vital Signs Date Temp Pulse Resp B/P (MAP) Pulse Ox O2 O2 Flow FiO2 Time Delivery Rate 11/28/18 98.1 85 17 102/61 98 16:02 (75) 11/28/18 30 15:45 11/28/18 Mechanical 03:14 Ventilator Intake and Output 11/27/18 11/27/18 11/28/18 1515:00 23:00 07:00 IntakeIntake Total 150 ml 2265 ml 1250 ml OutputOutput Total 900 ml 550 ml BalanceBalance 150 ml 1365 ml 700 ml Exam Psych: nl mood/affect Eyes: nl lids, nl sclera ENMT: nl external ears & nose Neck: non-tender Cardiovascular: nl pulses, other (s1s2) Gastrointestinal: soft, non-tender Musculoskeletal: muscle weakness, range of motion Extremities: normal pulses Neurological: unresponsive Lymph: nl lymph nodes Medications Medications Current Medications Bisacodyl (Dulcolax Supp) 10 mg Q24H IN Last administered on 11/22/18at 00:20; Admin Dose 10 MG; Start 11/01/18 at 00:00 Enoxaparin Sodium (Lovenox) 30 mg DAILY SC Last administered on 11/28/18 10:13; Admin Dose 30 MG; Start 11/01/18 at 09:00 Escitalopram Oxalate (Lexapro) 10 mg DAILY GTB Last administered on 11/28/18 09:55; Admin Dose 10 MG; Start 11/01/18 at 09:00 Ferrous Sulfate (Feosol Liquid Cup) 330 mg BID GTB Last administered on 11/28/18 09:55; Admin Dose 330 MG; Start 11/01/18 at 09:00 Lansoprazole (Prevacid) 30 mg DAILY GTB Last administered on 11/28/18 09:55; Admin Dose 30 MG; Start 11/01/18 at 09:00 Morphine Sulfate (morphine) 5 mg Q4H PRN GTB MODERATE TO SEVERE PAIN Last administered on 11/28/18 11:03; Admin Dose 5 MG; Start 11/01/18 at 00:00 Multivitamins (Multivitamin) 30 ml DAILY GTB Last administered on 11/28/18 09:55; Admin Dose 30 ML; Start 11/01/18 at 09:00 Docusate Sodium (Colace Liquid Cup) 100 mg BID GTB Last administered on 11/28/18 09:55; Admin Dose 100 MG; Start 11/01/18 at 09:00 Acetaminophen (Tylenol Liquid) 650 mg Q6H PRN GTB MILD PAIN(1-3)OR ELEVATED TEMP Last administered on 11/27/18 17:13; Admin Dose 650 MG; Start 11/01/18 at 12:00 Albuterol (Ventolin Hfa) 4 puff Q6H RESP THERAPY INH Last administered on 11/28/18 13:08; Admin Dose 4 PUFF; Start 11/01/18 at 20:00 Ipratropium [place] (Atrovent Hfa) 4 puff Q6H RESP THERAPY INH Last administered on 11/28/18 13:08; Admin Dose 4 PUFF; Start 11/01/18 at 20:00 Nystatin (Nystatin Susp) 5 ml QID PO Last administered on 11/28/18 15:00; Admin Dose 5 ML; Start 11/09/18 at 17:00 Sodium Chloride 1,000 ml @ 100 mls/hr Q10H IV Last administered on 11/28/18 11:12; Admin Dose 100 MLS/HR; Start 11/24/18 at 09:30 Vancomycin HCl (Vanco Iv Per Pharmacy) VANCOMYCIN PER PHARMACY PER PROTOCOL XX ; Start 11/25/18 at 22:00 Vancomycin HCl 100 ml @ 100 mls/hr Q12H IVPB Last administered on 11/28/18 11:12; Admin Dose 100 MLS/HR; Start 11/25/18 at 22:00 Cefepime HCl 50 ml @ 100 mls/hr Q12 IVPB Last administered on 11/28/18 09:54; Admin Dose 100 MLS/HR; Start 11/26/18 at 13:00 Voriconazole (Vfend) 200 mg BID PO Last administered on 11/28/18 09:55; Admin Dose 200 MG; Start 11/26/18 at 21:00 Ibuprofen (Motrin) 400 mg Q6H PRN NGT MILD PAIN LEVEL 1-3 Last administered on 11/27/18at 21:25; Admin Dose 400 MG; Start 11/27/18 at 01:30 CLEMENT WATSON Nov 28, 2018 16:33
--- NOTE | 2018-11-28 17:14 | CONS ---
Date/Time of Note Date/Time of Note DATE: 11/28/18 TIME: 17:13 Consult Date/Type/Reason Admit Date/Time Oct 31, 2018 at 21:21 Initial Consult Date 11/15/18 Type of Consultation: Pulm Requesting Provider: LORRAINE SHAH MD Subjective No events overnight. Objective Vital Signs Date Temp Pulse Resp B/P (MAP) Pulse Ox O2 O2 Flow FiO2 Time Delivery Rate 11/28/18 98.1 85 17 102/61 98 16:02 (75) 11/28/18 30 15:45 11/28/18 Mechanical 03:14 Ventilator Intake and Output 11/27/18 11/27/18 11/28/18 1515:00 23:00 07:00 IntakeIntake Total 150 ml 2265 ml 1250 ml OutputOutput Total 900 ml 550 ml BalanceBalance 150 ml 1365 ml 700 ml Exam NECK: Supple. No JVD or lymphadenopathy. CARDIAC EXAM: S1, S2. No added sounds or murmurs. CHEST: clear bilaterally, No added sounds, rales or wheezes ABDOMEN: Soft, nontender. No guarding or rebound. EXTREMITIES: No cyanosis, clubbing or edema. NEUROLOGIC: Generalized weakness. No focal deficits. Results/Medications Result Diagram: 11/28/18 0601 11/28/18 0601 Results 24 hrs Laboratory Tests Test 11/27/18 20:52 11/28/18 06:01 Vancomycin Level Trough 12.6 White Blood Count 6.7 Red Blood Count 3.10 L Hemoglobin 8.9 L Hematocrit 28.9 L Mean Corpuscular Volume 93.2 Mean Corpuscular Hemoglobin 28.7 L Mean Corpuscular Hemoglobin Concent 30.8 L Red Cell Distribution Width 14.5 Platelet Count 113 L Mean Platelet Volume 12.4 H Immature Granulocytes % 0.600 H Neutrophils % 84.0 H Segmented Neutrophils % (Manual) 81 H Band Neutrophils % (Manual) 6 H Lymphocytes % 8.7 L Lymphocytes % (Manual) 4 L Reactive Lymphocytes % (Manual) 2 H Monocytes % 5.4 Monocytes % (Manual) 6 Eosinophils % 0.9 Basophils % 0.4 Promyelocytes % (Manual) 1 H Nucleated Red Blood Cells % 0.0 Immature Granulocytes # 0.040 H Neutrophils # 5.6 Neutrophils # (Manual) 5.5 Band Neutrophils # 0.4 Lymphocytes (Manual) 0.2 L Lymphocytes # 0.6 L Reactive Lymphocytes # 0.1 H Monocytes # 0.4 Monocytes # (Manual) 0.4 Eosinophils # 0.1 Basophils # 0.0 Promyelocytes # 0.0 Nucleated Red Blood Cells # 0.0 Toxic Granulation 1+ Platelet Estimate DECREASED Giant Platelets 11 H Poikilocytosis 1+ Anisocytosis 1+ Sodium Level 151 H Potassium Level 3.9 Chloride Level 116 H Carbon Dioxide Level 30 Anion Gap 5 Blood Urea Nitrogen 23 H Creatinine 0.54 L Est Glomerular Filtrat Rate mL/min > 60 Glucose Level 129 Calcium Level 8.2 L Medications Current Medications Bisacodyl (Dulcolax Supp) 10 mg Q24H [place] Last administered on 11/22/18 00:20; Admin Dose 10 MG; Start 11/01/18 at 00:00 Enoxaparin Sodium (Lovenox) 30 mg DAILY SC Last administered on 11/28/18 10:13; Admin Dose 30 MG; Start 11/01/18 at 09:00 Escitalopram Oxalate (Lexapro) 10 mg DAILY GTB Last administered on 11/28/18 09:55; Admin Dose 10 MG; Start 11/01/18 at 09:00 Ferrous Sulfate (Feosol Liquid Cup) 330 mg BID GTB Last administered on 11/28/18 09:55; Admin Dose 330 MG; Start 11/01/18 at 09:00 Lansoprazole (Prevacid) 30 mg DAILY GTB Last administered on 11/28/18 09:55; Admin Dose 30 MG; Start 11/01/18 at 09:00 Morphine Sulfate (morphine) 5 mg Q4H PRN GTB MODERATE TO SEVERE PAIN Last administered on 11/28/18 11:03; Admin Dose 5 MG; Start 11/01/18 at 00:00 Multivitamins (Multivitamin) 30 ml DAILY GTB Last administered on 11/28/18 09:55; Admin Dose 30 ML; Start 11/01/18 at 09:00 Docusate Sodium (Colace Liquid Cup) 100 mg BID GTB Last administered on 11/28/18 09:55; Admin Dose 100 MG; Start 11/01/18 at 09:00 Acetaminophen (Tylenol Liquid) 650 mg Q6H PRN GTB MILD PAIN(1-3)OR ELEVATED TEMP Last administered on 11/27/18 17:13; Admin Dose 650 MG; Start 11/01/18 at 12:00 Albuterol (Ventolin Hfa) 4 puff Q6H RESP THERAPY INH Last administered on 11/28/18 13:08; Admin Dose 4 PUFF; Start 11/01/18 at 20:00 Ipratropium [place] (Atrovent Hfa) 4 puff Q6H RESP THERAPY INH Last administered on 11/28/18 13:08; Admin Dose 4 PUFF; Start 11/01/18 at 20:00 Nystatin (Nystatin Susp) 5 ml QID PO Last administered on 11/28/18 15:00; Admin Dose 5 ML; Start 11/09/18 at 17:00 Sodium Chloride 1,000 ml @ 100 mls/hr Q10H IV Last administered on 11/28/18 11:12; Admin Dose 100 MLS/HR; Start 11/24/18 at 09:30 Vancomycin HCl (Vanco Iv Per Pharmacy) VANCOMYCIN PER PHARMACY PER PROTOCOL XX ; Start 11/25/18 at 22:00 Vancomycin HCl 100 ml @ 100 mls/hr Q12H IVPB Last administered on 11/28/18 11:12; Admin Dose 100 MLS/HR; Start 11/25/18 at 22:00 Cefepime HCl 50 ml @ 100 mls/hr Q12 IVPB Last administered on 11/28/18 09:54; Admin Dose 100 MLS/HR; Start 11/26/18 at 13:00 Voriconazole (Vfend) 200 mg BID PO Last administered on 11/28/18 09:55; Admin Dose 200 MG; Start 11/26/18 at 21:00 Ibuprofen (Motrin) 400 mg Q6H PRN NGT MILD PAIN LEVEL 1-3 Last administered on 11/27/18 21:25; Admin Dose 400 MG; Start 11/27/18 at 01:30 Assessment/Plan Chief Complaint/Hosp Course Briefly, this is a 63-year-old gentleman with history of coronary artery disease, rnon-ST elevation [place], hypertension, history of aspiration pneumonia and chronic respiratory failure, C-spine epidural abscess, status post C3 to C4 laminectomy, quadriplegic, vent-dependent, prior Klebsiella UTI, obstructive uropathy, [facility] resident. He was transferred from SNF with ALOC and fevers. Additional Assessment/Plan Results/Medications Result Diagram: 11/26/18 0534 11/26/18 0534 Results 24 hrs Laboratory Tests Test 11/26/18 05:34 White Blood Count 11.5 H Red Blood Count 2.99 #L Hemoglobin 8.8 #L Hematocrit 28.9 L Mean Corpuscular Volume 96.7 Mean Corpuscular Hemoglobin 29.4 Mean Corpuscular Hemoglobin Concent 30.4 L Red Cell Distribution Width 14.6 H Platelet Count 117 #L Mean Platelet Volume 12.9 H Immature Granulocytes % 1.100 H Neutrophils % 89.4 H Lymphocytes % 5.9 L Monocytes % 3.0 Eosinophils % 0.3 Basophils % 0.3 Nucleated Red Blood Cells % 0.0 Immature Granulocytes # 0.130 H Neutrophils # 10.3 H Lymphocytes # 0.7 L Monocytes # 0.3 Eosinophils # 0.0 Basophils # 0.0 Nucleated Red Blood Cells # 0.0 Sodium Level 154 H Potassium Level 3.7 Chloride Level 116 H Carbon Dioxide Level 32 H Anion Gap 6 Blood Urea Nitrogen 35 H Creatinine 0.70 Est Glomerular Filtrat Rate mL/min > 60 Glucose Level 168 Calcium Level 8.3 L Medications Current Medications Bisacodyl (Dulcolax Supp) 10 mg Q24H [place] Last administered on 11/22/18at 00:20; Admin Dose 10 MG; Start 11/01/18 at 00:00 Enoxaparin Sodium (Lovenox) 30 mg DAILY [place] Last administered on 11/26/18 10:01; Admin Dose 30 MG; Start 11/01/18 at 09:00 Escitalopram Oxalate (Lexapro) 10 mg DAILY GTB Last administered on 11/26/18 0 9:39; Admin Dose 10 MG; Start 11/01/18 at 09:00 Ferrous Sulfate (Feosol Liquid Cup) 330 mg BID GTB Last administered on 11/26/18 09:39; Admin Dose 330 MG; Start 11/01/18 at 09:00 Lansoprazole (Prevacid) 30 mg DAILY GTB Last administered on 11/26/18 09:39; Admin Dose 30 MG; Start 11/01/18 at 09:00 Morphine Sulfate (morphine) 5 mg Q4H PRN GTB MODERATE TO SEVERE PAIN Last administered on 11/21/18at 17:42; Admin Dose 5 MG; Start 11/01/18 at 00:00 Multivitamins (Multivitamin) 30 ml DAILY GTB Last administered on 11/26/18 09:39; Admin Dose 30 ML; Start 11/01/18 at 09:00 Docusate Sodium (Colace Liquid Cup) 100 mg BID GTB Last administered on 11/25/18 20:47; Admin Dose 100 MG; Start 11/01/18 at 09:00 Acetaminophen (Tylenol Liquid) 650 mg Q6H PRN GTB MILD PAIN(1-3)OR ELEVATED TEMP Last administered on 11/26/18 00:37; Admin Dose 650 MG; Start 11/01/18 at 12:00 Albuterol (Ventolin Hfa) 4 puff Q6H RESP THERAPY INH Last administered on 11/26/18 08:11; Admin Dose 4 PUFF; Start 11/01/18 at 20:00 Ipratropium [place] (Atrovent Hfa) 4 puff Q6H RESP THERAPY INH Last administered on 11/26/18 08:11; Admin Dose 4 PUFF; Start 11/01/18 at 20:00 Nystatin (Nystatin Susp) 5 ml QID PO Last administered on 11/26/18 12:09; Admin Dose 5 ML; Start 11/09/18 at 17:00 Sodium Chloride 1,000 ml @ 100 mls/hr Q10H IV Last administered on 11/26/18 09:40; Admin Dose 100 MLS/HR; Start 11/24/18 at 09:30 Vancomycin HCl (Vanco Iv Per Pharmacy) VANCOMYCIN PER PHARMACY PER PROTOCOL XX ; Start 11/25/18 at 22:00 Vancomycin HCl 100 ml @ 100 mls/hr Q12H IVPB Last administered on 11/26/18 10:59; Admin Dose 100 MLS/HR; Start 11/25/18 at 22:00 Fluconazole (Diflucan) 100 mg DAILY PO ; Start 11/26/18 at 11:30; Status UNV Cefepime HCl 50 ml @ 100 mls/hr Q12 IVPB ; Start 11/26/18 at 21:00; Status UNV Assessment/Plan Chief Complaint/Hosp Course IMP: IMP: 1. Obstructive uropathy-- with sepsis with persistent fevers. 2. Chronic respiratory failure, vent dependent. 3. 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 4. Pre-renal azotemia 5. Right corneal opacity chronic with blindness. 6. History of coronary artery disease with history of myocardial infarction. 7. Chronic sacral coccygeal decubitus RECS: 1. TF/Free H20 2. ID recs. 3. Be support 4. Wound care 5. DVT and GI prophylaxis Prognosis guarded. MIGUEL SWARTZ MD Nov 28, 2018 17:14
--- NOTE | 2018-11-28 20:09 | CONS ---
Date/Time of Note Date/Time of Note DATE: 11/28/18 TIME: 20:08 Assessment/Plan Assessment/Plan Hospital Course 1340 No acute changes, looks comfortable, afebrile Microbiology: Urine culture grew Filomena species, not albicans, blood culture growing staph and Serratia marcescens Antimicrobials: Vanco Vfend cefepime INDWELLINGS: Trach, PEG, Cash. PHYSICAL EXAMINATION: GENERAL: This is a chronically ill-appearing, debilitated, elderly man who is in no distress. HEENT: Head atraumatic, normocephalic. Sclerae anicteric. Buccal mucosa dry. NECK: Supple. Tracheostomy present. CHEST: Rise symmetrical. Breath sounds diminished to bases. HEART: S1, S2, tachycardic, regular. ABDOMEN: Soft, bowel tones present. EXTREMITIES: Wasted, contractured. ASSESSMENT: 1. Sepsis with polymicrobial bacteremia 2. Obstructive uropathy, patient passed the stone for repeat CT 3. Recurrent urinary tract infection. 4. Healthcare-associated pneumonia. 5. History of Clostridium difficile colitis. 6. Quadriplegia status post cervical spine surgery. 7. 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 PLAN: Clinically unchanged, continue antibiotics, f/u repeat bld cx DW staff Result Diagram: 11/28/18 0601 11/28/18 0601 Results 24hrs Laboratory Tests Test 11/27/18 20:52 11/28/18 06:01 Vancomycin Level Trough 12.6 White Blood Count 6.7 Red Blood Count 3.10 L Hemoglobin 8.9 L Hematocrit 28.9 L Mean Corpuscular Volume 93.2 Mean Corpuscular Hemoglobin 28.7 L Mean Corpuscular Hemoglobin Concent 30.8 L Red Cell Distribution Width 14.5 Platelet Count 113 L Mean Platelet Volume 12.4 H Immature Granulocytes % 0.600 H Neutrophils % 84.0 H Segmented Neutrophils % (Manual) 81 H Band Neutrophils % (Manual) 6 H Lymphocytes % 8.7 L Lymphocytes % (Manual) 4 L Reactive Lymphocytes % (Manual) 2 H Monocytes % 5.4 Monocytes % (Manual) 6 Eosinophils % 0.9 Basophils % 0.4 Promyelocytes % (Manual) 1 H Nucleated Red Blood Cells % 0.0 Immature Granulocytes # 0.040 H Neutrophils # 5.6 Neutrophils # (Manual) 5.5 Band Neutrophils # 0.4 Lymphocytes (Manual) 0.2 L Lymphocytes # 0.6 L Reactive Lymphocytes # 0.1 H Monocytes # 0.4 Monocytes # (Manual) 0.4 Eosinophils # 0.1 Basophils # 0.0 Promyelocytes # 0.0 Nucleated Red Blood Cells # 0.0 Toxic Granulation 1+ Platelet Estimate DECREASED Giant Platelets 11 H Poikilocytosis 1+ Anisocytosis 1+ Sodium Level 151 H Potassium Level 3.9 Chloride Level 116 H Carbon Dioxide Level 30 Anion Gap 5 Blood Urea Nitrogen 23 H Creatinine 0.54 L Est Glomerular Filtrat Rate mL/min > 60 Glucose Level 129 Calcium Level 8.2 L Consultation Date/Type/Reason Admit Date/Time Oct 31, 2018 at 21:21 Initial Consult Date 11/01/18 Type of Consult id Requesting Provider: LORRAINE SHAH MD Exam/Review of Systems Vital Signs Vitals Vital Signs Date Temp Pulse Resp B/P (MAP) Pulse Ox O2 O2 Flow FiO2 Time Delivery Rate 11/28/18 30 20:00 11/28/18 69 18 100 17:57 11/28/18 98.1 102/61 16:02 (75) 11/28/18 Mechanical 03:14 Ventilator Intake and Output 11/27/18 11/27/18 11/28/18 1515:00 23:00 07:00 IntakeIntake Total 150 ml 2265 ml 1250 ml OutputOutput Total 900 ml 550 ml BalanceBalance 150 ml 1365 ml 700 ml Medications Medications Current Medications Bisacodyl (Dulcolax Supp) 10 mg Q24H [place] Last administered on 11/22/18at 00:20; Admin Dose 10 MG; Start 11/01/18 at 00:00 Enoxaparin Sodium (Lovenox) 30 mg DAILY SC Last administered on 11/28/18 10:13; Admin Dose 30 MG; Start 11/01/18 at 09:00 Escitalopram Oxalate (Lexapro) 10 mg DAILY GTB Last administered on 11/28/18 09:55; Admin Dose 10 MG; Start 11/01/18 at 09:00 Ferrous Sulfate (Feosol Liquid Cup) 330 mg BID GTB Last administered on 11/28/18 09:55; Admin Dose 330 MG; Start 11/01/18 at 09:00 Lansoprazole (Prevacid) 30 mg DAILY GTB Last administered on 11/28/18 09:55; Admin Dose 30 MG; Start 11/01/18 at 09:00 Morphine Sulfate (morphine) 5 mg Q4H PRN GTB MODERATE TO SEVERE PAIN Last administered on 11/28/18 11:03; Admin Dose 5 MG; Start 11/01/18 at 00:00 Multivitamins (Multivitamin) 30 ml DAILY GTB Last administered on 11/28/18 09:55; Admin Dose 30 ML; Start 11/01/18 at 09:00 Docusate Sodium (Colace Liquid Cup) 100 mg BID GTB Last administered on 11/28/18 09:55; Admin Dose 100 MG; Start 11/01/18 at 09:00 Acetaminophen (Tylenol Liquid) 650 mg Q6H PRN GTB MILD PAIN(1-3)OR ELEVATED TEMP Last administered on 11/27/18 17:13; Admin Dose 650 MG; Start 11/01/18 at 12:00 Albuterol (Ventolin Hfa) 4 puff Q6H RESP THERAPY INH Last administered on 11/28/18 13:08; Admin Dose 4 PUFF; Start 11/01/18 at 20:00 Ipratropium [place] (Atrovent Hfa) 4 puff Q6H RESP THERAPY INH Last administered on 11/28/18 13:08; Admin Dose 4 PUFF; Start 11/01/18 at 20:00 Nystatin (Nystatin Susp) 5 ml QID PO Last administered on 11/28/18 17:40; Admin Dose 5 ML; Start 11/09/18 at 17:00 Sodium Chloride 1,000 ml @ 100 mls/hr Q10H IV Last administered on 11/28/18 11:12; Admin Dose 100 MLS/HR; Start 11/24/18 at 09:30 Vancomycin HCl (Vanco Iv Per Pharmacy) VANCOMYCIN PER PHARMACY PER PROTOCOL XX ; Start 11/25/18 at 22:00 Vancomycin HCl 100 ml @ 100 mls/hr Q12H IVPB Last administered on 11/28/18 11:12; Admin Dose 100 MLS/HR; Start 11/25/18 at 22:00 Cefepime HCl 50 ml @ 100 mls/hr Q12 IVPB Last administered on 11/28/18 09:54; Admin Dose 100 MLS/HR; Start 1/3/19 at 13:00 Voriconazole (Vfend) 200 mg BID PO Last administered on 11/28/18at 09:55; Admin Dose 200 MG; Start 11/26/18 at 21:00 Ibuprofen (Motrin) 400 mg Q6H PRN NGT MILD PAIN LEVEL 1-3 Last administered on 11/27/18at 21:25; Admin Dose 400 MG; Start 11/27/18 at 01:30 RISA SAWYER NP Nov 28, 2018 20:09
[2018-11-28] MEDS: ACETAMINOPHEN 650MG/20.3ML CUP GTB PRN (20:42)
[2018-11-28] MEDS: BISACODYL 10 MG SUPP PR SCH ×2 (23:58)
[2018-11-29] VITALS (23 sets, daily range): BP systolic 102–125; BP diastolic 59–76; PULSE 56–69; RESP 15–20
[2018-11-29] MEDS: IPRATROPIUM (HFA) 12.9 GM INHALER INH SCH ×4 (01:52→19:22)
[2018-11-29] MEDS: ALBUTEROL HFA 8 GM INHALER INH SCH ×4 (01:52→19:22)
[2018-11-29] MEDS: MULTIVITAMINS 30 ML CUP GTB SCH (09:24)
[2018-11-29] MEDS: DOCUSATE SODIUM 10 MG/ML (10ML CUP) GTB SCH ×2 (09:24→20:06)
[2018-11-29] MEDS: LANSOPRAZOLE 30 MG CAP GTB SCH (09:24)
[2018-11-29] MEDS: ESCITALOPRAM 10 MG TAB GTB SCH (09:24)
[2018-11-29] MEDS: VORICONAZOLE 200 MG TAB PO SCH ×2 (09:24→20:06)
[2018-11-29] MEDS: CEFEPIME 1GM/50 ML (PMX) 50 ML IVPB SCH ×2 (09:25→20:06)
[2018-11-29] MEDS: NYSTATIN SUSP 5 ML CUP PO SCH ×4 (09:25→20:06)
[2018-11-29] MEDS: FERROUS SULFATE 60 MG/ML 5ML CUP GTB SCH ×2 (09:25→20:06)
[2018-11-29] MEDS: BALSAM PERU/CASTOR OIL 60 GM TUBE TOP SCH (09:26)
[2018-11-29] MEDS: ENOXAPARIN 30 MG/0.3 ML SYG SC SCH (09:42)
[2018-11-29] MEDS: VANCOMYCIN 500 MG (PMX) 100 ML IVPB SCH ×2 (11:17→22:21)
[2018-11-29] MEDS: SOD CHLORIDE 0.9% 1,000 ML IV SCH ×2 (11:18→19:30)
--- NOTE | 2018-11-29 12:52 | CONS ---
Date/Time of Note Date/Time of Note DATE: 11/29/18 TIME: 12:49 Consult Date/Type/Reason Admit Date/Time Oct 31, 2018 at 21:21 Initial Consult Date 11/15/18 Type of Consultation: Urology Reason for Consultation Urinary tract infection, fever and dislodged Cash catheter Requesting Provider: LORRAINE SHAH MD Subjective Patient condition is unchanged. Objective Vital Signs Date Temp Pulse Resp B/P (MAP) Pulse Ox O2 O2 Flow FiO2 Time Delivery Rate 11/29/18 66 12:23 11/29/18 18 98 30 11:40 11/29/18 99.2 108/66 Trach 11:32 (80) Collar Intake and Output 11/28/18 11/28/18 11/29/18 1515:00 23:00 07:00 IntakeIntake Total 150 ml 1925 ml 2050 ml OutputOutput Total 1500 ml 800 ml BalanceBalance 150 ml 425 ml 1250 ml Exam He still has temperature of 101.7 The Cash catheter is draining well and he has good urine output Results/Medications Result Diagram: 11/29/18 0608 11/29/18 0608 Results 24 hrs Laboratory Tests Test 11/29/18 06:08 White Blood Count 6.3 Red Blood Count 2.90 L Hemoglobin 8.4 L Hematocrit 27.4 L Mean Corpuscular Volume 94.5 Mean Corpuscular Hemoglobin 29.0 Mean Corpuscular Hemoglobin Concent 30.7 L Red Cell Distribution Width 14.5 Platelet Count 128 L Mean Platelet Volume 12.5 H Immature Granulocytes % 0.800 H Neutrophils % 83.1 H Lymphocytes % 9.8 L Monocytes % 4.7 Eosinophils % 1.1 Basophils % 0.5 Nucleated Red Blood Cells % 0.0 Immature Granulocytes # 0.050 H Neutrophils # 5.3 Lymphocytes # 0.6 L Monocytes # 0.3 Eosinophils # 0.1 Basophils # 0.0 Nucleated Red Blood Cells # 0.0 Sodium Level 150 H Potassium Level 3.9 Chloride Level 115 H Carbon Dioxide Level 30 Anion Gap 5 Blood Urea Nitrogen 23 H Creatinine 0.55 L Est Glomerular Filtrat Rate mL/min > 60 Glucose Level 146 Calcium Level 7.9 L Medications Current Medications Bisacodyl (Dulcolax Supp) 10 mg Q24H [place] Last administered on 11/22/18at 00:20; Admin Dose 10 MG; Start 11/01/18 at 00:00 Enoxaparin Sodium (Lovenox) 30 mg DAILY SC Last administered on 11/29/18 09:42; Admin Dose 30 MG; Start 11/01/18 at 09:00 Escitalopram Oxalate (Lexapro) 10 mg DAILY GTB Last administered on 11/29/18 09:24; Admin Dose 10 MG; Start 11/01/18 at 09:00 Ferrous Sulfate (Feosol Liquid Cup) 330 mg BID GTB Last administered on 11/29/18 09:25; Admin Dose 330 MG; Start 11/01/18 at 09:00 Lansoprazole (Prevacid) 30 mg DAILY GTB Last administered on 11/29/18 09:24; Admin Dose 30 MG; Start 11/01/18 at 09:00 Morphine Sulfate (morphine) 5 mg Q4H PRN GTB MODERATE TO SEVERE PAIN Last administered on 11/28/18 11:03; Admin Dose 5 MG; Start 11/01/18 at 00:00 Multivitamins (Multivitamin) 30 ml DAILY GTB Last administered on 11/29/18 09:24; Admin Dose 30 ML; Start 11/01/18 at 09:00 Docusate Sodium (Colace Liquid Cup) 100 mg BID GTB Last administered on 11/29/18 09:24; Admin Dose 100 MG; Start 11/01/18 at 09:00 Acetaminophen (Tylenol Liquid) 650 mg Q6H PRN GTB MILD PAIN(1-3)OR ELEVATED TEMP Last administered on 11/28/18 20:42; Admin Dose 650 MG; Start 11/01/18 at 12:00 Albuterol (Ventolin Hfa) 4 puff Q6H RESP THERAPY INH Last administered on 11/29/18 09:09; Admin Dose 4 PUFF; Start 11/01/18 at 20:00 Ipratropium [place] (Atrovent Hfa) 4 puff Q6H RESP THERAPY INH Last administered on 11/29/18 09:08; Admin Dose 4 PUFF; Start 11/01/18 at 20:00 Nystatin (Nystatin Susp) 5 ml QID PO Last administered on 11/29/18 09:25; Admin Dose 5 ML; Start 11/09/18 at 17:00 Sodium Chloride 1,000 ml @ 100 mls/hr Q10H IV Last administered on 11/29/18at 11:18; Admin Dose 100 MLS/HR; Start 11/24/18 at 09:30 Vancomycin HCl (Vanco Iv Per Pharmacy) VANCOMYCIN PER PHARMACY PER PROTOCOL XX ; Start 11/25/18 at 22:00 Vancomycin HCl 100 ml @ 100 mls/hr Q12H IVPB Last administered on 11/29/18at 11:17; Admin Dose 100 MLS/HR; Start 11/25/18 at 22:00 Cefepime HCl 50 ml @ 100 mls/hr Q12 IVPB Last administered on 11/29/18at 09:25; Admin Dose 100 MLS/HR; Start 11/26/18 at 13:00 Voriconazole (Vfend) 200 mg BID PO Last administered on 11/29/18at 09:24; Admin Dose 200 MG; Start 11/26/18 at 21:00 Ibuprofen (Motrin) 400 mg Q6H PRN NGT MILD PAIN LEVEL 1-3 Last administered on 11/27/18at 21:25; Admin Dose 400 MG; Start 11/27/18 at 01:30 Miscellaneous Information (*Rx Drug Level Order Reminder*) VANCO TR 11/30 AT 1000 ONCE ONCE XX ; Start 11/30/18 at 10:00; Stop 11/30/18 at 10:01 Assessment/Plan Chief Complaint/Hosp Course 62-year-old male with history of coronary artery disease, non-ST elevation [place], hypertension, history of aspiration pneumonia ,chronic respiratory failure vent dependent. The patient has history of C-spine epidural abscess, status post C3 to C4 laminectomy. The patient is quadriplegic and has been vent-dependent. He is a resident of [facility] and was noted to have fever and was transferred to [facility] for further care and workup. Since his admis yuliana he has been having fever on and off and his temperature has reached 103. He had a CT scan of the abdomen and pelvis and that showed: 1. Distal left uretero-vesicular junction stone producing moderate left obstructive uropathy and hydroureter with perinephric stranding. 2. Nonobstructing left lower pole renal calculus. 3. Mild right perinephric stranding. Correlation with superimposed nephritis. 4. Chronic changes of the right proximal femur with subtrochanteric fracture and remodelling with heterotopic soft tissue calcification. 5. Cholelithiasis. 6. Bibasilar atelectasis versus mild infiltrate changes Therefore a urological consultation was requested because of his persistent fev er. All the information were obtained from his medical record. He passed the distal left ureteral stone. The Cash catheter that he had with the balloon inflated into the bulbar urethra was removed and a new catheter was inserted. Catheter size is 14 [place] coud catheter. The catheter is draining well and the urine culture from November 24, 2018 grew Filomena not albicans. He is on voriconazole. He had a temperature of 101.7 yesterday. Urologically continue present treatment NOLBERTO COLLINS MD Nov 29, 2018 12:52
--- NOTE | 2018-11-29 13:26 | CONS ---
Date/Time of Note Date/Time of Note DATE: 11/29/18 TIME: 13:24 Assessment/Plan Assessment/Plan Result Diagram: 11/29/18 0608 11/29/18 0608 Results 24hrs Laboratory Tests Test 11/29/18 06:08 White Blood Count 6.3 Red Blood Count 2.90 L Hemoglobin 8.4 L Hematocrit 27.4 L Mean Corpuscular Volume 94.5 Mean Corpuscular Hemoglobin 29.0 Mean Corpuscular Hemoglobin Concent 30.7 L Red Cell Distribution Width 14.5 Platelet Count 128 L Mean Platelet Volume 12.5 H Immature Granulocytes % 0.800 H Neutrophils % 83.1 H Lymphocytes % 9.8 L Monocytes % 4.7 Eosinophils % 1.1 Basophils % 0.5 Nucleated Red Blood Cells % 0.0 Immature Granulocytes # 0.050 H Neutrophils # 5.3 Lymphocytes # 0.6 L Monocytes # 0.3 Eosinophils # 0.1 Basophils # 0.0 Nucleated Red Blood Cells # 0.0 Sodium Level 150 H Potassium Level 3.9 Chloride Level 115 H Carbon Dioxide Level 30 Anion Gap 5 Blood Urea Nitrogen 23 H Creatinine 0.55 L Est Glomerular Filtrat Rate mL/min > 60 Glucose Level 146 Calcium Level 7.9 L Consultation Date/Type/Reason Admit Date/Time Oct 31, 2018 at 21:21 Initial Consult Date SUBJECTIVE: Patient continuing to spike fevers. She is sleepy, comfortable. VS: T: highest today 103.0. Now 99.8 LABS: Reviewed. WBC remains WNL. Microbiology: Blood cultures since November 02 negative blood cultures since yesterday preliminary negative, urine culture negative stool for C. difficile negative BLOOD CULTURE from 11/24/18: BLOOD CULTURE Final BCULT GRAM BOTTLE 1 Gram negative rods . seen on gram stain of the broth BCULT GRAM BOTTLE 2 Gram positive cocci in clusters 2 of 2 bottles Organism 1 SERRATIA MARCESCENS Organism 2 COAGULASE NEGATIVE STAPH INDWELLINGS: Trach, PEG. Cash Antimicrobials: Vanco, Vfend, cefepime PHYSICAL EXAMINATION: GENERAL: This is a chronically ill-appearing, debilitated, elderly man who is in no distress. HEENT: Head atraumatic, normocephalic. Sclerae anicteric. Buccal mucosa dry. NECK: Supple. Tracheostomy present. CHEST: Rise symmetrical. Breath sounds diminished to bases. HEART: S1, S2, tachycardic, regular. ABDOMEN: Soft, bowel tones present. EXTREMITIES: Wasted, contractured. ASSESSMENT: 1. Sepsis with polymicrobial bacteremia 2. Obstructive uropathy, patient passed the stone for repeat CT 3. Recurrent urinary tract infection. 4. Healthcare-associated pneumonia. 5. History of Clostridium difficile colitis. 6. Quadriplegia status post cervical spine surgery. 7. 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 Continue current antbx. Requesting Provider: LORRAINE SHAH MD Exam/Review of Systems Vital Signs Vitals Vital Signs Date Temp Pulse Resp B/P (MAP) Pulse Ox O2 O2 Flow FiO2 Time Delivery Rate 11/29/18 58 18 97 30 13:12 11/29/18 99.2 108/66 Trach 11:32 (80) Collar Intake and Output 11/28/18 11/28/18 11/29/18 1515:00 23:00 07:00 IntakeIntake Total 150 ml 1925 ml 2050 ml OutputOutput Total 1500 ml 800 ml BalanceBalance 150 ml 425 ml 1250 ml Medications Medications Current Medications Bisacodyl (Dulcolax Supp) 10 mg Q24H [place] Last administered on 11/22/18at 00:20; Admin Dose 10 MG; Start 11/01/18 at 00:00 Enoxaparin Sodium (Lovenox) 30 mg DAILY SC Last administered on 11/29/18 09:42; Admin Dose 30 MG; Start 11/01/18 at 09:00 Escitalopram Oxalate (Lexapro) 10 mg DAILY GTB Last administered on 11/29/18 09:24; Admin Dose 10 MG; Start 11/01/18 at 09:00 Ferrous Sulfate (Feosol Liquid Cup) 330 mg BID GTB Last administered on 11/29/18 09:25; Admin Dose 330 MG; Start 11/01/18 at 09:00 Lansoprazole (Prevacid) 30 mg DAILY GTB Last administered on 11/29/18 09:24; Admin Dose 30 MG; Start 11/01/18 at 09:00 Morphine Sulfate (morphine) 5 mg Q4H PRN GTB MODERATE TO SEVERE PAIN Last administered on 11/28/18 11:03; Admin Dose 5 MG; Start 11/01/18 at 00:00 Multivitamins (Multivitamin) 30 ml DAILY GTB Last administered on 11/29/18 09:24; Admin Dose 30 ML; Start 11/01/18 at 09:00 Docusate Sodium (Colace Liquid Cup) 100 mg BID GTB Last administered on 11/29/18 09:24; Admin Dose 100 MG; Start 11/01/18 at 09:00 Acetaminophen (Tylenol Liquid) 650 mg Q6H PRN GTB MILD PAIN(1-3)OR ELEVATED TEMP Last administered on 11/28/18 20:42; Admin Dose 650 MG; Start 11/01/18 at 12:00 Albuterol (Ventolin Hfa) 4 puff Q6H RESP THERAPY INH Last administered on 11/29/18 09:09; Admin Dose 4 PUFF; Start 11/01/18 at 20:00 Ipratropium [place] (Atrovent Hfa) 4 puff Q6H RESP THERAPY INH Last administer ed on 11/29/18 09:08; Admin Dose 4 PUFF; Start 11/01/18 at 20:00 Nystatin (Nystatin Susp) 5 ml QID PO Last administered on 11/29/18 09:25; Admin Dose 5 ML; Start 11/09/18 at 17:00 Sodium Chloride 1,000 ml @ 100 mls/hr Q10H IV Last administered on 11/29/18 11:18; Admin Dose 100 MLS/HR; Start 11/24/18 at 09:30 Vancomycin HCl (Vanco Iv Per Pharmacy) VANCOMYCIN PER PHARMACY PER PROTOCOL XX ; Start 11/25/18 at 22:00 Vancomycin HCl 100 ml @ 100 mls/hr Q12H IVPB Last administered on 11/29/18 11:17; Admin Dose 100 MLS/HR; Start 11/25/18 at 22:00 Cefepime HCl 50 ml @ 100 mls/hr Q12 IVPB Last administered on 11/29/18 09:25; Admin Dose 100 MLS/HR; Start 11/26/18 at 13:00 Voriconazole (Vfend) 200 mg BID PO Last administered on 11/29/18 09:24; Admin Dose 200 MG; Start 11/26/18 at 21:00 Ibuprofen (Motrin) 400 mg Q6H PRN NGT MILD PAIN LEVEL 1-3 Last administered on 11/27/18 21:25; Admin Dose 400 MG; Start 11/27/18 at 01:30 Miscellaneous Information (*Rx Drug Level Order Reminder*) VANCO TR 11/30 AT 1000 ONCE ONCE XX ; Start 11/30/18 at 10:00; Stop 11/30/18 at 10:01 TYLER FITZPATRICK Nov 29, 2018 13:26
--- NOTE | 2018-11-29 14:24 | CONS ---
Date/Time of Note Date/Time of Note DATE: 11/29/18 TIME: 14:23 Consult Date/Type/Reason Admit Date/Time Oct 31, 2018 at 21:21 Initial Consult Date 11/15/18 Type of Consultation: Pulm Requesting Provider: LORRAINE SHAH MD Subjective No events. Tolerating trach collar. Objective Vital Signs Date Temp Pulse Resp B/P (MAP) Pulse Ox O2 O2 Flow FiO2 Time Delivery Rate 11/29/18 58 18 97 30 13:12 11/29/18 99.2 108/66 Trach 11:32 (80) Collar Intake and Output 11/28/18 11/28/18 11/29/18 1515:00 23:00 07:00 IntakeIntake Total 150 ml 1925 ml 2050 ml OutputOutput Total 1500 ml 800 ml BalanceBalance 150 ml 425 ml 1250 ml Exam NECK: Supple. No JVD or lymphadenopathy. CARDIAC EXAM: S1, S2. No added sounds or murmurs. CHEST: clear bilaterally, No added sounds, rales or wheezes ABDOMEN: Soft, nontender. No guarding or rebound. EXTREMITIES: No cyanosis, clubbing or edema. NEUROLOGIC: Generalized weakness. No focal deficits. Results/Medications Result Diagram: 11/29/18 0608 11/29/18 0608 Results 24 hrs Laboratory Tests Test 11/29/18 06:08 White Blood Count 6.3 Red Blood Count 2.90 L Hemoglobin 8.4 L Hematocrit 27.4 L Mean Corpuscular Volume 94.5 Mean Corpuscular Hemoglobin 29.0 Mean Corpuscular Hemoglobin Concent 30.7 L Red Cell Distribution Width 14.5 Platelet Count 128 L Mean Platelet Volume 12.5 H Immature Granulocytes % 0.800 H Neutrophils % 83.1 H Lymphocytes % 9.8 L Monocytes % 4.7 Eosinophils % 1.1 Basophils % 0.5 Nucleated Red Blood Cells % 0.0 Immature Granulocytes # 0.050 H Neutrophils # 5.3 Lymphocytes # 0.6 L Monocytes # 0.3 Eosinophils # 0.1 Basophils # 0.0 Nucleated Red Blood Cells # 0.0 Sodium Level 150 H Potassium Level 3.9 Chloride Level 115 H Carbon Dioxide Level 30 Anion Gap 5 Blood Urea Nitrogen 23 H Creatinine 0.55 L Est Glomerular Filtrat Rate mL/min > 60 Glucose Level 146 Calcium Level 7.9 L Medications Current Medications Bisacodyl (Dulcolax Supp) 10 mg Q24H [place] Last administered on 11/22/18 00:20; Admin Dose 10 MG; Start 11/01/18 at 00:00 Enoxaparin Sodium (Lovenox) 30 mg DAILY [place] Last administered on 11/29/18 09:42; Admin Dose 30 MG; Start 11/01/18 at 09:00 Escitalopram Oxalate (Lexapro) 10 mg DAILY GTB Last administered on 11/29/18 09:24; Admin Dose 10 MG; Start 11/01/18 at 09:00 Ferrous Sulfate (Feosol Liquid Cup) 330 mg BID GTB Last administered on 11/29/18 t 09:25; Admin Dose 330 MG; Start 11/01/18 at 09:00 Lansoprazole (Prevacid) 30 mg DAILY GTB Last administered on 11/29/18 09:24; Admin Dose 30 MG; Start 11/01/18 at 09:00 Morphine Sulfate (morphine) 5 mg Q4H PRN GTB MODERATE TO SEVERE PAIN Last administered on 11/28/18 11:03; Admin Dose 5 MG; Start 11/01/18 at 00:00 Multivitamins (Multivitamin) 30 ml DAILY GTB Last administered on 11/29/18 09:2 4; Admin Dose 30 ML; Start 11/01/18 at 09:00 Docusate Sodium (Colace Liquid Cup) 100 mg BID GTB Last administered on 11/29/18 09:24; Admin Dose 100 MG; Start 11/01/18 at 09:00 Acetaminophen (Tylenol Liquid) 650 mg Q6H PRN GTB MILD PAIN(1-3)OR ELEVATED TEMP Last administered on 11/28/18 20:42; Admin Dose 650 MG; Start 11/01/18 at 12:00 Albuterol (Ventolin Hfa) 4 puff Q6H RESP THERAPY INH Last administered on 11/29/18 09:09; Admin Dose 4 PUFF; Start 11/01/18 at 20:00 Ipratropium [place] (Atrovent Hfa) 4 puff Q6H RESP THERAPY INH Last administered on 11/29/18 09:08; Admin Dose 4 PUFF; Start 11/01/18 at 20:00 Nystatin (Nystatin Susp) 5 ml QID PO Last administered on 11/29/18 14:02; Admin Dose 5 ML; Start 11/09/18 at 17:00 Sodium Chloride 1,000 ml @ 100 mls/hr Q10H IV Last administered on 11/29/18at 11:18; Admin Dose 100 MLS/HR; Start 11/24/18 at 09:30 Vancomycin HCl (Vanco Iv Per Pharmacy) VANCOMYCIN PER PHARMACY PER PROTOCOL XX ; Start 11/25/18 at 22:00 Vancomycin HCl 100 ml @ 100 mls/hr Q12H IVPB Last administered on 11/29/18at 11:17; Admin Dose 100 MLS/HR; Start 11/25/18 at 22:00 Cefepime HCl 50 ml @ 100 mls/hr Q12 IVPB Last administered on 11/29/18 09:25; Admin Dose 100 MLS/HR; Start 11/26/18 at 13:00 Voriconazole (Vfend) 200 mg BID PO Last administered on 11/29/18 09:24; Admin Dose 200 MG; Start 11/26/18 at 21:00 Ibuprofen (Motrin) 400 mg Q6H PRN NGT MILD PAIN LEVEL 1-3 Last administered on 11/27/18 21:25; Admin Dose 400 MG; Start 11/27/18 at 01:30 Miscellaneous Information (*Rx Drug Level Order Reminder*) VANCO TR 11/30 AT 1000 ONCE ONCE XX ; Start 11/30/18 at 10:00; Stop 11/30/18 at 10:01 Assessment/Plan Chief Complaint/Hosp Course Briefly, this is a 63-year-old gentleman with history of coronary artery disease, rnon-ST elevation [place], hypertension, history of aspiration pneumonia and chronic respiratory failure, C-spine epidural abscess, status post C3 to C4 laminectomy, quadriplegic, vent-dependent, prior Klebsiella UTI, obstructive uropathy, SNF resident. He was transferred from SNF with ALOC and fevers. Additional Assessment/Plan IMP: 1. Obstructive uropathy-- with sepsis with persistent fevers. 2. Chronic respiratory failure, vent dependent--Now trach collar 3. 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 4. Pre-renal azotemia 5. Right corneal opacity chronic with blindness. 6. History of coronary artery disease with history of myocardial infarction. 7. Chronic sacral coccygeal decubitus RECS: 1. TF/Free H20 2. ID recs. 3. Trach collar 4. Wound care 5. DVT and GI prophylaxis MIGUEL SWARTZ MD Nov 29, 2018 14:24
--- NOTE | 2018-11-29 15:50 | PN ---
Date/Time of Note Date/Time of Note DATE: 11/29/18 TIME: 15:50 Assessment/Plan VTE Prophylaxis [place] [facility] [place]: 3 [place]CD [place] [facility] [place] No SCD contraindicated: other Pharmacological prophylaxis: other Lines/Catheters IV Catheter Type (from [facility]): Peripheral IV Urinary Cath still in place: Yes Reason Cath still needed: urinary retention Assessment/Plan Assessment/Plan -Obstructive uropathy, passed the distal left ureteral stone. Cash catheter changed to cardiac catheter [place] [address] on11/24/18. [address] Castillo is following in u rology consultation. -Recurrent sepsis with bacteremia. Continue antibiotics per ID. Dr. Tesfaye is following in infection disease consultation. -S/p Yeast UTI -S/p possible healthcare acquired pneumonia -Ventilator dependent respiratory failure. Dr. Hernández is following in pulmonology consultation. -Coronary artery disease with history of [place] -Hypertension -Dysphagia with PEG -Quadriplegia 2 to C-spine abscess -C-spine epidural abscess, status post C3 to C4 laminectomy -DNR status DW Dr [place]ette Result Diagram: 11/29/18 0608 11/29/18 0608 Results 24hrs Laboratory Tests Test 11/29/18 06:08 White Blood Count 6.3 Red Blood Count 2.90 L Hemoglobin 8.4 L Hematocrit 27.4 L Mean Corpuscular Volume 94.5 Mean Corpuscular Hemoglobin 29.0 Mean Corpuscular Hemoglobin Concent 30.7 L Red Cell Distribution Width 14.5 Platelet Count 128 L Mean Platelet Volume 12.5 H Immature Granulocytes % 0.800 H Neutrophils % 83.1 H Lymphocytes % 9.8 L Monocytes % 4.7 Eosinophils % 1.1 Basophils % 0.5 Nucleated Red Blood Cells % 0.0 Immature Granulocytes # 0.050 H Neutrophils # 5.3 Lymphocytes # 0.6 L Monocytes # 0.3 Eosinophils # 0.1 Basophils # 0.0 Nucleated Red Blood Cells # 0.0 Sodium Level 150 H Potassium Level 3.9 Chloride Level 115 H Carbon Dioxide Level 30 Anion Gap 5 Blood Urea Nitrogen 23 H Creatinine 0.55 L Est Glomerular Filtrat Rate mL/min > 60 Glucose Level 146 Calcium Level 7.9 L Subjective 24 Hr Interval Summary Free Text/Dictation no new events reported overnight per staff Subjective hx not possible: pt non-verbal Constitutional: requiring O2 Exam/Review of Systems Vital Signs Vitals Vital Signs Date Temp Pulse Resp B/P (MAP) Pulse Ox O2 O2 Flow FiO2 Time Delivery Rate 11/29/18 100.7 67 18 106/68 98 Trach 15:34 (81) Collar 11/29/18 30 13:12 Intake and Output 11/28/18 11/28/18 11/29/18 1414:59 22:59 06:59 IntakeIntake Total 150 ml 1925 ml 2050 ml OutputOutput Total 1500 ml 800 ml BalanceBalance 150 ml 425 ml 1250 ml Exam Constitutional: non-verbal, frail Psych: nl mood/affect ENMT: nl external ears & nose Neck: non-tender, other (trach intact) Respiratory: diminished breath sounds Cardiovascular: nl pulses, other (s1s2) Gastrointestinal: soft, other (gt intact) Musculoskeletal: muscle weakness, range of motion Extremities: normal pulses Neurological: unresponsive Lymph: nl lymph nodes Medications Medications Current Medications Bisacodyl (Dulcolax Supp) 10 mg Q24H [place] Last administered on 11/22/18 00:20; Admin Dose 10 MG; Start 11/01/18 at 00:00 Enoxaparin Sodium (Lovenox) 30 mg DAILY SC Last administered on 11/29/18 09:42; Admin Dose 30 MG; Start 11/01/18 at 09:00 Escitalopram Oxalate (Lexapro) 10 mg DAILY GTB Last administered on 11/29/18 09:24; Admin Dose 10 MG; Start 11/01/18 at 09:00 Ferrous Sulfate (Feosol Liquid Cup) 330 mg BID GTB Last administered on 11/29/18 09:25; Admin Dose 330 MG; Start 11/01/18 at 09:00 Lansoprazole (Prevacid) 30 mg DAILY GTB Last administered on 11/29/18 09:24; Admin Dose 30 MG; Start 11/01/18 at 09:00 Morphine Sulfate (morphine) 5 mg Q4H PRN GTB MODERATE TO SEVERE PAIN Last administered on 11/28/18 11:03; Admin Dose 5 MG; Start 11/01/18 at 00:00 Multivitamins (Multivitamin) 30 ml DAILY GTB Last administered on 11/29/18 09:24; Admin Dose 30 ML; Start 11/01/18 at 09:00 Docusate Sodium (Colace Liquid Cup) 100 mg BID GTB Last administered on 09:24; Admin Dose 100 MG; Start 11/01/18 at 09:00 Acetaminophen (Tylenol Liquid) 650 mg Q6H PRN GTB MILD PAIN(1-3)OR ELEVATED TEMP Last administered on 11/28/18 20:42; Admin Dose 650 MG; Start 11/01/18 at 12:00 Albuterol (Ventolin Hfa) 4 puff Q6H RESP THERAPY INH Last administered on 11/29/18 09:09; Admin Dose 4 PUFF; Start 11/01/18 at 20:00 Ipratropium [place] (Atrovent Hfa) 4 puff Q6H RESP THERAPY INH Last administered on 11/29/18 09:08; Admin Dose 4 PUFF; Start 11/01/18 at 20:00 Nystatin (Nystatin Susp) 5 ml QID PO Last administered on 11/29/18 14:02; Admin Dose 5 ML; Start 11/09/18 at 17:00 Sodium Chloride 1,000 ml @ 100 mls/hr Q10H IV Last administered on 11/29/18 11:18; Admin Dose 100 MLS/HR; Start 11/24/18 at 09:30 Vancomycin HCl (Vanco Iv Per Pharmacy) VANCOMYCIN PER PHARMACY PER PROTOCOL XX ; Start 11/25/18 at 22:00 Vancomycin HCl 100 ml @ 100 mls/hr Q12H IVPB Last administered on 11/29/18 11:17; Admin Dose 100 MLS/HR; Start 11/25/18 at 22:00 Cefepime HCl 50 ml @ 100 mls/hr Q12 IVPB Last administered on 11/29/18 09:25; Admin Dose 100 MLS/HR; Start 11/26/18 at 13:00 Voriconazole (Vfend) 200 mg BID PO Last administered on 11/29/18 09:24; Admin Dose 200 MG; Start 11/26/18 at 21:00 Ibuprofen (Motrin) 400 mg Q6H PRN NGT MILD PAIN LEVEL 1-3 Last administered on 11/27/18 21:25; Admin Dose 400 MG; Start 11/27/18 at 01:30 Miscellaneous Information (*Rx Drug Level Order Reminder*) XOCHITLO TR 11/30 AT 1000 ONCE ONCE XX ; Start 11/30/18 at 10:00; Stop 11/30/18 at 10:01 CLEMENT WATSON Nov 29, 2018 15:50
[2018-11-29] MEDS: ACETAMINOPHEN 650MG/20.3ML CUP GTB PRN ×2 (20:06→23:59)
[2018-11-29] MEDS: BISACODYL 10 MG SUPP PR SCH (23:20)
[2018-11-30] VITALS (21 sets, daily range): BP systolic 113–130; BP diastolic 69–79; PULSE 64–76; RESP 17–22
[2018-11-30] MEDS: IPRATROPIUM (HFA) 12.9 GM INHALER INH SCH ×4 (01:28→20:14)
[2018-11-30] MEDS: ALBUTEROL HFA 8 GM INHALER INH SCH ×4 (01:28→20:14)
[2018-11-30] MEDS: ACETAMINOPHEN 650MG/20.3ML CUP GTB PRN ×2 (04:27→20:55)
[2018-11-30] MEDS: SOD CHLORIDE 0.9% 1,000 ML IV SCH ×3 (05:16→15:30)
[2018-11-30] MEDS: CEFEPIME 1GM/50 ML (PMX) 50 ML IVPB SCH ×2 (08:32→20:54)
[2018-11-30] MEDS: LANSOPRAZOLE 30 MG CAP GTB SCH (08:33)
[2018-11-30] MEDS: VORICONAZOLE 200 MG TAB PO SCH ×2 (08:33→20:54)
[2018-11-30] MEDS: MULTIVITAMINS 30 ML CUP GTB SCH (08:33)
[2018-11-30] MEDS: DOCUSATE SODIUM 10 MG/ML (10ML CUP) GTB SCH ×2 (08:33→20:54)
[2018-11-30] MEDS: NYSTATIN SUSP 5 ML CUP PO SCH ×4 (08:33→20:54)
[2018-11-30] MEDS: FERROUS SULFATE 60 MG/ML 5ML CUP GTB SCH ×2 (08:33→20:54)
[2018-11-30] MEDS: BALSAM PERU/CASTOR OIL 60 GM TUBE TOP SCH (08:33)
[2018-11-30] MEDS: ESCITALOPRAM 10 MG TAB GTB SCH (08:33)
[2018-11-30] MEDS: ENOXAPARIN 30 MG/0.3 ML SYG SC SCH (09:18)
[2018-11-30] MEDS: VANCOMYCIN 500 MG (PMX) 100 ML IVPB SCH ×2 (09:43→12:28)
--- NOTE | 2018-11-30 11:20 | CONS ---
Date/Time of Note Date/Time of Note DATE: 11/30/18 TIME: 11:19 Consult Date/Type/Reason Admit Date/Time Oct 31, 2018 at 21:21 Initial Consult Date 11/01/18 Type of Consultation: Pulm Requesting Provider: LORRAINE SAHH MD Objective Vital Signs Date Temp Pulse Resp B/P (MAP) Pulse Ox O2 O2 Flow FiO2 Time Delivery Rate 11/30/18 68 18 100 30 09:40 11/30/18 99.6 130/79 Mechanical 07:35 (96) Ventilator Intake and Output 11/29/18 11/29/18 11/30/18 1515:00 23:00 07:00 IntakeIntake Total 150 ml 1500 ml 2200 ml OutputOutput Total 2300 ml 1450 ml BalanceBalance 150 ml -800 ml 750 ml Exam GENERAL: Chronically ill-appearing gentleman respiratory failure with tracheosto my VITAL SIGNS: per chart NECK: Supple. No JVD or lymphadenopathy. CARDIAC EXAM: S1, S2. No added sounds or murmurs. CHEST: Diminished air entry bilaterally ABDOMEN: Soft, nontender. No guarding or rebound. EXTREMITIES: No cyanosis, clubbing or edema. NEUROLOGIC: Generalized weakness. No focal deficits. Results/Medications Result Diagram: 11/30/18 0608 11/30/18 0608 Results 24 hrs Laboratory Tests Test 11/30/18 06:08 11/30/18 07:47 11/30/18 09:56 White Blood Count 5.0 # Red Blood Count 2.72 L Hemoglobin 7.9 L Hematocrit 25.7 L Mean Corpuscular Volume 94.5 Mean Corpuscular Hemoglobin 29.0 Mean Corpuscular 30.7 L Hemoglobin Concent Red Cell Distribution Width 14.0 Platelet Count 136 L Mean Platelet Volume 11.8 H Immature Granulocytes % 0.400 Neutrophils % 78.7 H Lymphocytes % 13.7 L Monocytes % 5.8 Eosinophils % 1.2 Basophils % 0.2 Nucleated Red Blood Cells % 0.0 Immature Granulocytes # 0.020 Neutrophils # 4.0 Lymphocytes # 0.7 L Monocytes # 0.3 Eosinophils # 0.1 Basophils # 0.0 Nucleated Red Blood Cells # 0.0 Sodium Level 144 Potassium Level 3.7 Chloride Level 112 H Carbon Dioxide Level 30 Anion Gap 2 L Blood Urea Nitrogen 17 Creatinine 0.49 L Est Glomerular Filtrat > 60 Rate mL/min Glucose Level 123 Calcium Level 7.8 L Lab Scanned Report BLOOD TRANSFUSION Vancomycin Level [place] 11.5 Medications Current Medications Bisacodyl (Dulcolax Supp) 10 mg Q24H [place] Last administered on 11/22/18 00:20; Admin Dose 10 MG; Start 11/01/18 at 00:00 Enoxaparin Sodium (Lovenox) 30 mg DAILY [place] Last administered on 11/30/18 09:18; Admin Dose 30 MG; Start 11/01/18 at 09:00 Escitalopram Oxalate (Lexapro) 10 mg DAILY GTB Last administered on 11/30/18 08:33; Admin Dose 10 MG; Start 11/01/18 at 09:00 Ferrous Sulfate (Feosol Liquid Cup) 330 mg BID GTB Last administered on 08:33; Admin Dose 330 MG; Start 11/01/18 at 09:00 Lansoprazole (Prevacid) 30 mg DAILY GTB Last administered on 11/30/18 08:33; Admin Dose 30 MG; Start 11/01/18 at 09:00 Morphine Sulfate (morphine) 5 mg Q4H PRN GTB MODERATE TO SEVERE PAIN Last administered on 11/28/18 11:03; Admin Dose 5 MG; Start 11/01/18 at 00:00 Multivitamins (Multivitamin) 30 ml DAILY GTB Last administered on 11/30/18 0 8:33; Admin Dose 30 ML; Start 11/01/18 at 09:00 Docusate Sodium (Colace Liquid Cup) 100 mg BID GTB Last administered on 11/30/18 08:33; Admin Dose 100 MG; Start 11/01/18 at 09:00 Acetaminophen (Tylenol Liquid) 650 mg Q6H PRN GTB MILD PAIN(1-3)OR ELEVATED TEMP Last administered on 11/30/18 04:27; Admin Dose 650 MG; Start 11/01/18 at 12:00 Albuterol (Ventolin Hfa) 4 puff Q6H RESP THERAPY INH Last administered on 11/30/18 07:28; Admin Dose 4 PUFF; Start 11/01/18 at 20:00 Ipratropium [place] (Atrovent Hfa) 4 puff Q6H RESP THERAPY INH Last administered on 11/30/18 07:28; Admin Dose 4 PUFF; Start 11/01/18 at 20:00 Nystatin (Nystatin Susp) 5 ml QID PO Last administered on 11/30/18 08:33; Admin Dose 5 ML; Start 11/09/18 at 17:00 Sodium Chloride 1,000 ml @ 100 mls/hr Q10H IV Last administered on 11/30/18 05:16; Admin Dose 100 MLS/HR; Start 11/24/18 at 09:30 Vancomycin HCl (Vanco Iv Per Pharmacy) VANCOMYCIN PER PHARMACY PER PROTOCOL XX ; Start 11/25/18 at 22:00 Vancomycin HCl 100 ml @ 100 mls/hr Q12H IVPB Last administered on 11/30/18 09:43; Admin Dose 100 MLS/HR; Start 11/25/18 at 22:00 Cefepime HCl 50 ml @ 100 mls/hr Q12 IVPB Last administered on 11/30/18 08:32; Admin Dose 100 MLS/HR; Start 11/26/18 at 13:00 Voriconazole (Vfend) 200 mg BID PO Last administered on 11/30/18 08:33; Admin Dose 200 MG; Start 11/26/18 at 21:00 Ibuprofen (Motrin) 400 mg Q6H PRN NGT MILD PAIN LEVEL 1-3 Last administered on 11/27/18 21:25; Admin Dose 400 MG; Start 11/27/18 at 01:30 Epoetin [place] (Epogen (Esrd)) 10,000 units Mo@1700 SC ; Start 11/30/18 at 17:00 Assessment/Plan Chief Complaint/Hosp Course Additional Assessment/Plan IMP: 1. Obstructive uropathy-- with sepsis with persistent fevers. 2. Chronic respiratory failure, vent dependent--Now trach collar 3. 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 4. Pre-renal azotemia 5. Right corneal opacity chronic with blindness. 6. History of coronary artery disease with history of myocardial infarction. 7. Chronic sacral coccygeal decubitus RECS: 1. TF/Free H20 2. ID recs. 3. Trach collar 4. Wound care 5. DVT and GI prophylaxis LIVIA VALDERRAMA MD, [facility] Nov 30, 2018 11:20
--- NOTE | 2018-11-30 14:55 | CONS ---
Date/Time of Note Date/Time of Note DATE: 11/30/18 TIME: 14:52 Assessment/Plan Assessment/Plan Hospital Course No acute changes, looks comfortable, ongoing low grade temps Microbiology: Urine culture grew Filomena species, not albicans, blood culture growing staph and Serratia marcescens Antimicrobials: Vanco Vfend cefepime INDWELLINGS: Trach, PEG, Cash. PHYSICAL EXAMINATION: GENERAL: This is a chronically ill-appearing, debilitated, elderly man who is in no distress. HEENT: Head atraumatic, normocephalic. Sclerae anicteric. Buccal mucosa dry. NECK: Supple. Tracheostomy present. CHEST: Rise symmetrical. Breath sounds diminished to bases. HEART: S1, S2, tachycardic, regular. ABDOMEN: Soft, bowel tones present. EXTREMITIES: Wasted, contractured. ASSESSMENT: 1. Sepsis with polymicrobial bacteremia 2. Obstructive uropathy, patient passed the stone for repeat CT 3. Recurrent urinary tract infection. 4. Healthcare-associated pneumonia. 5. History of Clostridium difficile colitis. 6. Quadriplegia status post cervical spine surgery. 7. 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 PLAN: Clinically unchanged, repeat bld cx negative, continue antibiotics DW staff Result Diagram: 11/30/18 0608 11/30/18 0608 Results 24hrs Laboratory Tests Test 11/30/18 06:08 11/30/18 07:47 11/30/18 09:56 White Blood Count 5.0 # Red Blood Count 2.72 L Hemoglobin 7.9 L Hematocrit 25.7 L Mean Corpuscular Volume 94.5 Mean Corpuscular Hemoglobin 29.0 Mean Corpuscular 30.7 L Hemoglobin Concent Red Cell Distribution Width 14.0 Platelet Count 136 L Mean Platelet Volume 11.8 H Immature Granulocytes % 0.400 Neutrophils % 78.7 H Lymphocytes % 13.7 L Monocytes % 5.8 Eosinophils % 1.2 Basophils % 0.2 Nucleated Red Blood Cells % 0.0 Immature Granulocytes # 0.020 Neutrophils # 4.0 Lymphocytes # 0.7 L Monocytes # 0.3 Eosinophils # 0.1 Basophils # 0.0 Nucleated Red Blood Cells # 0.0 Sodium Level 144 Potassium Level 3.7 Chloride Level 112 H Carbon Dioxide Level 30 Anion Gap 2 L Blood Urea Nitrogen 17 Creatinine 0.49 L Est Glomerular Filtrat > 60 Rate mL/min Glucose Level 123 Calcium Level 7.8 L Lab Scanned Report BLOOD TRANSFUSION Vancomycin Level Trough 11.5 Consultation Date/Type/Reason Admit Date/Time Oct 31, 2018 at 21:21 Initial Consult Date 11/01/18 Type of Consult id Requesting Provider: LORRAINE SHAH MD Exam/Review of Systems Vital Signs Vitals Vital Signs Date Temp Pulse Resp B/P (MAP) Pulse Ox O2 O2 Flow FiO2 Time Delivery Rate 11/30/18 67 22 99 30 13:05 11/30/18 100.1 113/69 [place]ica 11:45 (84) l Ventilato r Intake and Output 11/29/18 11/29/18 11/30/18 1414:59 22:59 06:59 IntakeIntake Total 150 ml 1500 ml 2200 ml OutputOutput Total 2300 ml 1450 ml BalanceBalance 150 ml -800 ml 750 ml Medications Medications Current Medications Bisacodyl (Dulcolax Supp) 10 mg Q24H [place] Last administered on 11/22/18at 00:20; Admin Dose 10 MG; Start 11/01/18 at 00:00 Enoxaparin Sodium (Lovenox) 30 mg DAILY SC Last administered on 11/30/18 09:18; Admin Dose 30 MG; Start 11/01/18 at 09:00 Escitalopram Oxalate (Lexapro) 10 mg DAILY GTB Last administered on 11/30/18 08:33; Admin Dose 10 MG; Start 11/01/18 at 09:00 Ferrous Sulfate (Feosol Liquid Cup) 330 mg BID GTB Last administered on 11/30 08:33; Admin Dose 330 MG; Start 11/01/18 at 09:00 Lansoprazole (Prevacid) 30 mg DAILY GTB Last administered on 11/30/18 08:33; Admin Dose 30 MG; Start 11/01/18 at 09:00 Morphine Sulfate (morphine) 5 mg Q4H PRN GTB MODERATE TO SEVERE PAIN Last administered on 11/28/18 11:03; Admin Dose 5 MG; Start 11/01/18 at 00:00 Multivitamins (Multivitamin) 30 ml DAILY GTB Last administered on 11/30/18 08:33; Admin Dose 30 ML; Start 11/01/18 at 09:00 Docusate Sodium (Colace Liquid Cup) 100 mg BID GTB Last administered on 11/30/18 08:33; Admin Dose 100 MG; Start 11/01/18 at 09:00 Acetaminophen (Tylenol Liquid) 650 mg Q6H PRN GTB MILD PAIN(1-3)OR ELEVATED TEMP Last administered on 11/30/18 04:27; Admin Dose 650 MG; Start 11/01/18 at 12:00 Albuterol (Ventolin Hfa) 4 puff Q6H RESP THERAPY INH Last administered on 11/30/18 13:12; Admin Dose 4 PUFF; Start 11/01/18 at 20:00 Ipratropium [place] (Atrovent Hfa) 4 puff Q6H RESP THERAPY INH Last administered on 11/30/18 13:12; Admin Dose 4 PUFF; Start 11/01/18 at 20:00 Nystatin (Nystatin Susp) 5 ml QID PO Last administered on 11/30/18 12:29; Admin Dose 5 ML; Start 11/09/18 at 17:00 Sodium Chloride 1,000 ml @ 100 mls/hr Q10H IV Last administered on 11/30/18 12:27; Admin Dose 100 MLS/HR; Start 11/24/18 at 09:30 Vancomycin HCl (Vanco Iv Per Pharmacy) VANCOMYCIN PER PHARMACY PER PROTOCOL XX ; Start 11/25/18 at 22:00 Cefepime HCl 50 ml @ 100 mls/hr Q12 IVPB Last administered on 11/30/18 08:32; Admin Dose 100 MLS/HR; Start 11/26/18 at 13:00 Voriconazole (Vfend) 200 mg BID PO Last administered on 11/30/18 08:33; Admin Dose 200 MG; Start 11/26/18 at 21:00 Ibuprofen (Motrin) 400 mg Q6H PRN NGT MILD PAIN LEVEL 1-3 Last administered on 11/27/18 21:25; Admin Dose 400 MG; Start 11/27/18 at 01:30 Epoetin Jorge (Epogen (Esrd)) 10,000 units Mo@1700 SC ; Start 11/30/18 at 17:00 Vancomycin/Sodium Chloride 250 ml @ 125 mls/hr Q12H IVPB ; Start 11/30/18 at 21:00 RISA SAWYER NP Nov 30, 2018 14:55
--- NOTE | 2018-11-30 15:46 | PN ---
Date/Time of Note Date/Time of Note DATE: 11/30/18 TIME: 15:45 Assessment/Plan VTE Prophylaxis Risk score (from [facility])>0 risk: 6 SCD applied (from [facility]): No SCD contraindicated: other Pharmacological prophylaxis: LMWH Lines/Catheters IV Catheter Type (from [facility]): Peripheral IV Central line still needed: Yes Urinary Cath still in place: Yes Reason Cath still needed: urinary retention Assessment/Plan Hospital Course Patient continues on ventilatory support, awake, confused, low-grade fever, on antibiotics. Assessment/Plan -Obstructive uropathy, passed the distal left ureteral stone. Cash catheter changed to cardiac catheter [place] [address] Castillo is following in urology consultation. -Recurrent sepsis with bacteremia. Continue antibiotics per ID. Dr. Tesfaye is following in infection disease consultation. -S/p Yeast UTI -S/p possible healthcare acquired pneumonia -Ventilator dependent respiratory failure. Dr. Hernández is following in pulmonology consultation. 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 Plan of care discussed with Dr. Bautista. Result Diagram: 11/30/18 0608 11/30/18 0608 Results 24hrs Laboratory Tests Test 11/30/18 06:08 11/30/18 07:47 11/30/18 09:56 White Blood Count 5.0 # Red Blood Count 2.72 L Hemoglobin 7.9 L Hematocrit 25.7 L Mean Corpuscular Volume 94.5 Mean Corpuscular Hemoglobin 29.0 Mean Corpuscular 30.7 L Hemoglobin Concent Red Cell Distribution Width 14.0 Platelet Count 136 L Mean Platelet Volume 11.8 H Immature Granulocytes % 0.400 Neutrophils % 78.7 H Lymphocytes % 13.7 L Monocytes % 5.8 Eosinophils % 1.2 Basophils % 0.2 Nucleated Red Blood Cells % 0.0 Immature Granulocytes # 0.020 Neutrophils # 4.0 Lymphocytes # 0.7 L Monocytes # 0.3 Eosinophils # 0.1 Basophils # 0.0 Nucleated Red Blood Cells # 0.0 Sodium Level 144 Potassium Level 3.7 Chloride Level 112 H Carbon Dioxide Level 30 Anion Gap 2 L Blood Urea Nitrogen 17 Creatinine 0.49 L Est Glomerular Filtrat > 60 Rate mL/min Glucose Level 123 Calcium Level 7.8 L Lab Scanned Report BLOOD TRANSFUSION Vancomycin Level Trough 11.5 Exam/Review of Systems Vital Signs Vitals Vital Signs Date Temp Pulse Resp B/P (MAP) Pulse Ox O2 O2 Flow FiO2 Time Delivery Rate 11/30/18 72 21 99 30 15:10 11/30/18 100.1 113/69 Mechanica 11:45 (84) l Ventilato r Intake and Output 11/29/18 11/29/18 11/30/18 1515:00 23:00 07:00 IntakeIntake Total 150 ml 1500 ml 2200 ml OutputOutput Total 2300 ml 1450 ml BalanceBalance 150 ml -800 ml 750 ml Exam Constitutional: alert, oriented Neck: supple, other (trach) Respiratory: diminished breath sounds Cardiovascular: regular rate and rhythm Gastrointestinal: other (GT) Musculoskeletal: nl extremities to inspection Extremities: normal pulses, other (Contracted) Medications Medications Current Medications Bisacodyl (Dulcolax Supp) 10 mg Q24H [place] Last administered on 11/22/18 00:20; Admin Dose 10 MG; Start 11/01/18 at 00:00 Enoxaparin Sodium (Lovenox) 30 mg DAILY SC Last administered on 11/30/18 09:18; Admin Dose 30 MG; Start 11/01/18 at 09:00 Escitalopram Oxalate (Lexapro) 10 mg DAILY GTB Last administered on 11/30/18 08:33; Admin Dose 10 MG; Start 11/01/18 at 09:00 Ferrous Sulfate (Feosol Liquid Cup) 330 mg BID GTB Last administered on 11/30/18 08:33; Admin Dose 330 MG; Start 11/01/18 at 09:00 Lansoprazole (Prevacid) 30 mg DAILY GTB Last administered on 11/30/18 08:33; Admin Dose 30 MG; Start 11/01/18 at 09:00 Morphine Sulfate (morphine) 5 mg Q4H PRN GTB MODERATE TO SEVERE PAIN Last administered on 11/28/18 11:03; Admin Dose 5 MG; Start 11/01/18 at 00:00 Multivitamins (Multivitamin) 30 ml DAILY GTB Last administered on 11/30/18 08:33; Admin Dose 30 ML; Start 11/01/18 at 09:00 Docusate Sodium (Colace Liquid Cup) 100 mg BID GTB Last administered on 11/30/18 08:33; Admin Dose 100 MG; Start 11/01/18 at 09:00 Acetaminophen (Tylenol Liquid) 650 mg Q6H PRN GTB MILD PAIN(1-3)OR ELEVATED TEMP Last administered on 11/30/18 04:27; Admin Dose 650 MG; Start 11/01/18 at 12:00 Albuterol (Ventolin Hfa) 4 puff Q6H RESP THERAPY INH Last administered on 11/30/18 13:12; Admin Dose 4 PUFF; Start 11/01/18 at 20:00 Ipratropium [place] (Atrovent Hfa) 4 puff Q6H RESP THERAPY INH Last administered on 11/30/18 13:12; Admin Dose 4 PUFF; Start 11/01/18 at 20:00 Nystatin (Nystatin Susp) 5 ml QID PO Last administered on 11/30/18 12:29; Admin Dose 5 ML; Start 11/09/18 at 17:00 Sodium Chloride 1,000 ml @ 100 mls/hr Q10H IV Last administered on 11/30/18 12:27; Admin Dose 100 MLS/HR; Start 11/24/18 at 09:30 Vancomycin HCl (Vanco Iv Per Pharmacy) VANCOMYCIN PER PHARMACY PER PROTOCOL XX ; Start 11/25/18 at 22:00 Cefepime HCl 50 ml @ 100 mls/hr Q12 IVPB Last administered on 11/30/18 08:32; Admin Dose 100 MLS/HR; Start 11/26/18 at 13:00 Voriconazole (Vfend) 200 mg BID PO Last administered on 11/30/18 08:33; Admin Dose 200 MG; Start 11/26/18 at 21:00 Ibuprofen (Motrin) 400 mg Q6H PRN NGT MILD PAIN LEVEL 1-3 Last administered on 11/27/18 21:25; Admin Dose 400 MG; Start 11/27/18 at 01:30 Epoetin Jorge (Epogen (Esrd)) 10,000 units Mo@1700 SC ; Start 11/30/18 at 17:00 Vancomycin/Sodium Chloride 250 ml @ 125 mls/hr Q12H IVPB ; Start 11/30/18 at 21:00 MICHELLE EUGENE Nov 30, 2018 15:46
[2018-11-30] MEDS ORDERED: EPOETIN 10000 UNITS/1 ML INJ (ESRD) SC SCH (17:00)
[2018-11-30] MEDS: VANCOMYCIN 750 MG (PMX) 250 ML IVPB SCH (21:35)
[2018-12-01] VITALS (21 sets, daily range): BP systolic 93–106; BP diastolic 57–68; PULSE 56–81; RESP 14–24
[2018-12-01] MEDS: BISACODYL 10 MG SUPP PR SCH
[2018-12-01] MEDS: SOD CHLORIDE 0.9% 1,000 ML IV SCH ×3 (01:04→21:27)
[2018-12-01] MEDS: ALBUTEROL HFA 8 GM INHALER INH SCH ×4 (01:20→19:23)
[2018-12-01] MEDS: IPRATROPIUM (HFA) 12.9 GM INHALER INH SCH ×4 (01:20→19:23)
[2018-12-01] MEDS: LANSOPRAZOLE 30 MG CAP GTB SCH (09:29)
[2018-12-01] MEDS: VORICONAZOLE 200 MG TAB PO SCH ×2 (09:30→21:26)
[2018-12-01] MEDS: MULTIVITAMINS 30 ML CUP GTB SCH (09:30)
[2018-12-01] MEDS: BALSAM PERU/CASTOR OIL 60 GM TUBE TOP SCH (09:30)
[2018-12-01] MEDS: FERROUS SULFATE 60 MG/ML 5ML CUP GTB SCH ×2 (09:30→21:26)
[2018-12-01] MEDS: ESCITALOPRAM 10 MG TAB GTB SCH (09:30)
[2018-12-01] MEDS: NYSTATIN SUSP 5 ML CUP PO SCH ×4 (09:30→21:26)
[2018-12-01] MEDS: DOCUSATE SODIUM 10 MG/ML (10ML CUP) GTB SCH ×2 (09:30→21:26)
[2018-12-01] MEDS: ENOXAPARIN 30 MG/0.3 ML SYG SC SCH (09:44)
[2018-12-01] MEDS: CEFEPIME 1GM/50 ML (PMX) 50 ML IVPB SCH ×2 (10:58→21:25)
--- NOTE | 2018-12-01 11:16 | CONS ---
Date/Time of Note Date/Time of Note DATE: 12/01/18 TIME: 11:15 Consult Date/Type/Reason Admit Date/Time Oct 31, 2018 at 21:21 Initial Consult Date 11/01/18 Type of Consultation: Pulm Requesting Provider: LORRAINE SHAH MD Subjective No significant changes. Patient remains essentially unchanged Objective Vital Signs Date Temp Pulse Resp B/P (MAP) Pulse Ox O2 O2 Flow FiO2 Time Delivery Rate 12/01/18 66 24 97 30 11:06 12/01/18 98.4 93/57 (69) 07:58 11/30/18 Mechanical 16:00 Ventilator Intake and Output 11/30/18 11/30/18 12/01/18 1414:59 22:59 06:59 IntakeIntake Total 1750 ml OutputOutput Total 1300 ml 2000 ml BalanceBalance -1300 ml -250 ml Exam GENERAL: Chronically ill-appearing gentleman respiratory failure with tracheosto my VITAL SIGNS: per chart NECK: Supple. No JVD or lymphadenopathy. CARDIAC EXAM: S1, S2. No added sounds or murmurs. CHEST: Diminished air entry bilaterally ABDOMEN: Soft, nontender. No guarding or rebound. EXTREMITIES: No cyanosis, clubbing or edema. NEUROLOGIC: Generalized weakness. No focal deficits. Results/Medications Result Diagram: 12/01/18 0550 12/01/18 0550 Results 24 hrs Laboratory Tests Test 12/01/18 05:50 White Blood Count 4.5 L Red Blood Count 2.75 L Hemoglobin 7.8 L Hematocrit 26.1 L Mean Corpuscular Volume 94.9 Mean Corpuscular Hemoglobin 28.4 L Mean Corpuscular Hemoglobin Concent 29.9 L Red Cell Distribution Width 13.9 Platelet Count 157 Mean Platelet Volume 11.2 H Immature Granulocytes % 0.400 Neutrophils % 69.4 Lymphocytes % 21.1 Monocytes % 7.1 Eosinophils % 1.6 Basophils % 0.4 Nucleated Red Blood Cells % 0.0 Immature Granulocytes # 0.020 Neutrophils # 3.1 Lymphocytes # 1.0 Monocytes # 0.3 Eosinophils # 0.1 Basophils # 0.0 Nucleated Red Blood Cells # 0.0 Sodium Level 146 H Potassium Level 3.8 Chloride Level 111 H Carbon Dioxide Level 32 H Anion Gap 3 L Blood Urea Nitrogen 15 Creatinine 0.44 L Est Glomerular Filtrat Rate mL/min > 60 Glucose Level 122 Calcium Level 8.0 L Medications Current Medications Bisacodyl (Dulcolax Supp) 10 mg Q24H MD Last administered on 11/22/18 00:20; Admin Dose 10 MG; Start 11/01/18 at 00:00 Enoxaparin Sodium (Lovenox) 30 mg DAILY SC Last administered on 12/01/18 09:44; Admin Dose 30 MG; Start 11/01/18 at 09:00 Escitalopram Oxalate (Lexapro) 10 mg DAILY GTB Last administered on 12/01/18 09:30; Admin Dose 10 MG; Start 11/01/18 at 09:00 Ferrous Sulfate (Feosol Liquid Cup) 330 mg BID GTB Last administered on 12/01/18 09:30; Admin Dose 330 MG; Start 11/01/18 at 09:00 Lansoprazole (Prevacid) 30 mg DAILY GTB Last administered on 12/01/18 09:29; Admin Dose 30 MG; Start 11/01/18 at 09:00 Morphine Sulfate (morphine) 5 mg Q4H PRN GTB MODERATE TO SEVERE PAIN Last administered on 11/28/18 11:03; Admin Dose 5 MG; Start 11/01/18 at 00:00 Multivitamins (Multivitamin) 30 ml DAILY GTB Last administered on 12/01/18 09:30; Admin Dose 30 ML; Start 11/01/18 at 09:00 Docusate Sodium (Colace Liquid Cup) 100 mg BID GTB Last administered on 12/01/18 09:30; Admin Dose 100 MG; Start 11/01/18 at 09:00 Acetaminophen (Tylenol Liquid) 650 mg Q6H PRN GTB MILD PAIN(1-3)OR ELEVATED TEMP Last administered on 11/30/18 20:55; Admin Dose 650 MG; Start 11/01/18 at 12:00 Albuterol (Ventolin Hfa) 4 puff Q6H RESP THERAPY INH Last administered on 12/01/18 09:57; Admin Dose 4 PUFF; Start 11/01/18 at 20:00 Ipratropium [place] (Atrovent Hfa) 4 puff Q6H RESP THERAPY INH Last administered on 12/01/18 09:57; Admin Dose 4 PUFF; Start 11/01/18 at 20:00 Nystatin (Nystatin Susp) 5 ml QID PO Last administered on 12/01/18 09:30; Admin Dose 5 ML; Start 11/09/18 at 17:00 Sodium Chloride 1,000 ml @ 100 mls/hr Q10H IV Last administered on 12/01/18at 01:04; Admin Dose 100 MLS/HR; Start 11/24/18 at 09:30 Vancomycin HCl (Vanco Iv Per Pharmacy) VANCOMYCIN PER PHARMACY PER PROTOCOL XX ; Start 11/25/18 at 22:00 Cefepime HCl 50 ml @ 100 mls/hr Q12 IVPB Last administered on 12/01/18 10:58; Admin Dose 100 MLS/HR; Start 11/26/18 at 13:00 Voriconazole (Vfend) 200 mg BID PO Last administered on 12/01/18 09:30; Admin Dose 200 MG; Start 11/26/18 at 21:00 Ibuprofen (Motrin) 400 mg Q6H PRN NGT MILD PAIN LEVEL 1-3 Last administered on 11/27/18 21:25; Admin Dose 400 MG; Start 11/27/18 at 01:30 Epoetin [place] (Epogen (Esrd)) 10,000 units Mo@1700 SC Last administered on 11/30/18 18:18; Admin Dose 10,000 UNITS; Start 11/30/18 at 17:00 Vancomycin/Sodium Chloride 250 ml @ 125 mls/hr Q12H IVPB Last administered on 11/30/18 21:35; Admin Dose 125 MLS/HR; Start 11/30/18 at 21:00 Miscellaneous Information (*Order Clarification Bulletin) MEDICATION REQUIRES CLARIFICATI... Q8H XX ; Start 12/01/18 at 10:30 Assessment/Plan Chief Complaint/Hosp Course Additional Assessment/Plan IMP: 1. Obstructive uropathy-- with sepsis with persistent fevers. 2. Chronic respiratory failure, vent dependent--Now trach collar 3. 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 4. Pre-renal azotemia 5. Right corneal opacity chronic with blindness. 6. History of coronary artery disease with history of myocardial infarction. 7. Chronic sacral coccygeal decubitus RECS: 1. TF/Free H20 2. ID recs. 3. Trach collar 4. Wound care 5. DVT and GI prophylaxis LIVIA VALDERRAMA MD, [facility] Dec 01, 2018 11:16
[2018-12-01] MEDS: VANCOMYCIN 750 MG (PMX) 250 ML IVPB SCH ×2 (12:42→22:05)
--- NOTE | 2018-12-01 13:58 | CONS ---
Date/Time of Note Date/Time of Note DATE: 12/01/18 TIME: 13:58 Assessment/Plan Assessment/Plan Hospital Course No acute changes, looks comfortable, afebrile Microbiology: Urine culture grew Filomena species, not albicans, blood culture growing staph and Serratia marcescens Antimicrobials: Vanco Vfend cefepime INDWELLINGS: Trach, PEG, Cash. PHYSICAL EXAMINATION: GENERAL: This is a chronically ill-appearing, debilitated, elderly man who is in no distress. HEENT: Head atraumatic, normocephalic. Sclerae anicteric. Buccal mucosa dry. NECK: Supple. Tracheostomy present. CHEST: Rise symmetrical. Breath sounds diminished to bases. HEART: S1, S2, tachycardic, regular. ABDOMEN: Soft, bowel tones present. EXTREMITIES: Wasted, contractured. ASSESSMENT: 1. Sepsis with polymicrobial bacteremia 2. Obstructive uropathy, patient passed the stone for repeat CT 3. Recurrent urinary tract infection. 4. Healthcare-associated pneumonia. 5. History of Clostridium difficile colitis. 6. Quadriplegia status post cervical spine surgery. 7. 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 PLAN: Clinically unchanged, repeat bld cx negative, continue antibiotics DW staff Result Diagram: 12/01/18 0550 12/01/18 0550 Results 24hrs Laboratory Tests Test 12/01/18 05:50 White Blood Count 4.5 L Red Blood Count 2.75 L Hemoglobin 7.8 L Hematocrit 26.1 L Mean Corpuscular Volume 94.9 Mean Corpuscular Hemoglobin 28.4 L Mean Corpuscular Hemoglobin Concent 29.9 L Red Cell Distribution Width 13.9 Platelet Count 157 Mean Platelet Volume 11.2 H Immature Granulocytes % 0.400 Neutrophils % 69.4 Lymphocytes % 21.1 Monocytes % 7.1 Eosinophils % 1.6 Basophils % 0.4 Nucleated Red Blood Cells % 0.0 Immature Granulocytes # 0.020 Neutrophils # 3.1 Lymphocytes # 1.0 Monocytes # 0.3 Eosinophils # 0.1 Basophils # 0.0 Nucleated Red Blood Cells # 0.0 Sodium Level 146 H Potassium Level 3.8 Chloride Level 111 H Carbon Dioxide Level 32 H Anion Gap 3 L Blood Urea Nitrogen 15 Creatinine 0.44 L Est Glomerular Filtrat Rate mL/min > 60 Glucose Level 122 Calcium Level 8.0 L Consultation Date/Type/Reason Admit Date/Time Oct 31, 2018 at 21:21 Initial Consult Date 11/01/18 Type of Consult id Requesting Provider: LORRAINE SHAH MD Exam/Review of Systems Vital Signs Vitals Vital Signs Date Temp Pulse Resp B/P (MAP) Pulse Ox O2 O2 Flow FiO2 Time Delivery Rate 12/01/18 99.0 61 14 106/68 99 11:54 (81) 12/01/18 30 11:06 11/30/18 Mechanical 16:00 Ventilator Intake and Output 11/30/18 11/30/18 12/01/18 1515:00 23:00 07:00 IntakeIntake Total 1750 ml OutputOutput Total 1300 ml 2000 ml BalanceBalance -1300 ml -250 ml Medications Medications Current Medications Bisacodyl (Dulcolax Supp) 10 mg Q24H [place] Last administered on 11/22/18at 00:20; Admin Dose 10 MG; Start 11/01/18 at 00:00 Enoxaparin Sodium (Lovenox) 30 mg DAILY SC Last administered on 12/01/18 09:44; Admin Dose 30 MG; Start 11/01/18 at 09:00 Escitalopram Oxalate (Lexapro) 10 mg DAILY GTB Last administered on 12/01/18 09:30; Admin Dose 10 MG; Start 11/01/18 at 09:00 Ferrous Sulfate (Feosol Liquid Cup) 330 mg BID GTB Last administered on 12/01/18 09:30; Admin Dose 330 MG; Start 11/01/18 at 09:00 Lansoprazole (Prevacid) 30 mg DAILY GTB Last administered on 12/01/18 09:29; Admin Dose 30 MG; Start 11/01/18 at 09:00 Morphine Sulfate (morphine) 5 mg Q4H PRN GTB MODERATE TO SEVERE PAIN Last administered on 11/28/18 11:03; Admin Dose 5 MG; Start 11/01/18 at 00:00 Multivitamins (Multivitamin) 30 ml DAILY GTB Last administered on 12/01/18 09:30; Admin Dose 30 ML; Start 11/01/18 at 09:00 Docusate Sodium (Colace Liquid Cup) 100 mg BID GTB Last administered on 12/01/18 09:30; Admin Dose 100 MG; Start 11/01/18 at 09:00 Acetaminophen (Tylenol Liquid) 650 mg Q6H PRN GTB MILD PAIN(1-3)OR ELEVATED TEMP Last administered on 11/30/18 20:55; Admin Dose 650 MG; Start 11/01/18 at 12:00 Albuterol (Ventolin Hfa) 4 puff Q6H RESP THERAPY INH Last administered on 12/01/18 13:19; Admin Dose 4 PUFF; Start 11/01/18 at 20:00 Ipratropium [place] (Atrovent Hfa) 4 puff Q6H RESP THERAPY INH Last administered on 12/01/18 13:19; Admin Dose 4 PUFF; Start 11/01/18 at 20:00 Nystatin (Nystatin Susp) 5 ml QID PO Last administered on 12/01/18 12:42; Admin Dose 5 ML; Start 11/09/18 at 17:00 Sodium Chloride 1,000 ml @ 100 mls/hr Q10H IV Last administered on 12/01/18 01:04; Admin Dose 100 MLS/HR; Start 11/24/18 at 09:30 Vancomycin HCl (Vanco Iv Per Pharmacy) VANCOMYCIN PER PHARMACY PER PROTOCOL XX ; Start 11/25/18 at 22:00 Cefepime HCl 50 ml @ 100 mls/hr Q12 IVPB Last administered on 12/01/18 10:58; Admin Dose 100 MLS/HR; Start 11/26/18 at 13:00 Voriconazole (Vfend) 200 mg BID PO Last administered on 12/01/18 09:30; Admin Dose 200 MG; Start 11/26/18 at 21:00 Ibuprofen (Motrin) 400 mg Q6H PRN NGT MILD PAIN LEVEL 1-3 Last administered on 11/27/18 21:25; Admin Dose 400 MG; Start 11/27/18 at 01:30 Epoetin [place] (Epogen (Esrd)) 10,000 units Mo@1700 SC Last administered on 11/30/18 18:18; Admin Dose 10,000 UNITS; Start 11/30/18 at 17:00 Vancomycin/Sodium Chloride 250 ml @ 125 mls/hr Q12H IVPB Last administered on 12/01/18 12:42; Admin Dose 125 MLS/HR; Start 11/30/18 at 21:00 Miscellaneous Information (*Order Clarification Bulletin) MEDICATION REQUIRES CLARIFICATI... Q8H XX ; Start 12/01/18 at 10:30 RISA SAWYER NP Dec 01, 2018 13:58
--- NOTE | 2018-12-01 14:59 | PN ---
Date/Time of Note Date/Time of Note DATE: 12/01/18 TIME: 14:57 Assessment/Plan VTE Prophylaxis Risk score (from Ns)>0 risk: 6 SCD applied (from Ns): No SCD contraindicated: other (Extremities) Pharmacological prophylaxis: LMWH Lines/Catheters IV Catheter Type (from [place]): Peripheral IV Central line still needed: Yes Urinary Cath still in place: Yes Reason Cath still needed: urinary retention Assessment/Plan Hospital Course No acute events overnight, patient continues on ventilatory support, awake, confused, low-grade fever. Assessment/Plan -Obstructive uropathy, passed the distal left ureteral stone. Cash catheter changed to cardiac catheter [place] [address] Castillo is following in urology consultation. -Recurrent sepsis with bacteremia. Continue antibiotics per ID. Dr. Tesfaye is following in infection disease consultation. -S/p Yeast UTI -S/p possible healthcare acquired pneumonia -Ventilator dependent respiratory failure. Dr. Hernández is following in pulmonology consultation. 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 Plan of care discussed with Dr. Bautista. Result Diagram: 12/01/18 0550 12/01/18 0550 Results 24hrs Laboratory Tests Test 12/01/18 05:50 White Blood Count 4.5 L Red Blood Count 2.75 L Hemoglobin 7.8 L Hematocrit 26.1 L Mean Corpuscular Volume 94.9 Mean Corpuscular Hemoglobin 28.4 L Mean Corpuscular Hemoglobin Concent 29.9 L Red Cell Distribution Width 13.9 Platelet Count 157 Mean Platelet Volume 11.2 H Immature Granulocytes % 0.400 Neutrophils % 69.4 Lymphocytes % 21.1 Monocytes % 7.1 Eosinophils % 1.6 Basophils % 0.4 Nucleated Red Blood Cells % 0.0 Immature Granulocytes # 0.020 Neutrophils # 3.1 Lymphocytes # 1.0 Monocytes # 0.3 Eosinophils # 0.1 Basophils # 0.0 Nucleated Red Blood Cells # 0.0 Sodium Level 146 H Potassium Level 3.8 Chloride Level 111 H Carbon Dioxide Level 32 H Anion Gap 3 L Blood Urea Nitrogen 15 Creatinine 0.44 L Est Glomerular Filtrat Rate mL/min > 60 Glucose Level 122 Calcium Level 8.0 L Exam/Review of Systems Vital Signs Vitals Vital Signs Date Temp Pulse Resp B/P (MAP) Pulse Ox O2 O2 Flow FiO2 Time Delivery Rate 12/01/18 63 14:26 12/01/18 18 97 30 13:15 12/01/18 99.0 106/68 11:54 (81) 11/30/18 Mechanical 16:00 Ventilator Intake and Output 11/30/18 11/30/18 12/01/18 1515:00 23:00 07:00 IntakeIntake Total 1750 ml OutputOutput Total 1300 ml 2000 ml BalanceBalance -1300 ml -250 ml Exam Constitutional: alert, oriented Neck: supple, other (trach) Respiratory: diminished breath sounds Cardiovascular: regular rate and rhythm Gastrointestinal: other (GT) Musculoskeletal: nl extremities to inspection Extremities: normal pulses, other (Contracted) Medications Medications Current Medications Bisacodyl (Dulcolax Supp) 10 mg Q24H MS Last administered on 11/22/18 00:20; Admin Dose 10 MG; Start 11/01/18 at 00:00 Enoxaparin Sodium (Lovenox) 30 mg DAILY SC Last administered on 12/01/18 09:44; Admin Dose 30 MG; Start 11/01/18 at 09:00 Escitalopram Oxalate (Lexapro) 10 mg DAILY GTB Last administered on 12/01/18 09:30; Admin Dose 10 MG; Start 11/01/18 at 09:00 Ferrous Sulfate (Feosol Liquid Cup) 330 mg BID GTB Last administered on 12/01/18 09:30; Admin Dose 330 MG; Start 11/01/18 at 09:00 Lansoprazole (Prevacid) 30 mg DAILY GTB Last administered on 12/01/18 09:29; Admin Dose 30 MG; Start 11/01/18 at 09:00 Morphine Sulfate (morphine) 5 mg Q4H PRN GTB MODERATE TO SEVERE PAIN Last administered on 11/28/18 11:03; Admin Dose 5 MG; Start 11/01/18 at 00:00 Multivitamins (Multivitamin) 30 ml DAILY GTB Last administered on 12/01/18 09:30; Admin Dose 30 ML; Start 11/01/18 at 09:00 Docusate Sodium (Colace Liquid Cup) 100 mg BID GTB Last administered on 12/01/18 09:30; Admin Dose 100 MG; Start 11/01/18 at 09:00 Acetaminophen (Tylenol Liquid) 650 mg Q6H PRN GTB MILD PAIN(1-3)OR ELEVATED T EMP Last administered on 11/30/18 20:55; Admin Dose 650 MG; Start 11/01/18 at 12:00 Albuterol (Ventolin Hfa) 4 puff Q6H RESP THERAPY INH Last administered on 12/01/18 13:19; Admin Dose 4 PUFF; Start 11/01/18 at 20:00 Ipratropium [place] (Atrovent Hfa) 4 puff Q6H RESP THERAPY INH Last administered on 12/01/18 13:19; Admin Dose 4 PUFF; Start 11/01/18 at 20:00 Nystatin (Nystatin Susp) 5 ml QID PO Last administered on 12/01/18 12:42; Admin Dose 5 ML; Start 11/09/18 at 17:00 Sodium Chloride 1,000 ml @ 100 mls/hr Q10H IV Last administered on 12/01/18 01:04; Admin Dose 100 MLS/HR; Start 11/24/18 at 09:30 Vancomycin HCl (Vanco Iv Per Pharmacy) VANCOMYCIN PER PHARMACY PER PROTOCOL XX ; Start 11/25/18 at 22:00 Cefepime HCl 50 ml @ 100 mls/hr Q12 IVPB Last administered on 12/01/18 10:58; Admin Dose 100 MLS/HR; Start 11/26/18 at 13:00 Voriconazole (Vfend) 200 mg BID PO Last administered on 12/01/18 09:30; Admin Dose 200 MG; Start 11/26/18 at 21:00 Ibuprofen (Motrin) 400 mg Q6H PRN NGT MILD PAIN LEVEL 1-3 Last administered on 11/27/18 21:25; Admin Dose 400 MG; Start 11/27/18 at 01:30 Epoetin Jorge (Epogen (Esrd)) 10,000 units Mo@1700 SC Last administered on 11/30/18 18:18; Admin Dose 10,000 UNITS; Start 11/30/18 at 17:00 Vancomycin/Sodium Chloride 250 ml @ 125 mls/hr Q12H IVPB Last administered on 1/8/19at 12:42; Admin Dose 125 MLS/HR; Start 11/30/18 at 21:00 Miscellaneous Information (*Order Clarification Bulletin) MEDICATION REQUIRES CLARIFICATI... Q8H XX ; Start 12/01/18 at 10:30 MICHELLE EUGENE Dec 01, 2018 14:59
[2018-12-01] MEDS: ACETAMINOPHEN 650MG/20.3ML CUP GTB PRN (21:26)
[2018-12-02] VITALS (21 sets, daily range): BP systolic 88–121; BP diastolic 57–77; PULSE 62–83; RESP 15–22
[2018-12-02] MEDS: BISACODYL 10 MG SUPP PR SCH
[2018-12-02] MEDS: ALBUTEROL HFA 8 GM INHALER INH SCH ×4 (01:37→19:28)
[2018-12-02] MEDS: IPRATROPIUM (HFA) 12.9 GM INHALER INH SCH ×4 (01:37→19:28)
[2018-12-02] MEDS: SOD CHLORIDE 0.9% 1,000 ML IV SCH ×3 (09:07→22:35)
[2018-12-02] MEDS: CEFEPIME 1GM/50 ML (PMX) 50 ML IVPB SCH ×2 (09:07→22:33)
[2018-12-02] MEDS: VANCOMYCIN 750 MG (PMX) 250 ML IVPB SCH ×2 (09:10→22:34)
[2018-12-02] MEDS: ESCITALOPRAM 10 MG TAB GTB SCH (09:11)
[2018-12-02] MEDS: NYSTATIN SUSP 5 ML CUP PO SCH ×4 (09:11→22:32)
[2018-12-02] MEDS: FERROUS SULFATE 60 MG/ML 5ML CUP GTB SCH ×2 (09:11→22:33)
[2018-12-02] MEDS: VORICONAZOLE 200 MG TAB PO SCH ×2 (09:11→22:34)
[2018-12-02] MEDS: MULTIVITAMINS 30 ML CUP GTB SCH (09:11)
[2018-12-02] MEDS: DOCUSATE SODIUM 10 MG/ML (10ML CUP) GTB SCH ×2 (09:11→22:33)
[2018-12-02] MEDS: LANSOPRAZOLE 30 MG CAP GTB SCH (09:12)
[2018-12-02] MEDS: BALSAM PERU/CASTOR OIL 60 GM TUBE TOP SCH (09:12)
[2018-12-02] MEDS: ENOXAPARIN 30 MG/0.3 ML SYG SC SCH (09:40)
--- NOTE | 2018-12-02 15:18 | CONS ---
Date/Time of Note Date/Time of Note DATE: 12/02/18 TIME: 15:15 Assessment/Plan Assessment/Plan Hospital Course No acute changes, Tm 101.6, now afebrile Microbiology: Urine culture grew Filomena species, not albicans, blood culture growing staph and Serratia marcescens Antimicrobials: Vanco Vfend cefepime INDWELLINGS: Trach, PEG, Cash. PHYSICAL EXAMINATION: GENERAL: This is a chronically ill-appearing, debilitated, elderly man who is in no distress. HEENT: Head atraumatic, normocephalic. Sclerae anicteric. Buccal mucosa dry. NECK: Supple. Tracheostomy present. CHEST: Rise symmetrical. Breath sounds diminished to bases. HEART: S1, S2, tachycardic, regular. ABDOMEN: Soft, bowel tones present. EXTREMITIES: Wasted, contractured. ASSESSMENT: 1. Sepsis with polymicrobial bacteremia 2. Obstructive uropathy, patient passed the stone for repeat CT 3. Recurrent urinary tract infection. 4. Healthcare-associated pneumonia. 5. History of Clostridium difficile colitis. 6. Quadriplegia status post cervical spine surgery. 7. 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 PLAN: Clinically unchanged, repeat bld cx negative, continue antibiotics, repeat cx for T 101 DW staff Result Diagram: 12/02/18 0643 12/02/18 0643 Results 24hrs Laboratory Tests Test 12/02/18 06:43 White Blood Count 5.6 # Red Blood Count 2.60 L Hemoglobin 7.5 L Hematocrit 25.0 L Mean Corpuscular Volume 96.2 Mean Corpuscular Hemoglobin 28.8 L Mean Corpuscular Hemoglobin Concent 30.0 L Red Cell Distribution Width 13.9 Platelet Count 177 Mean Platelet Volume 11.3 H Immature Granulocytes % 0.500 H Neutrophils % 76.2 Lymphocytes % 15.4 Monocytes % 6.1 Eosinophils % 1.4 Basophils % 0.4 Nucleated Red Blood Cells % 0.4 H Immature Granulocytes # 0.030 Neutrophils # 4.3 Lymphocytes # 0.9 Monocytes # 0.3 Eosinophils # 0.1 Basophils # 0.0 Nucleated Red Blood Cells # 0.0 Sodium Level 144 Potassium Level 4.1 Chloride Level 104 Carbon Dioxide Level 34 H Anion Gap 6 Blood Urea Nitrogen 15 Creatinine 0.49 L Est Glomerular Filtrat Rate mL/min > 60 Glucose Level 111 Calcium Level 8.0 L Consultation Date/Type/Reason Admit Date/Time Oct 31, 2018 at 21:21 Initial Consult Date 11/01/18 Type of Consult id Requesting Provider: LORRAINE SHAH MD Exam/Review of Systems Vital Signs Vitals Vital Signs Date Temp Pulse Resp B/P (MAP) Pulse Ox O2 O2 Flow FiO2 Time Delivery Rate 12/02/18 70 13:36 12/02/18 18 95 30 13:10 12/02/18 99.3 107/64 11:16 (78) 11/30/18 Mechanical 16:00 Ventilator Intake and Output 12/01/18 12/01/18 12/02/18 1515:00 23:00 07:00 IntakeIntake Total 1050 ml 1375 ml OutputOutput Total 1100 ml BalanceBalance 1050 ml 275 ml Medications Medications Current Medications Bisacodyl (Dulcolax Supp) 10 mg Q24H MS Last administered on 11/22/18at 00:20; Admin Dose 10 MG; Start 11/01/18 at 00:00 Enoxaparin Sodium (Lovenox) 30 mg DAILY SC Last administered on 12/02/18 09:40; Admin Dose 30 MG; Start 11/01/18 at 09:00 Escitalopram Oxalate (Lexapro) 10 mg DAILY GTB Last administered on 12/02/18 09:11; Admin Dose 10 MG; Start 11/01/18 at 09:00 Ferrous Sulfate (Feosol Liquid Cup) 330 mg BID GTB Last administered on 12/02/18 09:11; Admin Dose 330 MG; Start 11/01/18 at 09:00 Lansoprazole (Prevacid) 30 mg DAILY GTB Last administered on 12/02/18 09:12; Admin Dose 30 MG; Start 11/01/18 at 09:00 Morphine Sulfate (morphine) 5 mg Q4H PRN GTB MODERATE TO SEVERE PAIN Last administered on 11/28/18 11:03; Admin Dose 5 MG; Start 11/01/18 at 00:00 Multivitamins (Multivitamin) 30 ml DAILY GTB Last administered on 12/02/18 09:11; Admin Dose 30 ML; Start 11/01/18 at 09:00 Docusate Sodium (Colace Liquid Cup) 100 mg BID GTB Last administered on 12/02/18 09:11; Admin Dose 100 MG; Start 11/01/18 at 09:00 Acetaminophen (Tylenol Liquid) 650 mg Q6H PRN GTB MILD PAIN(1-3)OR ELEVATED TEMP Last administered on 12/01/18 21:26; Admin Dose 650 MG; Start 11/01/18 at 12:00 Albuterol (Ventolin Hfa) 4 puff Q6H RESP THERAPY INH Last administered on 12/02/18 08:49; Admin Dose 4 PUFF; Start 11/01/18 at 20:00 Ipratropium [place] (Atrovent Hfa) 4 puff Q6H RESP THERAPY INH Last adm inistered on 12/02/18 08:48; Admin Dose 4 PUFF; Start 11/01/18 at 20:00 Nystatin (Nystatin Susp) 5 ml QID PO Last administered on 12/02/18 12:15; Admin Dose 5 ML; Start 11/09/18 at 17:00 Sodium Chloride 1,000 ml @ 100 mls/hr Q10H IV Last administered on 12/02/18 09:07; Admin Dose 100 MLS/HR; Start 11/24/18 at 09:30 Vancomycin HCl (Vanco Iv Per Pharmacy) VANCOMYCIN PER PHARMACY PER PROTOCOL XX ; Start 11/25/18 at 22:00 Cefepime HCl 50 ml @ 100 mls/hr Q12 IVPB Last administered on 12/02/18 09:07; Admin Dose 100 MLS/HR; Start 11/26/18 at 13:00 Voriconazole (Vfend) 200 mg BID PO Last administered on 12/02/18 09:11; Admin Dose 200 MG; Start 11/26/18 at 21:00 Ibuprofen (Motrin) 400 mg Q6H PRN NGT MILD PAIN LEVEL 1-3 Last administered on 11/27/18 21:25; Admin Dose 400 MG; Start 11/27/18 at 01:30 Epoetin [place] (Epogen (Esrd)) 10,000 units Mo@1700 SC Last administered on 11/30/18 18:18; Admin Dose 10,000 UNITS; Start 11/30/18 at 17:00 Vancomycin/Sodium Chloride 250 ml @ 125 mls/hr Q12H IVPB Last administered on 12/02/18 09:10; Admin Dose 125 MLS/HR; Start 11/30/18 at 21:00 Miscellaneous Information (*Order Clarification Bulletin) MEDICATION REQUIRES CLARIFICATI... Q8H XX ; Start 12/01/18 at 10:30 Miscellaneous Information (*Order Clarification Bulletin) MEDICATION REQUIRES CLARIFICATI... Q8H XX ; Start 12/01/18 at 20:30; Stop 12/03/18 at 20:29 Miscellaneous Information (*Rx Drug Level Order Reminder*) VANCO TROUGH @ 0,800 ONCE ONCE XX ; Start 12/03/18 at 08:00; Stop 12/03/18 at 08:01 RISA SAWYER NP Dec 02, 2018 15:18
--- NOTE | 2018-12-02 16:13 | CONS ---
Date/Time of Note Date/Time of Note DATE: 12/02/18 TIME: 16:13 Consult Date/Type/Reason Admit Date/Time Oct 31, 2018 at 21:21 Initial Consult Date 11/01/18 Type of Consultation: Pulm Requesting Provider: LORRAINE SHAH MD Subjective Still febrile. Objective Vital Signs Date Temp Pulse Resp B/P (MAP) Pulse Ox O2 O2 Flow FiO2 Time Delivery Rate 12/02/18 77 16 94 30 15:55 12/02/18 100.4 88/57 (67) 15:45 11/30/18 [place] 16:00 l Ventilato r Intake and Output 12/01/18 12/01/18 12/02/18 1414:59 22:59 06:59 IntakeIntake Total 1050 ml 1375 ml OutputOutput Total 1100 ml BalanceBalance 1050 ml 275 ml Exam GENERAL: Chronically ill-appearing gentleman respiratory failure with tracheostomy VITAL SIGNS: per chart NECK: Supple. No JVD or lymphadenopathy. CARDIAC EXAM: S1, S2. No added sounds or murmurs. CHEST: Diminished air entry bilaterally ABDOMEN: Soft, nontender. No guarding or rebound. EXTREMITIES: No cyanosis, clubbing or edema. NEUROLOGIC: Generalized weakness. No focal deficits. Results/Medications Result Diagram: 12/02/18 0643 12/02/18 0643 Results 24 hrs Laboratory Tests Test 12/02/18 06:43 White Blood Count 5.6 # Red Blood Count 2.60 L Hemoglobin 7.5 L Hematocrit 25.0 L Mean Corpuscular Volume 96.2 Mean Corpuscular Hemoglobin 28.8 L Mean Corpuscular Hemoglobin Concent 30.0 L Red Cell Distribution Width 13.9 Platelet Count 177 Mean Platelet Volume 11.3 H Immature Granulocytes % 0.500 H Neutrophils % 76.2 Lymphocytes % 15.4 Monocytes % 6.1 Eosinophils % 1.4 Basophils % 0.4 Nucleated Red Blood Cells % 0.4 H Immature Granulocytes # 0.030 Neutrophils # 4.3 Lymphocytes # 0.9 Monocytes # 0.3 Eosinophils # 0.1 Basophils # 0.0 Nucleated Red Blood Cells # 0.0 Sodium Level 144 Potassium Level 4.1 Chloride Level 104 Carbon Dioxide Level 34 H Anion Gap 6 Blood Urea Nitrogen 15 Creatinine 0.49 L Est Glomerular Filtrat Rate mL/min > 60 Glucose Level 111 Calcium Level 8.0 L Medications Current Medications Bisacodyl (Dulcolax Supp) 10 mg Q24H MN Last administered on 11/22/18 00:20; Admin Dose 10 MG; Start 11/01/18 at 00:00 Enoxaparin Sodium (Lovenox) 30 mg DAILY SC Last administered on 12/02/18 09:40; Admin Dose 30 MG; Start 11/01/18 at 09:00 Escitalopram Oxalate (Lexapro) 10 mg DAILY GTB Last administered on 12/02/18 09:11; Admin Dose 10 MG; Start 11/01/18 at 09:00 Ferrous Sulfate (Feosol Liquid Cup) 330 mg BID GTB Last administered on 12/02/18 09:11; Admin Dose 330 MG; Start 11/01/18 at 09:00 Lansoprazole (Prevacid) 30 mg DAILY GTB Last administered on 12/02/18 09:12; Admin Dose 30 MG; Start 11/01/18 at 09:00 Morphine Sulfate (morphine) 5 mg Q4H PRN GTB MODERATE TO SEVERE PAIN Last administered on 11/28/18 11:03; Admin Dose 5 MG; Start 11/01/18 at 00:00 Multivitamins (Multivitamin) 30 ml DAILY GTB Last administered on 12/02/18 09:11; Admin Dose 30 ML; Start 11/01/18 at 09:00 Docusate Sodium (Colace Liquid Cup) 100 mg BID GTB Last administered on 12/02/18 t 09:11; Admin Dose 100 MG; Start 11/01/18 at 09:00 Acetaminophen (Tylenol Liquid) 650 mg Q6H PRN GTB MILD PAIN(1-3)OR ELEVATED TEMP Last administered on 12/01/18 21:26; Admin Dose 650 MG; Start 11/01/18 at 12:00 Albuterol (Ventolin Hfa) 4 puff Q6H RESP THERAPY INH Last administered on 12/02/18 14:00; Admin Dose 4 PUFF; Start 11/01/18 at 20:00 Ipratropium [place] (Atrovent Hfa) 4 puff Q6H RESP THERAPY INH Last administered on 12/02/18 14:00; Admin Dose 4 PUFF; Start 11/01/18 at 20:00 Nystatin (Nystatin Susp) 5 ml QID PO Last administered on 12/02/18at 12:15; Admin Dose 5 ML; Start 11/09/18 at 17:00 Sodium Chloride 1,000 ml @ 100 mls/hr Q10H IV Last administered on 12/02/18at 09:07; Admin Dose 100 MLS/HR; Start 11/24/18 at 09:30 Vancomycin HCl (Vanco Iv Per Pharmacy) VANCOMYCIN PER PHARMACY PER PROTOCOL XX ; Start 11/25/18 at 22:00 Cefepime HCl 50 ml @ 100 mls/hr Q12 IVPB Last administered on 12/02/18at 09:07; Admin Dose 100 MLS/HR; Start 11/26/18 at 13:00 Voriconazole (Vfend) 200 mg BID PO Last administered on 12/02/18at 09:11; Admin Dose 200 MG; Start 11/26/18 at 21:00 Ibuprofen (Motrin) 400 mg Q6H PRN NGT MILD PAIN LEVEL 1-3 Last administered on 11/27/18at 21:25; Admin Dose 400 MG; Start 11/27/18 at 01:30 Epoetin [place] (Epogen (Esrd)) 10,000 units Mo@1700 SC Last administered on 11/30/18at 18:18; Admin Dose 10,000 UNITS; Start 11/30/18 at 17:00 Vancomycin/Sodium Chloride 250 ml @ 125 mls/hr Q12H IVPB Last administered on 12/02/18at 09:10; Admin Dose 125 MLS/HR; Start 11/30/18 at 21:00 Miscellaneous Information (*Order Clarification Bulletin) MEDICATION REQUIRES CLARIFICATI... Q8H XX ; Start 12/01/18 at 10:30 Miscellaneous Information (*Order Clarification Bulletin) MEDICATION REQUIRES CLARIFICATI... Q8H XX ; Start 12/01/18 at 20:30; Stop 12/03/18 at 20:29 Miscellaneous Information (*Rx Drug Level Order Reminder*) VANCO TROUGH @ 0,800 ONCE ONCE XX ; Start 12/03/18 at 08:00; Stop 12/03/18 at 08:01 Assessment/Plan Chief Complaint/Hosp Course Additional Assessment/Plan IMP: 1. Obstructive uropathy-- with sepsis with persistent fevers. 2. Chronic respiratory failure, vent dependent--Now trach collar 3. 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 4. Pre-renal azotemia 5. Right corneal opacity chronic with blindness. 6. History of coronary artery disease with history of myocardial infarction. 7. Chronic sacral coccygeal decubitus RECS: 1. TF/Free H20 2. ID recs. 3. Trach collar 4. Wound care 5. DVT and GI prophylaxis [place] transfer. LIVIA VALDERRAMA MD, [facility] Dec 02, 2018 16:13
--- NOTE | 2018-12-02 23:06 | DS ---
Date/Time of Note Date/Time of Note DATE: 12/02/18 TIME: 23:06 Discharge Summary Admission/Discharge Info Admit Date/Time Oct 31, 2018 at 21:21 Discharge Date/Time Patient Condition: Stable Hx of Present Illness The patient is a 63-year-old gentleman well known to me from previous several admissions. The patient has a history of C-spine epidural abscess 2 weeks ago for which he underwent surgery; however has remained quite quadriplegic since then. The patient has also been on ventilator and is being fed through G-tube. The patient yesterday was noted to have fever at [facility] and urine culture, blood culture, sputum culture and routine labs were ordered. The patient's white count was normal; however, UA was positive for UTI. The patient is with history of Klebsiella UTI which was sensitive to imipenem. The patient was therefore started empirically on iv ertapenam The patient today at a nursing home facility was noted to be unresponsive. The patient was sent to [facility] ER for further evaluation and management. I sent the patient in the ER, did spike temperature to 102.7. The patient received empiric cefepime in the ER along with fluid bolus. Lactic acid level came back only at 0.8. However, the patient was noted to be slightly hypertensive and clinically looked dry with BUN of 49 as compared to 33 six days ago while he was at [facility]. The patient is being admitted for further evaluation and management. The patient's mental status in the ER after giving fluids has improved and the patient is awake and responsive, which is at his baseline. The patient did not have any seizure. No reported hematemesis or melena. The patient recently did have upper GI bleed and also Clostridium difficile colitis. The patient did not have any abdominal distention. There is no leg edema. The patient is severely contracted in all extremities. The patient also has right corneal opacity and is blind in the right eye. The patient also has chronic sac ral decubitus. Hospital Course Dc to [place] when bed is available -Obstructive uropathy, passed the distal left ureteral stone. Cash catheter changed to cardiac catheter [place] [address]11/[address] Castillo is following in urology consultation. -Recurrent sepsis with bacteremia. Continue antibiotics per ID. Dr. Tesfaye is following in infection disease consultation. -S/p Yeast UTI -S/p possible healthcare acquired pneumonia -Ventilator dependent respiratory failure. Dr. Hernández is following in pulmonology consultation. 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 Bautista. Home Meds Reported Medications Pantoprazole* (Protonix*) 40 Mg Tablet., 40 MG GTB DAILY, TAB 09/05/18 Multivitamins* (Theragran*) 1 Tab Tab, 1 TAB GTB DAILY, TAB 09/05/18 Morphine Sulfate* (Morphine* Liq) 10 Mg/5 Ml Solution, 5 MG GTB Q4H PRN for MODERATE TO SEVERE PAIN, ML 09/05/18 Midodrine* (Midodrine*) 5 Mg Tablet, 5 MG GTB TID, TAB HOLD FOR SBP >120 09/05/18 Metoprolol Tartrate* (Lopressor*) 25 Mg Tab, 12.5 MG GTB BID, #60 TAB HOLD FOR SBP<110 OR HR<60 09/05/18 Ferrous Sulfate (Ferrous Sulfate) 300 Mg/5 Ml Liquid, 330 MG GTB BID 09/05/18 Enoxaparin Sodium* (Enoxaparin Sodium*) 30 Mg/0.3 Ml Syringe, 30 MG SC DAILY, SYR 09/05/18 Acetaminophen* (Acetaminophen*) 325 Mg Tablet, 325 MG GTB 30min prior PRN for PAIN AND OR ELEVATED TEMP, #30 TAB 30 min prior to treatment 09/05/18 Escitalopram Oxalate* (Lexapro*) 10 Mg Tablet, 10 MG GTB DAILY, #30 TAB 03/22/18 Lansoprazole* (Lansoprazole*) 30 Mg Capsule.dr, 30 MG GTB DAILY, CAP 03/22/18 Ipratropium-Albuterol (Ipratropium-Albuterol) 0.5-3 Mg/3 Ml Ampul.neb, 3 ML I NHALATION QID, #30 VIAL 01/28/18 Bisacodyl* (Bisacodyl*) 10 Mg Supp, 10 MG DC Q24H for CONSTIPATION, SUPP 01/28/18 Docusate Sodium* (Docusate Sodium*) 100 Mg Capsule, 100 MG GTB BID, #60 CAP 01/28/18 Acetaminophen* (Acetaminophen*) 325 Mg Tablet, 650 MG GTB Q6H PRN for MILD PAIN LEVEL 1-3, #30 TAB AND FOR FEVER>100.5F 01/28/18 Primary Care Provider Delonte Bautista MD Pending Labs Laboratory Tests Test 12/02/18 06:43 White Blood Count 5.6 10^3/ul (4.8-10.8) Red Blood Count 2.60 10^6/ul (4.70-6.10) Hemoglobin 7.5 g/dl (14.0-18.0) Hematocrit 25.0 % (42.0-52.0) Mean Corpuscular Volume 96.2 fl (82.0-101.0) Mean Corpuscular Hemoglobin 28.8 pg (29.0-33.0) Mean Corpuscular Hemoglobin Concent 30.0 g/dl (32.0-37.0) Red Cell Distribution Width 13.9 % (11.5-14.5) Platelet Count 177 10^3/UL (140-415) Mean Platelet Volume 11.3 fl (7.4-10.4) Immature Granulocytes % 0.500 % (0.001-0.429) Neutrophils % 76.2 % (39.0-77.0) Lymphocytes % 15.4 % (15.0-51.0) Monocytes % 6.1 % (0.0-11.0) Eosinophils % 1.4 % (0.0-7.0) Basophils % 0.4 % (0.0-2.0) Nucleated Red Blood Cells % 0.4 /100WBC (0.0-0.0) Immature Granulocytes # 0.030 10^3/ul (0.0-0.031) Neutrophils # 4.3 10^3/ul (1.6-7.5) Lymphocytes # 0.9 10^3/ul (0.8-2.9) Monocytes # 0.3 10^3/ul (0.3-0.9) Eosinophils # 0.1 10^3/ul (0.0-0.5) Basophils # 0.0 10^3/ul (0.0-0.1) Nucleated Red Blood Cells # 0.0 10^3/ul (0.0-0.0) Sodium Level 144 mmol/L (135-144) Potassium Level 4.1 mmol/L (3.5-5.1) Chloride Level 104 mmol/L (97-110) Carbon Dioxide Level 34 mmol/L (21-31) Anion Gap 6 (5-13) Blood Urea Nitrogen 15 mg/dl (7-20) Creatinine 0.49 mg/dl (0.61-1.24) Est Glomerular Filtrat Rate mL/min > 60 mL/min (>60) Glucose Level 111 mg/dl (70-220) Calcium Level 8.0 mg/dl (8.4-10.2) MICHELLE EUGENE Dec 02, 2018 23:06
[2018-12-03] VITALS (21 sets, daily range): BP systolic 92–126; BP diastolic 60–80; PULSE 58–93; RESP 17–20
[2018-12-03] MEDS: ALBUTEROL HFA 8 GM INHALER INH SCH ×3 (01:18→14:00)
[2018-12-03] MEDS: IPRATROPIUM (HFA) 12.9 GM INHALER INH SCH ×3 (01:18→14:00)
[2018-12-03] MEDS: CEFEPIME 1GM/50 ML (PMX) 50 ML IVPB SCH (08:56)
[2018-12-03] MEDS: FERROUS SULFATE 60 MG/ML 5ML CUP GTB SCH (08:59)
[2018-12-03] MEDS: NYSTATIN SUSP 5 ML CUP PO SCH ×3 (08:59→16:51)
[2018-12-03] MEDS: DOCUSATE SODIUM 10 MG/ML (10ML CUP) GTB SCH (09:00)
[2018-12-03] MEDS: MULTIVITAMINS 30 ML CUP GTB SCH (09:00)
[2018-12-03] MEDS: BALSAM PERU/CASTOR OIL 60 GM TUBE TOP SCH (09:00)
[2018-12-03] MEDS: VORICONAZOLE 200 MG TAB PO SCH (09:00)
[2018-12-03] MEDS: LANSOPRAZOLE 30 MG CAP GTB SCH (09:00)
[2018-12-03] MEDS: ENOXAPARIN 30 MG/0.3 ML SYG SC SCH (09:06)
[2018-12-03] MEDS: VANCOMYCIN 750 MG (PMX) 250 ML IVPB SCH (10:14)
--- NOTE | 2018-12-03 11:53 | CONS ---
Date/Time of Note Date/Time of Note DATE: 12/03/18 TIME: 11:52 Consult Date/Type/Reason Admit Date/Time Oct 31, 2018 at 21:21 Initial Consult Date 11/01/18 Type of Consultation: Pulm Requesting Provider: LORRAINE SHAH MD Subjective No changes Objective Vital Signs Date Temp Pulse Resp B/P (MAP) Pulse Ox O2 O2 Flow FiO2 Time Delivery Rate 12/03/18 56 18 100 30 11:26 12/03/18 98.3 125/80 08:13 (95) 11/30/18 Mechanical 16:00 Ventilator Intake and Output 12/02/18 12/02/18 12/03/18 1414:59 22:59 06:59 IntakeIntake Total 900 ml OutputOutput Total 1100 ml BalanceBalance -200 ml Exam GENERAL: Chronically ill-appearing gentleman respiratory failure with tracheostomy VITAL SIGNS: per chart NECK: Supple. No JVD or lymphadenopathy. CARDIAC EXAM: S1, S2. No added sounds or murmurs. CHEST: Diminished air entry bilaterally ABDOMEN: Soft, nontender. No guarding or rebound. EXTREMITIES: No cyanosis, clubbing or edema. NEUROLOGIC: Generalized weakness. No focal deficits. Results/Medications Result Diagram: 12/03/18 0852 12/03/18 0852 Results 24 hrs Laboratory Tests Test 12/03/18 08:52 White Blood Count 5.3 Red Blood Count 2.70 L Hemoglobin 7.9 L Hematocrit 25.5 L Mean Corpuscular Volume 94.4 Mean Corpuscular Hemoglobin 29.3 Mean Corpuscular Hemoglobin Concent 31.0 L Red Cell Distribution Width 14.1 Platelet Count 196 Mean Platelet Volume 10.7 H Immature Granulocytes % 0.600 H Neutrophils % 73.9 Lymphocytes % 18.0 Monocytes % 5.6 Eosinophils % 1.5 Basophils % 0.4 Nucleated Red Blood Cells % 0.0 Immature Granulocytes # 0.030 Neutrophils # 3.9 Lymphocytes # 1.0 Monocytes # 0.3 Eosinophils # 0.1 Basophils # 0.0 Nucleated Red Blood Cells # 0.0 Sodium Level 140 Potassium Level 3.8 Chloride Level 106 Carbon Dioxide Level 33 H Anion Gap 1 L Blood Urea Nitrogen 13 Creatinine 0.52 L Est Glomerular Filtrat Rate mL/min > 60 Glucose Level 118 Calcium Level 8.1 L Vancomycin Level Trough 17.5 Medications Current Medications Acetaminophen (Tylenol Liquid) 650 mg Q6H PRN GTB MILD PAIN(1-3)OR ELEVATED TEMP Last administered on 12/01/18 21:26; Admin Dose 650 MG; Start 11/01/18 at 12:00 Albuterol (Ventolin Hfa) 4 puff Q6H RESP THERAPY INH Last administered on 12/03/18 08:00; Admin Dose 4 PUFF; Start 11/01/18 at 20:00 Ipratropium [place] (Atrovent Hfa) 4 puff Q6H RESP THERAPY INH Last administered on 12/03/18 08:00; Admin Dose 4 PUFF; Start 11/01/18 at 20:00 Nystatin (Nystatin Susp) 5 ml QID PO Last administered on 12/03/18 08:59; Admin Dose 5 ML; Start 11/09/18 at 17:00 Sodium Chloride 1,000 ml @ 100 mls/hr Q10H IV Last administered on 12/02/18 22:35; Admin Dose 100 MLS/HR; Start 11/24/18 at 09:30 Vancomycin HCl (Vanco Iv Per Pharmacy) VANCOMYCIN PER PHARMACY PER PROTOCOL XX ; Start 11/25/18 at 22:00 Cefepime HCl 50 ml @ 100 mls/hr Q12 IVPB Last administered on 12/03/18 08:56; Admin Dose 100 MLS/HR; Start 11/26/18 at 13:00 Voriconazole (Vfend) 200 mg BID PO Last administered on 12/03/18 09:00; Admin Dose 200 MG; Start 11/26/18 at 21:00 Ibuprofen (Motrin) 400 mg Q6H PRN NGT MILD PAIN LEVEL 1-3 Last administered on 11/27/18 21:25; Admin Dose 400 MG; Start 11/27/18 at 01:30 Epoetin Jorge (Epogen (Esrd)) 10,000 units Mo@1700 SC Last administered on 11/30 18:18; Admin Dose 10,000 UNITS; Start 11/30/18 at 17:00 Vancomycin/Sodium Chloride 250 ml @ 125 mls/hr Q12H IVPB Last administered on 12/03/18 10:14; Admin Dose 125 MLS/HR; Start 11/30/18 at 21:00 Miscellaneous Information (*Order Clarification Bulletin) MEDICATION REQUIRES CLARIFICATI... Q8H XX ; Start 12/01/18 at 10:30 Miscellaneous Information (*Order Clarification Bulletin) MEDICATION REQUIRES CLARIFICATI... Q8H XX ; Start 12/01/18 at 20:30; Stop 12/03/18 at 20:29 Assessment/Plan Chief Complaint/Hosp Course Additional Assessment/Plan IMP: 1. Obstructive uropathy-- with sepsis with persistent fevers. 2. Chronic respiratory failure, vent dependent--Now trach collar 3. 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 4. Pre-renal azotemia 5. Right corneal opacity chronic with blindness. 6. History of coronary artery disease with history of myocardial infarction. 7. Chronic sacral coccygeal decubitus RECS: 1. TF/Free H20 2. ID recs. 3. Trach collar 4. Wound care 5. DVT and GI prophylaxis [place] transfer. Continue supportive care LIVIA VALDERRAMA MD, [facility] Dec 03, 2018 11:53
--- NOTE | 2018-12-03 12:08 | CONS ---
Date/Time of Note Date/Time of Note DATE: 12/03/18 TIME: 12:07 Assessment/Plan Assessment/Plan Hospital Course No acute events patient looks comfortable afebrile WBC today 5.3 platelets 196 neutrophils 73.9 BUN 13 creatinine 0.52 Microbiology: Urine culture grew Filomena species, not albicans, blood culture growing staph and Serratia marcescens Antimicrobials: Vanco Vfend cefepime INDWELLINGS: Trach, PEG, Cash. PHYSICAL EXAMINATION: GENERAL: This is a chronically ill-appearing, debilitated, elderly man who is in no distress. HEENT: Head atraumatic, normocephalic. Sclerae anicteric. Buccal mucosa dry. NECK: Supple. Tracheostomy present. CHEST: Rise symmetrical. Breath sounds diminished to bases. HEART: S1, S2, tachycardic, regular. ABDOMEN: Soft, bowel tones present. EXTREMITIES: Wasted, contractured. ASSESSMENT: 1. Sepsis with polymicrobial bacteremia 2. Obstructive uropathy, patient passed the stone for repeat CT 3. Recurrent urinary tract infection. 4. Healthcare-associated pneumonia. 5. History of Clostridium difficile colitis. 6. Quadriplegia status post cervical spine surgery. 7. 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 PLAN: Clinically unchanged, repeat bld cx negative, continue antibiotics, repeat cx for T 101 DW staff Result Diagram: 12/03/18 0852 12/03/18 0852 Results 24hrs Laboratory Tests Test 12/03/18 08:52 White Blood Count 5.3 Red Blood Count 2.70 L Hemoglobin 7.9 L Hematocrit 25.5 L Mean Corpuscular Volume 94.4 Mean Corpuscular Hemoglobin 29.3 Mean Corpuscular Hemoglobin Concent 31.0 L Red Cell Distribution Width 14.1 Platelet Count 196 Mean Platelet Volume 10.7 H Immature Granulocytes % 0.600 H Neutrophils % 73.9 Lymphocytes % 18.0 Monocytes % 5.6 Eosinophils % 1.5 Basophils % 0.4 Nucleated Red Blood Cells % 0.0 Immature Granulocytes # 0.030 Neutrophils # 3.9 Lymphocytes # 1.0 Monocytes # 0.3 Eosinophils # 0.1 Basophils # 0.0 Nucleated Red Blood Cells # 0.0 Sodium Level 140 Potassium Level 3.8 Chloride Level 106 Carbon Dioxide Level 33 H Anion Gap 1 L Blood Urea Nitrogen 13 Creatinine 0.52 L Est Glomerular Filtrat Rate mL/min > 60 Glucose Level 118 Calcium Level 8.1 L Vancomycin Level Trough 17.5 Consultation Date/Type/Reason Admit Date/Time Oct 31, 2018 at 21:21 Initial Consult Date 11/01/18 Type of Consult id Requesting Provider: LORRAINE SHAH MD Exam/Review of Systems Vital Signs Vitals Vital Signs Date Temp Pulse Resp B/P (MAP) Pulse Ox O2 O2 Flow FiO2 Time Delivery Rate 12/03/18 98.4 84 20 111/73 98 11:54 (86) 12/03/18 30 11:26 11/30/18 Mechanical 16:00 Ventilator Intake and Output 12/02/18 12/02/18 12/03/18 1515:00 23:00 07:00 IntakeIntake Total 900 ml OutputOutput Total 1100 ml BalanceBalance -200 ml Medications Medications Current Medications Albuterol (Ventolin Hfa) 4 puff Q6H RESP THERAPY INH Last administered on 12/03/18 08:00; Admin Dose 4 PUFF; Start 11/01/18 at 20:00 Ipratropium [place] (Atrovent Hfa) 4 puff Q6H RESP THERAPY INH Last administered on 12/03/18 08:00; Admin Dose 4 PUFF; Start 11/01/18 at 20:00 Nystatin (Nystatin Susp) 5 ml QID PO Last administered on 12/03/18 08:59; Admin Dose 5 ML; Start 11/09/18 at 17:00 Sodium Chloride 1,000 ml @ 100 mls/hr Q10H IV Last administered on 12/02/18 22:35; Admin Dose 100 MLS/HR; Start 11/24/18 at 09:30 Vancomycin HCl (Vanco Iv Per Pharmacy) VANCOMYCIN PER PHARMACY PER PROTOCOL XX ; Start 11/25/18 at 22:00 Cefepime HCl 50 ml @ 100 mls/hr Q12 IVPB Last administered on 12/03/18 08:56; Admin Dose 100 MLS/HR; Start 11/26/18 at 13:00 Voriconazole (Vfend) 200 mg BID PO Last administered on 12/03/18 09:00; Admin Dose 200 MG; Start 11/26/18 at 21:00 Ibuprofen (Motrin) 400 mg Q6H PRN NGT MILD PAIN LEVEL 1-3 Last administered on 1/4/19at 21:25; Admin Dose 400 MG; Start 11/27/18 at 01:30 Epoetin Jorge (Epogen (Esrd)) 10,000 units Mo@1700 SC Last administered on 11/30/18at 18:18; Admin Dose 10,000 UNITS; Start 11/30/18 at 17:00 Vancomycin/Sodium Chloride 250 ml @ 125 mls/hr Q12H IVPB Last administered on 12/03/18at 10:14; Admin Dose 125 MLS/HR; Start 11/30/18 at 21:00 Miscellaneous Information (*Order Clarification Bulletin) MEDICATION REQUIRES CLARIFICATI... Q8H XX ; Start 12/01/18 at 10:30 Miscellaneous Information (*Order Clarification Bulletin) MEDICATION REQUIRES CLARIFICATI... Q8H XX ; Start 12/01/18 at 20:30; Stop 12/03/18 at 20:29 RISA SAWYER NP Dec 03, 2018 12:08
[2018-12-03] MEDS: SOD CHLORIDE 0.9% 1,000 ML IV SCH (12:56)
[2018-12-03] MEDS ORDERED: VANCOMYCIN 500 MG (PMX) 100 ML IVPB SCH (21:00)
--- NOTE | 2018-12-04 00:07 | DS ---
Date/Time of Note Date/Time of Note DATE: 12/04/18 TIME: 00:06 Discharge Summary Admission/Discharge Info Admit Date/Time Oct 31, 2018 at 21:21 Discharge Date/Time Dec 03, 2018 at 20:16 Patient Condition: Stable Hx of Present Illness The patient is a 63-year-old gentleman well known to me from previous several admissions. The patient has a history of C-spine epidural abscess 2 weeks ago for which he underwent surgery; however has remained quite quadriplegic since then. The patient has also been on ventilator and is being fed through G-tube. The patient yesterday was noted to have fever at [facility] and urine culture, blood culture, sputum culture and routine labs were ordered. The patient's white count was normal; however, UA was positive for UTI. The patient is with history of Klebsiella UTI which was sensitive to imipenem. The patient was therefore started empirically on iv ertapenam The patient today at a alf facility was noted to be unresponsive. The patient was sent to [facility] ER for further evaluation and management. I sent the patient in the ER, did spike temperature to 102.7. The patient received empiric cefepime in the ER along with fluid bolus. Lactic acid level came back only at 0.8. However, the patient was noted to be slightly hypertensive and clinically looked dry with BUN of 49 as compared to 33 six days ago while he was at [facility]. The patient is being admitted for further evaluation and management. The patient's mental status in the ER after giving fluids has improved and the patient is awake and responsive, which is at his baseline. The patient did not have any seizure. No reported hematemesis or melena. The patient recently did have upper GI bleed and also Clostridium difficile colitis. The patient did not have any abdominal distention. There is no leg edema. The patient is severely contracted in all extremities. The patient also has right corneal opacity and is blind in the right eye. The patient also has chronic sacral decubitus. Hospital Course Pt d/phillip to [place] -Obstructive uropathy, passed the distal left ureteral stone. Cash catheter changed to cardiac catheter Finnish [address]11/[address] Castillo is following in urology consultation. -Recurrent sepsis with bacteremia. Continue antibiotics per ID. Dr. Tesfaye is following in infection disease consultation. -S/p Yeast UTI -S/p possible healthcare acquired pneumonia -Ventilator dependent respiratory failure. Dr. Hernández is following in pulmonology consultation. -Coronary artery disease with history of NH -Hypertension -Dysphagia with PEG -Quadriplegia 2 to C-spine abscess -C-spine epidural abscess, status post C3 to C4 laminectomy -DNR status Plan of care discussed with Dr. Bautista. Home Meds Reported Medications Pantoprazole* (Protonix*) 40 Mg Tablet.dr, 40 MG GTB DAILY, TAB 09/05/18 Multivitamins* (Theragran*) 1 Tab Tab, 1 TAB GTB DAILY, TAB 09/05/18 Morphine Sulfate* (Morphine* Liq) 10 Mg/5 Ml Solution, 5 MG GTB Q4H PRN for MODERATE TO SEVERE PAIN, ML 09/05/18 Midodrine* (Midodrine*) 5 Mg Tablet, 5 MG GTB TID, TAB HOLD FOR SBP >120 09/05/18 Metoprolol Tartrate* (Lopressor*) 25 Mg Tab, 12.5 MG GTB BID, #60 TAB HOLD FOR SBP<110 OR HR<60 09/05/18 Ferrous Sulfate (Ferrous Sulfate) 300 Mg/5 Ml Liquid, 330 MG GTB BID 09/05/18 Enoxaparin Sodium* (Enoxaparin Sodium*) 30 Mg/0.3 Ml Syringe, 30 MG SC DAILY, SYR 09/05/18 Acetaminophen* (Acetaminophen*) 325 Mg Tablet, 325 MG GTB 30min prior PRN for PAIN AND OR ELEVATED TEMP, #30 TAB 30 min prior to treatment 09/05/18 Escitalopram Oxalate* (Lexapro*) 10 Mg Tablet, 10 MG GTB DAILY, #30 TAB 03/22/18 Lansoprazole* (Lansoprazole*) 30 Mg Capsule.dr, 30 MG GTB DAILY, CAP 03/22/18 Ipratropium-Albuterol (Ipratropium-Albuterol) 0.5-3 Mg/3 Ml Ampul.neb, 3 ML INHALATION QID, #30 VIAL 01/28/18 Bisacodyl* (Bisacodyl*) 10 Mg Supp, 10 MG CO Q24H for CONSTIPATION, SUPP 01/28/18 Docusate Sodium* (Docusate Sodium*) 100 Mg Capsule, 100 MG GTB BID, #60 CAP 01/28/18 Acetaminophen* (Acetaminophen*) 325 Mg Tablet, 650 MG GTB Q6H PRN for MILD PAIN LEVEL 1-3, #30 TAB AND FOR FEVER>100.5F 01/28/18 Primary Care Provider Delonte Bautista MD Pending Labs Laboratory Tests Test 12/03/18 08:52 White Blood Count 5.3 10^3/ul (4.8-10.8) Red Blood Count 2.70 10^6/ul (4.70-6.10) Hemoglobin 7.9 g/dl (14.0-18.0) Hematocrit 25.5 % (42.0-52.0) Mean Corpuscular Volume 94.4 fl (82.0-101.0) Mean Corpuscular Hemoglobin 29.3 pg (29.0-33.0) Mean Corpuscular Hemoglobin Concent 31.0 g/dl (32.0-37.0) Red Cell Distribution Width 14.1 % (11.5-14.5) Platelet Count 196 10^3/UL (140-415) Mean Platelet Volume 10.7 fl (7.4-10.4) Immature Granulocytes % 0.600 % (0.001-0.429) Neutrophils % 73.9 % (39.0-77.0) Lymphocytes % 18.0 % (15.0-51.0) Monocytes % 5.6 % (0.0-11.0) Eosinophils % 1.5 % (0.0-7.0) Basophils % 0.4 % (0.0-2.0) Nucleated Red Blood Cells % 0.0 /100WBC (0.0-0.0) Immature Granulocytes # 0.030 10^3/ul (0.0-0.031) Neutrophils # 3.9 10^3/ul (1.6-7.5) Lymphocytes # 1.0 10^3/ul (0.8-2.9) Monocytes # 0.3 10^3/ul (0.3-0.9) Eosinophils # 0.1 10^3/ul (0.0-0.5) Basophils # 0.0 10^3/ul (0.0-0.1) Nucleated Red Blood Cells # 0.0 10^3/ul (0.0-0.0) Sodium Level 140 mmol/L (135-144) Potassium Level 3.8 mmol/L (3.5-5.1) Chloride Level 106 mmol/L (97-110) Carbon Dioxide Level 33 mmol/L (21-31) Anion Gap 1 (5-13) Blood Urea Nitrogen 13 mg/dl (7-20) Creatinine 0.52 mg/dl (0.61-1.24) Est Glomerular Filtrat Rate mL/min > 60 mL/min (>60) Glucose Level 118 mg/dl (70-220) Calcium Level 8.1 mg/dl (8.4-10.2) Vancomycin Level Trough 17.5 ug/ml (10.0-20.0) MICHELLE EUGENE Dec 04, 2018 00:07
== END 2018-12-03 20:16 | DRG 870 ==
LOC: E/R 20:32 → ICU 21:21 → TEL 11-01 20:14
PROVIDERS: ADMIT Internal Medicine; ATTEND Internal Medicine
PROC: 5A1955Z Respiratory Ventilation, Greater than 96 Consecutive Hours (ICD-10-PCS; principal; 2018-10-31)
PROC: 0T2BX0Z Change Drainage Device in Bladder, External Approach (ICD-10-PCS; 2018-11-25)
DX: A41.9 Sepsis, unspecified organism (principal); G82.50 Quadriplegia, unspecified; G93.41 Metabolic encephalopathy; J18.9 Pneumonia, unspecified organism; J96.10 Chronic respiratory failure, unspecified whether with hypoxia or hypercapnia; N17.9 Acute kidney failure, unspecified; E44.0 Moderate protein-calorie malnutrition; N13.6 Pyonephrosis; Z99.11 Dependence on respirator [ventilator] status; L89.151 Pressure ulcer of sacral region, stage 1; I25.10 Atherosclerotic heart disease of native coronary artery without angina pectoris; I25.2 Old myocardial infarction; I10 Essential (primary) hypertension; R13.10 Dysphagia, unspecified; H17.9 Unspecified corneal scar and opacity; H54.61 Unqualified visual loss, right eye, normal vision left eye; R65.20 Severe sepsis without septic shock; T83.021A Displacement of indwelling urethral catheter, initial encounter; Y84.6 Urinary catheterization as the cause of abnormal reaction of the patient, or of later complication, without mention of misadventure at the time of the procedure; Y92.238 Other place in hospital as the place of occurrence of the external cause; M24.50 Contracture, unspecified joint; Z66 Do not resuscitate; Z68.20 Body mass index [BMI] 20.0-20.9, adult; Z93.1 Gastrostomy status; Z93.0 Tracheostomy status
CPT/HCPCS: 36415; 36430; 36600; 71045; 74018; 74176; 74178; 78806; 80048; 80053; 80200; 80202; 81001; 82565; 82803; 83605; 83690; 84145; 84153; 84154; 84484; 84520; 85025; 85610; 85651; 85730; 86038; 86078; 86140; 86430; 86644; 86850; 86900; 86901; 86920; 87040; 87070; 87075; 87081; 87086; 89220; 93005; 94002; 94003; 94640; 96374; A9570; J0692; J1650; J2185; J3260; J3370; J7030; J7050; J7070; P9016; Q4081; Q9967